=== PATIENT | male | born 1940 | race Caucasian/White ===

== ENCOUNTER 2019-02-28 10:10 | Inpatient (IN) | payer OTHER ==
--- NOTE | 2019-02-28 11:20 | PDOC ---
History of Present Illness - General Chief Complaint: Wound Stated Complaint: SENT BY PCP // CELLULTIS RT TMA Time Seen by Provider: 02/28/19 10:38 History Source: Patient - History of Present Illness Initial Comments: 78 y/o/m sent here from the wound care clinic for admission for IV antibiotics. He was seen in the wound care clinic yesterday and told to come to the ED for admission. Yesterday the patient decided to go home so he could get his clothes and came back today for admission. He states that about 4 months ago he had all the toes on his right foot amputated. He states he has been following up for care since then but his wound has not been healing well. He denies having any pain in his foot. He uses an offloading shoe for his right foot. He denies any fever, chills, chest pain, SOB, or other concerns. PMHx: HTN, DM, GERD, gout, ?CHF SHx: amputation of all toes of right foot Social: Past tobacco use, denies current tobacco and alcohol use Past History - Past Medical History Allergies/Adverse Reactions: Allergies Allergy/AdvReac Type Severity Reaction Status Date / Time No Known Allergies Allergy Verified 02/28/19 10:28 Home Medications: Ambulatory Orders Allopurinol [Zyloprim -] 1 tab PO DAILY 03/04/18 Aspirin [ASA -] 1 tab PO DAILY 03/04/18 Atorvastatin Ca [Lipitor] 1 tab PO DAILY 03/04/18 Calcitriol [Calcitriol -] 1 tab PO DAILY 03/04/18 Esomeprazole Magnesium 1 cap PO DAILY 03/04/18 Ferrous Sulfate 1 tab PO Q2D 03/04/18 Glipizide Xl [Glucotrol Xl -] 1 tab PO DAILY 03/04/18 Pregabalin [Lyrica] 1 cap PO HS 03/04/18 Spironolactone 1 tab PO DAILY 03/04/18 Tamsulosin HCl 1 cap PO DAILY 03/04/18 Diabetes: Yes HTN: Yes Hypercholesterolemia: Yes - Surgical History Cardiac Surgery: Yes (pacemaker 05/2012) - Suicide/Smoking/Psychosocial Hx Smoking History: Never smoked If you are a former smoker, when did you quit?: 40 years ago Review of Systems - Review of Systems Able to Perform ROS?: Yes Constitutional: No: Chills, Fever HEENTM: No: Nose Congestion Respiratory: No: Cough, Shortness of Breath Cardiac (ROS): No: Chest Pain ABD/GI: No: Diarrhea, Nausea, Vomiting : No: Dysuria, Hematuria Musculoskeletal: Yes: Joint Pain Integumentary: Yes: Erythema (right foot) Neurological: No: Headache, Numbness Endocrine: Yes: Excessive Sweating *Physical Exam - Vital Signs Last Vital Signs Temp Pulse Resp BP Pulse Ox 98.2 F 72 16 84/45 L 99 02/28/19 10:15 02/28/19 10:15 02/28/19 10:15 02/28/19 10:15 02/28/19 10:15 - Physical Exam General Appearance: Yes: Nourished HEENT: positive: EOMI Neck: positive: Trachea midline, Supple Respiratory/Chest: positive: Lungs Clear. negative: Accessory Muscle Use, Crackles, Rales, Rhonchi Cardiovascular: positive: Regular Rhythm, Regular Rate, S1, S2 Gastrointestinal/Abdominal: positive: Normal Bowel Sounds, Soft. negative: Tender Extremity: positive: Normal Capillary Refill, Swelling (2+ non pitting edema of right lower leg) Integumentary: positive: Dry, Other (erythema and warmth of right foot. open wound with pus, drainage, and foul odor. no tenderness to palpation) Neurologic: positive: Fully Oriented, Alert, Motor Strength 5/5 ED Treatment Course - LABORATORY CBC & Chemistry Diagram: 02/28/19 10:35 02/28/19 11:27 Medical Decision Making - Medical Decision Making 02/28/19 12:04 78 y/o/m sent here from the wound care clinic for admission for IV antibiotics. He was seen in the wound care clinic yesterday and told to come to the ED for admission. CBC, CMP, wound culture, CXR, EKG ordered. ID, Vascular, Podiatry consulted. Patient admitted under Dr. Pimentel. Vanc/Zosyn abx started. 02/28/19 12:07 CBC shows elevated WBC, mild anemia. CMP pending. *DC/Admit/Observation/Transfer Diagnosis at time of Disposition: Cellulitis of right foot - Referrals - Patient Instructions - Post Discharge Activity
[2019-02-28] MEDS ORDERED: VANCOMYCIN 1 GM in D5W (PRE-DOCKED) 1,000 MG/250 ML IVPB ONE (11:47)
[2019-02-28] MEDS ORDERED: PIPERACILLIN/TAZOB 4.5 GM 4.5 GM in DEXTROSE 5%-WATER 100 ML IVPB ONE (11:48)
[2019-02-28 11:53] LABS: BASO % 1.1 % (0-2.0); EOS % 1.4 % (0-4.5); HEMATOCRIT 35.5 % (35.4-49); HEMOGLOBIN 11.1 GM/dL (11.7-16.9); LYMPH % 13.3 % (8-40); MCH 21.9 pg (25.7-33.7); MCHC 31.2 g/dl (32.0-35.9); MEAN CELL VOLUME 69.9 fl (80-96); MEAN PLT VOLUME 9.4 fl (7.5-11.1); MONO % 9.4 % (3.8-10.2); NEUT % 74.8 % (42.8-82.8); PLATELET COUNT 228 K/MM3 (134-434); RBC 5.08 M/mm3 (4.00-5.60); RDW 17.9 % (11.9-15.9); WHITE BLOOD COUNT 12.8 K/mm3 (4.0-10.0)
[2019-02-28] MEDS ORDERED: VANCOMYCIN 1 GRAM (PRE-DOCKED) 1,000 MG/250 ML BAG IVPB ONE (12:15)
[2019-02-28] MEDS ORDERED: PIPERACILLIN/TAZOB 4.5 GM 4.5 GM/100 ML BAG IVPB ONE (12:15)
[2019-02-28 12:21] LABS: ALBUMIN 3.1 g/dl (3.4-5.0); BILIRUBIN,TOTAL 0.7 mg/dL (0.2-1); BLOOD UREA NITROGEN 40.2 mg/dL (7-18); CALCIUM 8.9 mg/dL (8.5-10.1); CREATININE 1.6 mg/dL (0.55-1.3); POTASSIUM 5.1 mmol/L (3.5-5.1); TOT PROT 6.9 g/dl (6.4-8.2)
--- NOTE | 2019-02-28 12:25 | PDOC ---
Documentation entered by Jane Arana SCRIBE, acting as scribe for Valdemar Meehan MD. Valdemar Meehan MD: This documentation has been prepared by the traciibeSumit Natalie, SCRIBE, under my direction and personally reviewed by me in its entirety. I confirm that the documentation accurately reflects all work, treatment, procedures, and medical decision making performed by me. Attending Attestation - Resident Resident Name: LeenaPerryvigneshcampbell Ambika - ED Attending Attestation I have performed the following: I have examined & evaluated the patient, The case was reviewed & discussed with the resident, I agree w/resident's findings & plan, Exceptions are as noted - HPI HPI: 02/28/19 12:20 The patient is a 78-year-old male, with a past medical history of T2DM, HTN, pacemaker (placed 10 years ago), who was sent to the ED from the wound care center for admission for IV antibiotics. Patient is s/p RT TMA amputation performed [address] Johnson. He was last seen at the wound care center yesterday, but the wound is not healing well so the patient was advised to report to the ED for admission. The patient did not report to the ED yesterday and came today instead. The patient denies any fevers, chills, nausea, vomiting, or diarrhea. He denies any chest pain or shortness of breath. - Physicial Exam PE: 02/28/19 12:20 Vitals: Triage Vital signs reviewed General Appearance: no acute distress, well nourished well developed, Head: Atraumatic, Cardiac: Regular rate and rhythym, no murmurs, no rubs, no gallops, Lungs: Clear to auscultation bilateral, good air movement bilaterally, Abdomen: Soft, non distended, normal bowel sounds, non tender to palpation Genitourinary: Rectal: Exam deferred Extremities: Full range of motion to all extremities, s/p toe amputation with redness and open with with pus to right foot Skin: Warm and dry, no rashes or lesions, no rash, no petechiae Psych: normal mood, normal affect - Medical Decision Making 02/28/19 12:24 78 years old with diabetic foot ulcer Sent to ED by podiatry for IV antibiotics and further management We'll admit to hospitalist for further management start patient on Vanc and Zosyn
--- NOTE | 2019-02-28 13:53 | EKG ---
Test Reason : Blood Pressure : / mmHG Vent. Rate : 068 BPM Atrial Rate : 068 BPM P-R Int : 244 ms QRS Dur : 130 ms QT Int : 444 ms P-R-T Axes : 018 -54 063 degrees QTc Int : 472 ms SINUS RHYTHM WITH 1ST DEGREE A-V BLOCK LEFT AXIS DEVIATION RIGHT BUNDLE BRANCH BLOCK MODERATE VOLTAGE CRITERIA FOR LVH, MAY BE NORMAL VARIANT T WAVE ABNORMALITY, CONSIDER LATERAL ISCHEMIA ABNORMAL ECG NO PREVIOUS ECGS AVAILABLE Confirmed by ALYSSA LARES MD ([id number]) on 02/28/2019 1:52:41 PM Referred By: Confirmed By:ALYSSA LARES MD
--- NOTE | 2019-02-28 14:01 | CON.ID ---
Consult - Past Medical History Cardio/Vascular: Yes: HTN Endocrine: Yes: Diabetes Mellitus - Past Surgical History Past Surgical History: Yes: Permanent Pacemaker - Smoking History Smoking history: Never smoked If you are a former smoker, when did you quit?: 40 years ago Home Medications - Allergies Allergies/Adverse Reactions: Allergies Allergy/AdvReac Type Severity Reaction Status Date / Time No Known Allergies Allergy Verified 02/28/19 10:28 - Home Medications Home Medications: Ambulatory Orders Allopurinol [Zyloprim -] 1 tab PO DAILY 03/04/18 Aspirin [ASA -] 1 tab PO DAILY 03/04/18 Atorvastatin Ca [Lipitor] 1 tab PO DAILY 03/04/18 Calcitriol [Calcitriol -] 1 tab PO DAILY 03/04/18 Esomeprazole Magnesium 1 cap PO DAILY 03/04/18 Ferrous Sulfate 1 tab PO Q2D 03/04/18 Glipizide Xl [Glucotrol Xl -] 1 tab PO DAILY 03/04/18 Pregabalin [Lyrica] 1 cap PO HS 03/04/18 Spironolactone 1 tab PO DAILY 03/04/18 Tamsulosin HCl 1 cap PO DAILY 03/04/18 Physical Exam Vital Signs: Vital Signs Temperature 98.2 F 02/28/19 10:15 Pulse Rate 72 02/28/19 10:15 Respiratory Rate 16 02/28/19 10:15 Blood Pressure 140/57 L 02/28/19 11:11 O2 Sat by Pulse Oximetry (%) 99 02/28/19 10:15 Labs: CBC, BMP 02/28/19 10:35 02/28/19 11:27
--- NOTE | 2019-02-28 15:20 | CONSULT ---
- Consultation REQUESTING PROVIDER: CONSULT REQUEST: We have been asked to surgically evaluate this patient for ( specify). PCP:Maribel Pimentel HISTORY OF PRESENT ILLNESS: 78 y/o/ m w/ PMHx HTN, NIDDM, GERD, GOUT, ?CHF, sent from wound care by Dr Johnson for admission for IV antibiotics. Pt reports he had a R TMA 4 months ago at [facility] for infected toes. He was following up with his DPM for a few weeks afterwards, but has not seen him "for a long time". Was seen yesterday and told to go to the ER as his foot is infected. Reports he has been walking on his foot which caused the site to open, though he cannot remember when it opened up. Denies fevers/chills, n/v/d, cp/sob at home. At baseline pt lives on his own, reports he has "help" at home from various family members. Ambulates with b/l offloading shoes and the use of a rolling walker. Denies h/o tobacco abuse, claudication or vascular interventions. PMHx: as above PSHx: as above Home Medications Medication Instructions Recorded Allopurinol [Zyloprim -] 1 tab PO DAILY 03/04/18 Aspirin [ASA -] 1 tab PO DAILY 03/04/18 Atorvastatin Ca [Lipitor] 1 tab PO DAILY 03/04/18 Calcitriol [Calcitriol -] 1 tab PO DAILY 03/04/18 Esomeprazole Magnesium 1 cap PO DAILY 03/04/18 Ferrous Sulfate 1 tab PO Q2D 03/04/18 Glipizide Xl [Glucotrol Xl -] 1 tab PO DAILY 03/04/18 Pregabalin [Lyrica] 1 cap PO HS 03/04/18 Spironolactone 1 tab PO DAILY 03/04/18 Tamsulosin HCl 1 cap PO DAILY 03/04/18 Allergies Allergy/AdvReac Type Severity Reaction Status Date / Time No Known Allergies Allergy Verified 02/28/19 10:28 REVIEW OF SYSTEMS: CONSTITUTIONAL: Absent: fever, chills CARDIOVASCULAR: Absent: chest pain, syncope RESPIRATORY: Absent: cough, shortness of breath GASTROINTESTINAL: Absent: abdominal pain PHYSICAL EXAM: GENERAL: Awake, alert, and fully oriented, in no acute distress. HEAD: Normal with no signs of trauma. LOWER EXTREMITIES: L foot with no ulcerations. R foot with open TMA site, necrotic tendons exposed, +slough over mid portion of foot. + erythema extending to mid foot on plantar and dorsal surface. Vasc: 2+ dp/pt b/l, warm, well-perfused. Vital Signs Temperature 98.2 F 02/28/19 10:15 Pulse Rate 72 02/28/19 10:15 Respiratory Rate 16 02/28/19 10:15 Blood Pressure 140/57 L 02/28/19 11:11 O2 Sat by Pulse Oximetry (%) 99 02/28/19 10:15 Lab Results WBC 12.8 K/mm3 (4.0-10.0) H 02/28/19 10:35 RBC 5.08 M/mm3 (4.00-5.60) 02/28/19 10:35 Hgb 11.1 GM/dL (11.7-16.9) L 02/28/19 10:35 Hct 35.5 % (35.4-49) 02/28/19 10:35 MCV 69.9 fl (80-96) L 02/28/19 10:35 MCHC 31.2 g/dl (32.0-35.9) L 02/28/19 10:35 RDW 17.9 % (11.9-15.9) H 02/28/19 10:35 Plt Count 228 K/MM3 (134-434) 02/28/19 10:35 Sodium 135 mmol/L (136-145) L 02/28/19 11:27 Potassium 5.1 mmol/L (3.5-5.1) 02/28/19 11:27 Chloride 101 mmol/L (98-107) 02/28/19 11:27 Carbon Dioxide 26 mmol/L (21-32) 02/28/19 11:27 Anion Gap 8 MMOL/L (8-16) 02/28/19 11:27 BUN 40.2 mg/dL (7-18) H 02/28/19 11:27 Creatinine 1.6 mg/dL (0.55-1.3) H 02/28/19 11:27 Random Glucose 125 mg/dL (74-106) H 02/28/19 11:27 Calcium 8.9 mg/dL (8.5-10.1) 09/13/19 11:27 A/P: 78 y/o/ m w/ PMHx HTN, NIDDM, GERD, GOUT, ?CHF, sent from wound care by Dr Johnson for admission for IV antibiotics. Infected R TMA. Palpable pedal pulses -No acute vascular intervention at this time -Wound care and surgical management per podiatry -Glucose control d/w attending Dr Nolen
[2019-02-28] MEDS: PIPERACILLIN/TAZOB 2.25 GM 2.25 GM in DEXTROSE 5%-WATER - 50 ML IVPB SCH ×2 (15:53→21:42)
[2019-02-28 17:06] VITALS: BMI 42.5
[2019-02-28 18:27] LABS: ANISOCYTOSIS 2+; MACROCYTOSIS 0; OVALOCYTE 1+; PLATELET ESTIMATE NORMAL; TEAR DROP CELLS 1+
[2019-02-28] MEDS ORDERED: PIPERACILLIN/TAZOBACTAM 2.25 GM VIAL IVPB ONE (21:04)
[2019-02-28] MEDS ORDERED: DEXTROSE 5%-WATER - 50 ML IVPB ONE (21:04)
[2019-02-28 21:50] LABS: BASO % 0.5 % (0-2.0); HEMOGLOBIN 11.7 GM/dL (11.7-16.9); LYMPH % 15.9 % (8-40); MCH 22.3 pg (25.7-33.7); MCHC 31.6 g/dl (32.0-35.9); MEAN CELL VOLUME 70.7 fl (80-96); MEAN PLT VOLUME 9.8 fl (7.5-11.1); MONO % 10.2 % (3.8-10.2); NEUT % 71.4 % (42.8-82.8); PLATELET COUNT 226 K/MM3 (134-434); RBC 5.23 M/mm3 (4.00-5.60); RDW 18.1 % (11.9-15.9); WHITE BLOOD COUNT 10.7 K/mm3 (4.0-10.0)
[2019-03-01] MEDS ORDERED: PIPERACILLIN/TAZOB 3.375 GM 3.375 GM in DEXTROSE 5%-WATER - 50 ML IVPB SCH (02:15)
[2019-03-01] MEDS: VANCOMYCIN 1 GRAM (PRE-DOCKED) 1,000 MG/250 ML BAG IVPB SCH ×2 (02:30→13:36)
[2019-03-01] MEDS ORDERED: PIPERACILLIN/TAZOBACTAM 2.25 GM VIAL IVPB ONE ×4 (02:41→21:03)
[2019-03-01] MEDS ORDERED: DEXTROSE 5%-WATER - 50 ML IVPB ONE ×4 (02:41→21:03)
[2019-03-01] MEDS: PIPERACILLIN/TAZOB 2.25 GM 2.25 GM in DEXTROSE 5%-WATER - 50 ML IVPB SCH ×4 (03:50→21:16)
[2019-03-01] MEDS: INSULIN SLIDING SCALE (NOVOLOG) 1 VIAL SQ SCH ×4 (06:31→21:17)
[2019-03-01] MEDS: glipiZIDE-XL 2.5 MG TAB.ER.24 PO SCH (06:48)
[2019-03-01 07:13] LABS: BASO % 0.7 % (0-2.0); EOS % 2.6 % (0-4.5); HEMATOCRIT 36.6 % (35.4-49); HEMOGLOBIN 11.7 GM/dL (11.7-16.9); LYMPH % 17.3 % (8-40); MCH 22.4 pg (25.7-33.7); MCHC 31.9 g/dl (32.0-35.9); MEAN CELL VOLUME 70.3 fl (80-96); MEAN PLT VOLUME 9.4 fl (7.5-11.1); MONO % 9.8 % (3.8-10.2); NEUT % 69.6 % (42.8-82.8); PLATELET COUNT 226 K/MM3 (134-434); RDW 18.2 % (11.9-15.9); WHITE BLOOD COUNT 10.2 K/mm3 (4.0-10.0)
[2019-03-01 07:41] LABS: ALBUMIN 2.9 g/dl (3.4-5.0); BILIRUBIN,TOTAL 0.9 mg/dL (0.2-1); CALCIUM 8.7 mg/dL (8.5-10.1); CREATININE 1.6 mg/dL (0.55-1.3); POTASSIUM 4.3 mmol/L (3.5-5.1); TOT PROT 6.5 g/dl (6.4-8.2)
--- NOTE | 2019-03-01 07:57 | CONSULT ---
Consult Consult Specialty:: Podiatry Reason for Consultation:: wound right foot - History of Present Illness History of Present Illness: s/p tma 4 months ago - History Source History Provided By: Patient, Medical Record, Caregiver Limitations to Obtaining History: Other (poor undrstanding of disease) - Past Medical History Cardio/Vascular: Yes: HTN Endocrine: Yes: Diabetes Mellitus - Past Surgical History Past Surgical History: Yes: Permanent Pacemaker - Alcohol/Substance Use Hx Alcohol Use: No - Smoking History Smoking history: Never smoked Have you smoked in the past 12 months: No If you are a former smoker, when did you quit?: 40 years ago Home Medications - Allergies Allergies/Adverse Reactions: Allergies Allergy/AdvReac Type Severity Reaction Status Date / Time No Known Allergies Allergy Verified 02/28/19 10:28 - Home Medications Home Medications: Ambulatory Orders Allopurinol [Zyloprim -] 1 tab PO DAILY 03/04/18 Aspirin [ASA -] 1 tab PO DAILY 03/04/18 Atorvastatin Ca [Lipitor] 1 tab PO DAILY 03/04/18 Calcitriol [Calcitriol -] 1 tab PO DAILY 03/04/18 Esomeprazole Magnesium 1 cap PO DAILY 03/04/18 Ferrous Sulfate 1 tab PO Q2D 03/04/18 Glipizide Xl [Glucotrol Xl -] 1 tab PO DAILY 03/04/18 Pregabalin [Lyrica] 100 mg PO HS 03/04/18 Spironolactone 1 tab PO DAILY 03/04/18 Tamsulosin HCl 1 cap PO DAILY 03/04/18 Acetaminophen [Tylenol -] 500 mg PO Q6H PRN 02/28/19 Allopurinol [Zyloprim -] 100 mg PO DAILY 02/28/19 Aspirin [ASA -] 81 mg PO DAILY 02/28/19 Carvedilol [ Coreg] 25 mg PO BID 02/28/19 Multivitamin [Multiple Vitamins] 1 tab PO DAILY 02/28/19 Rivaroxaban [Xarelto] 15 mg PO BID 02/28/19 Torsemide 40 mg PO BID 02/28/19 Physical Exam Vital Signs: Vital Signs Temperature 98.1 F 03/01/19 05:56 Pulse Rate 64 03/01/19 05:56 Respiratory Rate 20 03/01/19 05:56 Blood Pressure 116/61 03/01/19 05:56 O2 Sat by Pulse Oximetry (%) 96 02/28/19 20:48 Extremities: Yes: Other (+foul smelling wound right foot, +clear drainage, + cellulitis improving since ,) Labs: CBC, BMP 03/01/19 06:44 03/01/19 06:44 Assessment/Plan om? s/p tma Awaiting xray and MRI to take to OR and revise/clean wound area. Read and appreciated vascular note. Betadine dressing to foot. Please maximize for OR most likely on Sunday AM. will follow. Abx as per ID. WBC improving.
[2019-03-01] MEDS: TAMSULOSIN HCL 0.4 MG CAP PO SCH (08:24)
[2019-03-01] MEDS: MULTIVITAMINS (DAILY MVI) TABLET (FP) PO SCH (09:54)
[2019-03-01] MEDS: ASPIRIN 81 MG CHEWABLE TABLETS PO SCH (09:54)
[2019-03-01] MEDS: SPIRONOLACTONE 25 MG TABLET (FP) PO SCH (09:54)
[2019-03-01] MEDS: CARVEDILOL 25 MG TABLET (FP) PO SCH ×2 (09:54→21:17)
[2019-03-01] MEDS: ALLOPURINOL 100 MG TABLET (FP) PO SCH (09:54)
[2019-03-01] MEDS: RIVAROXABAN 15 MG TABLET PO SCH ×2 (09:54→21:17)
[2019-03-01] MEDS: FERROUS SO4 325 MG TABLET (FP) PO SCH (09:54)
[2019-03-01] MEDS: CALCITRIOL 0.25 MCG CAPSULE (FP) PO SCH (09:57)
[2019-03-01] MEDS ORDERED: PATIENT'S OWN MEDICATION (NON-FORMULARY) (Ferrous Sulfate [Ferrous Sulfate] 1 TAB) PO SCH (10:00)
[2019-03-01] MEDS ORDERED: CARVEDILOL 25 MG PO SCH (10:00)
[2019-03-01] MEDS: ACETAMINOPHEN 500 MG TABLET (FP) PO PRN ×2 (10:25→17:34)
--- NOTE | 2019-03-01 14:16 | PN ---
Progress Note, Physician History of Present Illness: Pt seen, events noted, results reviewed. He is alert, afebrile, denies pain in foot. Agitated because he feels he is not receiving all the pills he takes at home. Has no other specific complaints. - Current Medication List Current Medications: Active Medications Acetaminophen (Tylenol -) 500 mg PO Q6H PRN PRN Reason: PAIN SCALE 4-6 Last Admin: 03/01/19 10:25 Dose: 500 mg Allopurinol (Zyloprim -) 100 mg PO DAILY [facility] Last Admin: 03/01/19 09:54 Dose: 100 mg Aspirin (Asa -) 81 mg PO DAILY [facility] Last Admin: 03/01/19 09:54 Dose: 81 mg Atorvastatin Calcium (Lipitor -) 40 mg PO HS [facility] Calcitriol (Rocaltrol -) 0.25 mcg PO DAILY [facility] Last Admin: 03/01/19 09:57 Dose: 0.25 mcg Carvedilol (Coreg -) 25 mg PO BID [facility] Last Admin: 03/01/19 09:54 Dose: 25 mg Ferrous Sulfate (Feosol -) 325 mg PO Q2D [facility] Last Admin: 03/01/19 09:54 Dose: 325 mg Glipizide (Glucotrol Xl -) 2.5 mg PO DAILY@0700 [facility] Last Admin: 03/01/19 06:48 Dose: 2.5 mg Piperacillin Sod/Tazobactam (Sod 2.25 gm/ Dextrose) 50 mls @ 100 mls/hr IVPB Q6H-IV [facility]; Protocol Last Admin: 03/01/19 08:24 Dose: 100 mls/hr Vancomycin HCl (Vancomycin (Pre-Docked)) 1,000 mg in 250 mls @ 166.667 mls/hr IVPB Q12H [facility] Last Admin: 03/01/19 13:36 Dose: 166.667 mls/hr Insulin Aspart (Novolog Vial Sliding Scale -) 1 vial SQ ACHS [facility]; Protocol Last Admin: 03/01/19 11:44 Dose: Not Given Multivitamins/Minerals/Vitamin C (Tab-A-Vit -) 1 tab PO DAILY [facility] Last Admin: 03/01/19 09:54 Dose: 1 tab Pregabalin (Lyrica -) 100 mg PO HS [facility] Rivaroxaban (Xarelto) 15 mg PO BID [facility] Last Admin: 03/01/19 09:54 Dose: 15 mg Spironolactone (Aldactone -) 25 mg PO DAILY [facility] Last Admin: 03/01/19 09:54 Dose: 25 mg Tamsulosin HCl (Flomax -) 0.4 mg PO DAILY@0830 [facility] Last Admin: 03/01/19 08:24 Dose: 0.4 mg - Objective Vital Signs: Vital Signs Temperature 98.0 F 03/01/19 10:00 Pulse Rate 70 03/01/19 10:00 Respiratory Rate 18 03/01/19 10:00 Blood Pressure 126/77 03/01/19 10:00 O2 Sat by Pulse Oximetry (%) 95 03/01/19 08:42 Constitutional: Yes: No Distress Cardiovascular: Yes: Regular Rate and Rhythm Respiratory: Yes: Regular Gastrointestinal: Yes: Normal Bowel Sounds, Soft Genitourinary: Yes: WNL Extremities: Yes: Amputation (Rt TMA) Peripheral Pulses WNL: Yes Integumentary: Yes: WNL Wound/Incision: Yes: Dressing Dry and Intact (Rt foot TMA, no foot pain) Labs: CBC, BMP 03/01/19 06:44 03/01/19 06:44 Microbiology 02/28/19 12:35 Blood - Peripheral Venous Blood Culture - Preliminary NO GROWTH OBTAINED AFTER 24 HOURS, INCUBATION TO CONTINUE FOR 4 DAYS. 02/28/19 12:45 Blood - Peripheral Venous Blood Culture - Preliminary NO GROWTH OBTAINED AFTER 24 HOURS, INCUBATION TO CONTINUE FOR 4 DAYS. 02/28/19 11:57 Foot - Right Sole Gram Stain - Final 02/28/19 11:57 Foot - Right Sole Wound Culture - Preliminary Non Lactose Fermenting Gnb Staphylococcus Latex Coag Pos Beta Hemolytic Strep - ....Imaging X-ray: Report Reviewed Problem List - Problems (1) Cellulitis of right foot Code(s): L03.115 - CELLULITIS OF RIGHT LOWER LIMB (2) Diabetic foot ulcer Code(s): E11.621 - TYPE 2 DIABETES MELLITUS WITH FOOT ULCER; L97.509 - NON- PRESSURE CHRONIC ULCER OTH PRT UNSP FOOT W UNSP SEVERITY Qualifiers: Diabetic foot ulcer location: other (3) Type 2 diabetes mellitus Code(s): E11.9 - TYPE 2 DIABETES MELLITUS WITHOUT COMPLICATIONS Qualifiers: Diabetes mellitus complication detail: with autonomic neuropathy Assessment/Plan Infected RT TMA site DM HTN s/p PPM CKD Gout GERD -- continue current antibiotics until wound culture results finalized -- Vancomycin trough prior to 4th dose, monitor renal function -- Triple phase bone scan ordered -- Podiatry following, for possible debridement on Sunday -- Vascular evaluation noted -- continue wound care -- please review list of home meds pt normally takes and need for possible continuation, discussed with RN
--- NOTE | 2019-03-01 16:47 | HP ---
Admitting History and Physical - Past Medical History Cardiovascular: Yes: HTN Endocrine: Yes: Diabetes Mellitus - Past Surgical History Past Surgical History: Yes: Permanent Pacemaker - Smoking History Smoking history: Never smoked Have you smoked in the past 12 months: No If you are a former smoker, when did you quit?: 40 years ago - Alcohol/Substance Use Hx Alcohol Use: No Home Medications - Allergies Allergies/Adverse Reactions: Allergies Allergy/AdvReac Type Severity Reaction Status Date / Time No Known Allergies Allergy Verified 02/28/19 10:28 - Home Medications Home Medications: Ambulatory Orders Allopurinol [Zyloprim -] 1 tab PO DAILY 03/04/18 Aspirin [ASA -] 1 tab PO DAILY 03/04/18 Atorvastatin Ca [Lipitor] 1 tab PO DAILY 03/04/18 Calcitriol [Calcitriol -] 1 tab PO DAILY 03/04/18 Esomeprazole Magnesium 1 cap PO DAILY 03/04/18 Ferrous Sulfate 1 tab PO Q2D 03/04/18 Glipizide Xl [Glucotrol Xl -] 1 tab PO DAILY 03/04/18 Pregabalin [Lyrica] 100 mg PO HS 03/04/18 Spironolactone 1 tab PO DAILY 03/04/18 Tamsulosin HCl 1 cap PO DAILY 03/04/18 Acetaminophen [Tylenol -] 500 mg PO Q6H PRN 02/28/19 Allopurinol [Zyloprim -] 100 mg PO DAILY 02/28/19 Aspirin [ASA -] 81 mg PO DAILY 02/28/19 Carvedilol [ Coreg] 25 mg PO BID 02/28/19 Multivitamin [Multiple Vitamins] 1 tab PO DAILY 02/28/19 Rivaroxaban [Xarelto] 15 mg PO BID 02/28/19 Torsemide 40 mg PO BID 02/28/19 Physical Examination Vital Signs: Vital Signs Temperature 98.0 F 03/01/19 10:00 Pulse Rate 70 03/01/19 10:00 Respiratory Rate 18 03/01/19 10:00 Blood Pressure 126/77 03/01/19 10:00 O2 Sat by Pulse Oximetry (%) 95 03/01/19 08:42 Labs: CBC, BMP 03/01/19 06:44 03/01/19 06:44
[2019-03-01] MEDS ORDERED: INSULIN (NOVOLOG) ASPART 100 UNITS/ML 10ML VIAL ONE (21:03)
[2019-03-01] MEDS: PREGABALIN 100 MG CAPSULE PO SCH (21:17)
[2019-03-01] MEDS: ATORVASTATIN CA 40 MG TABLET (FP) PO SCH (21:17)
[2019-03-02] MEDS ORDERED: DEXTROSE 5%-WATER - 50 ML IVPB ONE ×4 (02:34→20:49)
[2019-03-02] MEDS ORDERED: PIPERACILLIN/TAZOBACTAM 2.25 GM VIAL IVPB ONE ×4 (02:34→20:49)
[2019-03-02] MEDS: PIPERACILLIN/TAZOB 2.25 GM 2.25 GM in DEXTROSE 5%-WATER - 50 ML IVPB SCH ×4 (02:50→21:17)
[2019-03-02] MEDS: VANCOMYCIN 1 GRAM (PRE-DOCKED) 1,000 MG/250 ML BAG IVPB SCH ×2 (02:50→14:37)
[2019-03-02] MEDS ORDERED: PT OWN MED DRAWER 7, Y5N ONE (05:50)
[2019-03-02] MEDS: INSULIN SLIDING SCALE (NOVOLOG) 1 VIAL SQ SCH ×4 (06:15→21:15)
[2019-03-02] MEDS: glipiZIDE-XL 2.5 MG TAB.ER.24 PO SCH (06:48)
[2019-03-02] MEDS: ACETAMINOPHEN 500 MG TABLET (FP) PO PRN ×2 (06:48→21:18)
[2019-03-02] MEDS: CARVEDILOL 25 MG TABLET (FP) PO SCH ×2 (09:48→21:17)
[2019-03-02] MEDS: ALLOPURINOL 100 MG TABLET (FP) PO SCH (09:48)
[2019-03-02] MEDS: ASPIRIN 81 MG CHEWABLE TABLETS PO SCH (09:48)
[2019-03-02] MEDS: RIVAROXABAN 15 MG TABLET PO SCH ×2 (09:48→21:18)
[2019-03-02] MEDS: SPIRONOLACTONE 25 MG TABLET (FP) PO SCH (09:48)
[2019-03-02] MEDS: CALCITRIOL 0.25 MCG CAPSULE (FP) PO SCH (09:49)
[2019-03-02] MEDS: TAMSULOSIN HCL 0.4 MG CAP PO SCH (09:49)
[2019-03-02] MEDS: MULTIVITAMINS (DAILY MVI) TABLET (FP) PO SCH (09:50)
--- NOTE | 2019-03-02 19:33 | PN ---
Progress Note, Physician History of Present Illness: Pt is alert, denies pain in Rt foot. Tolerating antibiotics. No new events. - Current Medication List Current Medications: Active Medications Acetaminophen (Tylenol -) 500 mg PO Q6H PRN PRN Reason: PAIN SCALE 4-6 Last Admin: 03/02/19 06:48 Dose: 500 mg Allopurinol (Zyloprim -) 100 mg PO DAILY [facility] Last Admin: 03/02/19 09:48 Dose: 100 mg Aspirin (Asa -) 81 mg PO DAILY [facility] Last Admin: 03/02/19 09:48 Dose: 81 mg Atorvastatin Calcium (Lipitor -) 40 mg PO HS [facility] Last Admin: 03/01/19 21:17 Dose: 40 mg Calcitriol (Rocaltrol -) 0.25 mcg PO DAILY [facility] Last Admin: 03/02/19 09:49 Dose: 0.25 mcg Carvedilol (Coreg -) 25 mg PO BID [facility] Last Admin: 03/02/19 09:48 Dose: 25 mg Ferrous Sulfate (Feosol -) 325 mg PO Q2D [facility] Last Admin: 03/01/19 09:54 Dose: 325 mg Glipizide (Glucotrol Xl -) 2.5 mg PO DAILY@0700 [facility] Last Admin: 03/02/19 06:48 Dose: 2.5 mg Piperacillin Sod/Tazobactam (Sod 2.25 gm/ Dextrose) 50 mls @ 100 mls/hr IVPB Q6H-IV [facility]; Protocol Last Admin: 03/02/19 16:12 Dose: 100 mls/hr Vancomycin HCl (Vancomycin (Pre-Docked)) 1,000 mg in 250 mls @ 166.667 mls/hr IVPB Q12H [facility] Last Admin: 03/02/19 14:37 Dose: 166.667 mls/hr Insulin Aspart (Novolog Vial Sliding Scale -) 1 vial SQ ACHS [facility]; Protocol Last Admin: 03/02/19 16:15 Dose: Not Given Multivitamins/Minerals/Vitamin C (Tab-A-Vit -) 1 tab PO DAILY [facility] Last Admin: 03/02/19 09:50 Dose: 1 tab Pregabalin (Lyrica -) 100 mg PO HS [facility] Last Admin: 03/01/19 21:17 Dose: 100 mg Rivaroxaban (Xarelto) 15 mg PO BID [facility] Last Admin: 03/02/19 09:48 Dose: 15 mg Spironolactone (Aldactone -) 25 mg PO DAILY [facility] Last Admin: 03/02/19 09:48 Dose: 25 mg Tamsulosin HCl (Flomax -) 0.4 mg PO DAILY@0830 [facility] Last Admin: 03/02/19 09:49 Dose: 0.4 mg Torsemide (Demadex -) 20 mg PO BIDLASIX [facility] - Objective Vital Signs: Vital Signs Temperature 98 F 03/02/19 08:48 Pulse Rate 66 03/02/19 08:48 Respiratory Rate 18 03/02/19 09:00 Blood Pressure 139/83 03/02/19 08:48 O2 Sat by Pulse Oximetry (%) 95 03/02/19 09:00 Constitutional: Yes: No Distress, Calm Cardiovascular: Yes: Regular Rate and Rhythm Respiratory: Yes: Regular Gastrointestinal: Yes: Normal Bowel Sounds, Soft Genitourinary: Yes: WNL Extremities: Yes: Amputation (RT TMA) Edema: Yes Edema: LLE: 1+ Wound/Incision: Yes: Dressing Dry and Intact, Other (RT TMA, +foot erythema/ edema, no tenderness) Labs: CBC, BMP 03/01/19 06:44 03/01/19 06:44 Microbiology 02/28/19 12:35 Blood - Peripheral Venous Blood Culture - Preliminary NO GROWTH OBTAINED AFTER 48 HOURS, INCUBATION TO CONTINUE FOR 3 DAYS. 02/28/19 12:45 Blood - Peripheral Venous Blood Culture - Preliminary NO GROWTH OBTAINED AFTER 48 HOURS, INCUBATION TO CONTINUE FOR 3 DAYS. 02/28/19 11:57 Foot - Right Sole Gram Stain - Final 02/28/19 11:57 Foot - Right Sole Wound Culture - Preliminary Citrobacter Amalonaticus Staphylococcus Aureus Beta Hemolytic Strep Problem List - Problems (1) Cellulitis of right foot Code(s): L03.115 - CELLULITIS OF RIGHT LOWER LIMB (2) Diabetic foot ulcer Code(s): E11.621 - TYPE 2 DIABETES MELLITUS WITH FOOT ULCER; L97.509 - NON- PRESSURE CHRONIC ULCER OTH PRT UNSP FOOT W UNSP SEVERITY Qualifiers: Diabetic foot ulcer location: other (3) Type 2 diabetes mellitus Code(s): E11.9 - TYPE 2 DIABETES MELLITUS WITHOUT COMPLICATIONS Qualifiers: Diabetes mellitus complication detail: with autonomic neuropathy Assessment/Plan Infected RT TMA site DM HTN s/p PPM CKD Gout GERD -- continue IV antibiotics -- Vancomycin trough ordered for tomorrow -- monitor renal function -- awaiting Triple phase bone scan -- Podiatry following, for possible debridement on Sunday -- Vascular evaluation noted -- continue wound care
[2019-03-02] MEDS: PREGABALIN 100 MG CAPSULE PO SCH (21:17)
[2019-03-02] MEDS: ATORVASTATIN CA 40 MG TABLET (FP) PO SCH (21:18)
--- NOTE | 2019-03-02 23:17 | PN ---
Progress Note, Physician - Current Medication List Current Medications: Active Medications Acetaminophen (Tylenol -) 500 mg PO Q6H PRN PRN Reason: PAIN SCALE 4-6 Last Admin: 03/02/19 21:18 Dose: 500 mg Allopurinol (Zyloprim -) 100 mg PO DAILY [facility] Last Admin: 03/02/19 09:48 Dose: 100 mg Aspirin (Asa -) 81 mg PO DAILY [facility] Last Admin: 03/02/19 09:48 Dose: 81 mg Atorvastatin Calcium (Lipitor -) 40 mg PO HS [facility] Last Admin: 03/02/19 21:18 Dose: 40 mg Calcitriol (Rocaltrol -) 0.25 mcg PO DAILY [facility] Last Admin: 03/02/19 09:49 Dose: 0.25 mcg Carvedilol (Coreg -) 25 mg PO BID [facility] Last Admin: 03/02/19 21:17 Dose: 25 mg Ferrous Sulfate (Feosol -) 325 mg PO Q2D [facility] Last Admin: 03/01/19 09:54 Dose: 325 mg Glipizide (Glucotrol Xl -) 2.5 mg PO DAILY@0700 [facility] Last Admin: 03/02/19 06:48 Dose: 2.5 mg Piperacillin Sod/Tazobactam (Sod 2.25 gm/ Dextrose) 50 mls @ 100 mls/hr IVPB Q6H-IV [facility]; Protocol Last Admin: 03/02/19 21:17 Dose: 100 mls/hr Vancomycin HCl (Vancomycin (Pre-Docked)) 1,000 mg in 250 mls @ 166.667 mls/hr IVPB Q12H [facility] Last Admin: 03/02/19 14:37 Dose: 166.667 mls/hr Insulin Aspart (Novolog Vial Sliding Scale -) 1 vial SQ ACHS [facility]; Protocol Last Admin: 03/02/19 21:15 Dose: Not Given Multivitamins/Minerals/Vitamin C (Tab-A-Vit -) 1 tab PO DAILY [facility] Last Admin: 03/02/19 09:50 Dose: 1 tab Pregabalin (Lyrica -) 100 mg PO HS [facility] Last Admin: 03/02/19 21:17 Dose: 100 mg Rivaroxaban (Xarelto) 15 mg PO BID [facility] Last Admin: 03/02/19 21:18 Dose: 15 mg Spironolactone (Aldactone -) 25 mg PO DAILY [facility] Last Admin: 03/02/19 09:48 Dose: 25 mg Tamsulosin HCl (Flomax -) 0.4 mg PO DAILY@0830 [facility] Last Admin: 03/02/19 09:49 Dose: 0.4 mg Torsemide (Demadex -) 20 mg PO BIDLASIX [facility] - Objective Vital Signs: Vital Signs Temperature 97.8 F 03/02/19 19:00 Pulse Rate 62 03/02/19 19:00 Respiratory Rate 20 03/02/19 21:00 Blood Pressure 145/89 03/02/19 19:00 O2 Sat by Pulse Oximetry (%) 96 03/02/19 21:00 Labs: CBC, BMP 03/01/19 06:44 03/01/19 06:44
[2019-03-03] MEDS ORDERED: PIPERACILLIN/TAZOBACTAM 2.25 GM VIAL IVPB ONE ×4 (02:33→19:58)
[2019-03-03] MEDS ORDERED: DEXTROSE 5%-WATER - 50 ML IVPB ONE ×4 (02:33→19:58)
[2019-03-03] MEDS: PIPERACILLIN/TAZOB 2.25 GM 2.25 GM in DEXTROSE 5%-WATER - 50 ML IVPB SCH ×4 (02:43→20:38)
[2019-03-03] MEDS: VANCOMYCIN 1 GRAM (PRE-DOCKED) 1,000 MG/250 ML BAG IVPB SCH ×2 (02:43→13:39)
[2019-03-03] MEDS ORDERED: PT OWN MED DRAWER 7, Y5N ONE (05:34)
[2019-03-03] MEDS: TORSEMIDE 20 MG TABLET (FP) PO SCH ×2 (05:47→13:39)
[2019-03-03] MEDS: glipiZIDE-XL 2.5 MG TAB.ER.24 PO SCH (06:19)
[2019-03-03] MEDS: INSULIN SLIDING SCALE (NOVOLOG) 1 VIAL SQ SCH ×4 (06:19→21:30)
[2019-03-03 06:57] LABS: BASO % 0.7 % (0-2.0); EOS % 3.2 % (0-4.5); HEMATOCRIT 37.5 % (35.4-49); HEMOGLOBIN 11.9 GM/dL (11.7-16.9); LYMPH % 21.5 % (8-40); MCH 22.4 pg (25.7-33.7); MCHC 31.7 g/dl (32.0-35.9); MEAN CELL VOLUME 70.7 fl (80-96); MEAN PLT VOLUME 9.4 fl (7.5-11.1); MONO % 8.8 % (3.8-10.2); NEUT % 65.8 % (42.8-82.8); PLATELET COUNT 245 K/MM3 (134-434); RBC 5.29 M/mm3 (4.00-5.60); RDW 17.8 % (11.9-15.9); WHITE BLOOD COUNT 9.2 K/mm3 (4.0-10.0)
[2019-03-03 07:11] LABS: ALBUMIN 3.1 g/dl (3.4-5.0); BILIRUBIN,TOTAL 0.5 mg/dL (0.2-1); BLOOD UREA NITROGEN 33.7 mg/dL (7-18); CALCIUM 8.8 mg/dL (8.5-10.1); CREATININE 1.7 mg/dL (0.55-1.3); POTASSIUM 4.7 mmol/L (3.5-5.1); TOT PROT 6.9 g/dl (6.4-8.2)
[2019-03-03] MEDS: RIVAROXABAN 15 MG TABLET PO SCH ×2 (09:10→21:36)
[2019-03-03] MEDS: CALCITRIOL 0.25 MCG CAPSULE (FP) PO SCH (09:10)
[2019-03-03] MEDS: TAMSULOSIN HCL 0.4 MG CAP PO SCH (09:10)
[2019-03-03] MEDS: FERROUS SO4 325 MG TABLET (FP) PO SCH (09:10)
[2019-03-03] MEDS: ASPIRIN 81 MG CHEWABLE TABLETS PO SCH (09:10)
[2019-03-03] MEDS: MULTIVITAMINS (DAILY MVI) TABLET (FP) PO SCH (09:10)
[2019-03-03] MEDS: SPIRONOLACTONE 25 MG TABLET (FP) PO SCH (09:10)
[2019-03-03] MEDS: CARVEDILOL 25 MG TABLET (FP) PO SCH ×2 (09:10→21:30)
[2019-03-03] MEDS: ACETAMINOPHEN 500 MG TABLET (FP) PO PRN ×2 (09:17→21:30)
[2019-03-03] MEDS: ALLOPURINOL 100 MG TABLET (FP) PO SCH (09:18)
--- NOTE | 2019-03-03 11:20 | PN ---
Progress Note (short form) - Note Progress Note: FUV right foot. vss cultures are back, +improved cellulitis, wbc=9.2, +granulation with necrotic tissue noted, -mal odor, om? s/p tma cellulitis Scheduled for bone scan tomorrow. Will debride on sunday possible bone and soft tissue. Reviewed xrays long 2nd and 3rd may need to be revised. Will follow. DC Betadine change to santyl daily.
--- NOTE | 2019-03-03 12:04 | PN ---
Progress Note, Physician History of Present Illness: pain in rt foot plan for surgery on sun - Current Medication List Current Medications: Active Medications Acetaminophen (Tylenol -) 500 mg PO Q6H PRN PRN Reason: PAIN SCALE 4-6 Last Admin: 03/03/19 09:17 Dose: 500 mg Allopurinol (Zyloprim -) 100 mg PO DAILY [facility] Last Admin: 03/03/19 09:18 Dose: 100 mg Aspirin (Asa -) 81 mg PO DAILY [facility] Last Admin: 03/03/19 09:10 Dose: 81 mg Atorvastatin Calcium (Lipitor -) 40 mg PO HS [facility] Last Admin: 03/02/19 21:18 Dose: 40 mg Calcitriol (Rocaltrol -) 0.25 mcg PO DAILY [facility] Last Admin: 03/03/19 09:10 Dose: 0.25 mcg Carvedilol (Coreg -) 25 mg PO BID [facility] Last Admin: 03/03/19 09:10 Dose: 25 mg Collagenase (Santyl -) 1 applic TP DAILY [facility]; Protocol Ferrous Sulfate (Feosol -) 325 mg PO Q2D [facility] Last Admin: 03/03/19 09:10 Dose: 325 mg Glipizide (Glucotrol Xl -) 2.5 mg PO DAILY@0700 [facility] Last Admin: 03/03/19 06:19 Dose: 2.5 mg Piperacillin Sod/Tazobactam (Sod 2.25 gm/ Dextrose) 50 mls @ 100 mls/hr IVPB Q6H-IV [facility]; Protocol Last Admin: 03/03/19 09:10 Dose: 100 mls/hr Vancomycin HCl (Vancomycin (Pre-Docked)) 1,000 mg in 250 mls @ 166.667 mls/hr IVPB Q12H [facility] Last Admin: 03/03/19 02:43 Dose: 166.667 mls/hr Insulin Aspart (Novolog Vial Sliding Scale -) 1 vial SQ ACHS [facility]; Protocol Last Admin: 03/03/19 11:47 Dose: Not Given Multivitamins/Minerals/Vitamin C (Tab-A-Vit -) 1 tab PO DAILY [facility] Last Admin: 03/03/19 09:10 Dose: 1 tab Pregabalin (Lyrica -) 100 mg PO HS [facility] Last Admin: 03/02/19 21:17 Dose: 100 mg Rivaroxaban (Xarelto) 15 mg PO BID [facility] Last Admin: 03/03/19 09:10 Dose: 15 mg Spironolactone (Aldactone -) 25 mg PO DAILY [facility] Last Admin: 03/03/19 09:10 Dose: 25 mg Tamsulosin HCl (Flomax -) 0.4 mg PO DAILY@0830 [facility] Last Admin: 03/03/19 09:10 Dose: 0.4 mg Torsemide (Demadex -) 20 mg PO BIDLASIX [facility] Last Admin: 03/03/19 05:47 Dose: 20 mg - Objective Vital Signs: Vital Signs Temperature 98.2 F 03/03/19 09:21 Pulse Rate 67 03/03/19 09:21 Respiratory Rate 20 03/03/19 09:21 Blood Pressure 121/79 03/03/19 09:21 O2 Sat by Pulse Oximetry (%) 98 03/03/19 09:00 Constitutional: Yes: Calm, Mild Distress Cardiovascular: Yes: S1, S2 Respiratory: Yes: Regular, CTA Bilaterally Gastrointestinal: Yes: Normal Bowel Sounds, Soft Musculoskeletal: Yes: WNL Extremities: Yes: Other Neurological: Yes: Alert, Oriented Psychiatric: Yes: Alert, Oriented Labs: CBC, BMP 03/03/19 06:20 03/03/19 06:20 Assessment/Plan Problem List - Problems (1) Cellulitis of right foot Code(s): L03.115 - CELLULITIS OF RIGHT LOWER LIMB (2) Diabetic foot ulcer Code(s): E11.621 - TYPE 2 DIABETES MELLITUS WITH FOOT ULCER; L97.509 - NON- PRESSURE CHRONIC ULCER OTH PRT UNSP FOOT W UNSP SEVERITY Qualifiers: Diabetic foot ulcer location: other (3) Type 2 diabetes mellitus Code(s): E11.9 - TYPE 2 DIABETES MELLITUS WITHOUT COMPLICATIONS Qualifiers: Diabetes mellitus complication detail: with autonomic neuropathy Assessment/Plan Infected RT TMA site DM HTN s/p PPM CKD Gout GERD plan [facility] bone scan rest as per the team and podiatry
[2019-03-03] MEDS: COLLAGENASE CLOSTRIDIUM HIST. 30 GRAMS TUBE TP SCH (18:29)
[2019-03-03] MEDS: ATORVASTATIN CA 40 MG TABLET (FP) PO SCH (21:30)
[2019-03-03] MEDS: PREGABALIN 100 MG CAPSULE PO SCH (21:30)
--- NOTE | 2019-03-03 21:54 | PN ---
Progress Note, Physician - Current Medication List Current Medications: Active Medications Acetaminophen (Tylenol -) 500 mg PO Q6H PRN PRN Reason: PAIN SCALE 4-6 Last Admin: 03/03/19 21:30 Dose: 500 mg Allopurinol (Zyloprim -) 100 mg PO DAILY [facility] Last Admin: 03/03/19 09:18 Dose: 100 mg Aspirin (Asa -) 81 mg PO DAILY [facility] Last Admin: 03/03/19 09:10 Dose: 81 mg Atorvastatin Calcium (Lipitor -) 40 mg PO HS [facility] Last Admin: 03/03/19 21:30 Dose: 40 mg Calcitriol (Rocaltrol -) 0.25 mcg PO DAILY [facility] Last Admin: 03/03/19 09:10 Dose: 0.25 mcg Carvedilol (Coreg -) 25 mg PO BID [facility] Last Admin: 03/03/19 21:30 Dose: 25 mg Collagenase (Santyl -) 1 applic TP DAILY [facility]; Protocol Last Admin: 03/03/19 18:29 Dose: 1 applic Ferrous Sulfate (Feosol -) 325 mg PO Q2D [facility] Last Admin: 03/03/19 09:10 Dose: 325 mg Glipizide (Glucotrol Xl -) 2.5 mg PO DAILY@0700 [facility] Last Admin: 03/03/19 06:19 Dose: 2.5 mg Piperacillin Sod/Tazobactam (Sod 2.25 gm/ Dextrose) 50 mls @ 100 mls/hr IVPB Q6H-IV [facility]; Protocol Last Admin: 03/03/19 20:38 Dose: 100 mls/hr Vancomycin HCl (Vancomycin (Pre-Docked)) 1,000 mg in 250 mls @ 166.667 mls/hr IVPB Q12H [facility] Last Admin: 03/03/19 13:39 Dose: 166.667 mls/hr Insulin Aspart (Novolog Vial Sliding Scale -) 1 vial SQ ACHS [facility]; Protocol Last Admin: 03/03/19 21:30 Dose: Not Given Multivitamins/Minerals/Vitamin C (Tab-A-Vit -) 1 tab PO DAILY [facility] Last Admin: 03/03/19 09:10 Dose: 1 tab Pregabalin (Lyrica -) 100 mg PO HS [facility] Last Admin: 03/03/19 21:30 Dose: 100 mg Rivaroxaban (Xarelto) 15 mg PO BID [facility] Last Admin: 03/03/19 21:36 Dose: 15 mg Spironolactone (Aldactone -) 25 mg PO DAILY [facility] Last Admin: 03/03/19 09:10 Dose: 25 mg Tamsulosin HCl (Flomax -) 0.4 mg PO DAILY@0830 [facility] Last Admin: 03/03/19 09:10 Dose: 0.4 mg Torsemide (Demadex -) 20 mg PO BIDLASIX [facility] Last Admin: 03/03/19 13:39 Dose: 20 mg - Objective Vital Signs: Vital Signs Temperature 98 F 03/03/19 19:53 Pulse Rate 65 03/03/19 19:53 Respiratory Rate 20 03/03/19 19:53 Blood Pressure 144/75 03/03/19 19:53 O2 Sat by Pulse Oximetry (%) 98 03/03/19 09:00 Labs: CBC, BMP 03/03/19 06:20 03/03/19 06:20
[2019-03-04] MEDS ORDERED: DEXTROSE 5%-WATER - 50 ML IVPB ONE ×4 (01:52→20:07)
[2019-03-04] MEDS ORDERED: PIPERACILLIN/TAZOBACTAM 2.25 GM VIAL IVPB ONE ×4 (01:52→20:07)
[2019-03-04] MEDS: PIPERACILLIN/TAZOB 2.25 GM 2.25 GM in DEXTROSE 5%-WATER - 50 ML IVPB SCH ×4 (02:24→20:09)
[2019-03-04] MEDS: VANCOMYCIN 1 GRAM (PRE-DOCKED) 1,000 MG/250 ML BAG IVPB SCH ×2 (02:31→02:58)
[2019-03-04 02:49] LABS: INR 2.47 (0.83-1.09); PROTHROMBIN TIME (PATIENT) 29.4 SEC (9.7-13.0)
[2019-03-04] MEDS: TORSEMIDE 20 MG TABLET (FP) PO SCH ×2 (05:41→14:22)
[2019-03-04] MEDS ORDERED: PT OWN MED DRAWER 7, Y5N ONE (05:59)
[2019-03-04] MEDS: INSULIN SLIDING SCALE (NOVOLOG) 1 VIAL SQ SCH ×5 (06:06→21:19)
[2019-03-04] MEDS: glipiZIDE-XL 2.5 MG TAB.ER.24 PO SCH (06:10)
[2019-03-04] MEDS: ACETAMINOPHEN 500 MG TABLET (FP) PO PRN ×2 (06:10→21:17)
[2019-03-04] MEDS ORDERED: INSULIN (NOVOLOG) ASPART 100 UNITS/ML 10ML VIAL ONE ×2 (06:42→21:07)
[2019-03-04] MEDS: TAMSULOSIN HCL 0.4 MG CAP PO SCH (08:24)
[2019-03-04] MEDS: RIVAROXABAN 15 MG TABLET PO SCH ×2 (10:15→21:17)
[2019-03-04] MEDS: CARVEDILOL 25 MG TABLET (FP) PO SCH ×2 (10:15→21:17)
[2019-03-04] MEDS: ASPIRIN 81 MG CHEWABLE TABLETS PO SCH (10:15)
[2019-03-04] MEDS: MULTIVITAMINS (DAILY MVI) TABLET (FP) PO SCH (10:15)
[2019-03-04] MEDS: ALLOPURINOL 100 MG TABLET (FP) PO SCH (10:15)
[2019-03-04] MEDS: SPIRONOLACTONE 25 MG TABLET (FP) PO SCH (10:15)
[2019-03-04] MEDS: CALCITRIOL 0.25 MCG CAPSULE (FP) PO SCH (10:23)
[2019-03-04] MEDS: COLLAGENASE CLOSTRIDIUM HIST. 30 GRAMS TUBE TP SCH (10:26)
--- NOTE | 2019-03-04 12:49 | PN ---
Progress Note, Physician History of Present Illness: stable no new issues - Current Medication List Current Medications: Active Medications Acetaminophen (Tylenol -) 500 mg PO Q6H PRN PRN Reason: PAIN SCALE 4-6 Last Admin: 03/04/19 06:10 Dose: 500 mg Allopurinol (Zyloprim -) 100 mg PO DAILY [facility] Last Admin: 03/04/19 10:15 Dose: 100 mg Aspirin (Asa -) 81 mg PO DAILY [facility] Last Admin: 03/04/19 10:15 Dose: 81 mg Atorvastatin Calcium (Lipitor -) 40 mg PO HS [facility] Last Admin: 03/03/19 21:30 Dose: 40 mg Calcitriol (Rocaltrol -) 0.25 mcg PO DAILY [facility] Last Admin: 03/04/19 10:23 Dose: 0.25 mcg Carvedilol (Coreg -) 25 mg PO BID [facility] Last Admin: 03/04/19 10:15 Dose: 25 mg Collagenase (Santyl -) 1 applic TP DAILY [facility]; Protocol Last Admin: 03/04/19 10:26 Dose: 1 applic Ferrous Sulfate (Feosol -) 325 mg PO Q2D [facility] Last Admin: 03/03/19 09:10 Dose: 325 mg Glipizide (Glucotrol Xl -) 2.5 mg PO DAILY@0700 [facility] Last Admin: 03/04/19 06:10 Dose: 2.5 mg Piperacillin Sod/Tazobactam (Sod 2.25 gm/ Dextrose) 50 mls @ 100 mls/hr IVPB Q6H-IV [facility]; Protocol Last Admin: 03/04/19 09:14 Dose: 100 mls/hr Insulin Aspart (Novolog Vial Sliding Scale -) 1 vial SQ ACHS [facility]; Protocol Last Admin: 03/04/19 11:30 Dose: Not Given Multivitamins/Minerals/Vitamin C (Tab-A-Vit -) 1 tab PO DAILY [facility] Last Admin: 03/04/19 10:15 Dose: 1 tab Pregabalin (Lyrica -) 100 mg PO HS [facility] Last Admin: 03/03/19 21:30 Dose: 100 mg Rivaroxaban (Xarelto) 15 mg PO BID [facility] Last Admin: 03/04/19 10:15 Dose: 15 mg Spironolactone (Aldactone -) 25 mg PO DAILY [facility] Last Admin: 03/04/19 10:15 Dose: 25 mg Tamsulosin HCl (Flomax -) 0.4 mg PO DAILY@0830 [facility] Last Admin: 03/04/19 08:24 Dose: 0.4 mg Torsemide (Demadex -) 20 mg PO BIDLASIX [facility] Last Admin: 03/04/19 05:41 Dose: Not Given - Objective Vital Signs: Vital Signs Temperature 98.0 F 03/04/19 08:36 Pulse Rate 115 H 03/04/19 08:36 Respiratory Rate 20 03/04/19 08:36 Blood Pressure 113/90 03/04/19 08:36 O2 Sat by Pulse Oximetry (%) 98 03/04/19 09:00 Constitutional: Yes: No Distress, Calm Cardiovascular: Yes: S1, S2 Respiratory: Yes: Regular, CTA Bilaterally Gastrointestinal: Yes: Normal Bowel Sounds, Soft Musculoskeletal: Yes: WNL Extremities: Yes: Other Wound/Incision: Yes: Dressing Dry and Intact Neurological: Yes: Alert, Oriented Psychiatric: Yes: Alert, Oriented Labs: CBC, BMP 03/03/19 06:20 03/03/19 06:20 INR, PTT INR 2.47 (0.83-1.09) H 03/04/19 01:45 Assessment/Plan Problem List - Problems (1) Cellulitis of right foot Code(s): L03.115 - CELLULITIS OF RIGHT LOWER LIMB (2) Diabetic foot ulcer Code(s): E11.621 - TYPE 2 DIABETES MELLITUS WITH FOOT ULCER; L97.509 - NON- PRESSURE CHRONIC ULCER OTH PRT UNSP FOOT W UNSP SEVERITY Qualifiers: Diabetic foot ulcer location: other (3) Type 2 diabetes mellitus Code(s): E11.9 - TYPE 2 DIABETES MELLITUS WITHOUT COMPLICATIONS Qualifiers: Diabetes mellitus complication detail: with autonomic neuropathy Assessment/Plan Infected RT TMA site DM HTN s/p PPM CKD Gout GERD plan cx results noted will stop vanco rest as per the team
--- NOTE | 2019-03-04 20:17 | PN ---
Progress Note (short form) - Note Progress Note: FUV right foot. vss +improved cellulitis, wbc=9.2, +granulation with necrotic tissue noted, -mal odor, om? s/p tma cellulitis bone scan done. INR to high currently. If INR high tomorrow will cancel the case and try for sunday. Will debride on sunday possible bone and soft tissue with application of Integra graft. Will follow. DC Betadine change to santyl daily. Discussed with patient. Patient fully understands all risks benefits and alternatives. Patient has verbally consented to procedure. Re- ordered INR tonight. Consent to be signed by patient. Will follow. NPO after Midnight. Awaiting clearance from Medicine.
[2019-03-04] MEDS: PREGABALIN 100 MG CAPSULE PO SCH (21:17)
[2019-03-04] MEDS: ATORVASTATIN CA 40 MG TABLET (FP) PO SCH (21:17)
--- NOTE | 2019-03-04 23:26 | PN ---
Progress Note, Physician History of Present Illness: No new complaints - Current Medication List Current Medications: Active Medications Acetaminophen (Tylenol -) 500 mg PO Q6H PRN PRN Reason: PAIN SCALE 4-6 Last Admin: 03/04/19 21:17 Dose: 500 mg Allopurinol (Zyloprim -) 100 mg PO DAILY [facility] Last Admin: 03/04/19 10:15 Dose: 100 mg Atorvastatin Calcium (Lipitor -) 40 mg PO HS [facility] Last Admin: 03/04/19 21:17 Dose: 40 mg Calcitriol (Rocaltrol -) 0.25 mcg PO DAILY [facility] Last Admin: 03/04/19 10:23 Dose: 0.25 mcg Carvedilol (Coreg -) 25 mg PO BID [facility] Last Admin: 03/04/19 21:17 Dose: 25 mg Collagenase (Santyl -) 1 applic TP DAILY [facility]; Protocol Last Admin: 03/04/19 10:26 Dose: 1 applic Ferrous Sulfate (Feosol -) 325 mg PO Q2D [facility] Last Admin: 03/03/19 09:10 Dose: 325 mg Glipizide (Glucotrol Xl -) 2.5 mg PO DAILY@0700 [facility] Last Admin: 03/04/19 06:10 Dose: 2.5 mg Piperacillin Sod/Tazobactam (Sod 2.25 gm/ Dextrose) 50 mls @ 100 mls/hr IVPB Q6H-IV [facility]; Protocol Last Admin: 03/04/19 20:09 Dose: 100 mls/hr Insulin Aspart (Novolog Vial Sliding Scale -) 1 vial SQ ACHS [facility]; Protocol Last Admin: 03/04/19 21:19 Dose: Not Given Multivitamins/Minerals/Vitamin C (Tab-A-Vit -) 1 tab PO DAILY [facility] Last Admin: 03/04/19 10:15 Dose: 1 tab Pregabalin (Lyrica -) 100 mg PO HS [facility] Last Admin: 03/04/19 21:17 Dose: 100 mg Rivaroxaban (Xarelto) 15 mg PO BID [facility] Last Admin: 03/04/19 21:17 Dose: 15 mg Spironolactone (Aldactone -) 25 mg PO DAILY [facility] Last Admin: 03/04/19 10:15 Dose: 25 mg Tamsulosin HCl (Flomax -) 0.4 mg PO DAILY@0830 [facility] Last Admin: 03/04/19 08:24 Dose: 0.4 mg Torsemide (Demadex -) 20 mg PO BIDLASIX [facility] Last Admin: 03/04/19 14:22 Dose: 20 mg - Objective Vital Signs: Vital Signs Temperature 98.5 F 03/04/19 22:00 Pulse Rate 63 03/04/19 22:00 Respiratory Rate 16 03/04/19 22:00 Blood Pressure 117/72 03/04/19 22:00 O2 Sat by Pulse Oximetry (%) 97 03/04/19 21:00 Neck: Yes: WNL, Supple Cardiovascular: Yes: WNL, Regular Rate and Rhythm Respiratory: Yes: WNL, Regular, CTA Bilaterally Gastrointestinal: Yes: WNL, Normal Bowel Sounds, Soft, Abdomen, Obese Extremities: Yes: Other (Lt foot w/ dressing) Labs: CBC, BMP 03/03/19 06:20 03/03/19 06:20 INR, PTT INR 2.47 (0.83-1.09) H 03/04/19 01:45 Problem List - Problems (1) Cellulitis of right foot Assessment/Plan: Diabetic foot ulcer Cont IV zosyn Pt awaiting surgery for debridement and bx of Rt TMA Check PT/INR in am Hold xarelto in am Code(s): L03.115 - CELLULITIS OF RIGHT LOWER LIMB (2) HTN (hypertension) Assessment/Plan: BP stable Cont coreg/spironolactone/torsemide Code(s): I10 - ESSENTIAL (PRIMARY) HYPERTENSION (3) CKD (chronic kidney disease) Assessment/Plan: Creatinine has been stable Cont calcitriol Code(s): N18.9 - CHRONIC KIDNEY DISEASE, UNSPECIFIED (4) GERD (gastroesophageal reflux disease) Code(s): K21.9 - GASTRO-ESOPHAGEAL REFLUX DISEASE WITHOUT ESOPHAGITIS (5) Type 2 diabetes mellitus Assessment/Plan: Cont glibizide/sliding scale w/ coverage Will hold glucotrol for am in preparation for surgery Code(s): E11.9 - TYPE 2 DIABETES MELLITUS WITHOUT COMPLICATIONS Qualifiers: Diabetes mellitus complication detail: with autonomic neuropathy (6) BPH (benign prostatic hyperplasia) Code(s): N40.0 - BENIGN PROSTATIC HYPERPLASIA WITHOUT LOWER URINRY TRACT SYMP (7) Gout Assessment/Plan: Cont allopurinol Code(s): M10.9 - GOUT, UNSPECIFIED (8) HLD (hyperlipidemia) Assessment/Plan: Cont lipitor Code(s): E78.5 - HYPERLIPIDEMIA, UNSPECIFIED
[2019-03-05] MEDS ORDERED: DEXTROSE 5%-WATER - 50 ML IVPB ONE ×4 (01:46→21:55)
[2019-03-05] MEDS ORDERED: PIPERACILLIN/TAZOBACTAM 2.25 GM VIAL IVPB ONE ×4 (01:46→21:55)
[2019-03-05] MEDS: PIPERACILLIN/TAZOB 2.25 GM 2.25 GM in DEXTROSE 5%-WATER - 50 ML IVPB SCH ×4 (02:30→22:06)
[2019-03-05] MEDS: TORSEMIDE 20 MG TABLET (FP) PO SCH ×2 (05:48→14:09)
[2019-03-05] MEDS: glipiZIDE-XL 2.5 MG TAB.ER.24 PO SCH (06:04)
[2019-03-05] MEDS: INSULIN SLIDING SCALE (NOVOLOG) 1 VIAL SQ SCH ×4 (06:04→22:07)
[2019-03-05] MEDS ORDERED: PROPOFOL 20 ML ONE ×2 (08:28)
[2019-03-05 08:30] LABS: BASO % 0.9 % (0-2.0); EOS % 2.5 % (0-4.5); HEMATOCRIT 38.6 % (35.4-49); LYMPH % 21.8 % (8-40); MCH 22.1 pg (25.7-33.7); MCHC 31.1 g/dl (32.0-35.9); MEAN CELL VOLUME 71.3 fl (80-96); MEAN PLT VOLUME 9.8 fl (7.5-11.1); MONO % 8.6 % (3.8-10.2); NEUT % 66.2 % (42.8-82.8); PLATELET COUNT 241 K/MM3 (134-434); RBC 5.42 M/mm3 (4.00-5.60); RDW 17.7 % (11.9-15.9); WHITE BLOOD COUNT 9.6 K/mm3 (4.0-10.0)
[2019-03-05] MEDS ORDERED: MIDAZOLAM HCL 2 MG/2 ML SINGLE DOSE VIAL ONE (08:30)
[2019-03-05 08:37] LABS: INR 2.09 (0.83-1.09); PROTHROMBIN TIME (PATIENT) 24.8 SEC (9.7-13.0)
[2019-03-05] MEDS: TAMSULOSIN HCL 0.4 MG CAP PO SCH (08:39)
[2019-03-05 08:58] LABS: ALBUMIN 3.4 g/dl (3.4-5.0); BILIRUBIN,TOTAL 0.9 mg/dL (0.2-1); BLOOD UREA NITROGEN 36.7 mg/dL (7-18); CALCIUM 9.4 mg/dL (8.5-10.1); CREATININE 1.7 mg/dL (0.55-1.3); POTASSIUM 4.8 mmol/L (3.5-5.1); TOT PROT 7.3 g/dl (6.4-8.2)
[2019-03-05] MEDS: CARVEDILOL 25 MG TABLET (FP) PO SCH ×2 (09:41→22:07)
[2019-03-05] MEDS: CALCITRIOL 0.25 MCG CAPSULE (FP) PO SCH (09:42)
[2019-03-05] MEDS: FERROUS SO4 325 MG TABLET (FP) PO SCH ×2 (09:42→14:18)
[2019-03-05] MEDS: SPIRONOLACTONE 25 MG TABLET (FP) PO SCH (09:42)
[2019-03-05] MEDS: ALLOPURINOL 100 MG TABLET (FP) PO SCH ×2 (09:42→14:18)
[2019-03-05] MEDS: MULTIVITAMINS (DAILY MVI) TABLET (FP) PO SCH ×2 (09:42→14:18)
[2019-03-05] MEDS ORDERED: ONDANSETRON 4 MG/2 ML VIAL IVPUSH PRN (10:03)
[2019-03-05] MEDS ORDERED: LACTATED RINGERS SOLUTION 1,000 ML IV SCH (10:15)
[2019-03-05] MEDS ORDERED: MINERAL OIL 25 ML OIL ONE (11:18)
--- NOTE | 2019-03-05 11:20 | PN ---
Progress Note, Physician History of Present Illness: patient stable awaiting surgery - Current Medication List Current Medications: Active Medications Acetaminophen (Tylenol -) 500 mg PO Q6H PRN PRN Reason: PAIN SCALE 4-6 Last Admin: 03/04/19 21:17 Dose: 500 mg Allopurinol (Zyloprim -) 100 mg PO DAILY [facility] Last Admin: 03/05/19 09:42 Dose: Not Given Atorvastatin Calcium (Lipitor -) 40 mg PO HS [facility] Last Admin: 03/04/19 21:17 Dose: 40 mg Calcitriol (Rocaltrol -) 0.25 mcg PO DAILY [facility] Last Admin: 03/05/19 09:42 Dose: Not Given Carvedilol (Coreg -) 25 mg PO BID [facility] Last Admin: 03/05/19 09:41 Dose: 25 mg Collagenase (Santyl -) 1 applic TP DAILY [facility]; Protocol Last Admin: 03/04/19 10:26 Dose: 1 applic Fentanyl (Sublimaze Injection -) 25 mcg IVPUSH [id number] PRN PRN Reason: PAIN-PACU ORDER X 4 DOSES ONLY Ferrous Sulfate (Feosol -) 325 mg PO Q2D [facility] Last Admin: 03/05/19 09:42 Dose: Not Given Glipizide (Glucotrol Xl -) 2.5 mg PO DAILY@0700 [facility] Last Admin: 03/05/19 06:04 Dose: Not Given Piperacillin Sod/Tazobactam (Sod 2.25 gm/ Dextrose) 50 mls @ 100 mls/hr IVPB Q6H-IV [facility]; Protocol Last Admin: 03/05/19 09:38 Dose: 100 mls/hr Lactated Ringer's (Lactated Ringers Solution) 1,000 mls @ 75 mls/hr IV ASDIR [facility] Insulin Aspart (Novolog Vial Sliding Scale -) 1 vial SQ ACHS [facility]; Protocol Last Admin: 03/05/19 06:04 Dose: Not Given Multivitamins/Minerals/Vitamin C (Tab-A-Vit -) 1 tab PO DAILY [facility] Last Admin: 03/05/19 09:42 Dose: Not Given Ondansetron HCl (Zofran Injection) 4 mg IVPUSH Q6H PRN PRN Reason: NAUSEA AND/OR VOMITING Pregabalin (Lyrica -) 100 mg PO HS [facility] Last Admin: 03/04/19 21:17 Dose: 100 mg Spironolactone (Aldactone -) 25 mg PO DAILY [facility] Last Admin: 03/05/19 09:42 Dose: Not Given Tamsulosin HCl (Flomax -) 0.4 mg PO DAILY@0830 [facility] Last Admin: 03/05/19 08:39 Dose: Not Given Torsemide (Demadex -) 20 mg PO BIDLASIX [facility] Last Admin: 03/05/19 05:48 Dose: Not Given - Objective Vital Signs: Vital Signs Temperature 98.0 F 03/05/19 08:35 Pulse Rate 56 L 03/05/19 08:35 Respiratory Rate 18 03/05/19 08:35 Blood Pressure 128/72 03/05/19 08:35 O2 Sat by Pulse Oximetry (%) 97 03/04/19 21:00 Constitutional: Yes: No Distress, Calm Cardiovascular: Yes: S1, S2 Respiratory: Yes: Regular, CTA Bilaterally Musculoskeletal: Yes: WNL Extremities: Yes: Other Wound/Incision: Yes: Dressing Dry and Intact, Draining Neurological: Yes: Alert, Oriented Psychiatric: Yes: Alert, Oriented Labs: CBC, BMP 03/05/19 07:20 03/05/19 07:20 INR, PTT INR 2.09 (0.83-1.09) H 03/05/19 07:20 Assessment/Plan Problem List - Problems (1) Cellulitis of right foot Code(s): L03.115 - CELLULITIS OF RIGHT LOWER LIMB (2) Diabetic foot ulcer Code(s): E11.621 - TYPE 2 DIABETES MELLITUS WITH FOOT ULCER; L97.509 - NON- PRESSURE CHRONIC ULCER OTH PRT UNSP FOOT W UNSP SEVERITY Qualifiers: Diabetic foot ulcer location: other (3) Type 2 diabetes mellitus Code(s): E11.9 - TYPE 2 DIABETES MELLITUS WITHOUT COMPLICATIONS Qualifiers: Diabetes mellitus complication detail: with autonomic neuropathy Assessment/Plan Infected RT TMA site DM HTN s/p PPM CKD Gout GERD plan cx results noted abx awaiting surgery rest as per the team
[2019-03-05] MEDS: COLLAGENASE CLOSTRIDIUM HIST. 30 GRAMS TUBE TP SCH (11:33)
[2019-03-05 11:45] LABS: INR 2.05 (0.83-1.09); PROTHROMBIN TIME (PATIENT) 24.4 SEC (9.7-13.0)
--- NOTE | 2019-03-05 12:17 | PN ---
Progress Note (short form) - Note Progress Note: FUV right foot. Surgery cancelled as INR still too high for inasive procedure. vss +improved cellulitis, wbc=9.2, +granulation with necrotic tissue noted, -mal odor, om? s/p tma cellulitis Will debride on am. Debridement bone and soft tissue with application of Integra graft. Will follow. DC Betadine change to santyl daily. Discussed with patient. Patient fully understands all risks benefits and alternatives. Patient has verbally consented to procedure. Patient is receiving 3rd unit of FFP right now. Consent signed by patient. NPO after midnight. Please maximize pt for OR tomorow. INR after 3rd FFP today.
--- NOTE | 2019-03-05 20:57 | PN ---
Progress Note, Physician History of Present Illness: Pt unable to have surgery due to elevated PT/INR - Current Medication List Current Medications: Active Medications Acetaminophen (Tylenol -) 500 mg PO Q6H PRN PRN Reason: PAIN SCALE 4-6 Last Admin: 03/04/19 21:17 Dose: 500 mg Allopurinol (Zyloprim -) 100 mg PO DAILY [facility] Last Admin: 03/05/19 14:18 Dose: 100 mg Atorvastatin Calcium (Lipitor -) 40 mg PO HS [facility] Last Admin: 03/04/19 21:17 Dose: 40 mg Calcitriol (Rocaltrol -) 0.25 mcg PO DAILY [facility] Last Admin: 03/05/19 09:42 Dose: Not Given Carvedilol (Coreg -) 25 mg PO BID [facility] Last Admin: 03/05/19 09:41 Dose: 25 mg Collagenase (Santyl -) 1 applic TP DAILY [facility]; Protocol Last Admin: 03/05/19 11:33 Dose: Not Given Fentanyl (Sublimaze Injection -) 25 mcg IVPUSH [id number] PRN PRN Reason: PAIN-PACU ORDER X 4 DOSES ONLY Ferrous Sulfate (Feosol -) 325 mg PO Q2D [facility] Last Admin: 03/05/19 14:18 Dose: 325 mg Glipizide (Glucotrol Xl -) 2.5 mg PO DAILY@0700 [facility] Last Admin: 03/05/19 06:04 Dose: Not Given Piperacillin Sod/Tazobactam (Sod 2.25 gm/ Dextrose) 50 mls @ 100 mls/hr IVPB Q6H-IV [facility]; Protocol Last Admin: 03/05/19 14:09 Dose: 100 mls/hr Lactated Ringer's (Lactated Ringers Solution) 1,000 mls @ 75 mls/hr IV ASDIR [facility] Insulin Aspart (Novolog Vial Sliding Scale -) 1 vial SQ ACHS [facility]; Protocol Last Admin: 03/05/19 16:51 Dose: Not Given Multivitamins/Minerals/Vitamin C (Tab-A-Vit -) 1 tab PO DAILY [facility] Last Admin: 03/05/19 14:18 Dose: 1 tab Ondansetron HCl (Zofran Injection) 4 mg IVPUSH Q6H PRN PRN Reason: NAUSEA AND/OR VOMITING Pregabalin (Lyrica -) 100 mg PO [facility] Last Admin: 03/04/19 21:17 Dose: 100 mg Spironolactone (Aldactone -) 25 mg PO DAILY [facility] Last Admin: 03/05/19 09:42 Dose: Not Given Tamsulosin HCl (Flomax -) 0.4 mg PO DAILY@0830 [facility] Last Admin: 03/05/19 08:39 Dose: Not Given Torsemide (Demadex -) 20 mg PO BIDLASIX [facility] Last Admin: 03/05/19 14:09 Dose: 20 mg - Objective Vital Signs: Vital Signs Temperature 97.6 F 03/05/19 18:30 Pulse Rate 68 03/05/19 18:30 Respiratory Rate 18 03/05/19 18:30 Blood Pressure 142/85 03/05/19 18:30 O2 Sat by Pulse Oximetry (%) 97 03/05/19 09:00 Constitutional: Yes: Well Nourished Cardiovascular: Yes: WNL, Regular Rate and Rhythm Respiratory: Yes: WNL, Regular, CTA Bilaterally Gastrointestinal: Yes: WNL, Normal Bowel Sounds, Soft Labs: CBC, BMP 03/05/19 07:20 03/05/19 07:20 INR, PTT INR 2.05 (0.83-1.09) H 03/05/19 11:20 Problem List - Problems (1) Cellulitis of right foot Assessment/Plan: Diabetic foot ulcer Cont IV zosyn Pt awaiting surgery for debridement and bx of Rt TMA Check PT/INR in am and transfuse FFP as needed Pt given FFP however coags still elevated today Will get heme consult Hold xarelto Code(s): L03.115 - CELLULITIS OF RIGHT LOWER LIMB (2) HTN (hypertension) Assessment/Plan: BP stable Cont coreg/spironolactone/torsemide Code(s): I10 - ESSENTIAL (PRIMARY) HYPERTENSION (3) CKD (chronic kidney disease) Assessment/Plan: Creatinine has been stable Cont calcitriol Code(s): N18.9 - CHRONIC KIDNEY DISEASE, UNSPECIFIED (4) GERD (gastroesophageal reflux disease) Code(s): K21.9 - GASTRO-ESOPHAGEAL REFLUX DISEASE WITHOUT ESOPHAGITIS (5) Type 2 diabetes mellitus Assessment/Plan: Cont glibizide/sliding scale w/ coverage Will hold glucotrol for am in preparation for surgery Code(s): E11.9 - TYPE 2 DIABETES MELLITUS WITHOUT COMPLICATIONS Qualifiers: Diabetes mellitus complication detail: with autonomic neuropathy (6) BPH (benign prostatic hyperplasia) Code(s): N40.0 - BENIGN PROSTATIC HYPERPLASIA WITHOUT LOWER URINRY TRACT SYMP (7) Gout Assessment/Plan: Cont allopurinol Code(s): M10.9 - GOUT, UNSPECIFIED (8) HLD (hyperlipidemia) Assessment/Plan: Cont lipitor Code(s): E78.5 - HYPERLIPIDEMIA, UNSPECIFIED
[2019-03-05] MEDS: ATORVASTATIN CA 40 MG TABLET (FP) PO SCH (22:07)
[2019-03-05] MEDS: PREGABALIN 100 MG CAPSULE PO SCH (22:07)
[2019-03-05] MEDS: ACETAMINOPHEN 500 MG TABLET (FP) PO PRN (22:15)
[2019-03-06] MEDS ORDERED: DEXTROSE 5%-WATER - 50 ML IVPB ONE ×3 (02:39→20:37)
[2019-03-06] MEDS ORDERED: PIPERACILLIN/TAZOBACTAM 2.25 GM VIAL IVPB ONE ×3 (02:39→20:37)
[2019-03-06] MEDS: PIPERACILLIN/TAZOB 2.25 GM 2.25 GM in DEXTROSE 5%-WATER - 50 ML IVPB SCH ×3 (02:41→20:44)
[2019-03-06] MEDS: TORSEMIDE 20 MG TABLET (FP) PO SCH ×2 (05:36→14:02)
[2019-03-06] MEDS: INSULIN SLIDING SCALE (NOVOLOG) 1 VIAL SQ SCH ×4 (06:11→21:27)
[2019-03-06] MEDS: glipiZIDE-XL 2.5 MG TAB.ER.24 PO SCH (06:11)
[2019-03-06 08:37] LABS: INR 1.24 (0.83-1.09); PROTHROMBIN TIME (PATIENT) 14.7 SEC (9.7-13.0)
[2019-03-06] MEDS ORDERED: LIDOCAINE HCL 1%, 10 MG/ML (20ML VIAL) ONE (09:03)
[2019-03-06] MEDS ORDERED: BENZOIN TINCTURE SWABSTICK TP ONE (09:03)
[2019-03-06] MEDS ORDERED: BUPIVACAINE HCL/PF 0.5% (5 MG/ML) 30 ML VIAL IJ ONE ×2 (09:07→09:50)
[2019-03-06] MEDS ORDERED: ceFAZolin SODIUM 1 GM VIAL IVPB ONE (09:45)
[2019-03-06] MEDS ORDERED: SODIUM CHLORIDE 0.9% P/F 10 ML VIAL IJ ONE (09:50)
[2019-03-06] MEDS ORDERED: ceFAZolin SODIUM 1 GM VIAL ONE (09:50)
[2019-03-06] MEDS ORDERED: PROPOFOL 20 ML ONE (09:50)
[2019-03-06] MEDS ORDERED: LIDOCAINE HCL 1%, 10 MG/ML (20ML VIAL) NR ONE (09:50)
[2019-03-06] MEDS ORDERED: DEXAMETHASONE SOD PHOSPHATE 4 MG/1 ML VIAL ONE (09:56)
[2019-03-06] MEDS ORDERED: BACITRACIN 50,000 UNITS VIAL NR ONE (10:00)
--- NOTE | 2019-03-06 10:40 | OP ---
Operative Note - Note: Operative Date: 03/06/19 Pre-Operative Diagnosis: wound right foot Operation: debridement of wound with exploration of wound right foot, application of integra graft right foot, no debridement of bone Findings: necrotic tissue, no drainage, Implants: integra graft Post-Operative Diagnosis: Same as Pre-op Surgeon: Helene Johnson Maintenance Shop Clerk: Jhonny Sargent Anesthesia: Local, MAC Estimated Blood Loss (mls): 20 Instrument used (Debridements only): blade and scalpel Operative Report Dictated: No
[2019-03-06] MEDS ORDERED: ONDANSETRON 4 MG/2 ML VIAL IVPUSH PRN ×2 (11:00→11:48)
[2019-03-06] MEDS ORDERED: LACTATED RINGERS SOLUTION 1,000 ML IV SCH ×2 (11:00→12:00)
[2019-03-06] MEDS ORDERED: ALLOPURINOL 100 MG TABLET (FP) PO SCH (12:00)
[2019-03-06] MEDS: SPIRONOLACTONE 25 MG TABLET (FP) PO SCH (12:08)
[2019-03-06] MEDS: ALLOPURINOL 100 MG TABLET (FP) PO SCH (12:08)
[2019-03-06] MEDS: CARVEDILOL 25 MG TABLET (FP) PO SCH ×2 (12:08→21:19)
[2019-03-06] MEDS: MULTIVITAMINS (DAILY MVI) TABLET (FP) PO SCH (12:09)
[2019-03-06] MEDS: TAMSULOSIN HCL 0.4 MG CAP PO SCH (12:09)
[2019-03-06] MEDS: CALCITRIOL 0.25 MCG CAPSULE (FP) PO SCH (12:11)
--- NOTE | 2019-03-06 12:11 | PN ---
Progress Note, Physician History of Present Illness: patient stable post op - Current Medication List Current Medications: Active Medications Acetaminophen (Tylenol -) 500 mg PO Q6H PRN PRN Reason: PAIN SCALE 4-6 Allopurinol (Zyloprim -) 100 mg PO DAILY [facility] Atorvastatin Calcium (Lipitor -) 40 mg PO HS [facility] Calcitriol (Rocaltrol -) 0.25 mcg PO DAILY [facility] Carvedilol (Coreg -) 25 mg PO BID [facility] Ferrous Sulfate (Feosol -) 325 mg PO Q2D [facility] Glipizide (Glucotrol Xl -) 2.5 mg PO DAILY@0700 [facility] Lactated Ringer's (Lactated Ringers Solution) 1,000 mls @ 75 mls/hr IV ASDIR [facility] Piperacillin Sod/Tazobactam (Sod 2.25 gm/ Dextrose) 50 mls @ 100 mls/hr IVPB Q6H-IV [facility]; Protocol Lactated Ringer's (Lactated Ringers Solution) 1,000 mls @ 75 mls/hr IV ASDIR [facility] Insulin Aspart (Novolog Vial Sliding Scale -) 1 vial SQ ACHS [facility]; Protocol Last Admin: 03/06/19 11:40 Dose: Not Given Multivitamins/Minerals/Vitamin C (Tab-A-Vit -) 1 tab PO DAILY [facility] Ondansetron HCl (Zofran Injection) 4 mg IVPUSH Q6H PRN PRN Reason: NAUSEA AND/OR VOMITING Pregabalin (Lyrica -) 100 mg PO HS [facility] Spironolactone (Aldactone -) 25 mg PO DAILY [facility] Tamsulosin HCl (Flomax -) 0.4 mg PO DAILY@0830 [facility] Torsemide (Demadex -) 20 mg PO BIDLASIX [facility] - Objective Vital Signs: Vital Signs Temperature 97.8 F 03/06/19 11:25 Pulse Rate 62 03/06/19 11:25 Respiratory Rate 20 03/06/19 11:25 Blood Pressure 150/80 03/06/19 11:25 O2 Sat by Pulse Oximetry (%) 100 03/06/19 11:25 Constitutional: Yes: No Distress, Calm Cardiovascular: Yes: S1, S2 Respiratory: Yes: Regular, CTA Bilaterally Gastrointestinal: Yes: Normal Bowel Sounds, Soft Musculoskeletal: Yes: WNL Extremities: Yes: Other Neurological: Yes: Alert, Oriented Psychiatric: Yes: Alert, Oriented Labs: CBC, BMP 03/05/19 07:20 03/05/19 07:20 INR, PTT INR 1.24 (0.83-1.09) H 03/06/19 07:40 Assessment/Plan Problem List - Problems (1) Cellulitis of right foot Code(s): L03.115 - CELLULITIS OF RIGHT LOWER LIMB (2) Diabetic foot ulcer Code(s): E11.621 - TYPE 2 DIABETES MELLITUS WITH FOOT ULCER; L97.509 - NON- PRESSURE CHRONIC ULCER OTH PRT UNSP FOOT W UNSP SEVERITY Qualifiers: Diabetic foot ulcer location: other (3) Type 2 diabetes mellitus Code(s): E11.9 - TYPE 2 DIABETES MELLITUS WITHOUT COMPLICATIONS Qualifiers: Diabetes mellitus complication detail: with autonomic neuropathy Assessment/Plan Infected RT TMA site DM HTN s/p PPM CKD Gout GERD plan cx results noted abx wound care rest as per the team
--- NOTE | 2019-03-06 16:38 | CON.CARD ---
Consult Consult Specialty:: Cardiology Referred by:: Medicine Reason for Consultation:: history of CHF, on eliquis - History of Present Illness Chief Complaint: foot ulcer History of Present Illness: 78M h/o HTN, DM, GERD, gout, possible CHF p/w infected toes after R TMA, s/p wound debridement. No chest pain, palps, dizziness, dyspnea, edema, orthopnea. He has been on xarelto for a few months, not sure why, was taking 15 mg BID and was recently told to take daily. Did not think he had any cardiac history, used to see a informatics educator but not sure the name. - Past Medical History Cardio/Vascular: Yes: HTN Endocrine: Yes: Diabetes Mellitus - Past Surgical History Past Surgical History: Yes: Permanent Pacemaker - Alcohol/Substance Use Hx Alcohol Use: No - Smoking History Smoking history: Never smoked Have you smoked in the past 12 months: No If you are a former smoker, when did you quit?: 40 years ago Home Medications - Allergies Allergies/Adverse Reactions: Allergies Allergy/AdvReac Type Severity Reaction Status Date / Time No Known Allergies Allergy Verified 02/28/19 10:28 - Home Medications Home Medications: Ambulatory Orders Allopurinol [Zyloprim -] 1 tab PO DAILY 03/04/18 Aspirin [ASA -] 1 tab PO DAILY 03/04/18 Atorvastatin Ca [Lipitor] 1 tab PO DAILY 03/04/18 Calcitriol [Calcitriol -] 1 tab PO DAILY 03/04/18 Esomeprazole Magnesium 1 cap PO DAILY 03/04/18 Ferrous Sulfate 1 tab PO Q2D 03/04/18 Glipizide Xl [Glucotrol Xl -] 1 tab PO DAILY 03/04/18 Pregabalin [Lyrica] 100 mg PO HS 03/04/18 Spironolactone 1 tab PO DAILY 03/04/18 Tamsulosin HCl 1 cap PO DAILY 03/04/18 Acetaminophen [Tylenol -] 500 mg PO Q6H PRN 02/28/19 Allopurinol [Zyloprim -] 100 mg PO DAILY 02/28/19 Aspirin [ASA -] 81 mg PO DAILY 02/28/19 Carvedilol [ Coreg] 25 mg PO BID 02/28/19 Multivitamin [Multiple Vitamins] 1 tab PO DAILY 02/28/19 Rivaroxaban [Xarelto] 15 mg PO BID 02/28/19 Torsemide 40 mg PO BID 02/28/19 Family Medical History Family History: Unremarkable Review of Systems - Review of Systems Constitutional: reports: No Symptoms Eyes: reports: No Symptoms HENT: reports: No Symptoms Neck: reports: No Symptoms Cardiovascular: reports: No Symptoms Respiratory: reports: No Symptoms Gastrointestinal: reports: No Symptoms Genitourinary: reports: No Symptoms Musculoskeletal: reports: No Symptoms Integumentary: reports: No Symptoms Neurological: reports: No Symptoms Hematology/Lymphatic: reports: No Symptoms Vital Signs: Vital Signs Temperature 98 F 03/06/19 15:18 Pulse Rate 67 03/06/19 15:18 Respiratory Rate 18 03/06/19 15:18 Blood Pressure 154/91 03/06/19 15:18 O2 Sat by Pulse Oximetry (%) 98 03/06/19 15:18 Constitutional: Yes: No Distress, Calm Eyes: Yes: Conjunctiva Clear, EOM Intact HENT: Yes: Atraumatic, Normocephalic Neck: Yes: Supple, Trachea Midline Respiratory: Yes: Regular, CTA Bilaterally Gastrointestinal: Yes: Normal Bowel Sounds, Soft Cardiovascular: Yes: Regular Rate and Rhythm JVD: No Carotid Bruit: No Heart Sounds: Yes: S1, S2 Edema: No Integumentary: No: Jaundice Neurological: Yes: Alert, Oriented Psychiatric: No: Agitated - Other Data Labs, Other Data: CBC, BMP 03/05/19 07:20 03/05/19 07:20 INR, PTT INR 1.24 (0.83-1.09) H 03/06/19 07:40 Assessment/Plan EKG sinus, first deg AV block, RBBB 78 y/o/ m w/ PMHx HTN, NIDDM, GERD, GOUT, ?CHF s/p R foot wound debridement CHF s/p PPM - likely systolic given review of medications - on spironolactone, bb - patient unreliable historian - has not seen informatics educator recently, not sure who he sees - meds have been filled by PCP Dr. Whiteside - will check echo here as per patient not done recently, would contact PCP for further records ?DVT - on xarelto 15 mg BID, recently changed to daily dosing - dosing suggests for DVT - would contact prescribing doctor for further history, patient not sure why he is taking infected R TMA - s/p debridement - manage per podiatry HTN - stable, cont home meds CKD - stable Cr, monitor DM - manage per primary HLD - cont statin
--- NOTE | 2019-03-06 17:26 | CONSULT ---
Consultation: Hematology/Oncology Consultation REQUESTING PROVIDER: Dr. Pimentel CONSULT REQUEST: We have been asked to medically evaluate this patient for ( specify). HISTORY OF PRESENT ILLNESS: 78 year old male with hx of CKD, DM, GERD, CHF, questionable DVT history presented to the hospital for lower extremity wound. Came in with elevated INR and hematology was consulted for elevated INR in the setting of xarelto use. Patient is on home 15mg xarelto twice a day. This morning, patient went to surgery prior to my exam. INR this morning was 1.24 after xarelto was held for 2 days since 9pm on 03/04. Per patient, he does not recall why he is on xarelto, only that he has been taking it for a long time. Does not recall any history of clotting, bleeding or irregular heart rhythms. Currently denies any fevers, chills, chest pain, SOB, nausea, vomiting, diarrhea, pain in his legs. He is comfortably resting in bed. Patient reports that he is adopted and has no family members. Smoking: many years ago Alcohol use: none Drugs: never Surgery: R foot debridement, defibrillator? Family History: unknown as he is adopted REVIEW OF SYSTEMS: CONSTITUTIONAL: Absent: fever, chills, diaphoresis, generalized weakness, malaise, loss of appetite, weight change HEENT: Absent: rhinorrhea, nasal congestion, throat pain, throat swelling, difficulty swallowing, mouth swelling, ear pain, eye pain, visual changes CARDIOVASCULAR: Absent: chest pain, syncope, palpitations, irregular heart rate, lightheadedness , peripheral edema RESPIRATORY: Absent: cough, shortness of breath, dyspnea with exertion, orthopnea, wheezing, stridor, hemoptysis GASTROINTESTINAL: Absent: abdominal pain, abdominal distension, nausea, vomiting, diarrhea, constipation, melena, hematochezia GENITOURINARY: Absent: dysuria, frequency, urgency, hesitancy, hematuria, flank pain, genital pain MUSCULOSKELETAL: Absent: myalgia, arthralgia, joint swelling, back pain, neck pain SKIN: Absent: rash, itching, pallor HEMATOLOGIC/IMMUNOLOGIC: Absent: easy bleeding, easy bruising, lymphadenopathy, frequent infections ENDOCRINE: Absent: unexplained weight gain, unexplained weight loss, heat intolerance, cold intolerance NEUROLOGIC: Absent: headache, focal weakness or paresthesias, dizziness, unsteady gait, seizure, mental status changes, bladder or bowel incontinence PSYCHIATRIC: Absent: anxiety, depression, suicidal or homicidal ideation, hallucinations. PHYSICAL EXAMINATION Vital Signs - 24 hr 03/05/19 03/05/19 03/06/19 18:30 21:00 06:49 Temperature 97.6 F 98.3 F Pulse Rate 68 65 Respiratory 18 19 Rate Blood Pressure 142/85 112/67 O2 Sat by Pulse 97 Oximetry (%) 03/06/19 03/06/19 03/06/19 09:00 10:45 11:00 Temperature 97.8 F Pulse Rate 58 L 60 Respiratory 20 16 18 Rate Blood Pressure 143/89 148/80 O2 Sat by Pulse 98 100 98 Oximetry (%) 03/06/19 03/06/19 03/06/19 11:15 11:25 14:00 Temperature 97.8 F 98.2 F Pulse Rate 63 62 66 Respiratory 20 20 20 Rate Blood Pressure 158/80 150/80 139/81 O2 Sat by Pulse 98 100 Oximetry (%) 03/06/19 15:18 Temperature 98 F Pulse Rate 67 Respiratory 18 Rate Blood Pressure 154/91 O2 Sat by Pulse 98 Oximetry (%) GENERAL: A&Ox3, no acute distress EYES: PERRLA, EOMI ENT: Moist mucus membranes NECK: No JVD LUNGS: CTA, no wheezes HEART: RRR, no murmurs ABDOMEN: Abdomen obese, soft, nontender, BS present MUSCULOSKELETAL: No CVA Tenderness EXTREMITIES: 2+ pulses, no edema. RLE wrapped in gauze, no bleeding. NEUROLOGICAL: Cranial nerves II-XII intact. Laboratory Results - last 24 hr 03/05/19 03/06/19 03/06/19 20:43 06:09 07:40 PT with INR 14.70 H INR 1.24 H POC Glucometer 122 118 03/06/19 03/06/19 11:20 16:48 PT with INR INR POC Glucometer 120 138 Active Medications Generic Name Dose Route Start Last Admin Trade Name Freq PRN Reason Stop Dose Admin Acetaminophen 500 mg 03/06/19 11:00 Tylenol - PO Q6H PRN PAIN SCALE 4-6 Allopurinol 100 mg 03/06/19 12:00 03/06/19 12:08 Zyloprim - PO 100 mg DAILY [facility] Administration Atorvastatin Calcium 40 mg 03/06/19 22:00 Lipitor - PO HS [facility] Calcitriol 0.25 mcg 03/06/19 12:00 03/06/19 12:11 Rocaltrol - PO 0.25 mcg DAILY [facility] Administration Carvedilol 25 mg 03/06/19 12:00 03/06/19 12:08 Coreg - PO 25 mg BID [facility] Administration Ferrous Sulfate 325 mg 03/07/19 10:00 Feosol - PO Q2D [facility] Glipizide 2.5 mg 03/07/19 07:00 Glucotrol Xl - PO DAILY@0700 [facility] Piperacillin Sod/Tazobactam 50 mls @ 100 mls/hr 03/06/19 15:00 03/06/19 14:03 Sod 2.25 gm/ Dextrose IVPB 100 mls/hr Q6H-IV [facility] Administration Protocol Insulin Aspart 1 vial 03/06/19 11:00 03/06/19 17:05 Novolog Vial Sliding Scale - SQ Not Given ACHS [facility] Protocol Multivitamins/Minerals/Vitamin C 1 tab 03/06/19 12:00 03/06/19 12:09 Tab-A-Vit - PO 1 tab DAILY [facility] Administration Pregabalin 100 mg 03/06/19 22:00 Lyrica - PO HS [facility] Spironolactone 25 mg 03/06/19 12:00 03/06/19 12:08 Aldactone - PO 25 mg DAILY [facility] Administration Tamsulosin HCl 0.4 mg 03/06/19 12:00 03/06/19 12:09 Flomax - PO 0.4 mg DAILY@0830 [facility] Administration Torsemide 20 mg 03/06/19 14:00 03/06/19 14:02 Demadex - PO 20 mg BIDLASIX [facility] Administration ASSESSMENT/PLAN: 78 year old male with hx of CKD, DM, GERD, CHF, questionable DVT history presented to the hospital for lower extremity wound. Came in with elevated INR and hematology was consulted for elevated INR in the setting of xarelto use. #Elevated INR #DVT history #Elevated INR: patient is on 15mg xarelto BID -cardiology on board, unclear reason why patient is on this dose unless he had previous history of clotting/DVT -for now, hold xarelto dose post surgery and restart tomorrow -if possible, will have to contact prescribing physician for information on this dosing. Bennett Chavez, PGY3 Will discuss with Dr. Ramos ATTENDING PHYSICIAN STATEMENT I saw and evaluated the patient. I reviewed the resident's note and discussed the case with the resident. I agree with the resident's findings and plan as documented. SUBJECTIVE: OBJECTIVE: ASSESSMENT AND PLAN:
--- NOTE | 2019-03-06 21:11 | PN ---
Progress Note, Physician - Current Medication List Current Medications: Active Medications Acetaminophen (Tylenol -) 500 mg PO Q6H PRN PRN Reason: PAIN SCALE 4-6 Allopurinol (Zyloprim -) 100 mg PO DAILY [facility] Last Admin: 03/06/19 12:08 Dose: 100 mg Atorvastatin Calcium (Lipitor -) 40 mg PO HS [facility] Calcitriol (Rocaltrol -) 0.25 mcg PO DAILY [facility] Last Admin: 03/06/19 12:11 Dose: 0.25 mcg Carvedilol (Coreg -) 25 mg PO BID [facility] Last Admin: 03/06/19 12:08 Dose: 25 mg Ferrous Sulfate (Feosol -) 325 mg PO Q2D [facility] Glipizide (Glucotrol Xl -) 2.5 mg PO DAILY@0700 [facility] Piperacillin Sod/Tazobactam (Sod 2.25 gm/ Dextrose) 50 mls @ 100 mls/hr IVPB Q6H-IV [facility]; Protocol Last Admin: 03/06/19 20:44 Dose: 100 mls/hr Insulin Aspart (Novolog Vial Sliding Scale -) 1 vial SQ ACHS [facility]; Protocol Last Admin: 03/06/19 17:05 Dose: Not Given Multivitamins/Minerals/Vitamin C (Tab-A-Vit -) 1 tab PO DAILY [facility] Last Admin: 03/06/19 12:09 Dose: 1 tab Pregabalin (Lyrica -) 100 mg PO HS [facility] Spironolactone (Aldactone -) 25 mg PO DAILY [facility] Last Admin: 03/06/19 12:08 Dose: 25 mg Tamsulosin HCl (Flomax -) 0.4 mg PO DAILY@0830 [facility] Last Admin: 03/06/19 12:09 Dose: 0.4 mg Torsemide (Demadex -) 20 mg PO BIDLASIX [facility] Last Admin: 03/06/19 14:02 Dose: 20 mg - Objective Vital Signs: Vital Signs Temperature 98 F 03/06/19 15:18 Pulse Rate 67 03/06/19 15:18 Respiratory Rate 18 03/06/19 15:18 Blood Pressure 154/91 03/06/19 15:18 O2 Sat by Pulse Oximetry (%) 98 03/06/19 15:18 Labs: CBC, BMP 03/05/19 07:20 03/05/19 07:20 INR, PTT INR 1.24 (0.83-1.09) H 03/06/19 07:40 Problem List - Problems (1) Cellulitis of right foot Code(s): L03.115 - CELLULITIS OF RIGHT LOWER LIMB (2) HTN (hypertension) Code(s): I10 - ESSENTIAL (PRIMARY) HYPERTENSION (3) CKD (chronic kidney disease) Code(s): N18.9 - CHRONIC KIDNEY DISEASE, UNSPECIFIED (4) GERD (gastroesophageal reflux disease) Code(s): K21.9 - GASTRO-ESOPHAGEAL REFLUX DISEASE WITHOUT ESOPHAGITIS (5) Type 2 diabetes mellitus Code(s): E11.9 - TYPE 2 DIABETES MELLITUS WITHOUT COMPLICATIONS Qualifiers: Diabetes mellitus complication detail: with autonomic neuropathy (6) BPH (benign prostatic hyperplasia) Code(s): N40.0 - BENIGN PROSTATIC HYPERPLASIA WITHOUT LOWER URINRY TRACT SYMP (7) Gout Code(s): M10.9 - GOUT, UNSPECIFIED (8) HLD (hyperlipidemia) Code(s): E78.5 - HYPERLIPIDEMIA, UNSPECIFIED
[2019-03-06] MEDS: PREGABALIN 100 MG CAPSULE PO SCH (21:18)
[2019-03-06] MEDS: ACETAMINOPHEN 500 MG TABLET (FP) PO PRN (21:18)
[2019-03-06] MEDS: ATORVASTATIN CA 40 MG TABLET (FP) PO SCH (21:18)
[2019-03-06] MEDS ORDERED: INSULIN (NOVOLOG) ASPART 100 UNITS/ML 10ML VIAL ONE (21:23)
[2019-03-06] MEDS ORDERED: CARVEDILOL 25 MG TABLET (FP) PO SCH (22:00)
[2019-03-07] MEDS ORDERED: PIPERACILLIN/TAZOBACTAM 2.25 GM VIAL IVPB ONE ×4 (02:08→20:27)
[2019-03-07] MEDS ORDERED: DEXTROSE 5%-WATER - 50 ML IVPB ONE ×4 (02:09→20:27)
[2019-03-07] MEDS: PIPERACILLIN/TAZOB 2.25 GM 2.25 GM in DEXTROSE 5%-WATER - 50 ML IVPB SCH ×4 (02:17→20:43)
[2019-03-07] MEDS: TORSEMIDE 20 MG TABLET (FP) PO SCH ×2 (06:00→14:58)
[2019-03-07] MEDS: INSULIN SLIDING SCALE (NOVOLOG) 1 VIAL SQ SCH ×4 (06:47→21:14)
[2019-03-07] MEDS: glipiZIDE-XL 2.5 MG TAB.ER.24 PO SCH (06:47)
[2019-03-07] MEDS ORDERED: PT OWN MED DRAWER 7, Y5N ONE (06:48)
[2019-03-07] MEDS ORDERED: TAMSULOSIN HCL 0.4 MG CAP PO SCH (08:30)
[2019-03-07] MEDS: CARVEDILOL 25 MG TABLET (FP) PO SCH ×3 (08:57→21:14)
[2019-03-07] MEDS: TAMSULOSIN HCL 0.4 MG CAP PO SCH (08:57)
[2019-03-07] MEDS: SPIRONOLACTONE 25 MG TABLET (FP) PO SCH ×2 (08:57→10:19)
[2019-03-07] MEDS: MULTIVITAMINS (DAILY MVI) TABLET (FP) PO SCH (09:01)
[2019-03-07] MEDS: FERROUS SO4 325 MG TABLET (FP) PO SCH (09:01)
[2019-03-07] MEDS: CALCITRIOL 0.25 MCG CAPSULE (FP) PO SCH (09:01)
[2019-03-07] MEDS: ACETAMINOPHEN 500 MG TABLET (FP) PO PRN ×2 (09:46→21:14)
[2019-03-07] MEDS ORDERED: MULTIVITAMINS (DAILY MVI) TABLET (FP) PO SCH (10:00)
[2019-03-07] MEDS ORDERED: CALCITRIOL 0.25 MCG CAPSULE (FP) PO SCH (10:00)
[2019-03-07] MEDS ORDERED: ALLOPURINOL 100 MG TABLET (FP) PO SCH (10:00)
[2019-03-07] MEDS ORDERED: SPIRONOLACTONE 25 MG TABLET (FP) PO SCH (10:00)
[2019-03-07] MEDS: ALLOPURINOL 100 MG TABLET (FP) PO SCH (10:20)
--- NOTE | 2019-03-07 11:44 | PN ---
Progress Note, Physician History of Present Illness: no new issues - Current Medication List Current Medications: Active Medications Acetaminophen (Tylenol -) 500 mg PO Q6H PRN PRN Reason: PAIN SCALE 4-6 Last Admin: 03/07/19 09:46 Dose: 500 mg Allopurinol (Zyloprim -) 100 mg PO DAILY [facility] Last Admin: 03/07/19 10:20 Dose: 100 mg Atorvastatin Calcium (Lipitor -) 40 mg PO HS [facility] Last Admin: 03/06/19 21:18 Dose: 40 mg Calcitriol (Rocaltrol -) 0.25 mcg PO DAILY [facility] Last Admin: 03/07/19 09:01 Dose: 0.25 mcg Carvedilol (Coreg -) 25 mg PO BID [facility] Last Admin: 03/07/19 10:19 Dose: Not Given Ferrous Sulfate (Feosol -) 325 mg PO Q2D [facility] Last Admin: 03/07/19 09:01 Dose: 325 mg Glipizide (Glucotrol Xl -) 2.5 mg PO DAILY@0700 [facility] Last Admin: 03/07/19 06:47 Dose: 2.5 mg Piperacillin Sod/Tazobactam (Sod 2.25 gm/ Dextrose) 50 mls @ 100 mls/hr IVPB Q6H-IV [facility]; Protocol Last Admin: 03/07/19 08:58 Dose: 100 mls/hr Insulin Aspart (Novolog Vial Sliding Scale -) 1 vial SQ ACHS [facility]; Protocol Last Admin: 03/07/19 06:47 Dose: Not Given Multivitamins/Minerals/Vitamin C (Tab-A-Vit -) 1 tab PO DAILY [facility] Last Admin: 03/07/19 09:01 Dose: 1 tab Pregabalin (Lyrica -) 100 mg PO HS [facility] Last Admin: 03/06/19 21:18 Dose: 100 mg Spironolactone (Aldactone -) 25 mg PO DAILY [facility] Last Admin: 03/07/19 10:19 Dose: Not Given Tamsulosin HCl (Flomax -) 0.4 mg PO DAILY@0830 [facility] Last Admin: 03/07/19 08:57 Dose: 0.4 mg Torsemide (Demadex -) 20 mg PO BIDLASIX [facility] Last Admin: 03/07/19 06:00 Dose: 20 mg - Objective Vital Signs: Vital Signs Temperature 98.2 F 03/07/19 06:11 Pulse Rate 64 03/07/19 06:11 Respiratory Rate 20 03/07/19 09:00 Blood Pressure 123/66 03/07/19 06:11 O2 Sat by Pulse Oximetry (%) 97 03/07/19 09:00 Constitutional: Yes: No Distress, Calm Cardiovascular: Yes: S1, S2 Respiratory: Yes: Regular, CTA Bilaterally Gastrointestinal: Yes: Normal Bowel Sounds, Soft Musculoskeletal: Yes: Other Extremities: Yes: Other Wound/Incision: Yes: Dressing Dry and Intact Neurological: Yes: Alert, Oriented Psychiatric: Yes: Alert, Oriented Labs: CBC, BMP 03/05/19 07:20 03/05/19 07:20 INR, PTT INR 1.24 (0.83-1.09) H 03/06/19 07:40 Assessment/Plan Problem List - Problems (1) Cellulitis of right foot Code(s): L03.115 - CELLULITIS OF RIGHT LOWER LIMB (2) Diabetic foot ulcer Code(s): E11.621 - TYPE 2 DIABETES MELLITUS WITH FOOT ULCER; L97.509 - NON- PRESSURE CHRONIC ULCER OTH PRT UNSP FOOT W UNSP SEVERITY Qualifiers: Diabetic foot ulcer location: other (3) Type 2 diabetes mellitus Code(s): E11.9 - TYPE 2 DIABETES MELLITUS WITHOUT COMPLICATIONS Qualifiers: Diabetes mellitus complication detail: with autonomic neuropathy Assessment/Plan Infected RT TMA site DM HTN s/p PPM CKD Gout GERD plan cx results noted abx will d/w the podiatry rest as per the team
--- NOTE | 2019-03-07 14:26 | PN ---
Progress Note (short form) - Note Progress Note: s: no cp sob palps dizzy o: Vital Signs Period Temp Pulse Resp BP Sys/Calzada Pulse Ox Last 24 Hr 98 F-98.4 F 64-70 18-20 118-154/60-91 95-98 Constitutional: Yes: No Distress, Calm Eyes: Yes: Conjunctiva Clear Neck: Yes: Supple, Trachea Midline Respiratory: Yes: Regular, CTA Bilaterally Gastrointestinal: Yes: Normal Bowel Sounds, Soft Cardiovascular: Yes: Regular Rate and Rhythm JVD: No Carotid Bruit: No Heart Sounds: Yes: S1, S2 Edema: No Integumentary: No: Jaundice Neurological: Yes: Alert, Oriented Psychiatric: No: Agitated Current Medications Generic Name Dose Route Start Last Admin Trade Name Freq PRN Reason Stop Dose Admin Acetaminophen 500 mg 03/06/19 11:00 03/07/19 09:46 Tylenol - PO 500 mg Q6H PRN Administration PAIN SCALE 4-6 Allopurinol 100 mg 03/06/19 12:00 03/07/19 10:20 Zyloprim - PO 100 mg DAILY [facility] Administration Atorvastatin Calcium 40 mg 03/06/19 22:00 03/06/19 21:18 Lipitor - PO 40 mg HS CHE Administration Calcitriol 0.25 mcg 03/06/19 12:00 03/07/19 09:01 Rocaltrol - PO 0.25 mcg DAILY [facility] Administration Carvedilol 25 mg 03/06/19 12:00 03/07/19 10:19 Coreg - PO Not Given BID CHE Ferrous Sulfate 325 mg 03/07/19 10:00 03/07/19 09:01 Feosol - PO 325 mg Q2D CHE Administration Glipizide 2.5 mg 03/07/19 07:00 03/07/19 06:47 Glucotrol Xl - PO 2.5 mg DAILY@0700 [facility] Administration Piperacillin Sod/Tazobactam 50 mls @ 100 mls/hr 03/06/19 15:00 03/07/19 08:58 Sod 2.25 gm/ Dextrose IVPB 100 mls/hr Q6H-IV [facility] Administration Protocol Insulin Aspart 1 vial 03/06/19 11:00 03/07/19 12:56 Novolog Vial Sliding Scale - SQ Not Given ACHS [facility] Protocol Multivitamins/Minerals/Vitamin C 1 tab 03/06/19 12:00 03/07/19 09:01 Tab-A-Vit - PO 1 tab DAILY [facility] Administration Pregabalin 100 mg 03/06/19 22:00 03/06/19 21:18 Lyrica - PO 100 mg HS CHE Administration Spironolactone 25 mg 03/06/19 12:00 03/07/19 10:19 Aldactone - PO Not Given DAILY [facility] Tamsulosin HCl 0.4 mg 03/06/19 12:00 03/07/19 08:57 Flomax - PO 0.4 mg DAILY@0830 [facility] Administration Torsemide 20 mg 03/06/19 14:00 03/07/19 06:00 Demadex - PO 20 mg BIDLASIX CHE Administration - Other Data Labs, Other Data: CBC, BMP 03/05/19 07:20 03/05/19 07:20 Assessment/Plan EKG sinus, first deg AV block, RBBB 78 y/o/ m w/ PMHx HTN, NIDDM, GERD, GOUT, ?CHF s/p R foot wound debridement chronic CHF s/p PPM - patient unreliable historian - likely systolic CHF given review of medications - on spironolactone, bb - has not seen manager database recently, not sure who he sees - meds have been filled by PCP Dr. Whiteside - will check echo here as per patient not done recently, would contact PCP for further records ?DVT - on xarelto 15 mg BID, recently changed to daily dosing - dosing suggests for DVT - would contact prescribing doctor for further history, patient not sure why he is taking infected R TMA - s/p debridement - manage per podiatry HTN - stable, cont home meds CKD - stable Cr, monitor DM - manage per primary HLD - cont statin
--- NOTE | 2019-03-07 15:00 | PN ---
Physical Exam: SUBJECTIVE: Patient seen and examined. No distress OBJECTIVE: Vital Signs Period Temp Pulse Resp BP Sys/Calzada Pulse Ox Last 24 Hr 98 F-98.4 F 64-70 18-20 118-154/60-91 95-98 GENERAL: A&Ox3, no acute distress LUNGS: CTA, no wheezes HEART: RRR, no murmurs ABDOMEN: Abdomen obese, soft, nontender, BS present MUSCULOSKELETAL: No CVA Tenderness EXTREMITIES: 2+ pulses, no edema. RLE wrapped in gauze, no bleeding. Laboratory Results - last 24 hr 03/06/19 03/06/19 03/07/19 16:48 21:13 06:43 POC Glucometer 138 173 147 03/07/19 11:20 POC Glucometer 126 Active Medications Generic Name Dose Route Start Last Admin Trade Name Freq PRN Reason Stop Dose Admin Acetaminophen 500 mg 03/06/19 11:00 03/07/19 09:46 Tylenol - PO 500 mg Q6H PRN Administration PAIN SCALE 4-6 Allopurinol 100 mg 03/06/19 12:00 03/07/19 10:20 Zyloprim - PO 100 mg DAILY CHE Administration Atorvastatin Calcium 40 mg 03/06/19 22:00 03/06/19 21:18 Lipitor - PO 40 mg HS CHE Administration Calcitriol 0.25 mcg 03/06/19 12:00 03/07/19 09:01 Rocaltrol - PO 0.25 mcg DAILY CHE Administration Carvedilol 25 mg 03/06/19 12:00 03/07/19 10:19 Coreg - PO Not Given BID CHE Ferrous Sulfate 325 mg 03/07/19 10:00 03/07/19 09:01 Feosol - PO 325 mg Q2D CHE Administration Glipizide 2.5 mg 03/07/19 07:00 03/07/19 06:47 Glucotrol Xl - PO 2.5 mg DAILY@0700 [facility] Administration Piperacillin Sod/Tazobactam 50 mls @ 100 mls/hr 03/06/19 15:00 03/07/19 14:59 Sod 2.25 gm/ Dextrose IVPB 100 mls/hr Q6H-IV [facility] Administration Protocol Insulin Aspart 1 vial 03/06/19 11:00 03/07/19 12:56 Novolog Vial Sliding Scale - SQ Not Given ACHS [facility] Protocol Multivitamins/Minerals/Vitamin C 1 tab 03/06/19 12:00 03/07/19 09:01 Tab-A-Vit - PO 1 tab DAILY [facility] Administration Pregabalin 100 mg 03/06/19 22:00 03/06/19 21:18 Lyrica - PO 100 mg HS CHE Administration Spironolactone 25 mg 03/06/19 12:00 03/07/19 10:19 Aldactone - PO Not Given DAILY CHE Tamsulosin HCl 0.4 mg 03/06/19 12:00 03/07/19 08:57 Flomax - PO 0.4 mg DAILY@0830 [facility] Administration Torsemide 20 mg 03/06/19 14:00 03/07/19 14:58 Demadex - PO 20 mg BIDLASIX CHE Administration ASSESSMENT/PLAN: 78 year old male with hx of CKD, DM, GERD, CHF, questionable DVT history presented to the hospital for lower extremity wound. Came in with elevated INR and hematology was consulted for elevated INR in the setting of xarelto use. #Elevated INR #DVT history #Elevated INR: patient is on 15mg xarelto BID at home for unclear reason, possibly old DVT dosing -cardiology on board and reccs appreciated -restarted xarelto at 20 daily -if possible, will have to contact prescribing physician for information on this dosing. Bennett Chavez, PGY3 Will discuss with Dr. Ramos ATTENDING PHYSICIAN STATEMENT I saw and evaluated the patient. I reviewed the resident's note and discussed the case with the resident. I agree with the resident's findings and plan as documented. SUBJECTIVE: OBJECTIVE: ASSESSMENT AND PLAN:
--- NOTE | 2019-03-07 15:20 | ECHO ---
Name: GEOVANI CALLES Exam:Adult Echocardiogram Study Date: 03/07/2019 01:13 PM Age: 78 yrs Reason For Study: CHF Height: 63 in Weight: 240 lb BSA: 2.1 m2 MMode/2D Measurements & Calculations IVSd: 1.1 cm Ao root diam: 2.9 cm LVIDd: 5.6 cm LA dimension: 4.4 cm LVIDs: 3.9 cm LVPWd: 1.1 cm EDV(Teich): 154.9 ml LVOT diam: 2.2 cm ESV(Teich): 64.6 ml Doppler Measurements & Calculations MV E max blu: 67.6 cm/sec Ao V2 max: 155.6 cm/sec MV A max blu: 85.4 cm/sec Ao max P.7 mmHg MV E/A: 0.79 Ao V2 mean: 124.4 cm/sec MV dec time: 0.31 sec Ao mean P.6 mmHg Ao V2 VTI: 39.0 cm PATRICE(I,D): 1.2 cm2 AI P1/2t: 692.7 msec PATRICE(V,D): 1.3 cm2 AI max blu: 350.6 cm/sec LV V1 max P.1 mmHg AI max P.3 mmHg LV V1 mean P.55 mmHg AI dec slope: 148.2 cm/sec2 LV V1 max: 53.2 cm/sec LV V1 mean: 34.0 cm/sec LV V1 VTI: 12.2 cm MR max blu: 322.4 cm/sec SV(LVOT): 48.0 ml MR max P.4 mmHg TR max blu: 185.2 cm/sec PI end-d blu: 122.2 cm/sec TR max P.7 mmHg Med Peak E' Blu: 3.0 cm/sec Med E/e': 22.2 Lat Peak E' Blu: 4.6 cm/sec Lat E/e': 14.7 Left Ventricle Left ventricular systolic function is severely reduced. Ejection Fraction = 30-35%. The transmitral s pectral Doppler flow pattern is suggestive of pseudonormalization. There is severe global hypokinesis of the left ventricle. Right Ventricle There is a pacemaker lead in the right ventricle. The right ventricle is grossly normal size. The rig ht ventricular systolic function is grossly normal. Atria The left atrium is mildly dilated. Right atrial size is normal. Mitral Valve The mitral valve is normal in structure and function. There is no mitral valve stenosis. There is mil d mitral regurgitation. Tricuspid Valve The tricuspid valve is normal in structure and function. There is mild tricuspid regurgitation. Right ventricular systolic pressure is normal. Aortic Valve There is mild aortic sclerosis.;. No hemodynamically significant valvular aortic stenosis. Mild aorti c regurgitation. Pulmonic Valve The pulmonic valve is not well seen, but is grossly normal. There is no pulmonic valvular stenosis. M ild pulmonic valvular regurgitation. Great Vessels The aortic root is normal size. Pericardium/Pleura There is no pericardial effusion. Interpretation Summary There is severe global hypokinesis of the left ventricle. Left ventricular systolic function is severely reduced. Ejection Fraction = 30-35%. The transmitral spectral Doppler flow pattern is suggestive of pseudonormalization. There is a pacemaker lead in the right ventricle. There is mild mitral regurgitation. There is mild tricuspid regurgitation. The left atrium is mildly dilated. There is mild aortic sclerosis.; Mild aortic regurgitation. There is no pericardial effusion. MD Pride *Oxana 03/07/2019 03:19 PM
[2019-03-07] MEDS ORDERED: INSULIN (NOVOLOG) ASPART 100 UNITS/ML 10ML VIAL ONE (17:57)
--- NOTE | 2019-03-07 19:19 | PATH ---
Surgical Pathology Report Patient Name: GEOVANI CALLES Med. Rec. #: [id number] /Age/Gender: 1940 (Age: 78) / M Account: [id number] Location: [address] [place] [address]/[facility] Taken: 03/06/2019 Received: 03/06/2019 Reported: 03/07/2019 Physicians: Helene Johnson DPM Specimen(s) Received DEBRIDEMENT TISSUE RIGHT FOOT Clinical History Right foot ulcer Final Diagnosis DEBRIDED TISSUE, FOOT, RIGHT, EXCISION: FRAGMENTS OF SKIN AND SOFT TISSUE WITH MARKED ACUTE INFLAMMATION, ULCERATION, GRANULATION TISSUE. Electronically Signed Kinsey Moise M.D. Gross Description Received in formalin labeled "debrided tissue right foot" the multiple irregular fragments of white-denise, partially hemorrhagic and focally necrotic soft tissue measuring 3 x 3 x 1 cm in aggregate. Health Information Director sections submitted one cassette. MLSZ/03/06/2019 sanml/03/06/2019
[2019-03-07] MEDS: RIVAROXABAN 20 MG TABLET PO SCH (20:43)
[2019-03-07] MEDS: PREGABALIN 100 MG CAPSULE PO SCH (21:14)
[2019-03-07] MEDS: ATORVASTATIN CA 40 MG TABLET (FP) PO SCH (21:14)
--- NOTE | 2019-03-07 23:23 | PN ---
Progress Note, Physician - Current Medication List Current Medications: Active Medications Acetaminophen (Tylenol -) 500 mg PO Q6H PRN PRN Reason: PAIN SCALE 4-6 Last Admin: 03/07/19 21:14 Dose: 500 mg Allopurinol (Zyloprim -) 100 mg PO DAILY [facility] Last Admin: 03/07/19 10:20 Dose: 100 mg Atorvastatin Calcium (Lipitor -) 40 mg PO HS [facility] Last Admin: 03/07/19 21:14 Dose: 40 mg Calcitriol (Rocaltrol -) 0.25 mcg PO DAILY [facility] Last Admin: 03/07/19 09:01 Dose: 0.25 mcg Carvedilol (Coreg -) 25 mg PO BID [facility] Last Admin: 03/07/19 21:14 Dose: 25 mg Ferrous Sulfate (Feosol -) 325 mg PO Q2D [facility] Last Admin: 03/07/19 09:01 Dose: 325 mg Glipizide (Glucotrol Xl -) 2.5 mg PO DAILY@0700 [facility] Last Admin: 03/07/19 06:47 Dose: 2.5 mg Piperacillin Sod/Tazobactam (Sod 2.25 gm/ Dextrose) 50 mls @ 100 mls/hr IVPB Q6H-IV [facility]; Protocol Last Admin: 03/07/19 20:43 Dose: 100 mls/hr Insulin Aspart (Novolog Vial Sliding Scale -) 1 vial SQ ACHS [facility]; Protocol Last Admin: 03/07/19 21:14 Dose: Not Given Multivitamins/Minerals/Vitamin C (Tab-A-Vit -) 1 tab PO DAILY [facility] Last Admin: 03/07/19 09:01 Dose: 1 tab Pregabalin (Lyrica -) 100 mg PO HS [facility] Last Admin: 03/07/19 21:14 Dose: 100 mg Rivaroxaban (Xarelto) 20 mg PO DAILY@1800 [facility] Last Admin: 03/07/19 20:43 Dose: 20 mg Spironolactone (Aldactone -) 25 mg PO DAILY [facility] Last Admin: 03/07/19 10:19 Dose: Not Given Tamsulosin HCl (Flomax -) 0.4 mg PO DAILY@0830 [facility] Last Admin: 03/07/19 08:57 Dose: 0.4 mg Torsemide (Demadex -) 20 mg PO BIDLASIX [facility] Last Admin: 03/07/19 14:58 Dose: 20 mg - Objective Vital Signs: Vital Signs Temperature 98 F 03/07/19 21:12 Pulse Rate 64 03/07/19 21:12 Respiratory Rate 18 03/07/19 21:12 Blood Pressure 134/75 03/07/19 21:12 O2 Sat by Pulse Oximetry (%) 97 03/07/19 21:00 Labs: CBC, BMP 03/05/19 07:20 03/05/19 07:20 INR, PTT INR 1.24 (0.83-1.09) H 03/06/19 07:40 Problem List - Problems (1) Cellulitis of right foot Code(s): L03.115 - CELLULITIS OF RIGHT LOWER LIMB (2) HTN (hypertension) Code(s): I10 - ESSENTIAL (PRIMARY) HYPERTENSION (3) CKD (chronic kidney disease) Code(s): N18.9 - CHRONIC KIDNEY DISEASE, UNSPECIFIED (4) GERD (gastroesophageal reflux disease) Code(s): K21.9 - GASTRO-ESOPHAGEAL REFLUX DISEASE WITHOUT ESOPHAGITIS (5) Type 2 diabetes mellitus Code(s): E11.9 - TYPE 2 DIABETES MELLITUS WITHOUT COMPLICATIONS Qualifiers: Diabetes mellitus complication detail: with autonomic neuropathy (6) BPH (benign prostatic hyperplasia) Code(s): N40.0 - BENIGN PROSTATIC HYPERPLASIA WITHOUT LOWER URINRY TRACT SYMP (7) Gout Code(s): M10.9 - GOUT, UNSPECIFIED (8) HLD (hyperlipidemia) Code(s): E78.5 - HYPERLIPIDEMIA, UNSPECIFIED
[2019-03-08] MEDS ORDERED: PIPERACILLIN/TAZOBACTAM 2.25 GM VIAL IVPB ONE ×4 (02:26→20:36)
[2019-03-08] MEDS ORDERED: DEXTROSE 5%-WATER - 50 ML IVPB ONE ×4 (02:27→20:37)
[2019-03-08] MEDS: PIPERACILLIN/TAZOB 2.25 GM 2.25 GM in DEXTROSE 5%-WATER - 50 ML IVPB SCH ×4 (03:00→20:58)
[2019-03-08] MEDS ORDERED: PT OWN MED DRAWER 7, Y5N ONE ×2 (05:11→22:10)
[2019-03-08] MEDS: INSULIN SLIDING SCALE (NOVOLOG) 1 VIAL SQ SCH ×4 (06:40→22:22)
[2019-03-08] MEDS: glipiZIDE-XL 2.5 MG TAB.ER.24 PO SCH (06:40)
[2019-03-08] MEDS: TORSEMIDE 20 MG TABLET (FP) PO SCH ×2 (06:40→13:48)
--- NOTE | 2019-03-08 08:13 | PN ---
Progress Note, Physician History of Present Illness: s/p Graft of Integra on - Current Medication List Current Medications: Active Medications Acetaminophen (Tylenol -) 500 mg PO Q6H PRN PRN Reason: PAIN SCALE 4-6 Last Admin: 03/07/19 21:14 Dose: 500 mg Allopurinol (Zyloprim -) 100 mg PO DAILY [facility] Last Admin: 03/07/19 10:20 Dose: 100 mg Atorvastatin Calcium (Lipitor -) 40 mg PO HS [facility] Last Admin: 03/07/19 21:14 Dose: 40 mg Calcitriol (Rocaltrol -) 0.25 mcg PO DAILY [facility] Last Admin: 03/07/19 09:01 Dose: 0.25 mcg Carvedilol (Coreg -) 25 mg PO BID [facility] Last Admin: 03/07/19 21:14 Dose: 25 mg Ferrous Sulfate (Feosol -) 325 mg PO Q2D [facility] Last Admin: 03/07/19 09:01 Dose: 325 mg Glipizide (Glucotrol Xl -) 2.5 mg PO DAILY@0700 [facility] Last Admin: 03/08/19 06:40 Dose: 2.5 mg Piperacillin Sod/Tazobactam (Sod 2.25 gm/ Dextrose) 50 mls @ 100 mls/hr IVPB Q6H-IV [facility]; Protocol Last Admin: 03/08/19 03:00 Dose: 100 mls/hr Insulin Aspart (Novolog Vial Sliding Scale -) 1 vial SQ ACHS [facility]; Protocol Last Admin: 03/08/19 06:40 Dose: Not Given Multivitamins/Minerals/Vitamin C (Tab-A-Vit -) 1 tab PO DAILY [facility] Last Admin: 03/07/19 09:01 Dose: 1 tab Pregabalin (Lyrica -) 100 mg PO HS [facility] Last Admin: 03/07/19 21:14 Dose: 100 mg Rivaroxaban (Xarelto) 20 mg PO DAILY@1800 [facility] Last Admin: 03/07/19 20:43 Dose: 20 mg Spironolactone (Aldactone -) 25 mg PO DAILY [facility] Last Admin: 03/07/19 10:19 Dose: Not Given Tamsulosin HCl (Flomax -) 0.4 mg PO DAILY@0830 [facility] Last Admin: 03/07/19 08:57 Dose: 0.4 mg Torsemide (Demadex -) 20 mg PO BIDLASIX [facility] Last Admin: 03/08/19 06:40 Dose: Not Given - Objective Vital Signs: Vital Signs Temperature 98.3 F 03/08/19 05:19 Pulse Rate 85 03/08/19 05:19 Respiratory Rate 20 03/08/19 05:19 Blood Pressure 134/73 03/08/19 05:19 O2 Sat by Pulse Oximetry (%) 97 03/07/19 21:00 Extremities: Yes: Other (resolved cellulitis, +granulation with graft in place, -mal odor, -drainage, -tender) Labs: CBC, BMP 03/05/19 07:20 03/05/19 07:20 INR, PTT INR 1.24 (0.83-1.09) H 03/06/19 07:40 Assessment/Plan om s/p integra graft s/p tma Do not remove dressing. Pt may have bathroom privelages with post op shoe in place. Pt can be dc to home on Sunday with IVABX and must go to wound care immediately upon dc for application of a TMA TCC EZ cast. Hyperbaric consult to be done. Advise patient to minimize walking and help graft to incorporate and cover his wound. Advised that his vascular surgeon wants to remove leg and that this was his best chance to save limb needed to be better with his follow up. Will follow till dc. ABX as per ID. HBO consult ordered today. Wound care aware of need for tma tcc ez cast upon dc. xeroform dressing change done today by me.
[2019-03-08] MEDS: TAMSULOSIN HCL 0.4 MG CAP PO SCH (09:07)
[2019-03-08] MEDS: MULTIVITAMINS (DAILY MVI) TABLET (FP) PO SCH (09:13)
[2019-03-08] MEDS: SPIRONOLACTONE 25 MG TABLET (FP) PO SCH (09:13)
[2019-03-08] MEDS: ALLOPURINOL 100 MG TABLET (FP) PO SCH (09:13)
[2019-03-08] MEDS: CALCITRIOL 0.25 MCG CAPSULE (FP) PO SCH (09:13)
[2019-03-08] MEDS: CARVEDILOL 25 MG TABLET (FP) PO SCH ×2 (09:13→20:59)
[2019-03-08] MEDS: ACETAMINOPHEN 500 MG TABLET (FP) PO PRN ×2 (09:24→21:06)
--- NOTE | 2019-03-08 10:40 | PN ---
Progress Note, Physician History of Present Illness: stable no new issues podiatry note noted - Current Medication List Current Medications: Active Medications Acetaminophen (Tylenol -) 500 mg PO Q6H PRN PRN Reason: PAIN SCALE 4-6 Last Admin: 03/08/19 09:24 Dose: 500 mg Allopurinol (Zyloprim -) 100 mg PO DAILY [facility] Last Admin: 03/08/19 09:13 Dose: 100 mg Atorvastatin Calcium (Lipitor -) 40 mg PO HS [facility] Last Admin: 03/07/19 21:14 Dose: 40 mg Calcitriol (Rocaltrol -) 0.25 mcg PO DAILY [facility] Last Admin: 03/08/19 09:13 Dose: 0.25 mcg Carvedilol (Coreg -) 25 mg PO BID [facility] Last Admin: 03/08/19 09:13 Dose: 25 mg Ferrous Sulfate (Feosol -) 325 mg PO Q2D [facility] Last Admin: 03/07/19 09:01 Dose: 325 mg Glipizide (Glucotrol Xl -) 2.5 mg PO DAILY@0700 [facility] Last Admin: 03/08/19 06:40 Dose: 2.5 mg Piperacillin Sod/Tazobactam (Sod 2.25 gm/ Dextrose) 50 mls @ 100 mls/hr IVPB Q6H-IV [facility]; Protocol Last Admin: 03/08/19 09:05 Dose: 100 mls/hr Insulin Aspart (Novolog Vial Sliding Scale -) 1 vial SQ ACHS [facility]; Protocol Last Admin: 03/08/19 06:40 Dose: Not Given Multivitamins/Minerals/Vitamin C (Tab-A-Vit -) 1 tab PO DAILY [facility] Last Admin: 03/08/19 09:13 Dose: 1 tab Pregabalin (Lyrica -) 100 mg PO HS [facility] Last Admin: 03/07/19 21:14 Dose: 100 mg Rivaroxaban (Xarelto) 20 mg PO DAILY@1800 [facility] Last Admin: 03/07/19 20:43 Dose: 20 mg Spironolactone (Aldactone -) 25 mg PO DAILY [facility] Last Admin: 03/08/19 09:13 Dose: 25 mg Tamsulosin HCl (Flomax -) 0.4 mg PO DAILY@0830 [facility] Last Admin: 03/08/19 09:07 Dose: 0.4 mg Torsemide (Demadex -) 20 mg PO BIDLASIX [facility] Last Admin: 03/08/19 06:40 Dose: Not Given - Objective Vital Signs: Vital Signs Temperature 98.8 F 03/08/19 09:04 Pulse Rate 58 L 03/08/19 09:04 Respiratory Rate 18 03/08/19 09:04 Blood Pressure 119/76 03/08/19 09:04 O2 Sat by Pulse Oximetry (%) 97 03/07/19 21:00 Constitutional: Yes: No Distress, Calm Cardiovascular: Yes: S1, S2 Respiratory: Yes: Regular, CTA Bilaterally Gastrointestinal: Yes: Normal Bowel Sounds, Soft Musculoskeletal: Yes: Other Extremities: Yes: Other Wound/Incision: Yes: Dressing Dry and Intact Neurological: Yes: Alert, Oriented Psychiatric: Yes: Alert, Oriented Labs: CBC, BMP 03/05/19 07:20 03/05/19 07:20 INR, PTT INR 1.24 (0.83-1.09) H 03/06/19 07:40 Assessment/Plan Problem List - Problems (1) Cellulitis of right foot Code(s): L03.115 - CELLULITIS OF RIGHT LOWER LIMB (2) Diabetic foot ulcer Code(s): E11.621 - TYPE 2 DIABETES MELLITUS WITH FOOT ULCER; L97.509 - NON- PRESSURE CHRONIC ULCER OTH PRT UNSP FOOT W UNSP SEVERITY Qualifiers: Diabetic foot ulcer location: other (3) Type 2 diabetes mellitus Code(s): E11.9 - TYPE 2 DIABETES MELLITUS WITHOUT COMPLICATIONS Qualifiers: Diabetes mellitus complication detail: with autonomic neuropathy Assessment/Plan Infected RT TMA site DM HTN s/p PPM CKD Gout GERD plan cx results noted abx will d/w the podiatry rest as per the team
[2019-03-08] MEDS: RIVAROXABAN 20 MG TABLET PO SCH (17:13)
[2019-03-08] MEDS: PREGABALIN 100 MG CAPSULE PO SCH (20:59)
[2019-03-08] MEDS: ATORVASTATIN CA 40 MG TABLET (FP) PO SCH (20:59)
--- NOTE | 2019-03-08 21:44 | PN ---
Progress Note, Physician - Current Medication List Current Medications: Active Medications Acetaminophen (Tylenol -) 500 mg PO Q6H PRN PRN Reason: PAIN SCALE 4-6 Last Admin: 03/08/19 21:06 Dose: 500 mg Allopurinol (Zyloprim -) 100 mg PO DAILY [facility] Last Admin: 03/08/19 09:13 Dose: 100 mg Atorvastatin Calcium (Lipitor -) 40 mg PO HS [facility] Last Admin: 03/08/19 20:59 Dose: 40 mg Calcitriol (Rocaltrol -) 0.25 mcg PO DAILY [facility] Last Admin: 03/08/19 09:13 Dose: 0.25 mcg Carvedilol (Coreg -) 25 mg PO BID [facility] Last Admin: 03/08/19 20:59 Dose: 25 mg Ferrous Sulfate (Feosol -) 325 mg PO Q2D [facility] Last Admin: 03/07/19 09:01 Dose: 325 mg Glipizide (Glucotrol Xl -) 2.5 mg PO DAILY@0700 [facility] Last Admin: 03/08/19 06:40 Dose: 2.5 mg Piperacillin Sod/Tazobactam (Sod 2.25 gm/ Dextrose) 50 mls @ 100 mls/hr IVPB Q6H-IV [facility]; Protocol Last Admin: 03/08/19 20:58 Dose: 100 mls/hr Insulin Aspart (Novolog Vial Sliding Scale -) 1 vial SQ ACHS [facility]; Protocol Last Admin: 03/08/19 17:03 Dose: Not Given Multivitamins/Minerals/Vitamin C (Tab-A-Vit -) 1 tab PO DAILY [facility] Last Admin: 03/08/19 09:13 Dose: 1 tab Pregabalin (Lyrica -) 100 mg PO HS [facility] Last Admin: 03/08/19 20:59 Dose: 100 mg Rivaroxaban (Xarelto) 20 mg PO DAILY@1800 [facility] Last Admin: 03/08/19 17:13 Dose: 20 mg Spironolactone (Aldactone -) 25 mg PO DAILY [facility] Last Admin: 03/08/19 09:13 Dose: 25 mg Tamsulosin HCl (Flomax -) 0.4 mg PO DAILY@0830 [facility] Last Admin: 03/08/19 09:07 Dose: 0.4 mg Torsemide (Demadex -) 20 mg PO BIDLASIX [facility] Last Admin: 03/08/19 13:48 Dose: 20 mg - Objective Vital Signs: Vital Signs Temperature 98.1 F 03/08/19 13:47 Pulse Rate 65 03/08/19 13:47 Respiratory Rate 18 03/08/19 13:47 Blood Pressure 139/80 03/08/19 13:47 O2 Sat by Pulse Oximetry (%) 96 03/08/19 09:00 Labs: CBC, BMP 03/05/19 07:20 03/05/19 07:20 INR, PTT INR 1.24 (0.83-1.09) H 03/06/19 07:40 Problem List - Problems (1) Cellulitis of right foot Code(s): L03.115 - CELLULITIS OF RIGHT LOWER LIMB (2) HTN (hypertension) Code(s): I10 - ESSENTIAL (PRIMARY) HYPERTENSION (3) CKD (chronic kidney disease) Code(s): N18.9 - CHRONIC KIDNEY DISEASE, UNSPECIFIED (4) GERD (gastroesophageal reflux disease) Code(s): K21.9 - GASTRO-ESOPHAGEAL REFLUX DISEASE WITHOUT ESOPHAGITIS (5) Type 2 diabetes mellitus Code(s): E11.9 - TYPE 2 DIABETES MELLITUS WITHOUT COMPLICATIONS Qualifiers: Diabetes mellitus complication detail: with autonomic neuropathy (6) BPH (benign prostatic hyperplasia) Code(s): N40.0 - BENIGN PROSTATIC HYPERPLASIA WITHOUT LOWER URINRY TRACT SYMP (7) Gout Code(s): M10.9 - GOUT, UNSPECIFIED (8) HLD (hyperlipidemia) Code(s): E78.5 - HYPERLIPIDEMIA, UNSPECIFIED
[2019-03-08] MEDS ORDERED: INSULIN (NOVOLOG) ASPART 100 UNITS/ML 10ML VIAL ONE (22:18)
[2019-03-09] MEDS ORDERED: PIPERACILLIN/TAZOBACTAM 2.25 GM VIAL IVPB ONE ×4 (02:34→21:12)
[2019-03-09] MEDS ORDERED: DEXTROSE 5%-WATER - 50 ML IVPB ONE ×4 (02:34→21:12)
[2019-03-09] MEDS: PIPERACILLIN/TAZOB 2.25 GM 2.25 GM in DEXTROSE 5%-WATER - 50 ML IVPB SCH ×4 (03:00→21:20)
[2019-03-09] MEDS: TORSEMIDE 20 MG TABLET (FP) PO SCH ×2 (06:24→14:56)
[2019-03-09] MEDS: INSULIN SLIDING SCALE (NOVOLOG) 1 VIAL SQ SCH ×4 (06:35→21:31)
[2019-03-09] MEDS: glipiZIDE-XL 2.5 MG TAB.ER.24 PO SCH (06:54)
[2019-03-09 08:32] LABS: HEMATOCRIT 41.5 % (35.4-49); LYMPH % 25.6 % (8-40); MCH 22.2 pg (25.7-33.7); MCHC 31.4 g/dl (32.0-35.9); MEAN CELL VOLUME 70.9 fl (80-96); MONO % 8.9 % (3.8-10.2); NEUT % 63.5 % (42.8-82.8); PLATELET COUNT 211 K/MM3 (134-434); RBC 5.85 M/mm3 (4.00-5.60); RDW 18.3 % (11.9-15.9); WHITE BLOOD COUNT 10.8 K/mm3 (4.0-10.0)
[2019-03-09 08:48] LABS: ALBUMIN 3.7 g/dl (3.4-5.0); BILIRUBIN,TOTAL 0.8 mg/dL (0.2-1); BLOOD UREA NITROGEN 51.5 mg/dL (7-18); CALCIUM 9.6 mg/dL (8.5-10.1); CREATININE 1.9 mg/dL (0.55-1.3); POTASSIUM 4.7 mmol/L (3.5-5.1); TOT PROT 7.6 g/dl (6.4-8.2)
[2019-03-09] MEDS: TAMSULOSIN HCL 0.4 MG CAP PO SCH (09:24)
[2019-03-09] MEDS: FERROUS SO4 325 MG TABLET (FP) PO SCH (09:24)
[2019-03-09] MEDS: ALLOPURINOL 100 MG TABLET (FP) PO SCH (09:24)
[2019-03-09] MEDS: MULTIVITAMINS (DAILY MVI) TABLET (FP) PO SCH (09:24)
[2019-03-09] MEDS: SPIRONOLACTONE 25 MG TABLET (FP) PO SCH (09:24)
[2019-03-09] MEDS: CARVEDILOL 25 MG TABLET (FP) PO SCH ×2 (09:24→21:21)
[2019-03-09] MEDS: CALCITRIOL 0.25 MCG CAPSULE (FP) PO SCH (09:24)
--- NOTE | 2019-03-09 11:30 | PN ---
Progress Note, Physician History of Present Illness: stable no new issues podiatry note noted - Current Medication List Current Medications: Active Medications Acetaminophen (Tylenol -) 500 mg PO Q6H PRN PRN Reason: PAIN SCALE 4-6 Last Admin: 03/08/19 21:06 Dose: 500 mg Allopurinol (Zyloprim -) 100 mg PO DAILY [facility] Last Admin: 03/09/19 09:24 Dose: 100 mg Atorvastatin Calcium (Lipitor -) 40 mg PO HS [facility] Last Admin: 03/08/19 20:59 Dose: 40 mg Calcitriol (Rocaltrol -) 0.25 mcg PO DAILY [facility] Last Admin: 03/09/19 09:24 Dose: 0.25 mcg Carvedilol (Coreg -) 25 mg PO BID [facility] Last Admin: 03/09/19 09:24 Dose: 25 mg Ferrous Sulfate (Feosol -) 325 mg PO Q2D [facility] Last Admin: 03/09/19 09:24 Dose: 325 mg Glipizide (Glucotrol Xl -) 2.5 mg PO DAILY@0700 [facility] Last Admin: 03/09/19 06:54 Dose: 2.5 mg Piperacillin Sod/Tazobactam (Sod 2.25 gm/ Dextrose) 50 mls @ 100 mls/hr IVPB Q6H-IV [facility]; Protocol Last Admin: 03/09/19 09:23 Dose: 100 mls/hr Insulin Aspart (Novolog Vial Sliding Scale -) 1 vial SQ ACHS [facility]; Protocol Last Admin: 03/09/19 06:35 Dose: Not Given Multivitamins/Minerals/Vitamin C (Tab-A-Vit -) 1 tab PO DAILY [facility] Last Admin: 03/09/19 09:24 Dose: 1 tab Pregabalin (Lyrica -) 100 mg PO HS [facility] Last Admin: 03/08/19 20:59 Dose: 100 mg Rivaroxaban (Xarelto) 20 mg PO DAILY@1800 [facility] Last Admin: 03/08/19 17:13 Dose: 20 mg Spironolactone (Aldactone -) 25 mg PO DAILY [facility] Last Admin: 03/09/19 09:24 Dose: 25 mg Tamsulosin HCl (Flomax -) 0.4 mg PO DAILY@0830 [facility] Last Admin: 03/09/19 09:24 Dose: 0.4 mg Torsemide (Demadex -) 20 mg PO BIDLASIX [facility] Last Admin: 03/09/19 06:24 Dose: 20 mg - Objective Vital Signs: Vital Signs Temperature 98.6 F 03/09/19 05:29 Pulse Rate 58 L 03/09/19 05:29 Respiratory Rate 20 03/09/19 05:29 Blood Pressure 134/69 03/09/19 05:29 O2 Sat by Pulse Oximetry (%) 96 03/08/19 21:00 Constitutional: Yes: No Distress, Calm Cardiovascular: Yes: S1, S2 Respiratory: Yes: Regular, CTA Bilaterally Musculoskeletal: Yes: WNL Extremities: Yes: Other Wound/Incision: Yes: Dressing Dry and Intact Neurological: Yes: Alert, Oriented Psychiatric: Yes: Alert, Oriented Labs: CBC, BMP 03/09/19 07:59 03/09/19 07:59 INR, PTT INR 1.24 (0.83-1.09) H 03/06/19 07:40 Assessment/Plan Problem List - Problems (1) Cellulitis of right foot Code(s): L03.115 - CELLULITIS OF RIGHT LOWER LIMB (2) Diabetic foot ulcer Code(s): E11.621 - TYPE 2 DIABETES MELLITUS WITH FOOT ULCER; L97.509 - NON- PRESSURE CHRONIC ULCER OTH PRT UNSP FOOT W UNSP SEVERITY Qualifiers: Diabetic foot ulcer location: other (3) Type 2 diabetes mellitus Code(s): E11.9 - TYPE 2 DIABETES MELLITUS WITHOUT COMPLICATIONS Qualifiers: Diabetes mellitus complication detail: with autonomic neuropathy Assessment/Plan Infected RT TMA site DM HTN s/p PPM CKD Gout GERD plan cx results noted abx will d/w the podiatry rest as per the team
[2019-03-09] MEDS: RIVAROXABAN 20 MG TABLET PO SCH (17:24)
--- NOTE | 2019-03-09 20:14 | PN ---
Progress Note, Physician History of Present Illness: No new complaints - Current Medication List Current Medications: Active Medications Acetaminophen (Tylenol -) 500 mg PO Q6H PRN PRN Reason: PAIN SCALE 4-6 Last Admin: 03/08/19 21:06 Dose: 500 mg Allopurinol (Zyloprim -) 100 mg PO DAILY [facility] Last Admin: 03/09/19 09:24 Dose: 100 mg Atorvastatin Calcium (Lipitor -) 40 mg PO HS [facility] Last Admin: 03/08/19 20:59 Dose: 40 mg Calcitriol (Rocaltrol -) 0.25 mcg PO DAILY [facility] Last Admin: 03/09/19 09:24 Dose: 0.25 mcg Carvedilol (Coreg -) 25 mg PO BID [facility] Last Admin: 03/09/19 09:24 Dose: 25 mg Ferrous Sulfate (Feosol -) 325 mg PO Q2D [facility] Last Admin: 03/09/19 09:24 Dose: 325 mg Glipizide (Glucotrol Xl -) 2.5 mg PO DAILY@0700 [facility] Last Admin: 03/09/19 06:54 Dose: 2.5 mg Piperacillin Sod/Tazobactam (Sod 2.25 gm/ Dextrose) 50 mls @ 100 mls/hr IVPB Q6H-IV [facility]; Protocol Last Admin: 03/09/19 14:56 Dose: 100 mls/hr Insulin Aspart (Novolog Vial Sliding Scale -) 1 vial SQ ACHS [facility]; Protocol Last Admin: 03/09/19 17:06 Dose: Not Given Multivitamins/Minerals/Vitamin C (Tab-A-Vit -) 1 tab PO DAILY [facility] Last Admin: 03/09/19 09:24 Dose: 1 tab Pregabalin (Lyrica -) 100 mg PO HS [facility] Last Admin: 03/08/19 20:59 Dose: 100 mg Rivaroxaban (Xarelto) 20 mg PO DAILY@1800 [facility] Last Admin: 03/09/19 17:24 Dose: 20 mg Spironolactone (Aldactone -) 25 mg PO DAILY [facility] Last Admin: 03/09/19 09:24 Dose: 25 mg Tamsulosin HCl (Flomax -) 0.4 mg PO DAILY@0830 [facility] Last Admin: 03/09/19 09:24 Dose: 0.4 mg Torsemide (Demadex -) 20 mg PO BIDLASIX [facility] Last Admin: 03/09/19 14:56 Dose: 20 mg - Objective Vital Signs: Vital Signs Temperature 98.4 F 03/09/19 13:34 Pulse Rate 85 03/09/19 13:34 Respiratory Rate 20 03/09/19 13:34 Blood Pressure 99/60 03/09/19 13:34 O2 Sat by Pulse Oximetry (%) 97 03/09/19 09:00 Neck: Yes: WNL, Supple Cardiovascular: Yes: WNL, Regular Rate and Rhythm Respiratory: Yes: WNL, Regular, CTA Bilaterally Gastrointestinal: Yes: WNL, Normal Bowel Sounds, Soft, Abdomen, Obese Extremities: Yes: Other (Lt foot in dressing) Labs: CBC, BMP 03/09/19 07:59 03/09/19 07:59 INR, PTT INR 1.24 (0.83-1.09) H 03/06/19 07:40 Problem List - Problems (1) Cellulitis of right foot Assessment/Plan: Diabetic foot ulcer Cont IV zosyn S/P debridement and bx of Rt TMA Code(s): L03.115 - CELLULITIS OF RIGHT LOWER LIMB (2) HTN (hypertension) Assessment/Plan: BP stable Cont coreg/spironolactone/torsemide Code(s): I10 - ESSENTIAL (PRIMARY) HYPERTENSION (3) CKD (chronic kidney disease) Assessment/Plan: Creatinine has been stable Cont calcitriol Code(s): N18.9 - CHRONIC KIDNEY DISEASE, UNSPECIFIED (4) GERD (gastroesophageal reflux disease) Code(s): K21.9 - GASTRO-ESOPHAGEAL REFLUX DISEASE WITHOUT ESOPHAGITIS (5) Type 2 diabetes mellitus Assessment/Plan: Cont glibizide/sliding scale w/ coverage Will hold glucotrol for am in preparation for surgery Code(s): E11.9 - TYPE 2 DIABETES MELLITUS WITHOUT COMPLICATIONS Qualifiers: Diabetes mellitus complication detail: with autonomic neuropathy (6) BPH (benign prostatic hyperplasia) Code(s): N40.0 - BENIGN PROSTATIC HYPERPLASIA WITHOUT LOWER URINRY TRACT SYMP (7) Gout Assessment/Plan: Cont allopurinol Code(s): M10.9 - GOUT, UNSPECIFIED (8) HLD (hyperlipidemia) Assessment/Plan: Cont lipitor Code(s): E78.5 - HYPERLIPIDEMIA, UNSPECIFIED
[2019-03-09] MEDS: ATORVASTATIN CA 40 MG TABLET (FP) PO SCH (21:21)
[2019-03-09] MEDS: PREGABALIN 100 MG CAPSULE PO SCH (21:21)
[2019-03-09] MEDS: ACETAMINOPHEN 500 MG TABLET (FP) PO PRN (21:22)
[2019-03-10] MEDS ORDERED: PIPERACILLIN/TAZOBACTAM 2.25 GM VIAL IVPB ONE ×4 (02:01→20:09)
[2019-03-10] MEDS ORDERED: DEXTROSE 5%-WATER - 50 ML IVPB ONE ×4 (02:02→20:09)
[2019-03-10] MEDS: PIPERACILLIN/TAZOB 2.25 GM 2.25 GM in DEXTROSE 5%-WATER - 50 ML IVPB SCH ×4 (02:06→21:00)
[2019-03-10] MEDS: TORSEMIDE 20 MG TABLET (FP) PO SCH (06:19)
[2019-03-10] MEDS: glipiZIDE-XL 2.5 MG TAB.ER.24 PO SCH (06:19)
[2019-03-10] MEDS: INSULIN SLIDING SCALE (NOVOLOG) 1 VIAL SQ SCH ×4 (06:20→21:57)
--- NOTE | 2019-03-10 08:22 | PN ---
Progress Note, Physician History of Present Illness: no new issues - Current Medication List Current Medications: Active Medications Acetaminophen (Tylenol -) 500 mg PO Q6H PRN PRN Reason: PAIN SCALE 4-6 Last Admin: 03/09/19 21:22 Dose: 500 mg Allopurinol (Zyloprim -) 100 mg PO DAILY [facility] Last Admin: 03/09/19 09:24 Dose: 100 mg Atorvastatin Calcium (Lipitor -) 40 mg PO HS [facility] Last Admin: 03/09/19 21:21 Dose: 40 mg Calcitriol (Rocaltrol -) 0.25 mcg PO DAILY [facility] Last Admin: 03/09/19 09:24 Dose: 0.25 mcg Carvedilol (Coreg -) 25 mg PO BID [facility] Last Admin: 03/09/19 21:21 Dose: 25 mg Ferrous Sulfate (Feosol -) 325 mg PO Q2D [facility] Last Admin: 03/09/19 09:24 Dose: 325 mg Glipizide (Glucotrol Xl -) 2.5 mg PO DAILY@0700 [facility] Last Admin: 03/10/19 06:19 Dose: 2.5 mg Piperacillin Sod/Tazobactam (Sod 2.25 gm/ Dextrose) 50 mls @ 100 mls/hr IVPB Q6H-IV [facility]; Protocol Last Admin: 03/10/19 02:06 Dose: 100 mls/hr Insulin Aspart (Novolog Vial Sliding Scale -) 1 vial SQ ACHS [facility]; Protocol Last Admin: 03/10/19 06:20 Dose: Not Given Multivitamins/Minerals/Vitamin C (Tab-A-Vit -) 1 tab PO DAILY [facility] Last Admin: 03/09/19 09:24 Dose: 1 tab Pregabalin (Lyrica -) 100 mg PO HS [facility] Last Admin: 03/09/19 21:21 Dose: 100 mg Rivaroxaban (Xarelto) 20 mg PO DAILY@1800 [facility] Last Admin: 03/09/19 17:24 Dose: 20 mg Spironolactone (Aldactone -) 25 mg PO DAILY [facility] Last Admin: 03/09/19 09:24 Dose: 25 mg Tamsulosin HCl (Flomax -) 0.4 mg PO DAILY@0830 [facility] Last Admin: 03/09/19 09:24 Dose: 0.4 mg Torsemide (Demadex -) 20 mg PO BIDLASIX [facility] Last Admin: 03/10/19 06:19 Dose: 20 mg - Objective Vital Signs: Vital Signs Temperature 98.7 F 03/10/19 06:34 Pulse Rate 68 03/10/19 06:34 Respiratory Rate 18 03/10/19 06:34 Blood Pressure 139/75 03/10/19 06:34 O2 Sat by Pulse Oximetry (%) 97 03/09/19 20:55 Constitutional: Yes: No Distress, Calm Cardiovascular: Yes: S1, S2 Respiratory: Yes: Regular, CTA Bilaterally Musculoskeletal: Yes: WNL Extremities: Yes: Other Wound/Incision: Yes: Dressing Dry and Intact Neurological: Yes: Alert, Oriented Psychiatric: Yes: Alert, Oriented Labs: CBC, BMP 03/09/19 07:59 03/09/19 07:59 INR, PTT INR 1.24 (0.83-1.09) H 03/06/19 07:40 Assessment/Plan Problem List - Problems (1) Cellulitis of right foot Code(s): L03.115 - CELLULITIS OF RIGHT LOWER LIMB (2) Diabetic foot ulcer Code(s): E11.621 - TYPE 2 DIABETES MELLITUS WITH FOOT ULCER; L97.509 - NON- PRESSURE CHRONIC ULCER OTH PRT UNSP FOOT W UNSP SEVERITY Qualifiers: Diabetic foot ulcer location: other (3) Type 2 diabetes mellitus Code(s): E11.9 - TYPE 2 DIABETES MELLITUS WITHOUT COMPLICATIONS Qualifiers: Diabetes mellitus complication detail: with autonomic neuropathy Assessment/Plan Infected RT TMA site DM HTN s/p PPM CKD Gout GERD plan cx results noted abx wound care rest as per the team
[2019-03-10] MEDS: ALLOPURINOL 100 MG TABLET (FP) PO SCH (09:14)
[2019-03-10] MEDS: CARVEDILOL 25 MG TABLET (FP) PO SCH ×2 (09:14→21:49)
[2019-03-10] MEDS: SPIRONOLACTONE 25 MG TABLET (FP) PO SCH (09:14)
[2019-03-10] MEDS: CALCITRIOL 0.25 MCG CAPSULE (FP) PO SCH (09:14)
[2019-03-10] MEDS: MULTIVITAMINS (DAILY MVI) TABLET (FP) PO SCH (09:14)
[2019-03-10] MEDS: TAMSULOSIN HCL 0.4 MG CAP PO SCH (09:15)
[2019-03-10] MEDS: ACETAMINOPHEN 500 MG TABLET (FP) PO PRN ×2 (09:25→21:49)
--- NOTE | 2019-03-10 10:29 | PN ---
Progress Note (short form) - Note Progress Note: FUV right foot. vss, tmax 98.7 +resolved cellulitis, wbc=10.8, +incorporation of graft, no drainage noted, no malodor om? s/p tma resolved cellulitis Do not remove dressing. Continue bathroom privelages with post op shoe in place. When dc must go to wound care immediately for application of a TMA TCC EZ cast. Hyperbaric consult to be done. Advise patient to minimize walking and help graft to incorporate and cover his wound. Will follow till dc. ABX as per ID. Wound care aware of need for tma tcc ez cast upon dc. xeroform dressing change done today by me. cbc with diff today.
--- NOTE | 2019-03-10 10:50 | PN ---
Progress Note, Physician Chief Complaint: cardiomyopathy History of Present Illness: pt has card in [employer]--s/p [employer] ICD was seeing dr cabello for cardio ([place]). denies prior HF episodes, doesn't know baseline EF has seen dr cabello associate since he retired--doesn't recall name denies sob, orthopnea, leg swelling no cp, palp - Current Medication List Current Medications: Active Medications Acetaminophen (Tylenol -) 500 mg PO Q6H PRN PRN Reason: PAIN SCALE 4-6 Last Admin: 03/10/19 09:25 Dose: 500 mg Allopurinol (Zyloprim -) 100 mg PO DAILY [facility] Last Admin: 03/10/19 09:14 Dose: 100 mg Atorvastatin Calcium (Lipitor -) 40 mg PO HS [facility] Last Admin: 03/09/19 21:21 Dose: 40 mg Calcitriol (Rocaltrol -) 0.25 mcg PO DAILY [facility] Last Admin: 03/10/19 09:14 Dose: 0.25 mcg Carvedilol (Coreg -) 25 mg PO BID [facility] Last Admin: 03/10/19 09:14 Dose: 25 mg Ferrous Sulfate (Feosol -) 325 mg PO Q2D [facility] Last Admin: 03/09/19 09:24 Dose: 325 mg Glipizide (Glucotrol Xl -) 2.5 mg PO DAILY@0700 [facility] Last Admin: 03/10/19 06:19 Dose: 2.5 mg Piperacillin Sod/Tazobactam (Sod 2.25 gm/ Dextrose) 50 mls @ 100 mls/hr IVPB Q6H-IV [facility]; Protocol Last Admin: 03/10/19 09:15 Dose: 100 mls/hr Insulin Aspart (Novolog Vial Sliding Scale -) 1 vial SQ ACHS [facility]; Protocol Last Admin: 03/10/19 06:20 Dose: Not Given Multivitamins/Minerals/Vitamin C (Tab-A-Vit -) 1 tab PO DAILY [facility] Last Admin: 03/10/19 09:14 Dose: 1 tab Pregabalin (Lyrica -) 100 mg PO HS [facility] Last Admin: 03/09/19 21:21 Dose: 100 mg Rivaroxaban (Xarelto) 20 mg PO DAILY@1800 [facility] Last Admin: 03/09/19 17:24 Dose: 20 mg Spironolactone (Aldactone -) 25 mg PO DAILY [facility] Last Admin: 03/10/19 09:14 Dose: 25 mg Tamsulosin HCl (Flomax -) 0.4 mg PO DAILY@0830 [facility] Last Admin: 03/10/19 09:15 Dose: 0.4 mg Torsemide (Demadex -) 20 mg PO BIDLASIX [facility] Last Admin: 03/10/19 06:19 Dose: 20 mg - Objective Vital Signs: Vital Signs Temperature 98.7 F 03/10/19 06:34 Pulse Rate 91 H 03/10/19 09:20 Respiratory Rate 20 03/10/19 09:20 Blood Pressure 145/86 03/10/19 09:20 O2 Sat by Pulse Oximetry (%) 97 03/09/19 20:55 Constitutional: Yes: No Distress, Calm, Obese Cardiovascular: Yes: Regular Rate and Rhythm, S2. No: JVD, Gallop, Murmur Respiratory: Yes: Regular, CTA Bilaterally. No: Accessory Muscle Use Extremities: No: Cold Edema: No Neurological: Yes: Alert, Oriented Psychiatric: No: Agitated Labs: CBC, BMP 03/09/19 07:59 03/09/19 07:59 INR, PTT INR 1.24 (0.83-1.09) H 03/06/19 07:40 Assessment/Plan EKG sinus, first deg AV block, RBBB Echo 03/06: severe, global LV hypo, EF 30-35%. nl RV. mild MR/TR. RVSP normal 78 y/o/ m w/ PMHx HTN, NIDDM, GERD, GOUT, ?CHF s/p R foot wound debridement chronic syst CHF, s/p ICD ([employer]) - patient unreliable historian - known systolic CHF - on spironolactone, bb at home - echo here with EF 30-35%, diffuse--will attempt to d/w outpt cardio to confirm no signif new findings that warrant inpt workup - per home meds list, on torsemide 40 bid as outpatient--receiving 20 bid here. bun/creat rising, no baseline data available. appears euvolemic--hold torsemide x 1 day then decrease to torsemide 20 qd - apparently on carvedilol, spironolactone at home. no MAGDA/ARB--prior intolerance/renal function issues with meds not know. will not change present mgmt plan, outpt f/u rec'd ? prior DVT - on xarelto 15 mg BID, recently changed to daily dosing - dosing suggests for DVT - would contact prescribing doctor for further history, patient not sure why he is taking infected R TMA - s/p debridement - manage per podiatry HTN - stable, cont home meds CKD - creat up slightly--as above DM - manage per primary HLD - cont statin
[2019-03-10 16:33] LABS: BASO % 0.4 % (0-2.0); EOS % 0.3 % (0-4.5); HEMOGLOBIN 12.4 GM/dL (11.7-16.9); LYMPH % 9.7 % (8-40); MEAN CELL VOLUME 71.1 fl (80-96); MEAN PLT VOLUME 10.3 fl (7.5-11.1); NEUT % 79.6 % (42.8-82.8); PLATELET COUNT 172 K/MM3 (134-434); RBC 5.63 M/mm3 (4.00-5.60); RDW 18.3 % (11.9-15.9); WHITE BLOOD COUNT 14.9 K/mm3 (4.0-10.0)
--- NOTE | 2019-03-10 16:52 | PN ---
Progress Note, Physician History of Present Illness: stable - Current Medication List Current Medications: Active Medications Acetaminophen (Tylenol -) 500 mg PO Q6H PRN PRN Reason: PAIN SCALE 4-6 Last Admin: 03/10/19 09:25 Dose: 500 mg Allopurinol (Zyloprim -) 100 mg PO DAILY [facility] Last Admin: 03/10/19 09:14 Dose: 100 mg Atorvastatin Calcium (Lipitor -) 40 mg PO HS [facility] Last Admin: 03/09/19 21:21 Dose: 40 mg Calcitriol (Rocaltrol -) 0.25 mcg PO DAILY [facility] Last Admin: 03/10/19 09:14 Dose: 0.25 mcg Carvedilol (Coreg -) 25 mg PO BID [facility] Last Admin: 03/10/19 09:14 Dose: 25 mg Ferrous Sulfate (Feosol -) 325 mg PO Q2D [facility] Last Admin: 03/09/19 09:24 Dose: 325 mg Glipizide (Glucotrol Xl -) 2.5 mg PO DAILY@0700 [facility] Last Admin: 03/10/19 06:19 Dose: 2.5 mg Piperacillin Sod/Tazobactam (Sod 2.25 gm/ Dextrose) 50 mls @ 100 mls/hr IVPB Q6H-IV [facility]; Protocol Last Admin: 03/10/19 16:34 Dose: 100 mls/hr Insulin Aspart (Novolog Vial Sliding Scale -) 1 vial SQ ACHS [facility]; Protocol Last Admin: 03/10/19 11:31 Dose: Not Given Multivitamins/Minerals/Vitamin C (Tab-A-Vit -) 1 tab PO DAILY [facility] Last Admin: 03/10/19 09:14 Dose: 1 tab Pregabalin (Lyrica -) 100 mg PO HS [facility] Last Admin: 03/09/19 21:21 Dose: 100 mg Rivaroxaban (Xarelto) 20 mg PO DAILY@1800 [facility] Last Admin: 03/09/19 17:24 Dose: 20 mg Spironolactone (Aldactone -) 25 mg PO DAILY [facility] Last Admin: 03/10/19 09:14 Dose: 25 mg Tamsulosin HCl (Flomax -) 0.4 mg PO DAILY@0830 [facility] Last Admin: 03/10/19 09:15 Dose: 0.4 mg Torsemide (Demadex -) 20 mg PO DAILY [facility] - Objective Vital Signs: Vital Signs Temperature 99.4 F 03/10/19 14:46 Pulse Rate 86 03/10/19 14:46 Respiratory Rate 20 03/10/19 14:46 Blood Pressure 126/74 03/10/19 14:46 O2 Sat by Pulse Oximetry (%) 97 03/09/19 20:55 Constitutional: Yes: No Distress HENT: Yes: Atraumatic Neck: Yes: Supple Cardiovascular: Yes: Regular Rate and Rhythm Respiratory: Yes: CTA Bilaterally Gastrointestinal: Yes: Normal Bowel Sounds Extremities: Yes: Other (R foot cellulitis...in dressing) Neurological: Yes: Alert, Oriented Labs: CBC, BMP 03/10/19 15:00 03/09/19 07:59 INR, PTT INR 1.24 (0.83-1.09) H 03/06/19 07:40 Problem List - Problems (1) BPH (benign prostatic hyperplasia) Code(s): N40.0 - BENIGN PROSTATIC HYPERPLASIA WITHOUT LOWER URINRY TRACT SYMP (2) CKD (chronic kidney disease) Code(s): N18.9 - CHRONIC KIDNEY DISEASE, UNSPECIFIED (3) Cellulitis of right foot Code(s): L03.115 - CELLULITIS OF RIGHT LOWER LIMB (4) GERD (gastroesophageal reflux disease) Code(s): K21.9 - GASTRO-ESOPHAGEAL REFLUX DISEASE WITHOUT ESOPHAGITIS (5) Gout Code(s): M10.9 - GOUT, UNSPECIFIED (6) HLD (hyperlipidemia) Code(s): E78.5 - HYPERLIPIDEMIA, UNSPECIFIED (7) HTN (hypertension) Code(s): I10 - ESSENTIAL (PRIMARY) HYPERTENSION (8) Diabetic foot ulcer Code(s): E11.621 - TYPE 2 DIABETES MELLITUS WITH FOOT ULCER; L97.509 - NON- PRESSURE CHRONIC ULCER OTH PRT UNSP FOOT W UNSP SEVERITY Qualifiers: Diabetic foot ulcer location: other Assessment/Plan CONTINUE IV ABX WOUND CARE AND OTHER MEDS CONSULTS AND LABS REVIEWED COVERING FOR DR BARRY TODAY
[2019-03-10] MEDS: RIVAROXABAN 20 MG TABLET PO SCH (18:15)
[2019-03-10 18:40] LABS: ANISOCYTOSIS 2+; MACROCYTOSIS 0; OVALOCYTE 2+; PLATELET ESTIMATE NORMAL; TEAR DROP CELLS 1+
[2019-03-10] MEDS: PREGABALIN 100 MG CAPSULE PO SCH (21:49)
[2019-03-10] MEDS: ATORVASTATIN CA 40 MG TABLET (FP) PO SCH (21:49)
[2019-03-11] MEDS ORDERED: PIPERACILLIN/TAZOBACTAM 2.25 GM VIAL IVPB ONE ×2 (01:53→09:30)
[2019-03-11] MEDS ORDERED: DEXTROSE 5%-WATER - 50 ML IVPB ONE ×2 (01:54→09:31)
[2019-03-11] MEDS: PIPERACILLIN/TAZOB 2.25 GM 2.25 GM in DEXTROSE 5%-WATER - 50 ML IVPB SCH ×2 (02:33→09:33)
[2019-03-11] MEDS ORDERED: PT OWN MED DRAWER 7, Y5N ONE (05:20)
[2019-03-11] MEDS: INSULIN SLIDING SCALE (NOVOLOG) 1 VIAL SQ SCH ×4 (06:03→21:27)
[2019-03-11] MEDS: glipiZIDE-XL 2.5 MG TAB.ER.24 PO SCH (06:48)
[2019-03-11 08:21] LABS: BLOOD UREA NITROGEN 46.5 mg/dL (7-18); CALCIUM 9.2 mg/dL (8.5-10.1); CREATININE 1.7 mg/dL (0.55-1.3); POTASSIUM 4.2 mmol/L (3.5-5.1)
[2019-03-11] MEDS: CARVEDILOL 25 MG TABLET (FP) PO SCH ×2 (09:32→21:22)
[2019-03-11] MEDS: CALCITRIOL 0.25 MCG CAPSULE (FP) PO SCH (09:32)
[2019-03-11] MEDS: ALLOPURINOL 100 MG TABLET (FP) PO SCH (09:32)
[2019-03-11] MEDS: SPIRONOLACTONE 25 MG TABLET (FP) PO SCH (09:33)
[2019-03-11] MEDS: TAMSULOSIN HCL 0.4 MG CAP PO SCH (09:33)
[2019-03-11] MEDS: FERROUS SO4 325 MG TABLET (FP) PO SCH (09:34)
[2019-03-11] MEDS: MULTIVITAMINS (DAILY MVI) TABLET (FP) PO SCH (09:34)
[2019-03-11] MEDS: ACETAMINOPHEN 500 MG TABLET (FP) PO PRN (09:41)
--- NOTE | 2019-03-11 11:40 | PN ---
Progress Note (short form) - Note Progress Note: s: no chest pain, palps dizziness, dyspnea Current Medications Acetaminophen (Tylenol -) 500 mg PO Q6H PRN PRN Reason: PAIN SCALE 4-6 Last Admin: 03/11/19 09:41 Dose: 500 mg Allopurinol (Zyloprim -) 100 mg PO DAILY [facility] Last Admin: 03/11/19 09:32 Dose: 100 mg Atorvastatin Calcium (Lipitor -) 40 mg PO HS [facility] Last Admin: 03/10/19 21:49 Dose: 40 mg Calcitriol (Rocaltrol -) 0.25 mcg PO DAILY [facility] Last Admin: 03/11/19 09:32 Dose: 0.25 mcg Carvedilol (Coreg -) 25 mg PO BID [facility] Last Admin: 03/11/19 09:32 Dose: 25 mg Ferrous Sulfate (Feosol -) 325 mg PO Q2D [facility] Last Admin: 03/11/19 09:34 Dose: 325 mg Glipizide (Glucotrol Xl -) 2.5 mg PO DAILY@0700 [facility] Last Admin: 03/11/19 06:48 Dose: 2.5 mg Piperacillin Sod/Tazobactam (Sod 2.25 gm/ Dextrose) 50 mls @ 100 mls/hr IVPB Q6H-IV [facility]; Protocol Last Admin: 03/11/19 09:33 Dose: 100 mls/hr Insulin Aspart (Novolog Vial Sliding Scale -) 1 vial SQ ACHS [facility]; Protocol Last Admin: 03/11/19 11:09 Dose: Not Given Multivitamins/Minerals/Vitamin C (Tab-A-Vit -) 1 tab PO DAILY [facility] Last Admin: 03/11/19 09:34 Dose: 1 tab Pregabalin (Lyrica -) 100 mg PO HS [facility] Last Admin: 03/10/19 21:49 Dose: 100 mg Rivaroxaban (Xarelto) 20 mg PO DAILY@1800 [facility] Last Admin: 03/10/19 18:15 Dose: 20 mg Spironolactone (Aldactone -) 25 mg PO DAILY [facility] Last Admin: 03/11/19 09:33 Dose: 25 mg Tamsulosin HCl (Flomax -) 0.4 mg PO DAILY@0830 [facility] Last Admin: 03/11/19 09:33 Dose: 0.4 mg Torsemide (Demadex -) 20 mg PO DAILY [facility] Vital Signs Period Temp Pulse Resp BP Sys/Calzada Pulse Ox Last 24 Hr 97.5 F-99.4 F 72-86 18-20 114-126/66-74 97 Constitutional: Yes: No Distress, Calm, Obese Cardiovascular: Yes: Regular Rate and Rhythm, S2. No: JVD, Gallop, Murmur Respiratory: Yes: Regular, CTA Bilaterally. No: Accessory Muscle Use Extremities: No: Cold Edema: No Neurological: Yes: Alert, Oriented Psychiatric: No: Agitated Assessment/Plan EKG sinus, first deg AV block, RBBB Echo 03/06: severe, global LV hypo, EF 30-35%. nl RV. mild MR/TR. RVSP normal 78 y/o/ m w/ PMHx HTN, NIDDM, GERD, GOUT, ?CHF s/p R foot wound debridement chronic syst CHF, s/p ICD ([employer]) - patient unreliable historian - known systolic CHF - on spironolactone, bb at home - echo here with EF 30-35%, diffuse- per Dr. Manuel d/w'd dr brayan everett, of pt's cardio practice. 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 last echo 10/2017: EF 20s%. - appears euvolemic here - for rising bun/creat rising, held torsemide x 1 day then decrease to torsemide 20 qd - apparently on carvedilol, spironolactone at home. no MAGDA/ARB--prior intolerance/renal function issues with meds not know. will not change present mgmt plan, - follow up with outpatient hot die picker ? prior DVT - on xarelto 15 mg BID, recently changed to daily dosing - dosing suggests for DVT - would contact prescribing doctor for further history, patient not sure why he is taking infected R TMA - s/p debridement - manage per podiatry HTN - stable, cont home meds CKD - creat up slightly--as above DM - manage per primary HLD - cont statin
--- NOTE | 2019-03-11 12:25 | PN ---
Progress Note, Physician History of Present Illness: stable no new issues - Current Medication List Current Medications: Active Medications Acetaminophen (Tylenol -) 500 mg PO Q6H PRN PRN Reason: PAIN SCALE 4-6 Last Admin: 03/11/19 09:41 Dose: 500 mg Allopurinol (Zyloprim -) 100 mg PO DAILY [facility] Last Admin: 03/11/19 09:32 Dose: 100 mg Atorvastatin Calcium (Lipitor -) 40 mg PO [facility] Last Admin: 03/10/19 21:49 Dose: 40 mg Calcitriol (Rocaltrol -) 0.25 mcg PO DAILY [facility] Last Admin: 03/11/19 09:32 Dose: 0.25 mcg Carvedilol (Coreg -) 25 mg PO BID [facility] Last Admin: 03/11/19 09:32 Dose: 25 mg Ferrous Sulfate (Feosol -) 325 mg PO Q2D [facility] Last Admin: 03/11/19 09:34 Dose: 325 mg Glipizide (Glucotrol Xl -) 2.5 mg PO DAILY@0700 [facility] Last Admin: 03/11/19 06:48 Dose: 2.5 mg Insulin Aspart (Novolog Vial Sliding Scale -) 1 vial SQ [facility]; Protocol Last Admin: 03/11/19 11:09 Dose: Not Given Multivitamins/Minerals/Vitamin C (Tab-A-Vit -) 1 tab PO DAILY [facility] Last Admin: 03/11/19 09:34 Dose: 1 tab Pregabalin (Lyrica -) 100 mg PO [facility] Last Admin: 03/10/19 21:49 Dose: 100 mg Rivaroxaban (Xarelto) 20 mg PO DAILY@1800 [facility] Last Admin: 03/10/19 18:15 Dose: 20 mg Spironolactone (Aldactone -) 25 mg PO DAILY [facility] Last Admin: 03/11/19 09:33 Dose: 25 mg Tamsulosin HCl (Flomax -) 0.4 mg PO DAILY@0830 [facility] Last Admin: 03/11/19 09:33 Dose: 0.4 mg Torsemide (Demadex -) 20 mg PO DAILY [facility] - Objective Vital Signs: Vital Signs Temperature 97.5 F L 03/11/19 05:18 Pulse Rate 72 03/11/19 05:18 Respiratory Rate 20 03/11/19 05:18 Blood Pressure 122/67 03/11/19 05:18 O2 Sat by Pulse Oximetry (%) 97 03/10/19 21:00 Constitutional: Yes: No Distress, Calm Cardiovascular: Yes: S1, S2 Respiratory: Yes: Regular, CTA Bilaterally Gastrointestinal: Yes: Normal Bowel Sounds, Soft Musculoskeletal: Yes: WNL Extremities: Yes: Other Wound/Incision: Yes: Dressing Dry and Intact Neurological: Yes: Alert, Oriented Psychiatric: Yes: Alert, Oriented Labs: CBC, BMP 03/10/19 15:00 03/11/19 07:38 INR, PTT INR 1.24 (0.83-1.09) H 03/06/19 07:40 Assessment/Plan Problem List - Problems (1) Cellulitis of right foot Code(s): L03.115 - CELLULITIS OF RIGHT LOWER LIMB (2) Diabetic foot ulcer Code(s): E11.621 - TYPE 2 DIABETES MELLITUS WITH FOOT ULCER; L97.509 - NON- PRESSURE CHRONIC ULCER OTH PRT UNSP FOOT W UNSP SEVERITY Qualifiers: Diabetic foot ulcer location: other (3) Type 2 diabetes mellitus Code(s): E11.9 - TYPE 2 DIABETES MELLITUS WITHOUT COMPLICATIONS Qualifiers: Diabetes mellitus complication detail: with autonomic neuropathy Assessment/Plan Infected RT TMA site DM HTN s/p PPM CKD Gout GERD plan cx results noted abx wound care rest as per the team ceftriaxone 2 gm for 4 more weeks
[2019-03-11 14:08] LABS: HEMATOCRIT 38.8 % (35.4-49); HEMOGLOBIN 12.1 GM/dL (11.7-16.9); MCHC 31.1 g/dl (32.0-35.9); MEAN CELL VOLUME 70.9 fl (80-96); PLATELET COUNT 131 K/MM3 (134-434); RBC 5.47 M/mm3 (4.00-5.60); RDW 18.1 % (11.9-15.9); WHITE BLOOD COUNT 13.8 K/mm3 (4.0-10.0)
[2019-03-11] MEDS ORDERED: DEXTROSE 5%-WATER 100 ML IVPB ONE (17:11)
[2019-03-11] MEDS: CEFTRIAXONE 2 GM in DEXTROSE 5%-WATER 100 ML IVPB SCH (17:26)
[2019-03-11] MEDS: RIVAROXABAN 20 MG TABLET PO SCH (17:26)
--- NOTE | 2019-03-11 20:36 | PN ---
Progress Note (short form) - Note Progress Note: FUV right foot. s/p application Integra 03/06/19 vss, tmax 99.6 +resolved cellulitis, wbc=13.8, +incorporation of graft no evidence of rejection, no drainage noted, no malodor om s/p tma resolved cellulitis Do not remove dressing. Continue bathroom privelages with post op shoe. Advise patient to minimize walking and help graft to incorporate and cover his wound. Has not been compliant with this request. Discussed with ID elevation of wbc. Does not appear to be from foot. ABX as per ID. Wound care aware of need for tma tcc ez cast upon dc. cbc with diff in am. Cannot dc till wbc stabilizes. There is a low chance of graft rejection however if no other source is found for increased wbc will most likely remove graft. Wound culture done at graft site. Area irrigated with betadine and xeroform gauze dressing re- applied.
[2019-03-11] MEDS: PREGABALIN 100 MG CAPSULE PO SCH (21:21)
[2019-03-11] MEDS: ATORVASTATIN CA 40 MG TABLET (FP) PO SCH (21:22)
--- NOTE | 2019-03-11 23:18 | PN ---
Progress Note, Physician History of Present Illness: No new complaints - Current Medication List Current Medications: Active Medications Acetaminophen (Tylenol -) 500 mg PO Q6H PRN PRN Reason: PAIN SCALE 4-6 Last Admin: 03/11/19 09:41 Dose: 500 mg Allopurinol (Zyloprim -) 100 mg PO DAILY [facility] Last Admin: 03/11/19 09:32 Dose: 100 mg Atorvastatin Calcium (Lipitor -) 40 mg PO HS [facility] Last Admin: 03/11/19 21:22 Dose: 40 mg Calcitriol (Rocaltrol -) 0.25 mcg PO DAILY [facility] Last Admin: 03/11/19 09:32 Dose: 0.25 mcg Carvedilol (Coreg -) 25 mg PO BID [facility] Last Admin: 03/11/19 21:22 Dose: 25 mg Ferrous Sulfate (Feosol -) 325 mg PO Q2D [facility] Last Admin: 03/11/19 09:34 Dose: 325 mg Glipizide (Glucotrol Xl -) 2.5 mg PO DAILY@0700 [facility] Last Admin: 03/11/19 06:48 Dose: 2.5 mg Ceftriaxone Sodium 2 gm/ (Dextrose) 100 mls @ 200 mls/hr IVPB DAILY [facility]; Protocol Last Admin: 03/11/19 17:26 Dose: Not Given Insulin Aspart (Novolog Vial Sliding Scale -) 1 vial SQ ACHS [facility]; Protocol Last Admin: 03/11/19 21:27 Dose: Not Given Multivitamins/Minerals/Vitamin C (Tab-A-Vit -) 1 tab PO DAILY [facility] Last Admin: 03/11/19 09:34 Dose: 1 tab Pregabalin (Lyrica -) 100 mg PO HS [facility] Last Admin: 03/11/19 21:21 Dose: 100 mg Rivaroxaban (Xarelto) 20 mg PO DAILY@1800 [facility] Last Admin: 03/11/19 17:26 Dose: Not Given Spironolactone (Aldactone -) 25 mg PO DAILY [facility] Last Admin: 03/11/19 09:33 Dose: 25 mg Tamsulosin HCl (Flomax -) 0.4 mg PO DAILY@0830 [facility] Last Admin: 03/11/19 09:33 Dose: 0.4 mg Torsemide (Demadex -) 20 mg PO DAILY [facility] - Objective Vital Signs: Vital Signs Temperature 99.6 F 03/11/19 20:09 Pulse Rate 103 H 03/11/19 20:09 Respiratory Rate 18 03/11/19 20:09 Blood Pressure 139/81 03/11/19 20:09 O2 Sat by Pulse Oximetry (%) 96 03/11/19 22:00 Neck: Yes: WNL, Supple Cardiovascular: Yes: WNL, Regular Rate and Rhythm Respiratory: Yes: WNL, Regular, CTA Bilaterally Gastrointestinal: Yes: WNL, Normal Bowel Sounds, Soft, Abdomen, Obese Extremities: Yes: Other Labs: CBC, BMP 03/11/19 13:51 03/11/19 07:38 INR, PTT INR 1.24 (0.83-1.09) H 03/06/19 07:40 Problem List - Problems (1) Cellulitis of right foot Assessment/Plan: Diabetic foot ulcer Cont IV zosyn S/P debridement and graft of Rt TMA WBC slightly elevated Cont to monitor Code(s): L03.115 - CELLULITIS OF RIGHT LOWER LIMB (2) HTN (hypertension) Assessment/Plan: BP stable Cont coreg/spironolactone/torsemide Code(s): I10 - ESSENTIAL (PRIMARY) HYPERTENSION (3) CKD (chronic kidney disease) Assessment/Plan: Creatinine has been stable Cont calcitriol Code(s): N18.9 - CHRONIC KIDNEY DISEASE, UNSPECIFIED (4) GERD (gastroesophageal reflux disease) Code(s): K21.9 - GASTRO-ESOPHAGEAL REFLUX DISEASE WITHOUT ESOPHAGITIS (5) Type 2 diabetes mellitus Assessment/Plan: Cont glibizide/sliding scale w/ coverage Will hold glucotrol for am in preparation for surgery Code(s): E11.9 - TYPE 2 DIABETES MELLITUS WITHOUT COMPLICATIONS Qualifiers: Diabetes mellitus complication detail: with autonomic neuropathy (6) BPH (benign prostatic hyperplasia) Code(s): N40.0 - BENIGN PROSTATIC HYPERPLASIA WITHOUT LOWER URINRY TRACT SYMP (7) Gout Code(s): M10.9 - GOUT, UNSPECIFIED (8) HLD (hyperlipidemia) Code(s): E78.5 - HYPERLIPIDEMIA, UNSPECIFIED
[2019-03-12 00:39] LABS: BASO % 0.7 % (0-2.0); EOS % 0.1 % (0-4.5); HEMATOCRIT 38.9 % (35.4-49); HEMOGLOBIN 12.1 GM/dL (11.7-16.9); LYMPH % 14.8 % (8-40); MCH 21.9 pg (25.7-33.7); MCHC 31.2 g/dl (32.0-35.9); MEAN CELL VOLUME 70.4 fl (80-96); MEAN PLT VOLUME 9.2 fl (7.5-11.1); MONO % 14.4 % (3.8-10.2); PLATELET COUNT 119 K/MM3 (134-434); RBC 5.53 M/mm3 (4.00-5.60); RDW 17.3 % (11.9-15.9); WHITE BLOOD COUNT 13.8 K/mm3 (4.0-10.0)
[2019-03-12] MEDS: INSULIN SLIDING SCALE (NOVOLOG) 1 VIAL SQ SCH ×4 (06:32→21:43)
[2019-03-12] MEDS: glipiZIDE-XL 2.5 MG TAB.ER.24 PO SCH (06:32)
[2019-03-12] MEDS ORDERED: INSULIN (NOVOLOG) ASPART 100 UNITS/ML 10ML VIAL ONE (07:01)
[2019-03-12 07:45] LABS: BASO % 0.5 % (0-2.0); EOS % 0.3 % (0-4.5); HEMATOCRIT 39.9 % (35.4-49); HEMOGLOBIN 12.5 GM/dL (11.7-16.9); MCH 22.3 pg (25.7-33.7); MCHC 31.3 g/dl (32.0-35.9); MEAN CELL VOLUME 71.4 fl (80-96); MEAN PLT VOLUME 9.6 fl (7.5-11.1); MONO % 13.1 % (3.8-10.2); NEUT % 70.1 % (42.8-82.8); PLATELET COUNT 132 K/MM3 (134-434); RBC 5.59 M/mm3 (4.00-5.60); RDW 18.3 % (11.9-15.9); WHITE BLOOD COUNT 13.3 K/mm3 (4.0-10.0)
[2019-03-12 07:57] LABS: ALBUMIN 3.5 g/dl (3.4-5.0); BILIRUBIN,TOTAL 1.3 mg/dL (0.2-1); BLOOD UREA NITROGEN 46.3 mg/dL (7-18); CALCIUM 9.4 mg/dL (8.5-10.1); CREATININE 1.8 mg/dL (0.55-1.3); POTASSIUM 4.5 mmol/L (3.5-5.1); TOT PROT 7.5 g/dl (6.4-8.2)
[2019-03-12] MEDS ORDERED: DEXTROSE 5%-WATER 100 ML IVPB ONE (10:14)
[2019-03-12] MEDS: ALLOPURINOL 100 MG TABLET (FP) PO SCH (10:24)
[2019-03-12] MEDS: CARVEDILOL 25 MG TABLET (FP) PO SCH ×2 (10:24→21:43)
[2019-03-12] MEDS: CALCITRIOL 0.25 MCG CAPSULE (FP) PO SCH (10:24)
[2019-03-12] MEDS: TORSEMIDE 20 MG TABLET (FP) PO SCH (10:24)
[2019-03-12] MEDS: SPIRONOLACTONE 25 MG TABLET (FP) PO SCH (10:24)
[2019-03-12] MEDS: MULTIVITAMINS (DAILY MVI) TABLET (FP) PO SCH (10:24)
[2019-03-12] MEDS: TAMSULOSIN HCL 0.4 MG CAP PO SCH (10:24)
[2019-03-12] MEDS: CEFTRIAXONE 2 GM in DEXTROSE 5%-WATER 100 ML IVPB SCH (10:24)
[2019-03-12] MEDS: ACETAMINOPHEN 500 MG TABLET (FP) PO PRN (10:32)
--- NOTE | 2019-03-12 11:53 | PN ---
Progress Note (short form) - Note Progress Note: s: no chest pain, palps dizziness, dyspnea Current Medications Acetaminophen (Tylenol -) 500 mg PO Q6H PRN PRN Reason: PAIN SCALE 4-6 Last Admin: 03/12/19 10:32 Dose: 500 mg Allopurinol (Zyloprim -) 100 mg PO DAILY [facility] Last Admin: 03/12/19 10:24 Dose: 100 mg Atorvastatin Calcium (Lipitor -) 40 mg PO HS [facility] Last Admin: 03/11/19 21:22 Dose: 40 mg Calcitriol (Rocaltrol -) 0.25 mcg PO DAILY [facility] Last Admin: 03/12/19 10:24 Dose: 0.25 mcg Carvedilol (Coreg -) 25 mg PO BID [facility] Last Admin: 03/12/19 10:24 Dose: 25 mg Ferrous Sulfate (Feosol -) 325 mg PO Q2D [facility] Last Admin: 03/11/19 09:34 Dose: 325 mg Glipizide (Glucotrol Xl -) 2.5 mg PO DAILY@0700 [facility] Last Admin: 03/12/19 06:32 Dose: 2.5 mg Ceftriaxone Sodium 2 gm/ (Dextrose) 100 mls @ 200 mls/hr IVPB DAILY [facility]; Protocol Last Admin: 03/12/19 10:24 Dose: 200 mls/hr Insulin Aspart (Novolog Vial Sliding Scale -) 1 vial SQ ACHS [facility]; Protocol Last Admin: 03/12/19 06:32 Dose: Not Given Multivitamins/Minerals/Vitamin C (Tab-A-Vit -) 1 tab PO DAILY [facility] Last Admin: 03/12/19 10:24 Dose: 1 tab Pregabalin (Lyrica -) 100 mg PO HS [facility] Last Admin: 03/11/19 21:21 Dose: 100 mg Rivaroxaban (Xarelto) 20 mg PO DAILY@1800 [facility] Last Admin: 03/11/19 17:26 Dose: Not Given Spironolactone (Aldactone -) 25 mg PO DAILY [facility] Last Admin: 03/12/19 10:24 Dose: 25 mg Tamsulosin HCl (Flomax -) 0.4 mg PO DAILY@0830 [facility] Last Admin: 03/12/19 10:24 Dose: 0.4 mg Torsemide (Demadex -) 20 mg PO DAILY [facility] Last Admin: 09/25/19 10:24 Dose: 20 mg Vital Signs Period Temp Pulse Resp BP Sys/Calzada Pulse Ox Last 24 Hr 99.0 F-99.6 F 77-103 18-20 107-139/57-81 96 Constitutional: Yes: No Distress, Calm, Obese Cardiovascular: Yes: Regular Rate and Rhythm, S2. No: JVD, Gallop, Murmur Respiratory: Yes: Regular, CTA Bilaterally. No: Accessory Muscle Use Extremities: No: Cold Edema: No Neurological: Yes: Alert, Oriented Psychiatric: No: Agitated Assessment/Plan EKG sinus, first deg AV block, RBBB Echo 03/06: severe, global LV hypo, EF 30-35%. nl RV. mild MR/TR. RVSP normal 78 y/o/ m w/ PMHx HTN, NIDDM, GERD, GOUT, ?CHF s/p R foot wound debridement chronic syst CHF, s/p ICD (B Sci) - patient unreliable historian - known systolic CHF - on spironolactone, bb at home - echo here with EF 30-35%, diffuse- per Dr. Manuel d/w'd dr brayan everett, of pt's cardio practice. 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 last echo 10/2017: EF 20s%. - appears euvolemic here - for rising bun/creat rising, held torsemide x 1 day then decrease to torsemide 20 qd - apparently on carvedilol, spironolactone at home. no MAGDA/ARB--prior intolerance/renal function issues with meds not know. 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 prior DVT - on xarelto 15 mg BID, recently changed to daily dosing - dosing suggests for DVT - would contact prescribing doctor for further history, patient not sure why he is taking infected R TMA - s/p debridement - manage per podiatry HTN - stable, cont home meds CKD - creat up slightly--as above DM - manage per primary HLD - cont statin
--- NOTE | 2019-03-12 12:19 | PN ---
Progress Note, Physician History of Present Illness: no new issues wbc marginally down podiatry note noted - Current Medication List Current Medications: Active Medications Acetaminophen (Tylenol -) 500 mg PO Q6H PRN PRN Reason: PAIN SCALE 4-6 Last Admin: 03/12/19 10:32 Dose: 500 mg Allopurinol (Zyloprim -) 100 mg PO DAILY [facility] Last Admin: 03/12/19 10:24 Dose: 100 mg Atorvastatin Calcium (Lipitor -) 40 mg PO HS [facility] Last Admin: 03/11/19 21:22 Dose: 40 mg Calcitriol (Rocaltrol -) 0.25 mcg PO DAILY [facility] Last Admin: 03/12/19 10:24 Dose: 0.25 mcg Carvedilol (Coreg -) 25 mg PO BID [facility] Last Admin: 03/12/19 10:24 Dose: 25 mg Ferrous Sulfate (Feosol -) 325 mg PO Q2D [facility] Last Admin: 03/11/19 09:34 Dose: 325 mg Glipizide (Glucotrol Xl -) 2.5 mg PO DAILY@0700 [facility] Last Admin: 03/12/19 06:32 Dose: 2.5 mg Ceftriaxone Sodium 2 gm/ (Dextrose) 100 mls @ 200 mls/hr IVPB DAILY [facility]; Protocol Last Admin: 03/12/19 10:24 Dose: 200 mls/hr Insulin Aspart (Novolog Vial Sliding Scale -) 1 vial SQ ACHS [facility]; Protocol Last Admin: 03/12/19 06:32 Dose: Not Given Multivitamins/Minerals/Vitamin C (Tab-A-Vit -) 1 tab PO DAILY [facility] Last Admin: 03/12/19 10:24 Dose: 1 tab Pregabalin (Lyrica -) 100 mg PO [facility] Last Admin: 03/11/19 21:21 Dose: 100 mg Rivaroxaban (Xarelto) 20 mg PO DAILY@1800 [facility] Last Admin: 03/11/19 17:26 Dose: Not Given Spironolactone (Aldactone -) 25 mg PO DAILY [facility] Last Admin: 03/12/19 10:24 Dose: 25 mg Tamsulosin HCl (Flomax -) 0.4 mg PO DAILY@0830 [facility] Last Admin: 03/12/19 10:24 Dose: 0.4 mg Torsemide (Demadex -) 20 mg PO DAILY [facility] Last Admin: 03/12/19 10:24 Dose: 20 mg - Objective Vital Signs: Vital Signs Temperature 99.3 F 03/12/19 05:50 Pulse Rate 82 03/12/19 05:50 Respiratory Rate 18 03/12/19 05:50 Blood Pressure 109/65 03/12/19 05:50 O2 Sat by Pulse Oximetry (%) 96 03/11/19 22:00 Constitutional: Yes: No Distress, Calm Cardiovascular: Yes: S1, S2 Respiratory: Yes: Regular, CTA Bilaterally Gastrointestinal: Yes: Normal Bowel Sounds, Soft Musculoskeletal: Yes: Other Extremities: Yes: Other Wound/Incision: Yes: Dressing Dry and Intact Neurological: Yes: Alert, Oriented Psychiatric: Yes: Alert, Oriented Labs: CBC, BMP 03/12/19 06:30 03/12/19 06:25 INR, PTT INR 1.24 (0.83-1.09) H 03/06/19 07:40 Assessment/Plan Problem List - Problems (1) Cellulitis of right foot Code(s): L03.115 - CELLULITIS OF RIGHT LOWER LIMB (2) Diabetic foot ulcer Code(s): E11.621 - TYPE 2 DIABETES MELLITUS WITH FOOT ULCER; L97.509 - NON- PRESSURE CHRONIC ULCER OTH PRT UNSP FOOT W UNSP SEVERITY Qualifiers: Diabetic foot ulcer location: other (3) Type 2 diabetes mellitus Code(s): E11.9 - TYPE 2 DIABETES MELLITUS WITHOUT COMPLICATIONS Qualifiers: Diabetes mellitus complication detail: with autonomic neuropathy Assessment/Plan Infected RT TMA site DM HTN s/p PPM CKD Gout GERD plan cx results noted abx wound care rest as per the team ceftriaxone 2 gm for 4 more weeks
[2019-03-12] MEDS: RIVAROXABAN 20 MG TABLET PO SCH (18:28)
[2019-03-12] MEDS: PREGABALIN 100 MG CAPSULE PO SCH (21:43)
[2019-03-12] MEDS: ATORVASTATIN CA 40 MG TABLET (FP) PO SCH (21:43)
--- NOTE | 2019-03-12 22:07 | PN ---
Progress Note, Physician History of Present Illness: No new complaints - Current Medication List Current Medications: Active Medications Acetaminophen (Tylenol -) 500 mg PO Q6H PRN PRN Reason: PAIN SCALE 4-6 Last Admin: 03/12/19 10:32 Dose: 500 mg Allopurinol (Zyloprim -) 100 mg PO DAILY [facility] Last Admin: 03/12/19 10:24 Dose: 100 mg Atorvastatin Calcium (Lipitor -) 40 mg PO HS [facility] Last Admin: 03/12/19 21:43 Dose: 40 mg Calcitriol (Rocaltrol -) 0.25 mcg PO DAILY [facility] Last Admin: 03/12/19 10:24 Dose: 0.25 mcg Carvedilol (Coreg -) 25 mg PO BID [facility] Last Admin: 03/12/19 21:43 Dose: 25 mg Ferrous Sulfate (Feosol -) 325 mg PO Q2D [facility] Last Admin: 03/11/19 09:34 Dose: 325 mg Glipizide (Glucotrol Xl -) 2.5 mg PO DAILY@0700 [facility] Last Admin: 03/12/19 06:32 Dose: 2.5 mg Ceftriaxone Sodium 2 gm/ (Dextrose) 100 mls @ 200 mls/hr IVPB DAILY [facility]; Protocol Last Admin: 03/12/19 10:24 Dose: 200 mls/hr Insulin Aspart (Novolog Vial Sliding Scale -) 1 vial SQ ACHS [facility]; Protocol Last Admin: 03/12/19 21:43 Dose: Not Given Multivitamins/Minerals/Vitamin C (Tab-A-Vit -) 1 tab PO DAILY [facility] Last Admin: 03/12/19 10:24 Dose: 1 tab Pregabalin (Lyrica -) 100 mg PO [facility] Last Admin: 03/12/19 21:43 Dose: 100 mg Rivaroxaban (Xarelto) 20 mg PO DAILY@1800 [facility] Last Admin: 03/12/19 18:28 Dose: 20 mg Spironolactone (Aldactone -) 25 mg PO DAILY [facility] Last Admin: 03/12/19 10:24 Dose: 25 mg Tamsulosin HCl (Flomax -) 0.4 mg PO DAILY@0830 [facility] Last Admin: 03/12/19 10:24 Dose: 0.4 mg Torsemide (Demadex -) 20 mg PO DAILY [facility] Last Admin: 03/12/19 10:24 Dose: 20 mg - Objective Vital Signs: Vital Signs Temperature 99.2 F 03/12/19 22:01 Pulse Rate 91 H 03/12/19 22:01 Respiratory Rate 20 03/12/19 22:01 Blood Pressure 151/90 03/12/19 22:01 O2 Sat by Pulse Oximetry (%) 96 03/12/19 20:20 Cardiovascular: Yes: WNL, Regular Rate and Rhythm Respiratory: Yes: WNL, Regular, CTA Bilaterally Gastrointestinal: Yes: WNL, Normal Bowel Sounds, Soft, Abdomen, Obese Extremities: Yes: Other (RT foot w/ dressing) Labs: CBC, BMP 03/12/19 06:30 03/12/19 06:25 INR, PTT INR 1.24 (0.83-1.09) H 03/06/19 07:40 Problem List - Problems (1) Cellulitis of right foot Assessment/Plan: Diabetic foot ulcer Cont IV zosyn S/P debridement and graft of Rt TMA WBC slightly elevated Will change to IV ceftriaxone on DC w/ another 4 weeks of IV antibxs ?DC planning once WBC normalizes Code(s): L03.115 - CELLULITIS OF RIGHT LOWER LIMB (2) HTN (hypertension) Assessment/Plan: BP stable Cont coreg/spironolactone/torsemide Code(s): I10 - ESSENTIAL (PRIMARY) HYPERTENSION (3) CKD (chronic kidney disease) Assessment/Plan: Creatinine has been stable Cont calcitriol Code(s): N18.9 - CHRONIC KIDNEY DISEASE, UNSPECIFIED (4) GERD (gastroesophageal reflux disease) Code(s): K21.9 - GASTRO-ESOPHAGEAL REFLUX DISEASE WITHOUT ESOPHAGITIS (5) Type 2 diabetes mellitus Assessment/Plan: Cont glibizide/sliding scale w/ coverage Will hold glucotrol for am in preparation for surgery Code(s): E11.9 - TYPE 2 DIABETES MELLITUS WITHOUT COMPLICATIONS Qualifiers: Diabetes mellitus complication detail: with autonomic neuropathy (6) BPH (benign prostatic hyperplasia) Code(s): N40.0 - BENIGN PROSTATIC HYPERPLASIA WITHOUT LOWER URINRY TRACT SYMP (7) Gout Assessment/Plan: Cont allopurinol Code(s): M10.9 - GOUT, UNSPECIFIED (8) HLD (hyperlipidemia) Assessment/Plan: Cont lipitor Code(s): E78.5 - HYPERLIPIDEMIA, UNSPECIFIED
[2019-03-13] MEDS: INSULIN SLIDING SCALE (NOVOLOG) 1 VIAL SQ SCH ×3 (06:18→22:01)
[2019-03-13] MEDS: glipiZIDE-XL 2.5 MG TAB.ER.24 PO SCH (06:19)
[2019-03-13 07:16] LABS: BASO % 0.6 % (0-2.0); EOS % 0.4 % (0-4.5); HEMATOCRIT 36.9 % (35.4-49); HEMOGLOBIN 11.7 GM/dL (11.7-16.9); LYMPH % 17.3 % (8-40); MCH 22.3 pg (25.7-33.7); MCHC 31.6 g/dl (32.0-35.9); MEAN CELL VOLUME 70.5 fl (80-96); MEAN PLT VOLUME 10.3 fl (7.5-11.1); MONO % 21.6 % (3.8-10.2); NEUT % 60.1 % (42.8-82.8); PLATELET COUNT 126 K/MM3 (134-434); RBC 5.24 M/mm3 (4.00-5.60); RDW 18.3 % (11.9-15.9); WHITE BLOOD COUNT 10.2 K/mm3 (4.0-10.0)
[2019-03-13 07:44] LABS: BILIRUBIN,TOTAL 0.7 mg/dL (0.2-1); BLOOD UREA NITROGEN 50.6 mg/dL (7-18); CALCIUM 8.8 mg/dL (8.5-10.1); CREATININE 1.7 mg/dL (0.55-1.3); POTASSIUM 4.3 mmol/L (3.5-5.1); TOT PROT 6.8 g/dl (6.4-8.2)
[2019-03-13 10:00] LABS: ANISOCYTOSIS 1+; MACROCYTOSIS 0; PLATELET ESTIMATE DECREASED
[2019-03-13] MEDS ORDERED: DEXTROSE 5%-WATER 100 ML IVPB ONE (10:06)
[2019-03-13] MEDS: FERROUS SO4 325 MG TABLET (FP) PO SCH (10:14)
[2019-03-13] MEDS: MULTIVITAMINS (DAILY MVI) TABLET (FP) PO SCH (10:14)
[2019-03-13] MEDS: CARVEDILOL 25 MG TABLET (FP) PO SCH ×2 (10:14→22:01)
[2019-03-13] MEDS: ALLOPURINOL 100 MG TABLET (FP) PO SCH (10:14)
[2019-03-13] MEDS: CEFTRIAXONE 2 GM in DEXTROSE 5%-WATER 100 ML IVPB SCH (10:14)
[2019-03-13] MEDS: CALCITRIOL 0.25 MCG CAPSULE (FP) PO SCH (10:14)
[2019-03-13] MEDS: TAMSULOSIN HCL 0.4 MG CAP PO SCH (10:14)
[2019-03-13] MEDS: SPIRONOLACTONE 25 MG TABLET (FP) PO SCH (10:14)
[2019-03-13] MEDS: TORSEMIDE 20 MG TABLET (FP) PO SCH (10:14)
--- NOTE | 2019-03-13 12:56 | PN ---
Progress Note (short form) - Note Progress Note: s: no cp sob palps dizzy o: Vital Signs Period Temp Pulse Resp BP Sys/Calzada Pulse Ox Last 24 Hr 97.6 F-99.2 F 69-91 20-20 109-151/71-90 96 Constitutional: Yes: No Distress, Calm Eyes: Yes: Conjunctiva Clear Neck: Yes: Supple, Trachea Midline Respiratory: Yes: Regular, CTA Bilaterally Gastrointestinal: Yes: Normal Bowel Sounds, Soft Cardiovascular: Yes: Regular Rate and Rhythm JVD: No Carotid Bruit: No Heart Sounds: Yes: S1, S2 Edema: No Integumentary: No: Jaundice Neurological: Yes: Alert, Oriented Psychiatric: No: Agitated Current Medications Generic Name Dose Route Start Last Admin Trade Name Freq PRN Reason Stop Dose Admin Acetaminophen 500 mg 03/06/19 11:00 03/12/19 10:32 Tylenol - PO 500 mg Q6H PRN Administration PAIN SCALE 4-6 Allopurinol 100 mg 03/06/19 12:00 03/13/19 10:14 Zyloprim - PO 100 mg DAILY [facility] Administration Atorvastatin Calcium 40 mg 03/06/19 22:00 03/12/19 21:43 Lipitor - PO 40 mg HS [facility] Administration Calcitriol 0.25 mcg 03/06/19 12:00 03/13/19 10:14 Rocaltrol - PO 0.25 mcg DAILY [facility] Administration Carvedilol 25 mg 03/06/19 12:00 03/13/19 10:14 Coreg - PO 25 mg BID [facility] Administration Ferrous Sulfate 325 mg 03/07/19 10:00 03/13/19 10:14 Feosol - PO 325 mg Q2D [facility] Administration Glipizide 2.5 mg 03/07/19 07:00 03/13/19 06:19 Glucotrol Xl - PO 2.5 mg DAILY@0700 [facility] Administration Ceftriaxone Sodium 2 gm/ 100 mls @ 200 mls/hr 03/11/19 12:30 03/13/19 10:14 Dextrose IVPB 200 mls/hr DAILY [facility] Administration Protocol Insulin Aspart 1 vial 03/06/19 11:00 03/13/19 06:18 Novolog Vial Sliding Scale - SQ Not Given ACHS [facility] Protocol Multivitamins/Minerals/Vitamin C 1 tab 03/06/19 12:00 03/13/19 10:14 Tab-A-Vit - PO 1 tab DAILY [facility] Administration Pregabalin 100 mg 03/06/19 22:00 03/12/19 21:43 Lyrica - PO 100 mg HS [facility] Administration Rivaroxaban 20 mg 03/07/19 18:00 03/12/19 18:28 Xarelto PO 20 mg DAILY@1800 [facility] Administration Spironolactone 25 mg 03/06/19 12:00 03/13/19 10:14 Aldactone - PO 25 mg DAILY [facility] Administration Tamsulosin HCl 0.4 mg 03/06/19 12:00 03/13/19 10:14 Flomax - PO 0.4 mg DAILY@0830 [facility] Administration Torsemide 20 mg 03/12/19 10:00 03/13/19 10:14 Demadex - PO 20 mg DAILY [facility] Administration CBC, BMP 03/13/19 06:47 03/13/19 06:47 Assessment/Plan EKG sinus, first deg AV block, RBBB 78 y/o/ m w/ PMHx HTN, NIDDM, GERD, GOUT, ?CHF s/p R foot wound debridement chronic syst CHF, s/p ICD (B Sci) - patient unreliable historian - known systolic CHF - on spironolactone, bb at home - echo here with EF 30-35%, diffuse- per Dr. Manuel d/w'd dr brayan everett, of pt's cardio practice. 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 last echo 10/2017: EF 20s%. - appears euvolemic here - for rising bun/creat rising, held torsemide x 1 day then decrease to torsemide 20 qd - apparently on carvedilol, spironolactone at home. no MAGDA/ARB--prior intolerance/renal function issues with meds not know. 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 prior DVT - on xarelto 15 mg BID, recently changed to daily dosing - dosing suggests for DVT - would contact prescribing doctor for further history, patient not sure why he is taking infected R TMA - s/p debridement - manage per podiatry, ID HTN - stable, cont home meds CKD - creat up slightly--as above DM - manage per primary HLD - cont statin
--- NOTE | 2019-03-13 15:35 | PN ---
Progress Note (short form) - Note Progress Note: FUV right foot. s/p application Integra 03/06/19 vss, tmax 98.7 +resolved cellulitis, wbc=10.2, +incorporation of graft no evidence of rejection, no drainage noted, no malodor, tma site no growth 03/11/2019 culture om s/p tma resolved cellulitis Do not remove dressing. Continue bathroom privelages with post op shoe. Advise patient to minimize walking and help graft to incorporate and cover his wound. Has not been compliant with this request. ABX as per ID. Wound care aware of need for tma tcc ez cast upon dc. Cannot dc till wbc stabilizes. wbc has improved. Wound culture done at graft site. xeroform gauze dressing re- applied.
[2019-03-13] MEDS: RIVAROXABAN 20 MG TABLET PO SCH (17:29)
[2019-03-13] MEDS: ACETAMINOPHEN 500 MG TABLET (FP) PO PRN (17:33)
--- NOTE | 2019-03-13 20:13 | PN ---
Progress Note, Physician History of Present Illness: Pt seen and examined. Events noted, labs reviewed. Temps mildly elevated, 99.5F currently but wbc trended down. He has no complaints. Denies chills, sob/cough, cp, abd pain/n/v/d, rash. Tolerating antibiotics. - Current Medication List Current Medications: Active Medications Acetaminophen (Tylenol -) 500 mg PO Q6H PRN PRN Reason: PAIN SCALE 4-6 Last Admin: 03/13/19 17:33 Dose: 500 mg Allopurinol (Zyloprim -) 100 mg PO DAILY [facility] Last Admin: 03/13/19 10:14 Dose: 100 mg Atorvastatin Calcium (Lipitor -) 40 mg PO HS [facility] Last Admin: 03/12/19 21:43 Dose: 40 mg Calcitriol (Rocaltrol -) 0.25 mcg PO DAILY [facility] Last Admin: 03/13/19 10:14 Dose: 0.25 mcg Carvedilol (Coreg -) 25 mg PO BID [facility] Last Admin: 03/13/19 10:14 Dose: 25 mg Ferrous Sulfate (Feosol -) 325 mg PO Q2D [facility] Last Admin: 03/13/19 10:14 Dose: 325 mg Glipizide (Glucotrol Xl -) 2.5 mg PO DAILY@0700 [facility] Last Admin: 03/13/19 06:19 Dose: 2.5 mg Ceftriaxone Sodium 2 gm/ (Dextrose) 100 mls @ 200 mls/hr IVPB DAILY [facility]; Protocol Last Admin: 03/13/19 10:14 Dose: 200 mls/hr Insulin Aspart (Novolog Vial Sliding Scale -) 1 vial SQ ACHS [facility]; Protocol Last Admin: 03/13/19 17:27 Dose: Not Given Multivitamins/Minerals/Vitamin C (Tab-A-Vit -) 1 tab PO DAILY [facility] Last Admin: 03/13/19 10:14 Dose: 1 tab Pregabalin (Lyrica -) 100 mg PO HS [facility] Last Admin: 03/12/19 21:43 Dose: 100 mg Rivaroxaban (Xarelto) 20 mg PO DAILY@1800 [facility] Last Admin: 03/13/19 17:29 Dose: 20 mg Spironolactone (Aldactone -) 25 mg PO DAILY [facility] Last Admin: 03/13/19 10:14 Dose: 25 mg Tamsulosin HCl (Flomax -) 0.4 mg PO DAILY@0830 [facility] Last Admin: 03/13/19 10:14 Dose: 0.4 mg Torsemide (Demadex -) 20 mg PO DAILY [facility] Last Admin: 03/13/19 10:14 Dose: 20 mg - Objective Vital Signs: Vital Signs Temperature 99.5 F 03/13/19 18:00 Pulse Rate 73 03/13/19 18:00 Respiratory Rate 20 03/13/19 18:00 Blood Pressure 122/70 03/13/19 18:00 O2 Sat by Pulse Oximetry (%) 96 03/12/19 20:20 Constitutional: Yes: No Distress, Calm Cardiovascular: Yes: Regular Rate and Rhythm Respiratory: Yes: Regular Gastrointestinal: Yes: Normal Bowel Sounds, Soft, Abdomen, Obese Genitourinary: Yes: WNL Extremities: Yes: Amputation (Rt TMA) Integumentary: Yes: WNL Wound/Incision: Yes: Dressing Dry and Intact Neurological: Yes: Alert, Oriented Labs: CBC, BMP 03/13/19 06:47 03/13/19 06:47 INR, PTT INR 1.24 (0.83-1.09) H 03/06/19 07:40 Microbiology 03/11/19 20:34 Foot - Rt Transmetatarsal Amp. Site Gram Stain - Final 03/11/19 20:34 Foot - Rt Transmetatarsal Amp. Site Wound Culture - Preliminary NO GROWTH OBTAINED AFTER 24 HOURS INCUBATION, REINCUBATED. 02/28/19 12:35 Blood - Peripheral Venous Blood Culture - Final NO GROWTH AFTER 5 DAYS INCUBATION 02/28/19 12:45 Blood - Peripheral Venous Blood Culture - Final NO GROWTH AFTER 5 DAYS INCUBATION 02/28/19 11:57 Foot - Right Sole Gram Stain - Final 02/28/19 11:57 Foot - Right Sole Wound Culture - Final Citrobacter Amalonaticus Staphylococcus Aureus Strep Agalactiae Group B - ....Imaging Chest X-ray: Report Reviewed (no infiltrates) Problem List - Problems (1) Cellulitis of right foot Code(s): L03.115 - CELLULITIS OF RIGHT LOWER LIMB (2) Diabetic foot ulcer Code(s): E11.621 - TYPE 2 DIABETES MELLITUS WITH FOOT ULCER; L97.509 - NON- PRESSURE CHRONIC ULCER OTH PRT UNSP FOOT W UNSP SEVERITY Qualifiers: Diabetic foot ulcer location: other (3) Type 2 diabetes mellitus Code(s): E11.9 - TYPE 2 DIABETES MELLITUS WITHOUT COMPLICATIONS Qualifiers: Diabetes mellitus complication detail: with autonomic neuropathy (4) BPH (benign prostatic hyperplasia) Code(s): N40.0 - BENIGN PROSTATIC HYPERPLASIA WITHOUT LOWER URINRY TRACT SYMP (5) CKD (chronic kidney disease) Code(s): N18.9 - CHRONIC KIDNEY DISEASE, UNSPECIFIED (6) GERD (gastroesophageal reflux disease) Code(s): K21.9 - GASTRO-ESOPHAGEAL REFLUX DISEASE WITHOUT ESOPHAGITIS (7) Gout Code(s): M10.9 - GOUT, UNSPECIFIED (8) HLD (hyperlipidemia) Code(s): E78.5 - HYPERLIPIDEMIA, UNSPECIFIED (9) HTN (hypertension) Code(s): I10 - ESSENTIAL (PRIMARY) HYPERTENSION Assessment/Plan Infected RT TMA site DM HTN s/p PPM CKD Gout GERD -- continue Ceftriaxone x 4 weeks -- temps mildly elevated, wbc trended down, continue monitor closely -- continue wound care Pt currently stable
[2019-03-13] MEDS: ATORVASTATIN CA 40 MG TABLET (FP) PO SCH (22:01)
--- NOTE | 2019-03-13 22:10 | PN ---
Progress Note, Physician History of Present Illness: Low grade temp to 99.5 - Current Medication List Current Medications: Active Medications Acetaminophen (Tylenol -) 500 mg PO Q6H PRN PRN Reason: PAIN SCALE 4-6 Last Admin: 03/13/19 17:33 Dose: 500 mg Allopurinol (Zyloprim -) 100 mg PO DAILY [facility] Last Admin: 03/13/19 10:14 Dose: 100 mg Atorvastatin Calcium (Lipitor -) 40 mg PO HS [facility] Last Admin: 03/13/19 22:01 Dose: 40 mg Calcitriol (Rocaltrol -) 0.25 mcg PO DAILY [facility] Last Admin: 03/13/19 10:14 Dose: 0.25 mcg Carvedilol (Coreg -) 25 mg PO BID [facility] Last Admin: 03/13/19 22:01 Dose: 25 mg Ferrous Sulfate (Feosol -) 325 mg PO Q2D [facility] Last Admin: 03/13/19 10:14 Dose: 325 mg Glipizide (Glucotrol Xl -) 2.5 mg PO DAILY@0700 [facility] Last Admin: 03/13/19 06:19 Dose: 2.5 mg Ceftriaxone Sodium 2 gm/ (Dextrose) 100 mls @ 200 mls/hr IVPB DAILY [facility]; Protocol Last Admin: 03/13/19 10:14 Dose: 200 mls/hr Insulin Aspart (Novolog Vial Sliding Scale -) 1 vial SQ ACHS [facility]; Protocol Last Admin: 03/13/19 22:01 Dose: 2 units Multivitamins/Minerals/Vitamin C (Tab-A-Vit -) 1 tab PO DAILY [facility] Last Admin: 03/13/19 10:14 Dose: 1 tab Rivaroxaban (Xarelto) 20 mg PO DAILY@1800 [facility] Last Admin: 03/13/19 17:29 Dose: 20 mg Spironolactone (Aldactone -) 25 mg PO DAILY [facility] Last Admin: 03/13/19 10:14 Dose: 25 mg Tamsulosin HCl (Flomax -) 0.4 mg PO DAILY@0830 [facility] Last Admin: 03/13/19 10:14 Dose: 0.4 mg Torsemide (Demadex -) 20 mg PO DAILY [facility] Last Admin: 03/13/19 10:14 Dose: 20 mg - Objective Vital Signs: Vital Signs Temperature 99.5 F 03/13/19 18:00 Pulse Rate 71 03/13/19 22:06 Respiratory Rate 20 03/13/19 18:00 Blood Pressure 150/88 03/13/19 22:06 O2 Sat by Pulse Oximetry (%) 96 03/12/19 20:20 Neck: Yes: WNL, Supple Cardiovascular: Yes: WNL, Regular Rate and Rhythm Respiratory: Yes: WNL, Regular, CTA Bilaterally Gastrointestinal: Yes: WNL, Normal Bowel Sounds, Soft Extremities: Yes: Other (RT foot in dressing) Labs: CBC, BMP 03/13/19 06:47 03/13/19 06:47 INR, PTT INR 1.24 (0.83-1.09) H 03/06/19 07:40 Problem List - Problems (1) Cellulitis of right foot Assessment/Plan: Diabetic foot ulcer Cont IV ceftriaxone x 4 weeks S/P debridement and graft of Rt TMA WBC is decreasing Code(s): L03.115 - CELLULITIS OF RIGHT LOWER LIMB (2) HTN (hypertension) Assessment/Plan: BP stable Cont coreg/spironolactone/torsemide Code(s): I10 - ESSENTIAL (PRIMARY) HYPERTENSION (3) CKD (chronic kidney disease) Assessment/Plan: Creatinine has been stable Cont calcitriol Code(s): N18.9 - CHRONIC KIDNEY DISEASE, UNSPECIFIED (4) GERD (gastroesophageal reflux disease) Code(s): K21.9 - GASTRO-ESOPHAGEAL REFLUX DISEASE WITHOUT ESOPHAGITIS (5) Type 2 diabetes mellitus Assessment/Plan: Cont glibizide/sliding scale w/ coverage Will hold glucotrol for am in preparation for surgery Code(s): E11.9 - TYPE 2 DIABETES MELLITUS WITHOUT COMPLICATIONS Qualifiers: Diabetes mellitus complication detail: with autonomic neuropathy (6) BPH (benign prostatic hyperplasia) Code(s): N40.0 - BENIGN PROSTATIC HYPERPLASIA WITHOUT LOWER URINRY TRACT SYMP (7) Gout Assessment/Plan: Cont allopurinol Code(s): M10.9 - GOUT, UNSPECIFIED (8) HLD (hyperlipidemia) Assessment/Plan: Cont lipitor Code(s): E78.5 - HYPERLIPIDEMIA, UNSPECIFIED
[2019-03-14] MEDS: ACETAMINOPHEN 500 MG TABLET (FP) PO PRN (06:28)
[2019-03-14] MEDS: glipiZIDE-XL 2.5 MG TAB.ER.24 PO SCH (06:29)
[2019-03-14] MEDS: INSULIN SLIDING SCALE (NOVOLOG) 1 VIAL SQ SCH ×3 (06:30→17:27)
[2019-03-14 08:27] LABS: BASO % 0.5 % (0-2.0); EOS % 1.5 % (0-4.5); HEMATOCRIT 37.8 % (35.4-49); LYMPH % 21.4 % (8-40); MCH 22.4 pg (25.7-33.7); MCHC 31.8 g/dl (32.0-35.9); MEAN CELL VOLUME 70.3 fl (80-96); MEAN PLT VOLUME 10.8 fl (7.5-11.1); MONO % 23.4 % (3.8-10.2); NEUT % 53.2 % (42.8-82.8); PLATELET COUNT 124 K/MM3 (134-434); RBC 5.37 M/mm3 (4.00-5.60); RDW 17.5 % (11.9-15.9); WHITE BLOOD COUNT 8.5 K/mm3 (4.0-10.0)
[2019-03-14 08:50] LABS: ALBUMIN 2.9 g/dl (3.4-5.0); BILIRUBIN,TOTAL 0.6 mg/dL (0.2-1); BLOOD UREA NITROGEN 60.6 mg/dL (7-18); CALCIUM 8.8 mg/dL (8.5-10.1); CREATININE 1.7 mg/dL (0.55-1.3); POTASSIUM 4.3 mmol/L (3.5-5.1); TOT PROT 6.6 g/dl (6.4-8.2)
[2019-03-14] MEDS ORDERED: DEXTROSE 5%-WATER 100 ML IVPB ONE (09:43)
[2019-03-14] MEDS: TORSEMIDE 20 MG TABLET (FP) PO SCH (09:54)
[2019-03-14] MEDS: TAMSULOSIN HCL 0.4 MG CAP PO SCH (09:54)
[2019-03-14] MEDS: ALLOPURINOL 100 MG TABLET (FP) PO SCH (09:55)
[2019-03-14] MEDS: CARVEDILOL 25 MG TABLET (FP) PO SCH (09:55)
[2019-03-14] MEDS: CALCITRIOL 0.25 MCG CAPSULE (FP) PO SCH (09:55)
[2019-03-14] MEDS: SPIRONOLACTONE 25 MG TABLET (FP) PO SCH (09:55)
[2019-03-14] MEDS: MULTIVITAMINS (DAILY MVI) TABLET (FP) PO SCH (09:55)
[2019-03-14] MEDS: CEFTRIAXONE 2 GM in DEXTROSE 5%-WATER 100 ML IVPB SCH (09:56)
--- NOTE | 2019-03-14 10:19 | PN ---
Progress Note (short form) - Note Progress Note: FUV right foot. s/p application Inte[employer] 03/06/19 vss, tmax 98.2 +resolved cellulitis, wbc=8.5, +incorporation of graft no evidence of rejection , no drainage noted, no malodor, tma site no growth 03/11/2019 culture om s/p tma resolved cellulitis ABX as per ID. Wound care aware of need for tma tcc ez cast upon dc If DC today should come to [facility] on Sunday for application and trial. can be dc from podiatry prospective. wbc has improved. will follow until dc and outpatient after that.
--- NOTE | 2019-03-14 10:53 | PN ---
Progress Note, Physician History of Present Illness: stable no new issues - Current Medication List Current Medications: Active Medications Acetaminophen (Tylenol -) 500 mg PO Q6H PRN PRN Reason: PAIN SCALE 4-6 Last Admin: 03/14/19 06:28 Dose: 500 mg Allopurinol (Zyloprim -) 100 mg PO DAILY [facility] Last Admin: 03/14/19 09:55 Dose: 100 mg Atorvastatin Calcium (Lipitor -) 40 mg PO HS [facility] Last Admin: 03/13/19 22:01 Dose: 40 mg Calcitriol (Rocaltrol -) 0.25 mcg PO DAILY [facility] Last Admin: 03/14/19 09:55 Dose: 0.25 mcg Carvedilol (Coreg -) 25 mg PO BID [facility] Last Admin: 03/14/19 09:55 Dose: 25 mg Ferrous Sulfate (Feosol -) 325 mg PO Q2D [facility] Last Admin: 03/13/19 10:14 Dose: 325 mg Glipizide (Glucotrol Xl -) 2.5 mg PO DAILY@0700 [facility] Last Admin: 03/14/19 06:29 Dose: 2.5 mg Ceftriaxone Sodium 2 gm/ (Dextrose) 100 mls @ 200 mls/hr IVPB DAILY [facility]; Protocol Last Admin: 03/14/19 09:56 Dose: 200 mls/hr Insulin Aspart (Novolog Vial Sliding Scale -) 1 vial SQ ACHS [facility]; Protocol Last Admin: 03/14/19 06:30 Dose: Not Given Multivitamins/Minerals/Vitamin C (Tab-A-Vit -) 1 tab PO DAILY [facility] Last Admin: 03/14/19 09:55 Dose: 1 tab Rivaroxaban (Xarelto) 20 mg PO DAILY@1800 [facility] Last Admin: 03/13/19 17:29 Dose: 20 mg Spironolactone (Aldactone -) 25 mg PO DAILY [facility] Last Admin: 03/14/19 09:55 Dose: 25 mg Tamsulosin HCl (Flomax -) 0.4 mg PO DAILY@0830 [facility] Last Admin: 03/14/19 09:54 Dose: 0.4 mg Torsemide (Demadex -) 20 mg PO DAILY [facility] Last Admin: 03/14/19 09:54 Dose: 20 mg - Objective Vital Signs: Vital Signs Temperature 98.2 F 03/14/19 06:00 Pulse Rate 70 03/14/19 09:50 Respiratory Rate 20 03/14/19 06:00 Blood Pressure 118/66 03/14/19 09:50 O2 Sat by Pulse Oximetry (%) 96 03/13/19 21:00 Constitutional: Yes: No Distress, Calm Respiratory: Yes: Regular, CTA Bilaterally Gastrointestinal: Yes: Normal Bowel Sounds, Soft Musculoskeletal: Yes: WNL Extremities: Yes: Other Neurological: Yes: Alert, Oriented Psychiatric: Yes: Alert, Oriented Labs: CBC, BMP 03/14/19 07:25 03/14/19 07:25 INR, PTT INR 1.24 (0.83-1.09) H 03/06/19 07:40 Assessment/Plan Problem List - Problems (1) Cellulitis of right foot Code(s): L03.115 - CELLULITIS OF RIGHT LOWER LIMB (2) Diabetic foot ulcer Code(s): E11.621 - TYPE 2 DIABETES MELLITUS WITH FOOT ULCER; L97.509 - NON- PRESSURE CHRONIC ULCER OTH PRT UNSP FOOT W UNSP SEVERITY Qualifiers: Diabetic foot ulcer location: other (3) Type 2 diabetes mellitus Code(s): E11.9 - TYPE 2 DIABETES MELLITUS WITHOUT COMPLICATIONS Qualifiers: Diabetes mellitus complication detail: with autonomic neuropathy (4) BPH (benign prostatic hyperplasia) Code(s): N40.0 - BENIGN PROSTATIC HYPERPLASIA WITHOUT LOWER URINRY TRACT SYMP (5) CKD (chronic kidney disease) Code(s): N18.9 - CHRONIC KIDNEY DISEASE, UNSPECIFIED (6) GERD (gastroesophageal reflux disease) Code(s): K21.9 - GASTRO-ESOPHAGEAL REFLUX DISEASE WITHOUT ESOPHAGITIS (7) Gout Code(s): M10.9 - GOUT, UNSPECIFIED (8) HLD (hyperlipidemia) Code(s): E78.5 - HYPERLIPIDEMIA, UNSPECIFIED (9) HTN (hypertension) Code(s): I10 - ESSENTIAL (PRIMARY) HYPERTENSION Assessment/Plan Infected RT TMA site DM HTN s/p PPM CKD Gout GERD plan continue current mgmt complete the abx course wound care rest as per the team
--- NOTE | 2019-03-14 11:26 | PN ---
Progress Note, Physician Chief Complaint: denies CP, SOB - Current Medication List Current Medications: Active Medications Acetaminophen (Tylenol -) 500 mg PO Q6H PRN PRN Reason: PAIN SCALE 4-6 Last Admin: 03/14/19 06:28 Dose: 500 mg Allopurinol (Zyloprim -) 100 mg PO DAILY [facility] Last Admin: 03/14/19 09:55 Dose: 100 mg Atorvastatin Calcium (Lipitor -) 40 mg PO HS [facility] Last Admin: 03/13/19 22:01 Dose: 40 mg Calcitriol (Rocaltrol -) 0.25 mcg PO DAILY [facility] Last Admin: 03/14/19 09:55 Dose: 0.25 mcg Carvedilol (Coreg -) 25 mg PO BID [facility] Last Admin: 03/14/19 09:55 Dose: 25 mg Ferrous Sulfate (Feosol -) 325 mg PO Q2D [facility] Last Admin: 03/13/19 10:14 Dose: 325 mg Glipizide (Glucotrol Xl -) 2.5 mg PO DAILY@0700 [facility] Last Admin: 03/14/19 06:29 Dose: 2.5 mg Ceftriaxone Sodium 2 gm/ (Dextrose) 100 mls @ 200 mls/hr IVPB DAILY [facility]; Protocol Last Admin: 03/14/19 09:56 Dose: 200 mls/hr Insulin Aspart (Novolog Vial Sliding Scale -) 1 vial SQ ACHS [facility]; Protocol Last Admin: 03/14/19 06:30 Dose: Not Given Multivitamins/Minerals/Vitamin C (Tab-A-Vit -) 1 tab PO DAILY [facility] Last Admin: 03/14/19 09:55 Dose: 1 tab Rivaroxaban (Xarelto) 20 mg PO DAILY@1800 [facility] Last Admin: 03/13/19 17:29 Dose: 20 mg Spironolactone (Aldactone -) 25 mg PO DAILY [facility] Last Admin: 03/14/19 09:55 Dose: 25 mg Tamsulosin HCl (Flomax -) 0.4 mg PO DAILY@0830 [facility] Last Admin: 03/14/19 09:54 Dose: 0.4 mg Torsemide (Demadex -) 20 mg PO DAILY [facility] Last Admin: 03/14/19 09:54 Dose: 20 mg - Objective Vital Signs: Vital Signs Temperature 98.2 F 03/14/19 06:00 Pulse Rate 70 03/14/19 09:50 Respiratory Rate 20 03/14/19 06:00 Blood Pressure 118/66 03/14/19 09:50 O2 Sat by Pulse Oximetry (%) 96 03/13/19 21:00 Constitutional: Yes: No Distress, Calm Cardiovascular: Yes: Regular Rate and Rhythm Respiratory: Yes: CTA Bilaterally Gastrointestinal: Yes: Soft Edema: No Peripheral Pulses WNL: Yes Neurological: Yes: Alert, Oriented ...Motor Strength: WNL Labs: CBC, BMP 03/14/19 07:25 03/14/19 07:25 INR, PTT INR 1.24 (0.83-1.09) H 03/06/19 07:40 Assessment/Plan Assessment/Plan EKG sinus, first deg AV block, RBBB 78 y/o/ m w/ PMHx HTN, NIDDM, GERD, GOUT, ?CHF s/p R foot wound debridement chronic syst CHF, s/p ICD (B Sci) - patient unreliable historian - known systolic CHF - on spironolactone, bb at home - echo here with EF 30-35%, diffuse- per Dr. Manuel d/w'd dr brayan everett, of pt's cardio practice. 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 last echo 10/2017: EF 20s%. - Cont current cardiac meds ? 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
[2019-03-14 12:33] LABS: ANISOCYTOSIS 2+; MACROCYTOSIS 0; OVALOCYTE 1+; PLATELET ESTIMATE DECREASED
[2019-03-14 15:45] VITALS: BP 98/58; PULSE 69; TEMP 98
== END 2019-03-14 16:52 | disposition home health service (06) | DRG 464 ==
LOC: JER 10:10 → JERBED 11:37 → J6S 15:37
PROVIDERS: ADMIT Internal Medicine; ATTEND Internal Medicine
PROC: 0JUQ0KZ Supplement of Right Foot Subcutaneous Tissue and Fascia with Nonautologous Tissue Substitute, Open Approach (ICD-10-PCS; 2019-03-06)
PROC: 0JBQ0ZZ Excision of Right Foot Subcutaneous Tissue and Fascia, Open Approach (ICD-10-PCS; principal; 2019-03-06 09:00)
DX: T87.43 Infection of amputation stump, right lower extremity (principal); L03.115 Cellulitis of right lower limb; I13.0 Hypertensive heart and chronic kidney disease with heart failure and stage 1 through stage 4 chronic kidney disease, or unspecified chronic kidney disease; I50.22 Chronic systolic (congestive) heart failure; I42.9 Cardiomyopathy, unspecified; Z68.41 Body mass index [BMI] 40.0-44.9, adult; E11.621 Type 2 diabetes mellitus with foot ulcer; L97.519 Non-pressure chronic ulcer of other part of right foot with unspecified severity; Z95.0 Presence of cardiac pacemaker; K21.9 Gastro-esophageal reflux disease without esophagitis; M10.9 Gout, unspecified; Z89.421 Acquired absence of other right toe(s); Z79.84 Long term (current) use of oral hypoglycemic drugs; E11.22 Type 2 diabetes mellitus with diabetic chronic kidney disease; I12.9 Hypertensive chronic kidney disease with stage 1 through stage 4 chronic kidney disease, or unspecified chronic kidney disease; N18.9 Chronic kidney disease, unspecified; N40.0 Benign prostatic hyperplasia without lower urinary tract symptoms; E78.5 Hyperlipidemia, unspecified; E11.43 Type 2 diabetes mellitus with diabetic autonomic (poly)neuropathy; I44.0 Atrioventricular block, first degree; I45.10 Unspecified right bundle-branch block; E66.9 Obesity, unspecified; Z86.718 Personal history of other venous thrombosis and embolism; Z79.01 Long term (current) use of anticoagulants; B95.61 Methicillin susceptible Staphylococcus aureus infection as the cause of diseases classified elsewhere; B95.1 Streptococcus, group B, as the cause of diseases classified elsewhere; Y83.5 Amputation of limb(s) as the cause of abnormal reaction of the patient, or of later complication, without mention of misadventure at the time of the procedure
CPT/HCPCS: 36415; 36430; 36558; 71045-TC-FY; 71046-TC-FY; 73630-TC-RT-FY; 77001-TC-FY; 78315-TC; 80048; 80053; 82962; 83036; 85025; 85027; 85610; 85651; 86850; 86900; 86901; 87040; 87070; 87077; 87186; 87205; 88304-TC; 93005; 93010; 93306-TC; 94760; 99283-25; A9503; C1751; G0463-25; G0480; P9017

== ENCOUNTER 2019-03-15 10:34 | Day surgery (SDC) | payer OTHER ==
[2019-03-15] MEDS ORDERED: DEXTROSE 5%-WATER 100 ML IVPB ONE (11:19)
[2019-03-15] MEDS ORDERED: CEFTRIAXONE 2 GM in DEXTROSE 5%-WATER 100 ML IVPB ONE (11:30)
[2019-03-15] MEDS ORDERED: CEFTRIAXONE 2 GM in DEXTROSE 5%-WATER - 100 ML IVPB ONE (11:30)
[2019-03-15 13:32] VITALS: BP 137/66; PULSE 69; TEMP 97.7
== END 2019-03-15 14:10 | disposition home or self-care (01) ==
LOC: JINFUSION 10:34 → J7W 10:35 → JINFUSION 14:10
PROVIDERS: ATTEND Internal Medicine Infectious Disease
DX: E11.621 Type 2 diabetes mellitus with foot ulcer (principal); L03.115 Cellulitis of right lower limb; L97.519 Non-pressure chronic ulcer of other part of right foot with unspecified severity; I13.0 Hypertensive heart and chronic kidney disease with heart failure and stage 1 through stage 4 chronic kidney disease, or unspecified chronic kidney disease; Z79.84 Long term (current) use of oral hypoglycemic drugs
CPT/HCPCS: 96365

== ENCOUNTER 2019-03-16 08:28 | Day surgery (SDC) | payer OTHER ==
[2019-03-16] MEDS ORDERED: DEXTROSE 5%-WATER 100 ML IVPB ONE (08:50)
[2019-03-16] MEDS ORDERED: CEFTRIAXONE 2 GM in DEXTROSE 5%-WATER 100 ML IVPB ONE (09:00)
[2019-03-16 10:20] VITALS: TEMP 98.4
[2019-03-16 10:22] VITALS: BP 122/63; PULSE 34
== END 2019-03-16 10:23 | disposition home or self-care (01) ==
LOC: JINFUSION 08:28 → J7W 08:28 → JINFUSION 10:23
PROVIDERS: ATTEND Internal Medicine Infectious Disease
DX: E11.621 Type 2 diabetes mellitus with foot ulcer (principal); L03.115 Cellulitis of right lower limb; L97.519 Non-pressure chronic ulcer of other part of right foot with unspecified severity; I13.0 Hypertensive heart and chronic kidney disease with heart failure and stage 1 through stage 4 chronic kidney disease, or unspecified chronic kidney disease; Z79.84 Long term (current) use of oral hypoglycemic drugs
CPT/HCPCS: 96365

== ENCOUNTER 2019-03-16 10:23 | Emergency (ER) | payer OTHER ==
[2019-03-16 10:30] VITALS: TEMP 97.2; BMI 42.5
--- NOTE | 2019-03-16 11:07 | PDOC ---
History of Present Illness - General Chief Complaint: Irregular Heart Beat Stated Complaint: LOW HEART RATE Time Seen by Provider: 03/16/19 11:07 History Source: Other (healthcare team upstairs) Exam Limitations: Other (pt uncooperative, refuses history and PE. Signing AMA) - History of Present Illness Initial Comments: Pt is a 78 yo M, with PMH of HTN, DM, amputation of R toes and recent osteomyelitis, and CHF, who was sent to the ER from the healthcare team upstairs. Pt was in the hospital for antibiotic infusion for his recent osteomyelitis, when they found new changes to his ECG. Pt refuses to cooperate with examiners and will not provide further history. PCP: DR. Whiteside 03/16/19 13:55 Past History - Past Medical History Allergies/Adverse Reactions: Allergies Allergy/AdvReac Type Severity Reaction Status Date / Time No Known Allergies Allergy Verified 03/16/19 10:30 Home Medications: Ambulatory Orders Allopurinol [Zyloprim -] 1 tab PO DAILY 03/04/18 Aspirin [ASA -] 1 tab PO DAILY 03/04/18 Atorvastatin Ca [Lipitor] 1 tab PO DAILY 03/04/18 Calcitriol [Calcitriol -] 1 tab PO DAILY 03/04/18 Esomeprazole Magnesium 1 cap PO DAILY 03/04/18 Ferrous Sulfate 1 tab PO Q2D 03/04/18 Glipizide Xl [Glucotrol Xl -] 1 tab PO DAILY 03/04/18 Pregabalin [Lyrica] 100 mg PO HS 03/04/18 Spironolactone 1 tab PO DAILY 03/04/18 Tamsulosin HCl 1 cap PO DAILY 03/04/18 Acetaminophen [Tylenol .Extra-Strength -] 500 mg PO Q6H PRN 02/28/19 Allopurinol [Zyloprim -] 100 mg PO DAILY 02/28/19 Aspirin [ASA -] 81 mg PO DAILY 02/28/19 Carvedilol [ Coreg] 25 mg PO BID 02/28/19 Multivitamin [Multiple Vitamins] 1 tab PO DAILY 02/28/19 Torsemide 40 mg PO BID 02/28/19 Carvedilol [Coreg -] 25 mg PO BID #0 tablet 03/14/19 Ceftriaxone [Rocephin -] 2 gm IVPB DAILY vial 03/14/19 Ferrous Sulfate [Feosol] 325 mg PO Q2D ud 03/14/19 Rivaroxaban [Xarelto -] 20 mg PO DAILY@1800 #30 tablet 03/14/19 Torsemide [Demadex -] 20 mg PO DAILY tablet 03/14/19 COPD: No Diabetes: Yes HTN: Yes Hypercholesterolemia: Yes - Surgical History Cardiac Surgery: Yes (pacemaker 05/2012) - Immunization History Immunization Up to Date: No - Psycho Social/Smoking Cessation Hx Smoking History: Never smoked Have you smoked in the past 12 months: No If you are a former smoker, when did you quit?: 40 years ago Hx Alcohol Use: No Drug/Substance Use Hx: No Hx Substance Use Treatment: No Review of Systems - Review of Systems Able to Perform ROS?: No (uncooperative) *Physical Exam - Vital Signs Last Vital Signs Temp Pulse Resp BP Pulse Ox 97.2 F L 64 18 110/72 99 03/16/19 10:28 03/16/19 10:28 03/16/19 10:28 03/16/19 10:28 03/16/19 10:28 - Physical Exam Comments: Pt refused physical exam. 03/16/19 13:57 Medical Decision Making - Medical Decision Making Pt was verbally rude to staff, and would not cooperate with physical exam, history taking, nor lab-work. Pt desired to sign AMA, despite explaining the risks of arrhythmias, ACS, syncope, and electrolyte imbalances. ECG: Sinus rhythm with 1st degree AV block with PVCs in bigeminy pattern; LAD with RBB (HR 69, IL 248, QRS 138, QTc 520). RBBB was on previous ECG, bigeminy is new from past ECG with increased QTc. Note: The patient insists on leaving the emergency dept and is signing out against medical advice. The patient understands the risks and complications that may result from the refusal of medical care and admission which includes and permanent disability. The patient has the mental capacity of understanding the risks of refusing care and is capable of making an informed decision. The patient was instructed to return to the emergency department should he change his mind regarding medical care or should his condition worsen. The patient signed the Against Medical Advice form. 03/16/19 13:57 Discharge - Discharge Information Problems reviewed: Yes Clinical Impression/Diagnosis: Bigeminy Condition: Stable Disposition: AGAINST MEDICAL ADVICE - Admission No - Follow up/Referral Referrals: Driss Whiteside MD [Primary Care Provider] - - Patient Discharge Instructions Patient Printed Discharge Instructions: DI for Arrhythmias Additional Instructions: You were seen in the ER today for a new arrhythmia on your ECG, but you did not wish to stay for blood work or imaging. Please follow-up with your primary care doctor as soon as possible to discuss your visit and make sure your symptoms have improved. Please return to the ER if you have any worsening pain, development of fevers or chills, loss of consciousness, inability to tolerate food or fluids, or any other concerns. - Post Discharge Activity
--- NOTE | 2019-03-16 11:32 | PDOC ---
Attending Attestation - Resident Resident Name: Macarena Nieves - ED Attending Attestation I have performed the following: I have examined & evaluated the patient, The case was reviewed & discussed with the resident, I agree w/resident's findings & plan, Exceptions are as noted - HPI HPI: 03/16/19 11:26 78yo male sent from the infusion center for eval of low hr. Pt was receiving iv rocephin upstairs. Pt sent down for HR of 30s. Pt arrives yelling at staff that he doesn't want to be in the ER. Pt refusing to give a hx. Pt states sometimes my heart rate is high and sometimes its low. - Physicial Exam PE: 03/16/19 11:28 Gen: [id number] pt refusing rest of the physical exam - Medical Decision Making 03/16/19 11:29 a/p: 78yo male sent from the infusion center for eval of low HR -EKG performed shows bigeminy at 69 -wanted to perform physical exam, labs, eval for change in heart rhythm -hx of rbbb -pt refusing labs, refusing physical exam -pt refusing to stay -discussed signing out ama -pt states he wants to leave "disconnect me from all this" and "no needles" -discussed risks of bigeminy and need to check labs, electrolytes, etc -pt states he wants to go home, that he needs to leave and will not let us do anything -discussed signing out AMA - pt states "give me the papers, i am leaving" Note: The patient insists on leaving the emergency dept and is signing out against medical advice. The patient understands the risks and complications that may result from the refusal of medical care and admission which includes and permanent disability. The patient has the mental capacity of understanding the risks of refusing care and is capable of making an informed decision. The patient was instructed to return to the emergency department should he change his mind regarding medical care or should his condition worsen. The patient signed the Against Medical Advice form. Heart Score/ECG Review - ECG Intrepretation Comment:: 03/16/19 11:31 bigeminy at 69, rbbb
[2019-03-16 11:41] VITALS: BP 115/60; PULSE 66
--- NOTE | 2019-03-16 16:44 | EKG ---
Test Reason : Blood Pressure : / mmHG Vent. Rate : 069 BPM Atrial Rate : 069 BPM P-R Int : 248 ms QRS Dur : 138 ms QT Int : 486 ms P-R-T Axes : 009 -53 067 degrees QTc Int : 520 ms SINUS RHYTHM WITH 1ST DEGREE A-V BLOCK WITH FREQUENT PREMATURE VENTRICULAR COMPLEXES IN A PATTERN OF BIGEMINY LEFT AXIS DEVIATION RIGHT BUNDLE BRANCH BLOCK MODERATE VOLTAGE CRITERIA FOR LVH, MAY BE NORMAL VARIANT T WAVE ABNORMALITY, CONSIDER LATERAL ISCHEMIA ABNORMAL ECG WHEN COMPARED WITH ECG OF 28-FEB-2019 11:29, PREMATURE VENTRICULAR COMPLEXES ARE NOW PRESENT Confirmed by KWAME TAVARES MD ([id number]) on 03/16/2019 4:44:31 PM Referred By: Confirmed By:KWAME TAVARES MD
[2019-03-17] MEDS ORDERED: CEFTRIAXONE 2 GM in DEXTROSE 5%-WATER 100 ML IVPB ONE (08:30)
== END 2019-03-16 11:35 | disposition left against medical advice (07) ==
LOC: JER 10:23
DX: I49.8 Other specified cardiac arrhythmias (principal); I11.0 Hypertensive heart disease with heart failure; I50.9 Heart failure, unspecified; E11.9 Type 2 diabetes mellitus without complications; Z79.84 Long term (current) use of oral hypoglycemic drugs; M86.9 Osteomyelitis, unspecified; Z79.01 Long term (current) use of anticoagulants; Z79.82 Long term (current) use of aspirin; Z79.2 Long term (current) use of antibiotics; Z95.0 Presence of cardiac pacemaker; Z89.421 Acquired absence of other right toe(s)
CPT/HCPCS: 93005; 93010; 99282-25

== ENCOUNTER 2019-03-17 12:55 | Day surgery (SDC) | payer OTHER ==
[2019-03-17] MEDS ORDERED: SODIUM CHLORIDE 100 ML IVPB ONE (13:14)
[2019-03-17 13:51] VITALS: PULSE 70; TEMP 98.2
[2019-03-17] MEDS ORDERED: CEFTRIAXONE 2 GM in DEXTROSE 5%-WATER 100 ML IVPB ONE (14:00)
[2019-03-17 16:19] VITALS: BP 121/81
== END 2019-03-17 14:15 | disposition home or self-care (01) ==
LOC: JINFUSION 12:55
PROVIDERS: ATTEND Internal Medicine Infectious Disease
DX: E11.621 Type 2 diabetes mellitus with foot ulcer (principal); L03.115 Cellulitis of right lower limb; L97.519 Non-pressure chronic ulcer of other part of right foot with unspecified severity; I13.0 Hypertensive heart and chronic kidney disease with heart failure and stage 1 through stage 4 chronic kidney disease, or unspecified chronic kidney disease; Z79.84 Long term (current) use of oral hypoglycemic drugs; L97.512 Non-pressure chronic ulcer of other part of right foot with fat layer exposed; Z79.01 Long term (current) use of anticoagulants
CPT/HCPCS: 96365; G0463-25

== ENCOUNTER 2019-03-18 12:25 | Day surgery (SDC) | payer OTHER ==
[~2019-03-18 12:25] MED LIST: CEFTRIAXONE 2 GM in DEXTROSE 5%-WATER 100 ML IVPB ONE
[2019-03-18 13:43] VITALS: PULSE 36; TEMP 97.6
[2019-03-18 14:08] VITALS: BP 129/63
== END 2019-03-18 14:05 | disposition home or self-care (01) ==
LOC: JINFUSION 12:25
PROVIDERS: ATTEND Internal Medicine Infectious Disease
DX: E11.621 Type 2 diabetes mellitus with foot ulcer (principal); L03.115 Cellulitis of right lower limb; L97.519 Non-pressure chronic ulcer of other part of right foot with unspecified severity; I13.0 Hypertensive heart and chronic kidney disease with heart failure and stage 1 through stage 4 chronic kidney disease, or unspecified chronic kidney disease; Z79.84 Long term (current) use of oral hypoglycemic drugs; L97.512 Non-pressure chronic ulcer of other part of right foot with fat layer exposed
CPT/HCPCS: 82962; 96365; G0277

== ENCOUNTER 2019-03-19 12:01 | Day surgery (SDC) | payer OTHER ==
[2019-03-19 12:42] VITALS: TEMP 97.8
[2019-03-19 13:15] VITALS: BP 127/76; PULSE 71
== END 2019-03-19 13:10 | disposition home or self-care (01) ==
LOC: JINFUSION 12:01
PROVIDERS: ATTEND Internal Medicine Infectious Disease
DX: E11.621 Type 2 diabetes mellitus with foot ulcer (principal); L03.115 Cellulitis of right lower limb; L97.519 Non-pressure chronic ulcer of other part of right foot with unspecified severity; I13.0 Hypertensive heart and chronic kidney disease with heart failure and stage 1 through stage 4 chronic kidney disease, or unspecified chronic kidney disease; Z79.84 Long term (current) use of oral hypoglycemic drugs
CPT/HCPCS: 82962; 96365; G0277

== ENCOUNTER 2019-03-20 12:03 | Day surgery (SDC) | payer OTHER ==
[2019-03-20 12:46] VITALS: TEMP 98.5
[2019-03-20 13:16] VITALS: BP 119/75; PULSE 71
== END 2019-03-20 13:13 | disposition home or self-care (01) ==
LOC: JINFUSION 12:03
PROVIDERS: ATTEND Internal Medicine Infectious Disease
DX: E11.621 Type 2 diabetes mellitus with foot ulcer (principal); L03.115 Cellulitis of right lower limb; L97.519 Non-pressure chronic ulcer of other part of right foot with unspecified severity; I13.0 Hypertensive heart and chronic kidney disease with heart failure and stage 1 through stage 4 chronic kidney disease, or unspecified chronic kidney disease; Z79.84 Long term (current) use of oral hypoglycemic drugs
CPT/HCPCS: 96365; A6196; A6209; G0463-25

== ENCOUNTER 2019-03-21 12:43 | Day surgery (SDC) | payer OTHER ==
[2019-03-21] MEDS ORDERED: CEFTRIAXONE 2 GM in DEXTROSE 5%-WATER 100 ML IVPB ONE (13:45)
[2019-03-21 13:47] LABS: BASO % 0.9 % (0-2.0); EOS % 2.5 % (0-4.5); HEMATOCRIT 40.3 % (35.4-49); HEMOGLOBIN 12.9 GM/dL (11.7-16.9); LYMPH % 20.8 % (8-40); MCH 22.6 pg (25.7-33.7); MEAN CELL VOLUME 70.5 fl (80-96); MEAN PLT VOLUME 10.1 fl (7.5-11.1); MONO % 8.2 % (3.8-10.2); NEUT % 67.6 % (42.8-82.8); PLATELET COUNT 208 K/MM3 (134-434); RBC 5.72 M/mm3 (4.00-5.60); RDW 17.6 % (11.9-15.9); WHITE BLOOD COUNT 10.3 K/mm3 (4.0-10.0)
[2019-03-21] MEDS ORDERED: DEXTROSE 5%-WATER 100 ML IVPB ONE (14:03)
[2019-03-21 14:15] LABS: BLOOD UREA NITROGEN 50.8 mg/dL (7-18); CALCIUM 9.2 mg/dL (8.5-10.1); CREATININE 1.6 mg/dL (0.55-1.3); POTASSIUM 4.8 mmol/L (3.5-5.1)
[2019-03-21 14:49] LABS: ERYTHROCYTE SEDIMENTATION RATE 35 mm/hr (0-20)
[2019-03-21 15:09] VITALS: BP 108/55; PULSE 70; TEMP 97.9
== END 2019-03-21 15:09 | disposition home or self-care (01) ==
LOC: JINFUSION 12:43 → J7W 12:44 → JINFUSION 15:09
PROVIDERS: ATTEND Internal Medicine Infectious Disease
DX: E11.621 Type 2 diabetes mellitus with foot ulcer (principal); L03.115 Cellulitis of right lower limb; L97.519 Non-pressure chronic ulcer of other part of right foot with unspecified severity; I13.0 Hypertensive heart and chronic kidney disease with heart failure and stage 1 through stage 4 chronic kidney disease, or unspecified chronic kidney disease; Z79.84 Long term (current) use of oral hypoglycemic drugs
CPT/HCPCS: 36415; 80048; 82962; 85025; 85651; 86140; 96365; G0277

== ENCOUNTER 2019-03-22 09:03 | Day surgery (SDC) | payer OTHER ==
[2019-03-22] MEDS ORDERED: DEXTROSE 5%-WATER 200 ML IVPB ONE (09:28)
[2019-03-22] MEDS ORDERED: CEFTRIAXONE 2 GM in DEXTROSE 5%-WATER 100 ML IVPB ONE (09:30)
[2019-03-22 10:13] VITALS: BP 139/72; PULSE 75; TEMP 97.9
== END 2019-03-22 10:20 | disposition home or self-care (01) ==
LOC: JINFUSION 09:03 → J7W 09:03 → JINFUSION 10:20
PROVIDERS: ATTEND Internal Medicine Infectious Disease
DX: E11.621 Type 2 diabetes mellitus with foot ulcer (principal); L03.115 Cellulitis of right lower limb; L97.519 Non-pressure chronic ulcer of other part of right foot with unspecified severity; I13.0 Hypertensive heart and chronic kidney disease with heart failure and stage 1 through stage 4 chronic kidney disease, or unspecified chronic kidney disease; Z79.84 Long term (current) use of oral hypoglycemic drugs
CPT/HCPCS: 96365

== ENCOUNTER 2019-03-23 08:47 | Day surgery (SDC) | payer OTHER ==
[2019-03-23] MEDS ORDERED: CEFTRIAXONE 2 GM in DEXTROSE 5%-WATER 100 ML IVPB ONE (09:45)
[2019-03-23] MEDS ORDERED: DEXTROSE 5%-WATER 100 ML IVPB ONE (09:46)
[2019-03-23 09:55] VITALS: BP 107/64; PULSE 68; TEMP 98.6
== END 2019-03-23 10:40 | disposition home or self-care (01) ==
LOC: JINFUSION 08:47 → J7W 08:47 → JINFUSION 10:40
PROVIDERS: ATTEND Internal Medicine Infectious Disease
DX: E11.621 Type 2 diabetes mellitus with foot ulcer (principal); L03.115 Cellulitis of right lower limb; L97.519 Non-pressure chronic ulcer of other part of right foot with unspecified severity; I13.0 Hypertensive heart and chronic kidney disease with heart failure and stage 1 through stage 4 chronic kidney disease, or unspecified chronic kidney disease; Z79.84 Long term (current) use of oral hypoglycemic drugs
CPT/HCPCS: 96365

== ENCOUNTER 2019-03-24 08:55 | Day surgery (SDC) | payer OTHER ==
[2019-03-24] MEDS ORDERED: CEFTRIAXONE 2 GM in DEXTROSE 5%-WATER 100 ML IVPB ONE (09:30)
[2019-03-24 11:00] VITALS: BP 112/62; PULSE 65; TEMP 97.9
== END 2019-03-24 10:58 | disposition home or self-care (01) ==
LOC: JINFUSION 08:55
PROVIDERS: ATTEND Internal Medicine Infectious Disease
DX: E11.621 Type 2 diabetes mellitus with foot ulcer (principal); L03.115 Cellulitis of right lower limb; L97.519 Non-pressure chronic ulcer of other part of right foot with unspecified severity; I13.0 Hypertensive heart and chronic kidney disease with heart failure and stage 1 through stage 4 chronic kidney disease, or unspecified chronic kidney disease; Z79.84 Long term (current) use of oral hypoglycemic drugs
CPT/HCPCS: 96365

== ENCOUNTER 2019-03-25 11:45 | Day surgery (SDC) | payer OTHER ==
[2019-03-25] MEDS ORDERED: SODIUM CHLORIDE 100 ML IVPB ONE (11:58)
[2019-03-25 12:55] VITALS: BP 127/63; PULSE 67; TEMP 98.1
== END 2019-03-25 12:55 | disposition home or self-care (01) ==
LOC: JINFUSION 11:45
PROVIDERS: ATTEND Internal Medicine Infectious Disease
DX: E11.621 Type 2 diabetes mellitus with foot ulcer (principal); L03.115 Cellulitis of right lower limb; L97.519 Non-pressure chronic ulcer of other part of right foot with unspecified severity; I13.0 Hypertensive heart and chronic kidney disease with heart failure and stage 1 through stage 4 chronic kidney disease, or unspecified chronic kidney disease; Z79.84 Long term (current) use of oral hypoglycemic drugs
CPT/HCPCS: 96365

== ENCOUNTER 2019-03-26 11:07 | Day surgery (SDC) | payer OTHER ==
[2019-03-26] MEDS ORDERED: SODIUM CHLORIDE 100 ML IVPB ONE (11:26)
[2019-03-26 12:24] VITALS: PULSE 65; TEMP 98.1
[2019-03-26 12:39] VITALS: BP 115/76
== END 2019-03-26 12:46 | disposition home or self-care (01) ==
LOC: JINFUSION 11:07
PROVIDERS: ATTEND Internal Medicine Infectious Disease
DX: E11.621 Type 2 diabetes mellitus with foot ulcer (principal); L03.115 Cellulitis of right lower limb; L97.519 Non-pressure chronic ulcer of other part of right foot with unspecified severity; I13.0 Hypertensive heart and chronic kidney disease with heart failure and stage 1 through stage 4 chronic kidney disease, or unspecified chronic kidney disease; Z79.84 Long term (current) use of oral hypoglycemic drugs
CPT/HCPCS: 96365

== ENCOUNTER 2019-03-27 11:59 | Day surgery (SDC) | payer OTHER ==
[2019-03-27] MEDS ORDERED: SODIUM CHLORIDE 100 ML IVPB ONE (12:10)
[2019-03-27 12:22] VITALS: PULSE 67; TEMP 97.7
[2019-03-27 13:06] VITALS: BP 109/66
== END 2019-03-27 13:04 | disposition home or self-care (01) ==
LOC: JINFUSION 11:59
PROVIDERS: ATTEND Internal Medicine Infectious Disease
DX: E11.621 Type 2 diabetes mellitus with foot ulcer (principal); L03.115 Cellulitis of right lower limb; L97.519 Non-pressure chronic ulcer of other part of right foot with unspecified severity; I13.0 Hypertensive heart and chronic kidney disease with heart failure and stage 1 through stage 4 chronic kidney disease, or unspecified chronic kidney disease; Z79.84 Long term (current) use of oral hypoglycemic drugs; L97.512 Non-pressure chronic ulcer of other part of right foot with fat layer exposed
CPT/HCPCS: 11042; 15275; 71046-TC-FY; 82962; 96365; G0277; Q4196

== ENCOUNTER 2019-03-28 09:33 | Day surgery (SDC) | payer OTHER ==
[2019-03-28 10:15] LABS: HEMATOCRIT 40.7 % (35.4-49); HEMOGLOBIN 12.9 GM/dL (11.7-16.9); MCH 22.5 pg (25.7-33.7); MCHC 31.7 g/dl (32.0-35.9); MEAN CELL VOLUME 70.8 fl (80-96); MEAN PLT VOLUME 9.8 fl (7.5-11.1); PLATELET COUNT 164 K/MM3 (134-434); RBC 5.75 M/mm3 (4.00-5.60); RDW 18.1 % (11.9-15.9); WHITE BLOOD COUNT 8.8 K/mm3 (4.0-10.0)
[2019-03-28 10:39] LABS: BLOOD UREA NITROGEN 37.8 mg/dL (7-18); CALCIUM 9.1 mg/dL (8.5-10.1); CREATININE 1.9 mg/dL (0.55-1.3); POTASSIUM 4.3 mmol/L (3.5-5.1)
[2019-03-28] MEDS ORDERED: SODIUM CHLORIDE 100 ML IVPB ONE (11:31)
[2019-03-28 11:54] VITALS: TEMP 97.9
[2019-03-28 12:06] LABS: ERYTHROCYTE SEDIMENTATION RATE 21 mm/hr (0-20)
[2019-03-28 12:39] VITALS: BP 120/71; PULSE 66
== END 2019-03-28 12:20 | disposition home or self-care (01) ==
LOC: JRADIR 09:33 → JINFUSION 09:33 → JRADIR 12:20
PROVIDERS: ATTEND Internal Medicine Infectious Disease
DX: E11.621 Type 2 diabetes mellitus with foot ulcer (principal); L03.115 Cellulitis of right lower limb; L97.519 Non-pressure chronic ulcer of other part of right foot with unspecified severity; I13.0 Hypertensive heart and chronic kidney disease with heart failure and stage 1 through stage 4 chronic kidney disease, or unspecified chronic kidney disease; Z79.84 Long term (current) use of oral hypoglycemic drugs; L97.512 Non-pressure chronic ulcer of other part of right foot with fat layer exposed
CPT/HCPCS: 36415; 36558; 80048; 82962; 85027; 85651; 86140; 96365; G0277

== ENCOUNTER 2019-03-29 08:23 | Day surgery (SDC) | payer OTHER ==
[2019-03-29] MEDS ORDERED: CEFTRIAXONE 2 GM in DEXTROSE 5%-WATER 100 ML IVPB ONE (09:15)
[2019-03-29] MEDS ORDERED: DEXTROSE 5%-WATER 100 ML IVPB ONE (09:31)
[2019-03-29 09:42] VITALS: TEMP 98.1
[2019-03-29 10:13] VITALS: BP 133/81; PULSE 66
== END 2019-03-29 13:04 | disposition home or self-care (01) ==
LOC: JINFUSION 08:23 → J7W 08:24 → JINFUSION 13:04
PROVIDERS: ATTEND Internal Medicine Infectious Disease
DX: E11.621 Type 2 diabetes mellitus with foot ulcer (principal); L03.115 Cellulitis of right lower limb; L97.519 Non-pressure chronic ulcer of other part of right foot with unspecified severity; I13.0 Hypertensive heart and chronic kidney disease with heart failure and stage 1 through stage 4 chronic kidney disease, or unspecified chronic kidney disease
CPT/HCPCS: 96365

== ENCOUNTER 2019-03-30 08:48 | Day surgery (SDC) | payer OTHER ==
[2019-03-30] MEDS ORDERED: CEFTRIAXONE 2 GM in DEXTROSE 5%-WATER 100 ML IVPB ONE (09:15)
[2019-03-30] MEDS ORDERED: DEXTROSE 5%-WATER 100 ML IVPB ONE (09:21)
[2019-03-30 09:36] VITALS: TEMP 99.2
[2019-03-30 16:35] VITALS: BP 109/67; PULSE 63
== END 2019-03-30 16:36 | disposition home or self-care (01) ==
LOC: JINFUSION 08:48 → J7W 08:48 → JINFUSION 16:36
PROVIDERS: ATTEND Internal Medicine Infectious Disease
DX: E11.621 Type 2 diabetes mellitus with foot ulcer (principal); L03.115 Cellulitis of right lower limb; L97.519 Non-pressure chronic ulcer of other part of right foot with unspecified severity; I13.0 Hypertensive heart and chronic kidney disease with heart failure and stage 1 through stage 4 chronic kidney disease, or unspecified chronic kidney disease; Z79.84 Long term (current) use of oral hypoglycemic drugs
CPT/HCPCS: 96365

== ENCOUNTER → 2019-03-31 | Day surgery (SDC) | payer OTHER ==
[~2019-03-31] MED LIST changes: +CEFTRIAXONE 2 GM in DEXTROSE 5%-WATER - 100 ML IVPB ONE; -CEFTRIAXONE 2 GM in DEXTROSE 5%-WATER 100 ML IVPB ONE
[2019-03-31 15:53] VITALS: BP 122/74; PULSE 69; TEMP 97.9
== END | disposition home or self-care (01) ==
LOC: JINFUSION 11:51
PROVIDERS: ATTEND Internal Medicine Infectious Disease
DX: E11.621 Type 2 diabetes mellitus with foot ulcer (principal); L03.115 Cellulitis of right lower limb; L97.519 Non-pressure chronic ulcer of other part of right foot with unspecified severity; I13.0 Hypertensive heart and chronic kidney disease with heart failure and stage 1 through stage 4 chronic kidney disease, or unspecified chronic kidney disease; Z79.84 Long term (current) use of oral hypoglycemic drugs
CPT/HCPCS: 82962; 96365; G0277

== ENCOUNTER 2019-04-01 11:43 | Day surgery (SDC) | payer OTHER ==
[~2019-04-01 11:43] MED LIST changes: -CEFTRIAXONE 2 GM in DEXTROSE 5%-WATER - 100 ML IVPB ONE; +CEFTRIAXONE 2 GM in SODIUM CHLORIDE 100 ML IVPB ONE; +cefTRIAXone 2 GM/100 ML BAG (PRE-DOCKED) IVPB ONE
[2019-04-01 12:32] VITALS: TEMP 97.6
[2019-04-01 13:03] VITALS: BP 116/74; PULSE 66
== END 2019-04-01 13:02 | disposition home or self-care (01) ==
LOC: JINFUSION 11:43
PROVIDERS: ATTEND Internal Medicine Infectious Disease
DX: E11.621 Type 2 diabetes mellitus with foot ulcer (principal); L03.115 Cellulitis of right lower limb; L97.519 Non-pressure chronic ulcer of other part of right foot with unspecified severity; I13.0 Hypertensive heart and chronic kidney disease with heart failure and stage 1 through stage 4 chronic kidney disease, or unspecified chronic kidney disease; Z79.84 Long term (current) use of oral hypoglycemic drugs
CPT/HCPCS: 82962; 96365; G0277

== ENCOUNTER 2019-04-02 09:37 | Day surgery (SDC) | payer OTHER ==
[~2019-04-02 09:37] MED LIST changes: -cefTRIAXone 2 GM/100 ML BAG (PRE-DOCKED) IVPB ONE
[2019-04-02 11:08] VITALS: TEMP 98.1
[2019-04-02 11:11] VITALS: BP 126/72; PULSE 72
== END 2019-04-02 11:13 | disposition home or self-care (01) ==
LOC: JINFUSION 09:37
PROVIDERS: ATTEND Internal Medicine Infectious Disease
DX: E11.621 Type 2 diabetes mellitus with foot ulcer (principal); L03.115 Cellulitis of right lower limb; L97.519 Non-pressure chronic ulcer of other part of right foot with unspecified severity; I13.0 Hypertensive heart and chronic kidney disease with heart failure and stage 1 through stage 4 chronic kidney disease, or unspecified chronic kidney disease; Z79.84 Long term (current) use of oral hypoglycemic drugs
CPT/HCPCS: 82962; 96365; G0277

== ENCOUNTER 2019-04-03 09:16 | Day surgery (SDC) | payer OTHER ==
[~2019-04-03 09:16] MED LIST changes: +CEFTRIAXONE 2 GM in DEXTROSE 5%-WATER - 100 ML IVPB ONE; -CEFTRIAXONE 2 GM in SODIUM CHLORIDE 100 ML IVPB ONE
[2019-04-03] MEDS ORDERED: SODIUM CHLORIDE 100 ML IVPB ONE (09:38)
[2019-04-03] MEDS ORDERED: CEFTRIAXONE 2 GM in SODIUM CHLORIDE 100 ML IVPB ONE (09:45)
[2019-04-03 12:36] VITALS: TEMP 98
[2019-04-03 13:04] VITALS: BP 130/72; PULSE 72
== END 2019-04-03 13:05 | disposition home or self-care (01) ==
LOC: JINFUSION 09:16
PROVIDERS: ATTEND Internal Medicine Infectious Disease
DX: E11.621 Type 2 diabetes mellitus with foot ulcer (principal); L03.115 Cellulitis of right lower limb; L97.519 Non-pressure chronic ulcer of other part of right foot with unspecified severity; I13.0 Hypertensive heart and chronic kidney disease with heart failure and stage 1 through stage 4 chronic kidney disease, or unspecified chronic kidney disease; Z79.84 Long term (current) use of oral hypoglycemic drugs; L97.512 Non-pressure chronic ulcer of other part of right foot with fat layer exposed
CPT/HCPCS: 11042; 15275; 15276; 82962; 96365; G0277; Q4106

== ENCOUNTER 2019-04-04 10:50 | Day surgery (SDC) | payer OTHER ==
[~2019-04-04 10:50] MED LIST changes: +CEFTRIAXONE 2 GM in SODIUM CHLORIDE 100 ML IVPB ONE
[2019-04-04 11:52] LABS: HEMOGLOBIN 12.4 GM/dL (11.7-16.9); MCH 22.3 pg (25.7-33.7); PLATELET COUNT 132 K/MM3 (134-434); RBC 5.55 M/mm3 (4.00-5.60); RDW 17.6 % (11.9-15.9); WHITE BLOOD COUNT 8.5 K/mm3 (4.0-10.0)
[2019-04-04 11:56] VITALS: BP 127/78; TEMP 98.5
[2019-04-04 12:14] LABS: BLOOD UREA NITROGEN 37.2 mg/dL (7-18); CREATININE 1.7 mg/dL (0.55-1.3)
[2019-04-04 13:46] LABS: ERYTHROCYTE SEDIMENTATION RATE 27 mm/hr (0-20)
[2019-04-04 15:33] VITALS: PULSE 68
== END 2019-04-04 12:55 | disposition home or self-care (01) ==
LOC: JINFUSION 10:50
PROVIDERS: ATTEND Internal Medicine Infectious Disease
DX: E11.621 Type 2 diabetes mellitus with foot ulcer (principal); L03.115 Cellulitis of right lower limb; L97.519 Non-pressure chronic ulcer of other part of right foot with unspecified severity; I13.0 Hypertensive heart and chronic kidney disease with heart failure and stage 1 through stage 4 chronic kidney disease, or unspecified chronic kidney disease; Z79.84 Long term (current) use of oral hypoglycemic drugs; L97.512 Non-pressure chronic ulcer of other part of right foot with fat layer exposed
CPT/HCPCS: 36415; 80048; 82962; 85027; 85651; 86140; 96365; G0277

== ENCOUNTER 2019-04-05 08:27 | Day surgery (SDC) | payer OTHER ==
[2019-04-05] MEDS ORDERED: CEFTRIAXONE 2 GM in DEXTROSE 5%-WATER 100 ML IVPB ONE (08:45)
[2019-04-05] MEDS ORDERED: DEXTROSE 5%-WATER 100 ML IVPB ONE (08:56)
[2019-04-05 13:16] VITALS: BP 103/59; PULSE 66; TEMP 98
== END 2019-04-05 09:40 | disposition home or self-care (01) ==
LOC: JINFUSION 08:27 → J7W 08:27 → JINFUSION 09:40
PROVIDERS: ATTEND Internal Medicine Infectious Disease
DX: E11.621 Type 2 diabetes mellitus with foot ulcer (principal); L03.115 Cellulitis of right lower limb; L97.519 Non-pressure chronic ulcer of other part of right foot with unspecified severity; I13.0 Hypertensive heart and chronic kidney disease with heart failure and stage 1 through stage 4 chronic kidney disease, or unspecified chronic kidney disease; Z79.84 Long term (current) use of oral hypoglycemic drugs
CPT/HCPCS: 96365; 96367

== ENCOUNTER 2019-04-06 09:17 | Day surgery (SDC) | payer OTHER ==
[2019-04-06] MEDS ORDERED: CEFTRIAXONE 2 GM in DEXTROSE 5%-WATER 100 ML IVPB ONE (10:15)
[2019-04-06] MEDS ORDERED: DEXTROSE 5%-WATER 100 ML IVPB ONE (10:19)
[2019-04-06 12:21] VITALS: BP 113/51; PULSE 67
== END 2019-04-06 11:15 | disposition home or self-care (01) ==
LOC: JINFUSION 09:17 → J7W 09:18 → JINFUSION 11:15
PROVIDERS: ATTEND Internal Medicine Infectious Disease
DX: E11.621 Type 2 diabetes mellitus with foot ulcer (principal); L03.115 Cellulitis of right lower limb; L97.519 Non-pressure chronic ulcer of other part of right foot with unspecified severity; I13.0 Hypertensive heart and chronic kidney disease with heart failure and stage 1 through stage 4 chronic kidney disease, or unspecified chronic kidney disease; Z79.84 Long term (current) use of oral hypoglycemic drugs
CPT/HCPCS: 96365

== ENCOUNTER 2019-04-07 11:39 | Day surgery (SDC) | payer OTHER ==
[~2019-04-07 11:39] MED LIST changes: -CEFTRIAXONE 2 GM in DEXTROSE 5%-WATER - 100 ML IVPB ONE
[2019-04-07 12:18] VITALS: TEMP 97.9
[2019-04-07 12:59] VITALS: BP 109/55; PULSE 55
== END 2019-04-07 12:45 | disposition home or self-care (01) ==
LOC: JINFUSION 11:39
PROVIDERS: ATTEND Internal Medicine Infectious Disease
DX: E11.621 Type 2 diabetes mellitus with foot ulcer (principal); L03.115 Cellulitis of right lower limb; L97.519 Non-pressure chronic ulcer of other part of right foot with unspecified severity; I13.0 Hypertensive heart and chronic kidney disease with heart failure and stage 1 through stage 4 chronic kidney disease, or unspecified chronic kidney disease; Z79.4 Long term (current) use of insulin
CPT/HCPCS: 82962; 96365; G0277

== ENCOUNTER 2019-04-08 11:28 | Day surgery (SDC) | payer OTHER ==
[2019-04-08 15:14] VITALS: BP 111/69; PULSE 67; TEMP 97.9
== END 2019-04-08 12:40 | disposition home or self-care (01) ==
LOC: JINFUSION 11:28
PROVIDERS: ATTEND Internal Medicine Infectious Disease
DX: E11.621 Type 2 diabetes mellitus with foot ulcer (principal); L03.115 Cellulitis of right lower limb; L97.519 Non-pressure chronic ulcer of other part of right foot with unspecified severity; I13.0 Hypertensive heart and chronic kidney disease with heart failure and stage 1 through stage 4 chronic kidney disease, or unspecified chronic kidney disease; Z79.4 Long term (current) use of insulin; L97.512 Non-pressure chronic ulcer of other part of right foot with fat layer exposed
CPT/HCPCS: 82962; 96365; G0277

== ENCOUNTER 2019-04-09 11:06 | Day surgery (SDC) | payer OTHER ==
[2019-04-09] MEDS ORDERED: SODIUM CHLORIDE 100 ML IVPB ONE (11:25)
[2019-04-09 11:57] VITALS: TEMP 97.9
[2019-04-09 12:31] VITALS: BP 122/71; PULSE 61
== END 2019-04-09 12:31 | disposition home or self-care (01) ==
LOC: JINFUSION 11:06
PROVIDERS: ATTEND Internal Medicine Infectious Disease
DX: E11.621 Type 2 diabetes mellitus with foot ulcer (principal); L97.519 Non-pressure chronic ulcer of other part of right foot with unspecified severity; L03.115 Cellulitis of right lower limb; I13.0 Hypertensive heart and chronic kidney disease with heart failure and stage 1 through stage 4 chronic kidney disease, or unspecified chronic kidney disease; Z79.4 Long term (current) use of insulin
CPT/HCPCS: 36415; 82962; 86140; 96365; G0277

== ENCOUNTER 2019-04-10 08:44 | Day surgery (SDC) | payer OTHER ==
[2019-04-10] MEDS ORDERED: SODIUM CHLORIDE 100 ML IVPB ONE (08:59)
[2019-04-10] MEDS ORDERED: CEFTRIAXONE 2 GM in SODIUM CHLORIDE 100 ML IVPB ONE (09:00)
[2019-04-10 15:52] VITALS: BP 125/74; PULSE 66; TEMP 97.9
== END 2019-04-10 10:00 | disposition home or self-care (01) ==
LOC: JINFUSION 08:44
PROVIDERS: ATTEND Internal Medicine Infectious Disease
DX: E11.621 Type 2 diabetes mellitus with foot ulcer (principal); L03.115 Cellulitis of right lower limb; L97.519 Non-pressure chronic ulcer of other part of right foot with unspecified severity; I13.0 Hypertensive heart and chronic kidney disease with heart failure and stage 1 through stage 4 chronic kidney disease, or unspecified chronic kidney disease; Z79.4 Long term (current) use of insulin
CPT/HCPCS: 96365

== ENCOUNTER 2019-04-10 13:55 | Inpatient (IN) | payer OTHER ==
--- NOTE | 2019-04-10 14:08 | PDOC ---
Rapid Medical Evaluation Chief Complaint: Wound Time Seen by Provider: 04/10/19 14:05 Medical Evaluation: Allergies Allergy/AdvReac Type Severity Reaction Status Date / Time No Known Allergies Allergy Verified 04/10/19 14:06 04/10/19 14:06 CC: sent from wound clinic for admission for infected diabetic wound PE: deferred Orders: labs, urine, ekg Patient will proceed to ED for further evaluation. Discharge Disposition - Diagnosis Diabetic foot ulcer - Referrals - Patient Instructions - Post Discharge Activity
[2019-04-10 14:32] LABS: BASO % 1.3 % (0-2.0); EOS % 3.1 % (0-4.5); HEMATOCRIT 40.2 % (35.4-49); HEMOGLOBIN 12.6 GM/dL (11.7-16.9); LYMPH % 23.3 % (8-40); MCH 22.3 pg (25.7-33.7); MCHC 31.3 g/dl (32.0-35.9); MEAN CELL VOLUME 71.3 fl (80-96); MEAN PLT VOLUME 9.8 fl (7.5-11.1); MONO % 13.5 % (3.8-10.2); NEUT % 58.8 % (42.8-82.8); PLATELET COUNT 159 K/MM3 (134-434); RBC 5.64 M/mm3 (4.00-5.60); RDW 17.3 % (11.9-15.9); URINE APPEARANCE CLEAR; URINE BILIRUBIN NEGATIVE (NEGATIVE); URINE COLOR YELLOW; URINE GLUCOSE (UA) NEGATIVE (NEGATIVE); URINE KETONE NEGATIVE (NEGATIVE); URINE LEUK ESTERASE NEGATIVE (NEGATIVE); URINE NITRITE NEGATIVE (NEGATIVE); URINE PROTEIN NEGATIVE (NEGATIVE); URINE UROBILINOGEN 0.2 mg/dL (0.2-1.0); WHITE BLOOD COUNT 8.7 K/mm3 (4.0-10.0)
[2019-04-10 15:02] LABS: ALBUMIN 3.6 g/dl (3.4-5.0); BILIRUBIN,TOTAL 0.6 mg/dL (0.2-1); BLOOD UREA NITROGEN 33.7 mg/dL (7-18); CALCIUM 9.3 mg/dL (8.5-10.1); CREATININE 1.6 mg/dL (0.55-1.3); POTASSIUM 4.2 mmol/L (3.5-5.1); TOT PROT 7.3 g/dl (6.4-8.2)
--- NOTE | 2019-04-10 15:44 | PDOC ---
History of Present Illness - General Chief Complaint: Wound Stated Complaint: INFECTED FOOT WOUND Time Seen by Provider: 04/10/19 14:05 - History of Present Illness Initial Comments: 04/10/19 15:46 78 yo M PMH of DM, HFrEF, Hx of DVT, HLD, CKD, HTN, recently admitted for R foot wound ( 02/2019) presented to the ED from wound clinic for a non-healing R foot wound. Pt denies pain to foot, denies fevers, chills, n/v. pt states that he was recently here and recently had PICC placement and has been coming to get treatment for the wound. pt states he had a cast on and it was just removed, thats when they noticed the non-healing wound. Pt sees Dr. Valdivia for the R foot wound. Past History - Past Medical History Allergies/Adverse Reactions: Allergies Allergy/AdvReac Type Severity Reaction Status Date / Time No Known Allergies Allergy Verified 04/10/19 14:06 Home Medications: Ambulatory Orders Atorvastatin Ca [Lipitor] 1 tab PO DAILY 03/04/18 Calcitriol [Calcitriol -] 1 tab PO DAILY 03/04/18 Esomeprazole Magnesium 1 cap PO DAILY 03/04/18 Glipizide Xl [Glucotrol Xl -] 1 tab PO DAILY 03/04/18 Pregabalin [Lyrica] 100 mg PO HS 03/04/18 Spironolactone 1 tab PO DAILY 03/04/18 Tamsulosin HCl 1 cap PO DAILY 03/04/18 Acetaminophen [Tylenol .Extra-Strength -] 500 mg PO Q6H PRN 02/28/19 Allopurinol [Zyloprim -] 100 mg PO DAILY 02/28/19 Aspirin [ASA -] 81 mg PO DAILY 02/28/19 Carvedilol [ Coreg] 25 mg PO BID 02/28/19 Multivitamin [Multiple Vitamins] 1 tab PO DAILY 02/28/19 Ceftriaxone [Rocephin -] 2 gm IVPB DAILY vial 03/14/19 Ferrous Sulfate [Feosol] 325 mg PO Q2D ud 03/14/19 Rivaroxaban [Xarelto -] 15 mg PO BID 03/20/19 Torsemide [Demadex -] 40 mg PO BID 03/20/19 Alprazolam 0.25 mg PO DAILY 03/27/19 COPD: No Diabetes: Yes HTN: Yes Hypercholesterolemia: Yes - Surgical History Cardiac Surgery: Yes (pacemaker 05/2012) - Immunization History Immunization Up to Date: No - Psycho Social/Smoking Cessation Hx Smoking History: Never smoked Have you smoked in the past 12 months: No If you are a former smoker, when did you quit?: 40 years ago Hx Alcohol Use: No Drug/Substance Use Hx: No Hx Substance Use Treatment: No Review of Systems - Review of Systems Able to Perform ROS?: Yes Constitutional: No: Chills, Diaphoresis, Fever Respiratory: No: Shortness of Breath Cardiac (ROS): No: Chest Pain, Palpitations ABD/GI: No: Constipated, Diarrhea, Nausea, Vomiting Musculoskeletal: No: Joint Pain *Physical Exam - Vital Signs Last Vital Signs Temp Pulse Resp BP Pulse Ox 98.1 F 54 L 16 112/66 100 04/10/19 14:07 04/10/19 14:07 04/10/19 14:07 04/10/19 14:07 04/10/19 14:07 - Physical Exam General Appearance: Yes: Obese Respiratory/Chest: positive: Lungs Clear, Normal Breath Sounds. negative: Accessory Muscle Use Cardiovascular: positive: Regular Rhythm, Regular Rate, S1, S2 Gastrointestinal/Abdominal: positive: Normal Bowel Sounds, Distended (mildly distended , non tender ). negative: Tenderness Extremity: positive: Swelling (R dehiscent foot wound. ), Erythema ED Treatment Course - LABORATORY CBC & Chemistry Diagram: 04/10/19 14:21 04/10/19 14:12 - ADDITIONAL ORDERS Additional order review: Laboratory Results 04/10/19 04/10/19 14:21 14:12 Sodium 137 Potassium 4.2 Chloride 103 Carbon Dioxide 27 Anion Gap 8 BUN 33.7 H Creatinine 1.6 H Est GFR (CKD-EPI)AfAm 47.46 Est GFR (CKD-EPI)NonAf 40.95 Random Glucose 123 H Calcium 9.3 Total Bilirubin 0.6 AST 23 ALT 29 Alkaline Phosphatase 130 H Total Protein 7.3 Albumin 3.6 Urine Color Yellow Urine Appearance Clear Urine pH 5.0 Ur Specific [place] 1.010 Urine Protein Negative Urine Glucose (UA) Negative Urine Ketones Negative Urine Blood Negative Urine Nitrite Negative Urine Bilirubin Negative Urine Urobilinogen 0.2 Ur Leukocyte Esterase Negative 04/10/19 14:21 RBC 5.64 H MCV 71.3 L MCHC 31.3 L RDW 17.3 H MPV 9.8 D Neutrophils % 58.8 Lymphocytes % 23.3 Monocytes % 13.5 H Eosinophils % 3.1 Basophils % 1.3 Medical Decision Making - Medical Decision Making 78 yo M presented to ED with nonhealing diabetic R foot wound -pt sent from wound clinic for nonhealing wound. pt to see Dr. Valdivia. wound is open and dehiscent -R foot XR -CBC: no leukocytosis, pt afebrile. awaiting wound culture. blood cultures pending -EKG -PT/INR, PTT -ID recs appreciated, wound refractory to IV abx tx; pt has PICC line -Primary team, Dr. Pimentel, accepted pt for admission - spoke with Dr. Johnson, possible I& D next week. Betadine on lateral wound, santyl on dorsal wounds. 04/10/19 15:53 04/10/19 16:02 04/10/19 16:24 -CMP reviewed, Cr 1.6 (~baseline) pt has CKD. Discharge - Discharge Information Problems reviewed: Yes Clinical Impression/Diagnosis: Diabetic foot ulcer Condition: Stable - Admission Yes - Follow up/Referral - Patient Discharge Instructions - Post Discharge Activity
[2019-04-10 17:18] LABS: INR 1.65 (0.83-1.09); PROTHROMBIN TIME (PATIENT) 19.6 SEC (9.7-13.0)
[2019-04-10 17:21] LABS: ACTIVATED PTT 39.4 SECONDS (25.2-36.5)
[2019-04-10] MEDS ORDERED: PIPERACILLIN/TAZOB 4.5 GM 4.5 GM in DEXTROSE 5%-WATER - 100 ML IVPB ONE (17:51)
[2019-04-10] MEDS ORDERED: VANCOMYCIN 1,000 MG in DEXTROSE 5%-WATER - 250 ML IVPB ONE (17:51)
--- NOTE | 2019-04-10 17:52 | PDOC ---
Attending Attestation - Resident Resident Name: Katelynn Jolly - ED Attending Attestation I have performed the following: I have examined & evaluated the patient, The case was reviewed & discussed with the resident, I agree w/resident's findings & plan, Exceptions are as noted - HPI HPI: 04/10/19 17:54 78yo M hx DM, HF, DVT, HL, CKD, HTN, presents to the ED from Dr. Johnson's clinic for admission. Pt with wound infection that has failed outpt abx through PICC line as well as hyperbarics. Pt denies fevers, chills. Also, denies headache, dizziness, focal weakness/numbness, cp, sob, abd pain, N/V/D, urinary sxs. - Physicial Exam PE: 04/10/19 17:58 agree with resident exam - Medical Decision Making 04/10/19 17:59 78yo M presents to the ED with diabetic foot wound, failing outpt abx and hyperbarics Pt with no systemic signs of infection, unremarkable vitals Case disucssed with Dr. Plaza, andrei Sharma/Na which have been ordeed Pt admitted to Dr. Pimentel for further mgmt Case discussed in detail with admitting physician including history, physical exam and ancillary studies. Admitting physician has assumed care for the patient, will follow all pending diagnostics and will complete the evaluation and treatment. Heart Score/ECG Review #1 04/10/19 18:03 EKG read and interpreted by me: Sinus rhythm, rate 61, LAD, RBBB, TWI in I and avL. No significant change compared to previous EKG.
[2019-04-10] MEDS ORDERED: PIPERACILLIN/TAZOB 4.5 GM 4.5 GM/100 ML BAG IVPB ONE (17:59)
[2019-04-10 20:31] VITALS: BMI 41.7
[2019-04-10] MEDS ORDERED: VANCOMYCIN 1 GRAM (PRE-DOCKED) 1,000 MG/250 ML BAG IVPB ONE (21:45)
--- NOTE | 2019-04-10 22:25 | HP ---
Admitting History and Physical - Admission History of Present Illness: Pt is a 78 y/o male w/ PMH significant for DM, DVT, HLD, CKD, HTN, BPH, and CHF. Pt recently admitted for R foot wound ( 02/2019) and was then wa'ed on IV antibxs. Pt now presented to the ED from wound clinic for a non-healing R foot wound. Pt denies pain to foot, denies fevers, chills, n/v. Pt states he had a cast on and it was just removed, and in the wound care clinic they noticed the non-healing wound and was sent to ER. - Past Medical History Cardiovascular: Yes: CHF, HTN, Hyperlipdemia Renal/: Yes: Renal Failure Heme/Onc: Yes: Other (DVT) Endocrine: Yes: Diabetes Mellitus - Past Surgical History Past Surgical History: Yes: Permanent Pacemaker - Smoking History Smoking history: Former smoker Have you smoked in the past 12 months: No If you are a former smoker, when did you quit?: 60 years ago - Alcohol/Substance Use Hx Alcohol Use: No Home Medications - Allergies Allergies/Adverse Reactions: Allergies Allergy/AdvReac Type Severity Reaction Status Date / Time No Known Allergies Allergy Verified 04/10/19 14:06 - Home Medications Home Medications: Ambulatory Orders Atorvastatin Ca [Lipitor] 1 tab PO DAILY 03/04/18 Calcitriol [Calcitriol -] 1 tab PO DAILY 03/04/18 Esomeprazole Magnesium 1 cap PO DAILY 03/04/18 Glipizide Xl [Glucotrol Xl -] 1 tab PO DAILY 03/04/18 Pregabalin [Lyrica] 100 mg PO HS 03/04/18 Spironolactone 1 tab PO DAILY 03/04/18 Tamsulosin HCl 1 cap PO DAILY 03/04/18 Acetaminophen [Tylenol .Extra-Strength -] 500 mg PO Q6H PRN 02/28/19 Allopurinol [Zyloprim -] 100 mg PO DAILY 02/28/19 Aspirin [ASA -] 81 mg PO DAILY 02/28/19 Carvedilol [ Coreg] 25 mg PO BID 02/28/19 Multivitamin [Multiple Vitamins] 1 tab PO DAILY 02/28/19 Ceftriaxone [Rocephin -] 2 gm IVPB DAILY vial 03/14/19 Ferrous Sulfate [Feosol] 325 mg PO Q2D ud 03/14/19 Rivaroxaban [Xarelto -] 15 mg PO BID 03/20/19 Torsemide [Demadex -] 40 mg PO BID 03/20/19 Alprazolam 0.25 mg PO DAILY 03/27/19 Family Medical History Family History: Unremarkable Review of Systems - Review of Systems Constitutional: reports: No Symptoms Eyes: reports: No Symptoms HENT: reports: No Symptoms Neck: reports: No Symptoms Cardiovascular: reports: No Symptoms Respiratory: reports: No Symptoms Gastrointestinal: reports: No Symptoms Genitourinary: reports: No Symptoms Physical Examination Vital Signs: Vital Signs Temperature 97.4 F L 04/10/19 20:30 Pulse Rate 66 04/10/19 20:30 Respiratory Rate 18 04/10/19 20:30 Blood Pressure 131/76 04/10/19 20:30 O2 Sat by Pulse Oximetry (%) 97 04/10/19 17:30 Constitutional: Yes: Well Nourished Neck: Yes: WNL, Supple Cardiovascular: Yes: WNL, Regular Rate and Rhythm Respiratory: Yes: WNL, Regular, CTA Bilaterally Gastrointestinal: Yes: WNL, Normal Bowel Sounds, Soft Extremities: Yes: Other (Rt foot in dressing) Edema: LLE: Trace Neurological: Yes: WNL, Alert, Oriented ...Motor Strength: WNL Labs: CBC, BMP 04/10/19 14:21 04/10/19 14:12 Problem List - Problems (1) Diabetic foot ulcer Assessment/Plan: Will start IV vanco/zosyn Follow cultures Podiatry/ID consults Code(s): E11.621 - TYPE 2 DIABETES MELLITUS WITH FOOT ULCER; L97.509 - NON- PRESSURE CHRONIC ULCER OTH PRT UNSP FOOT W UNSP SEVERITY (2) Type 2 diabetes mellitus Assessment/Plan: Cont glybizide Cont sliding scale w/ coverage Code(s): E11.9 - TYPE 2 DIABETES MELLITUS WITHOUT COMPLICATIONS Qualifiers: Diabetes mellitus complication detail: with autonomic neuropathy (3) CKD (chronic kidney disease) Code(s): N18.9 - CHRONIC KIDNEY DISEASE, UNSPECIFIED (4) GERD (gastroesophageal reflux disease) Code(s): K21.9 - GASTRO-ESOPHAGEAL REFLUX DISEASE WITHOUT ESOPHAGITIS (5) HLD (hyperlipidemia) Assessment/Plan: Cont lipitor Code(s): E78.5 - HYPERLIPIDEMIA, UNSPECIFIED (6) HTN (hypertension) Assessment/Plan: BP stable Cont antihypertensives Code(s): I10 - ESSENTIAL (PRIMARY) HYPERTENSION (7) BPH (benign prostatic hyperplasia) Assessment/Plan: Cont flomax Code(s): N40.0 - BENIGN PROSTATIC HYPERPLASIA WITHOUT LOWER URINRY TRACT SYMP (8) Peripheral neuropathic pain Assessment/Plan: Cont lyrica Code(s): M79.2 - NEURALGIA AND NEURITIS, UNSPECIFIED
[2019-04-10] MEDS ORDERED: ACETAMINOPHEN 500 MG TABLET (FP) PO ONE (23:28)
[2019-04-11] MEDS ORDERED: CARVEDILOL 25 MG PO SCH (00:45)
[2019-04-11] MEDS: CARVEDILOL 25 MG TABLET (FP) PO SCH ×3 (00:55→21:38)
[2019-04-11] MEDS: RIVAROXABAN 15 MG TABLET PO SCH ×3 (00:55→21:38)
[2019-04-11] MEDS ORDERED: DEXTROSE 5%-WATER - 50 ML IVPB ONE ×3 (01:58→17:17)
[2019-04-11] MEDS ORDERED: PIPERACILLIN/TAZOBACTAM 3.375 GM VIAL IVPB ONE ×3 (01:58→17:17)
[2019-04-11] MEDS ORDERED: PIPERACILLIN/TAZOB 3.375 GM 3.375 GM in DEXTROSE 5%-WATER - 50 ML IVPB SCH (02:00)
[2019-04-11] MEDS: PIPERACILLIN/TAZOB 3.375 GM 3.375 GM in DEXTROSE 5%-WATER - 50 ML IVPB SCH ×3 (02:10→17:47)
[2019-04-11] MEDS: glipiZIDE-XL 2.5 MG TAB.ER.24 PO SCH (06:56)
[2019-04-11] MEDS: TORSEMIDE 20 MG TABLET (FP) PO SCH ×2 (06:57→13:37)
[2019-04-11] MEDS: INSULIN SLIDING SCALE (NOVOLOG) 1 VIAL SQ SCH ×4 (07:01→21:39)
[2019-04-11] MEDS: ACETAMINOPHEN 500 MG TABLET (FP) PO PRN (07:05)
[2019-04-11 07:07] LABS: BASO % 1.1 % (0-2.0); EOS % 2.8 % (0-4.5); HEMATOCRIT 39.2 % (35.4-49); HEMOGLOBIN 12.3 GM/dL (11.7-16.9); LYMPH % 19.4 % (8-40); MCH 22.3 pg (25.7-33.7); MCHC 31.5 g/dl (32.0-35.9); MEAN CELL VOLUME 70.7 fl (80-96); MEAN PLT VOLUME 10.3 fl (7.5-11.1); NEUT % 66.7 % (42.8-82.8); PLATELET COUNT 175 K/MM3 (134-434); RBC 5.54 M/mm3 (4.00-5.60); RDW 16.7 % (11.9-15.9); WHITE BLOOD COUNT 8.8 K/mm3 (4.0-10.0)
[2019-04-11 08:31] LABS: ALBUMIN 2.4 g/dl (3.4-5.0); BILIRUBIN,TOTAL 0.7 mg/dL (0.2-1); BLOOD UREA NITROGEN 15.5 mg/dL (7-18); CALCIUM 8.5 mg/dL (8.5-10.1); CREATININE 1.1 mg/dL (0.55-1.3); POTASSIUM 4.2 mmol/L (3.5-5.1); TOT PROT 6.4 g/dl (6.4-8.2)
[2019-04-11] MEDS: TAMSULOSIN HCL 0.4 MG CAP PO SCH (09:47)
[2019-04-11] MEDS: SPIRONOLACTONE 25 MG TABLET (FP) PO SCH (09:50)
[2019-04-11] MEDS: FERROUS SO4 325 MG TABLET (FP) PO SCH (09:50)
[2019-04-11] MEDS: ATORVASTATIN CA 40 MG TABLET (FP) PO SCH (09:50)
[2019-04-11] MEDS: ALPRAZolam 0.25 MG TABLET PO SCH (09:50)
[2019-04-11] MEDS: ASPIRIN 81 MG CHEWABLE TABLETS PO SCH (09:50)
[2019-04-11] MEDS: MULTIVITAMINS (DAILY MVI) TABLET (FP) PO SCH (09:50)
[2019-04-11] MEDS: ALLOPURINOL 100 MG TABLET (FP) PO SCH (09:50)
[2019-04-11] MEDS: CALCITRIOL 0.25 MCG CAPSULE (FP) PO SCH (09:50)
[2019-04-11] MEDS ORDERED: PNEUMOC 13-VAL CONJ-DIP CRM/PF 0.5 ML DISP.SYRIN IM ONE (10:00)
[2019-04-11] MEDS ORDERED: VANCOMYCIN 1 GRAM (PRE-DOCKED) 1,000 MG/250 ML BAG IVPB SCH (10:00)
[2019-04-11] MEDS ORDERED: VANCOMYCIN 1 GM in D5W (PRE-DOCKED) 1,000 MG/250 ML IVPB SCH (10:00)
[2019-04-11] MEDS ORDERED: PATIENT'S OWN MEDICATION (NON-FORMULARY) (Ceftriaxone 2 GM) IVPB SCH (10:00)
[2019-04-11] MEDS ORDERED: FLU VACCINE QUAD 60 MCG/0.5 ML (MDV 19-20) IM ONE (10:00)
--- NOTE | 2019-04-11 11:42 | CONSULT ---
Consult Consult Specialty:: Podiatry Reason for Consultation:: Cellulitis right foot - History of Present Illness History of Present Illness: s/p TMA by vascular. Recommended BKA. Patient presented to wound care. Was admitted wound cleaned , integra graft applied, given HBO out patient and IVABX. Pt was doing great until this after removal of TCC EZ cast he had opened a new wound lateral right stump. - Past Medical History Cardio/Vascular: Yes: CHF, HTN, Hyperlipdemia Renal/: Yes: Renal Failure Endocrine: Yes: Diabetes Mellitus - Past Surgical History Past Surgical History: Yes: Permanent Pacemaker - Alcohol/Substance Use Hx Alcohol Use: No - Smoking History Smoking history: Former smoker Have you smoked in the past 12 months: No If you are a former smoker, when did you quit?: 60 years ago Home Medications - Allergies Allergies/Adverse Reactions: Allergies Allergy/AdvReac Type Severity Reaction Status Date / Time No Known Allergies Allergy Verified 04/10/19 14:06 - Home Medications Home Medications: Ambulatory Orders Atorvastatin Ca [Lipitor] 1 tab PO DAILY 03/04/18 Calcitriol [Calcitriol -] 1 tab PO DAILY 03/04/18 Esomeprazole Magnesium 1 cap PO DAILY 03/04/18 Glipizide Xl [Glucotrol Xl -] 1 tab PO DAILY 03/04/18 Pregabalin [Lyrica] 100 mg PO HS 03/04/18 Spironolactone 1 tab PO DAILY 03/04/18 Tamsulosin HCl 1 cap PO DAILY 03/04/18 Acetaminophen [Tylenol .Extra-Strength -] 500 mg PO Q6H PRN 02/28/19 Allopurinol [Zyloprim -] 100 mg PO DAILY 02/28/19 Aspirin [ASA -] 81 mg PO DAILY 02/28/19 Carvedilol [ Coreg] 25 mg PO BID 02/28/19 Multivitamin [Multiple Vitamins] 1 tab PO DAILY 02/28/19 Ceftriaxone [Rocephin -] 2 gm IVPB DAILY vial 03/14/19 Ferrous Sulfate [Feosol] 325 mg PO Q2D ud 03/14/19 Rivaroxaban [Xarelto -] 15 mg PO BID 03/20/19 Torsemide [Demadex -] 40 mg PO BID 03/20/19 Alprazolam 0.25 mg PO DAILY 03/27/19 Physical Exam Vital Signs: Vital Signs Temperature 98.1 F 04/11/19 06:00 Pulse Rate 69 04/11/19 06:00 Respiratory Rate 20 04/11/19 09:00 Blood Pressure 107/59 L 04/11/19 06:00 O2 Sat by Pulse Oximetry (%) 98 04/11/19 09:00 Extremities: Yes: Other (+cellulitis, +grade 3 wound right, +drainage, + macerated, +improved distal wound with granulation tisue) Labs: CBC, BMP 04/11/19 06:35 04/11/19 06:35 Imaging - Results X-ray: Report Reviewed, Image Reviewed Assessment/Plan cellulitis new wound right lateral stump granulating distal wound ID consult, vascular consult ordered. Santyl to distal wound. Betadine to lateral wound. Needs a debridement of the 5th met distal portion due to length on lateral aspect causing wound to open most likely due to ambulation excessively. Will follow. Will schedule debridement once ID and vascular have evaluated patient.
--- NOTE | 2019-04-11 12:06 | CON.ID ---
Consult Consult Specialty:: infectious diseases Referred by:: Reason for Consultation:: infected wound - History of Present Illness Chief Complaint: non healing of wound History of Present Illness: Pt is a 78 y/o male w/ PMH significant for DM, DVT, HLD, CKD, HTN, BPH, and CHF. Pt recently admitted for R foot wound ( 02/2019) and was then dc'ed on IV antibxs. Pt now presented to the ED from wound clinic for a non-healing R foot wound. Pt denies pain to foot, denies fevers, chills, n/v. Pt states he had a cast on and it was just removed, and in the wound care clinic they noticed the non-healing wound and was sent to ER. this wound is a new wound and the podiatry is on the case and will plan further plan about surgery currently patient is stable and on abx - History Source History Provided By: Patient, Medical Record Limitations to Obtaining History: Poor Historian - Past Medical History Cardio/Vascular: Yes: CHF, HTN, Hyperlipdemia Renal/: Yes: Renal Failure Endocrine: Yes: Diabetes Mellitus - Past Surgical History Past Surgical History: Yes: Permanent Pacemaker - Alcohol/Substance Use Hx Alcohol Use: No - Smoking History Smoking history: Former smoker Have you smoked in the past 12 months: No If you are a former smoker, when did you quit?: 60 years ago Home Medications - Allergies Allergies/Adverse Reactions: Allergies Allergy/AdvReac Type Severity Reaction Status Date / Time No Known Allergies Allergy Verified 04/10/19 14:06 - Home Medications Home Medications: Ambulatory Orders Atorvastatin Ca [Lipitor] 1 tab PO DAILY 03/04/18 Calcitriol [Calcitriol -] 1 tab PO DAILY 03/04/18 Esomeprazole Magnesium 1 cap PO DAILY 03/04/18 Glipizide Xl [Glucotrol Xl -] 1 tab PO DAILY 03/04/18 Pregabalin [Lyrica] 100 mg PO HS 03/04/18 Spironolactone 1 tab PO DAILY 03/04/18 Tamsulosin HCl 1 cap PO DAILY 03/04/18 Acetaminophen [Tylenol .Extra-Strength -] 500 mg PO Q6H PRN 02/28/19 Allopurinol [Zyloprim -] 100 mg PO DAILY 02/28/19 Aspirin [ASA -] 81 mg PO DAILY 02/28/19 Carvedilol [ Coreg] 25 mg PO BID 02/28/19 Multivitamin [Multiple Vitamins] 1 tab PO DAILY 02/28/19 Ceftriaxone [Rocephin -] 2 gm IVPB DAILY vial 03/14/19 Ferrous Sulfate [Feosol] 325 mg PO Q2D ud 03/14/19 Rivaroxaban [Xarelto -] 15 mg PO BID 03/20/19 Torsemide [Demadex -] 40 mg PO BID 03/20/19 Alprazolam 0.25 mg PO DAILY 03/27/19 Review of Systems - Review of Systems Constitutional: reports: No Symptoms Eyes: reports: No Symptoms HENT: reports: No Symptoms Neck: reports: No Symptoms Cardiovascular: reports: No Symptoms Respiratory: reports: No Symptoms Gastrointestinal: reports: No Symptoms Genitourinary: reports: No Symptoms Musculoskeletal: reports: Other (wound on the lateral part of the leg) Integumentary: reports: Wound Neurological: reports: No Symptoms Endocrine: reports: No Symptoms Hematology/Lymphatic: reports: No Symptoms Psychiatric: reports: No Symptoms Physical Exam Vital Signs: Vital Signs Temperature 98.1 F 04/11/19 06:00 Pulse Rate 69 04/11/19 06:00 Respiratory Rate 20 04/11/19 09:00 Blood Pressure 107/59 L 04/11/19 06:00 O2 Sat by Pulse Oximetry (%) 98 04/11/19 09:00 Constitutional: Yes: Well Nourished, No Distress, Calm, Obese Cardiovascular: Yes: Regular Rate and Rhythm Respiratory: Yes: Regular, CTA Bilaterally Gastrointestinal: Yes: Normal Bowel Sounds, Soft Musculoskeletal: Yes: WNL Extremities: Yes: Other Wound/Incision: Yes: Dressing Dry and Intact, Dressing Removed, Other (wound noted) Neurological: Yes: Alert, Oriented Psychiatric: Yes: Alert, Oriented Labs: CBC, BMP 04/11/19 06:35 04/11/19 06:35 Imaging - Results X-ray: Report Reviewed, Image Reviewed Assessment/Plan this patient with multiple medical problems coming with a new wound awaiting for cx reports rosado tart him on broad spectrum abx close watch wound care podiatry to decide rest as per the team
--- NOTE | 2019-04-11 13:34 | EKG ---
Test Reason : Blood Pressure : / mmHG Vent. Rate : 061 BPM Atrial Rate : 061 BPM P-R Int : 248 ms QRS Dur : 148 ms QT Int : 494 ms P-R-T Axes : 043 -52 073 degrees QTc Int : 497 ms SINUS RHYTHM WITH 1ST DEGREE A-V BLOCK WITH OCCASIONAL PREMATURE VENTRICULAR COMPLEXES LEFT AXIS DEVIATION RIGHT BUNDLE BRANCH BLOCK MODERATE VOLTAGE CRITERIA FOR LVH, MAY BE NORMAL VARIANT ABNORMAL ECG WHEN COMPARED WITH ECG OF 16-MAR-2019 11:05, T WAVE INVERSION LESS EVIDENT IN LATERAL LEADS Confirmed by ALYSSA LARES MD ([id number]) on 04/11/2019 1:33:33 PM Referred By: Confirmed By:ALYSSA LARES MD
[2019-04-11] MEDS: COLLAGENASE CLOSTRIDIUM HIST. 30 GRAMS TUBE TP SCH (14:20)
--- NOTE | 2019-04-11 20:10 | PN ---
Physical Exam: SUBJECTIVE: Patient seen and examined; pain is controlled. Medications reviewed. No new complaints verbalized. He is afebrile and hemodynamically stable with no new complaints. Appreciate excellent care provided by subspecialty services. 10 sys ROS done and negative aside from HPI OBJECTIVE: Vital Signs Period Temp Pulse Resp BP Sys/[place] Pulse Ox Last 24 Hr 97.4 F-98.1 F 63-72 18-20 101-131/59-76 98 GENERAL: The patient is awake, alert, and fully oriented, in no acute distress. HEAD: Normal with no signs of trauma. EYES: PERRL, extraocular movements intact, sclera anicteric, conjunctiva clear. No ptosis. ENT: Ears normal, nares patent, oropharynx clear without exudates, moist mucous membranes. NECK: Trachea midline, full range of motion, supple. LUNGS: Breath sounds equal, clear to auscultation bilaterally, no wheezes, no crackles, no accessory muscle use. HEART: Regular rate and rhythm, S1, S2 without murmur, rub or gallop. ABDOMEN: Soft, nontender, nondistended, normoactive bowel sounds, no guarding, no rebound, no hepatosplenomegaly, no masses. EXTREMITIES: 2+ pulses, warm, well-perfused, no edema. Bandaging is c/d/i NEUROLOGICAL: Cranial nerves II through XII grossly intact. Normal speech, gait not observed. PSYCH: Normal mood, normal affect. SKIN: Warm, dry, normal turgor, no rashes or lesions noted Laboratory Results - last 24 hr 04/11/19 04/11/19 04/11/19 06:35 06:35 06:55 WBC 8.8 RBC 5.54 Hgb 12.3 Hct 39.2 MCV 70.7 L MCH 22.3 L MCHC 31.5 L RDW 16.7 H Plt Count 175 MPV 10.3 Absolute Neuts (auto) 5.8 Neutrophils % 66.7 Lymphocytes % 19.4 Monocytes % 10.0 Eosinophils % 2.8 Basophils % 1.1 Nucleated RBC % 0 Sodium 140 Potassium 4.2 Chloride 102 Carbon Dioxide 30 Anion Gap 8 BUN 15.5 Creatinine 1.1 Est GFR (CKD-EPI)AfAm 74.65 Est GFR (CKD-EPI)NonAf 64.41 POC Glucometer 122 Random Glucose 97 Calcium 8.5 Total Bilirubin 0.7 AST 13 L ALT 31 Alkaline Phosphatase 92 Total Protein 6.4 Albumin 2.4 L 04/11/19 04/11/19 11:12 16:35 WBC RBC Hgb Hct MCV MCH MCHC RDW Plt Count MPV Absolute Neuts (auto) Neutrophils % Lymphocytes % Monocytes % Eosinophils % Basophils % Nucleated RBC % Sodium Potassium Chloride Carbon Dioxide Anion Gap BUN Creatinine Est GFR (CKD-EPI)AfAm Est GFR (CKD-EPI)NonAf POC Glucometer 159 117 Random Glucose Calcium Total Bilirubin AST ALT Alkaline Phosphatase Total Protein Albumin Active Medications Generic Name Dose Route Start Last Admin Trade Name Freq PRN Reason Stop Dose Admin Acetaminophen 500 mg 04/11/19 00:29 04/11/19 07:05 Tylenol - PO 500 mg Q6H PRN Administration PAIN Allopurinol 100 mg 04/11/19 10:00 04/11/19 09:50 Zyloprim - PO 100 mg DAILY CHE Administration Alprazolam 0.25 mg 04/11/19 10:00 04/11/19 09:50 Xanax - PO 0.25 mg DAILY CHE Administration Aspirin 81 mg 04/11/19 10:00 04/11/19 09:50 Asa - PO 81 mg DAILY CHE Administration Atorvastatin Calcium 40 mg 04/11/19 10:00 04/11/19 09:50 Lipitor - PO 40 mg DAILY CHE Administration Calcitriol 0.25 mcg 04/11/19 10:00 04/11/19 09:50 Rocaltrol - PO 0.25 mcg DAILY CHE Administration Carvedilol 25 mg 04/11/19 01:00 04/11/19 09:50 Coreg - PO 25 mg BID CHE Administration Collagenase 1 applic 04/11/19 12:00 04/11/19 14:20 Santyl - TP 1 applic DAILY CHE Administration Protocol Ferrous Sulfate 325 mg 04/11/19 10:00 04/11/19 09:50 Feosol - PO 325 mg Q2D CHE Administration Glipizide 2.5 mg 04/11/19 07:00 04/11/19 06:56 Glucotrol Xl - PO 2.5 mg ACBK CHE Administration Vancomycin HCl 1,500 mg/ 500 mls @ 250 mls/hr 04/12/19 10:00 Dextrose IVPB Q24H CHE Protocol Piperacillin Sod/Tazobactam 50 mls @ 100 mls/hr 04/11/19 18:00 04/11/19 17:47 Sod 3.375 gm/ Dextrose IVPB 100 mls/hr Q8H-IV CHE Administration Protocol Insulin Aspart 1 vial 04/11/19 07:00 04/11/19 16:36 Novolog Vial Sliding Scale - SQ Not Given ACHS CHE Protocol Multivitamins/Minerals/Vitamin C 1 tab 04/11/19 10:00 04/11/19 09:50 Tab-A-Vit - PO 1 tab DAILY CHE Administration Pregabalin 100 mg 04/11/19 22:00 Lyrica - PO HS CHE Rivaroxaban 15 mg 04/11/19 00:45 04/11/19 09:50 Xarelto PO 15 mg BID CHE Administration Spironolactone 25 mg 04/11/19 10:00 04/11/19 09:50 Aldactone - PO 25 mg DAILY CHE Administration Tamsulosin HCl 0.4 mg 04/11/19 08:30 04/11/19 09:47 Flomax - PO 0.4 mg DAILY@0830 CHE Administration Torsemide 40 mg 04/11/19 06:00 04/11/19 13:37 Demadex - PO 40 mg BIDLASIX CHE Administration ASSESSMENT/PLAN: Patient is seen and examined on the floor; pain is controlled and clinically they remain stable. Continue home medications, followup with podiatry, and monitor. Problems include: -DM Foot Wound (FU with podiatry, ID. C/W abx per ID) -Hx DVT on xarelto -Hx CHF -Hx BPH on tams -Hx HTN -Hx DM -Hx HLD -VICTOR M on CKD Continue current care; esr/crp noted. Followup CBC. Monitor volume status and O2 requirements. Discuss with consulting providers regarding DC planning, etc. He has risk factors for worsening infection given his medical comorbidities and may require prolonged abx-deferring to Dr. Plaza. Likely underlying vascular disease. Consutling nephrology for the VICTOR M with likely underlying medical CKD. Microcytosis without anemia noted. Full Code Visit type - Emergency Visit Emergency Visit: Yes ED Registration Date: 04/10/19 Care time: The patient presented to the Emergency Department on the above date and was hospitalized for further evaluation of their emergent condition. - New Patient This patient is new to me today: Yes Date on this admission: 04/11/19 - Critical Care Critical Care patient: No
[2019-04-11] MEDS: PREGABALIN 100 MG CAPSULE PO SCH (21:39)
[2019-04-12] MEDS: PIPERACILLIN/TAZOB 3.375 GM 3.375 GM in DEXTROSE 5%-WATER - 50 ML IVPB SCH ×3 (01:16→17:19)
[2019-04-12] MEDS ORDERED: PT OWN MED DRAWER 7, Y5N ONE ×3 (06:22→18:37)
[2019-04-12] MEDS: TORSEMIDE 20 MG TABLET (FP) PO SCH ×2 (06:23→13:26)
[2019-04-12] MEDS: glipiZIDE-XL 2.5 MG TAB.ER.24 PO SCH (06:23)
[2019-04-12] MEDS: ACETAMINOPHEN 500 MG TABLET (FP) PO PRN ×2 (06:27→21:36)
[2019-04-12] MEDS ORDERED: INSULIN (LEVEMIR) 100 UNITS/ML UNITS SQ ONE (06:32)
[2019-04-12] MEDS ORDERED: INSULIN (NOVOLOG) ASPART 100 UNITS/ML 10ML VIAL ONE (06:32)
[2019-04-12] MEDS: INSULIN SLIDING SCALE (NOVOLOG) 1 VIAL SQ SCH ×5 (07:17→21:41)
[2019-04-12 07:54] LABS: BASO % 0.9 % (0-2.0); EOS % 2.9 % (0-4.5); HEMATOCRIT 40.4 % (35.4-49); HEMOGLOBIN 12.9 GM/dL (11.7-16.9); MCH 22.4 pg (25.7-33.7); MCHC 31.8 g/dl (32.0-35.9); MEAN CELL VOLUME 70.4 fl (80-96); MEAN PLT VOLUME 10.4 fl (7.5-11.1); MONO % 10.7 % (3.8-10.2); NEUT % 65.5 % (42.8-82.8); PLATELET COUNT 183 K/MM3 (134-434); RBC 5.74 M/mm3 (4.00-5.60); RDW 16.7 % (11.9-15.9); WHITE BLOOD COUNT 9.4 K/mm3 (4.0-10.0)
[2019-04-12 08:35] LABS: ALBUMIN 3.6 g/dl (3.4-5.0); BILIRUBIN,TOTAL 0.5 mg/dL (0.2-1); BLOOD UREA NITROGEN 35.3 mg/dL (7-18); CALCIUM 9.4 mg/dL (8.5-10.1); CREATININE 1.7 mg/dL (0.55-1.3); MAGNESIUM 2.2 mg/dL (1.8-2.4); POTASSIUM 4.2 mmol/L (3.5-5.1); TOT PROT 7.4 g/dl (6.4-8.2)
[2019-04-12] MEDS ORDERED: DEXTROSE 5%-WATER - 50 ML IVPB ONE ×2 (08:54→17:12)
[2019-04-12] MEDS ORDERED: PIPERACILLIN/TAZOBACTAM 3.375 GM VIAL IVPB ONE ×2 (08:54→17:12)
[2019-04-12] MEDS: TAMSULOSIN HCL 0.4 MG CAP PO SCH (09:10)
[2019-04-12] MEDS: ATORVASTATIN CA 40 MG TABLET (FP) PO SCH (09:16)
[2019-04-12] MEDS: CALCITRIOL 0.25 MCG CAPSULE (FP) PO SCH (09:16)
[2019-04-12] MEDS: MULTIVITAMINS (DAILY MVI) TABLET (FP) PO SCH (09:16)
[2019-04-12] MEDS: CARVEDILOL 25 MG TABLET (FP) PO SCH ×2 (09:16→21:37)
[2019-04-12] MEDS: ALLOPURINOL 100 MG TABLET (FP) PO SCH (09:16)
[2019-04-12] MEDS: ALPRAZolam 0.25 MG TABLET PO SCH (09:16)
[2019-04-12] MEDS: RIVAROXABAN 15 MG TABLET PO SCH ×2 (09:16→21:35)
[2019-04-12] MEDS: SPIRONOLACTONE 25 MG TABLET (FP) PO SCH (09:16)
[2019-04-12] MEDS: COLLAGENASE CLOSTRIDIUM HIST. 30 GRAMS TUBE TP SCH (09:17)
[2019-04-12] MEDS: ASPIRIN 81 MG CHEWABLE TABLETS PO SCH (09:17)
[2019-04-12] MEDS: VANCOMYCIN HCL 1,500 MG in DEXTROSE 5%-WATER - 500 ML IVPB SCH (10:27)
--- NOTE | 2019-04-12 12:41 | PN ---
Progress Note, Physician History of Present Illness: Events noted. Podiatry evaluation reviewed. Pt is alert, afebrile, without specific complaints. - Current Medication List Current Medications: Active Medications Acetaminophen (Tylenol -) 500 mg PO Q6H PRN PRN Reason: PAIN Last Admin: 04/12/19 06:27 Dose: 500 mg Allopurinol (Zyloprim -) 100 mg PO DAILY [facility] Last Admin: 04/12/19 09:16 Dose: 100 mg Alprazolam (Xanax -) 0.25 mg PO DAILY [facility] Last Admin: 04/12/19 09:16 Dose: 0.25 mg Aspirin (Asa -) 81 mg PO DAILY [facility] Last Admin: 04/12/19 09:17 Dose: 81 mg Atorvastatin Calcium (Lipitor -) 40 mg PO DAILY [facility] Last Admin: 04/12/19 09:16 Dose: 40 mg Calcitriol (Rocaltrol -) 0.25 mcg PO DAILY [facility] Last Admin: 04/12/19 09:16 Dose: 0.25 mcg Carvedilol (Coreg -) 25 mg PO BID [facility] Last Admin: 04/12/19 09:16 Dose: 25 mg Collagenase (Santyl -) 1 applic TP DAILY [facility]; Protocol Last Admin: 04/12/19 09:17 Dose: 1 applic Ferrous Sulfate (Feosol -) 325 mg PO Q2D [facility] Last Admin: 04/11/19 09:50 Dose: 325 mg Glipizide (Glucotrol Xl -) 2.5 mg PO ACBK [facility] Last Admin: 04/12/19 06:23 Dose: 2.5 mg Vancomycin HCl 1,500 mg/ (Dextrose) 500 mls @ 250 mls/hr IVPB Q24H [facility]; Protocol Last Admin: 04/12/19 10:27 Dose: 250 mls/hr Piperacillin Sod/Tazobactam (Sod 3.375 gm/ Dextrose) 50 mls @ 100 mls/hr IVPB Q8H-IV [facility]; Protocol Last Admin: 04/12/19 09:16 Dose: 100 mls/hr Insulin Aspart (Novolog Vial Sliding Scale -) 1 vial SQ ACHS [facility]; Protocol Last Admin: 04/12/19 11:42 Dose: Not Given Multivitamins/Minerals/Vitamin C (Tab-A-Vit -) 1 tab PO DAILY [facility] Last Admin: 04/12/19 09:16 Dose: 1 tab Pregabalin (Lyrica -) 100 mg PO HS [facility] Last Admin: 04/11/19 21:39 Dose: 100 mg Rivaroxaban (Xarelto) 15 mg PO BID [facility] Last Admin: 04/12/19 09:16 Dose: 15 mg Spironolactone (Aldactone -) 25 mg PO DAILY [facility] Last Admin: 04/12/19 09:16 Dose: 25 mg Tamsulosin HCl (Flomax -) 0.4 mg PO DAILY@0830 [facility] Last Admin: 04/12/19 09:10 Dose: 0.4 mg Torsemide (Demadex -) 40 mg PO BIDLASIX [facility] Last Admin: 04/12/19 06:23 Dose: 40 mg - Objective Vital Signs: Vital Signs Temperature 98.3 F 04/12/19 06:54 Pulse Rate 65 04/12/19 06:54 Respiratory Rate 20 04/12/19 09:00 Blood Pressure 137/62 04/12/19 06:54 O2 Sat by Pulse Oximetry (%) 97 04/12/19 09:00 Constitutional: Yes: No Distress Cardiovascular: Yes: Regular Rate and Rhythm Respiratory: Yes: Regular Gastrointestinal: Yes: Normal Bowel Sounds, Soft Genitourinary: Yes: WNL Wound/Incision: Yes: Other (Rt TMA - lateral 5th MT wound with mild drainage) Labs: CBC, BMP 04/12/19 06:40 04/12/19 06:40 INR, PTT INR 1.65 (0.83-1.09) H 04/10/19 15:45 Microbiology 04/10/19 15:50 Blood - Peripheral Venous Blood Culture - Preliminary NO GROWTH OBTAINED AFTER 24 HOURS, INCUBATION TO CONTINUE FOR 4 DAYS. 04/10/19 15:45 Blood - Peripheral Venous Blood Culture - Preliminary NO GROWTH OBTAINED AFTER 24 HOURS, INCUBATION TO CONTINUE FOR 4 DAYS. 04/10/19 14:21 Urine - Urine Clean Catch Urine Culture - Final - ....Imaging X-ray: Report Reviewed Problem List - Problems (1) Diabetic foot ulcer Code(s): E11.621 - TYPE 2 DIABETES MELLITUS WITH FOOT ULCER; L97.509 - NON- PRESSURE CHRONIC ULCER OTH PRT UNSP FOOT W UNSP SEVERITY (2) BPH (benign prostatic hyperplasia) Code(s): N40.0 - BENIGN PROSTATIC HYPERPLASIA WITHOUT LOWER URINRY TRACT SYMP (3) CKD (chronic kidney disease) Code(s): N18.9 - CHRONIC KIDNEY DISEASE, UNSPECIFIED (4) Cellulitis of right foot Code(s): L03.115 - CELLULITIS OF RIGHT LOWER LIMB (5) HLD (hyperlipidemia) Code(s): E78.5 - HYPERLIPIDEMIA, UNSPECIFIED (6) HTN (hypertension) Code(s): I10 - ESSENTIAL (PRIMARY) HYPERTENSION (7) Type 2 diabetes mellitus Code(s): E11.9 - TYPE 2 DIABETES MELLITUS WITHOUT COMPLICATIONS Qualifiers: Diabetes mellitus complication detail: with autonomic neuropathy Assessment/Plan Rt foot wound infection/cellulitis ? OM s/p RT TMA -- continue IV antibiotics, Vancomycin trough prior to 4th dose, monitor renal function -- Podiatry following, for possible debridement -- Vascular evaluation -- continue wound care
--- NOTE | 2019-04-12 17:48 | CONSULT ---
Consult Consult Specialty:: Nephrology Reason for Consultation:: CKD - History of Present Illness Chief Complaint: sent in for wound infection History of Present Illness: Pt is a 78 year old male with pmhx of ckd, dm, dvt, htn, and chf who presents with non healing right foot infection. He was found to have elevated creatinine and I was called to evaluate him. He denies history of CKD. He denies shortness of breath. He denies hematuria or dysuria. He is awake and alert. He denies nsaid use. He was on antibiotics but does not remember which ones. - History Source History Provided By: Patient, Medical Record - Past Medical History Cardio/Vascular: Yes: CHF, HTN, Hyperlipdemia Renal/: Yes: Renal Inusuff Endocrine: Yes: Diabetes Mellitus - Past Surgical History Past Surgical History: Yes: Permanent Pacemaker - Alcohol/Substance Use Hx Alcohol Use: No - Smoking History Smoking history: Former smoker Have you smoked in the past 12 months: No If you are a former smoker, when did you quit?: 60 years ago Home Medications - Allergies Allergies/Adverse Reactions: Allergies Allergy/AdvReac Type Severity Reaction Status Date / Time No Known Allergies Allergy Verified 04/10/19 14:06 - Home Medications Home Medications: Ambulatory Orders Atorvastatin Ca [Lipitor] 1 tab PO DAILY 03/04/18 Calcitriol [Calcitriol -] 1 tab PO DAILY 03/04/18 Esomeprazole Magnesium 1 cap PO DAILY 03/04/18 Glipizide Xl [Glucotrol Xl -] 1 tab PO DAILY 03/04/18 Pregabalin [Lyrica] 100 mg PO HS 03/04/18 Spironolactone 1 tab PO DAILY 03/04/18 Tamsulosin HCl 1 cap PO DAILY 03/04/18 Acetaminophen [Tylenol .Extra-Strength -] 500 mg PO Q6H PRN 02/28/19 Allopurinol [Zyloprim -] 100 mg PO DAILY 02/28/19 Aspirin [ASA -] 81 mg PO DAILY 02/28/19 Carvedilol [ Coreg] 25 mg PO BID 02/28/19 Multivitamin [Multiple Vitamins] 1 tab PO DAILY 02/28/19 Ceftriaxone [Rocephin -] 2 gm IVPB DAILY vial 03/14/19 Ferrous Sulfate [Feosol] 325 mg PO Q2D ud 03/14/19 Rivaroxaban [Xarelto -] 15 mg PO BID 03/20/19 Torsemide [Demadex -] 40 mg PO BID 03/20/19 Alprazolam 0.25 mg PO DAILY 03/27/19 Family Medical History Family History: Denies Review of Systems - Review of Systems Constitutional: reports: No Symptoms Eyes: reports: No Symptoms HENT: reports: No Symptoms Neck: reports: No Symptoms Cardiovascular: reports: No Symptoms Respiratory: reports: No Symptoms Gastrointestinal: reports: No Symptoms Genitourinary: reports: No Symptoms Musculoskeletal: reports: No Symptoms Integumentary: reports: No Symptoms, Other (right goot infection) Endocrine: reports: No Symptoms Psychiatric: reports: No Symptoms Physical Exam Vital Signs: Vital Signs Temperature 97.7 F 04/12/19 17:04 Pulse Rate 70 04/12/19 17:04 Respiratory Rate 20 04/12/19 17:04 Blood Pressure 124/74 04/12/19 17:04 O2 Sat by Pulse Oximetry (%) 97 04/12/19 09:00 Constitutional: Yes: Calm Eyes: Yes: Conjunctiva Clear HENT: Yes: Atraumatic Neck: Yes: Supple Cardiovascular: Yes: S1, S2 Respiratory: Yes: CTA Bilaterally Gastrointestinal: Yes: Soft, Abdomen, Obese Renal/: Yes: WNL Musculoskeletal: Yes: WNL Edema: LLE: 1+, RLE: 1+ Wound/Incision: Yes: Dressing Dry and Intact Neurological: Yes: Oriented Psychiatric: Yes: Oriented Labs: CBC, BMP 04/12/19 06:40 04/12/19 06:40 Laboratory Tests 02/28/19 03/01/19 03/28/19 11:27 06:44 09:57 WBC Hgb Plt Count Creatinine 1.6 H 1.6 H 1.9 H Urine Protein Urine Blood 04/04/19 04/10/19 04/10/19 11:10 14:12 14:21 WBC Hgb Plt Count Creatinine 1.7 H 1.6 H Urine Protein Negative Urine Blood Negative 04/11/19 04/11/19 04/12/19 06:35 06:35 06:40 WBC 9.4 Hgb 12.3 12.9 Plt Count 175 183 Creatinine 1.1 Urine Protein Urine Blood 04/12/19 06:40 WBC Hgb Plt Count Creatinine 1.7 H Urine Protein Urine Blood Imaging - Results X-ray: Report Reviewed Problem List - Problems (1) Diabetic foot ulcer Code(s): E11.621 - TYPE 2 DIABETES MELLITUS WITH FOOT ULCER; L97.509 - NON- PRESSURE CHRONIC ULCER OTH PRT UNSP FOOT W UNSP SEVERITY (2) BPH (benign prostatic hyperplasia) Code(s): N40.0 - BENIGN PROSTATIC HYPERPLASIA WITHOUT LOWER URINRY TRACT SYMP (3) CKD (chronic kidney disease) Code(s): N18.9 - CHRONIC KIDNEY DISEASE, UNSPECIFIED Assessment/Plan Current Medications Generic Name Dose Route Start Last Admin Trade Name Freq PRN Reason Stop Dose Admin Acetaminophen 500 mg 04/11/19 00:29 04/12/19 06:27 Tylenol - PO 500 mg Q6H PRN Administration PAIN Allopurinol 100 mg 04/11/19 10:00 04/12/19 09:16 Zyloprim - PO 100 mg DAILY [facility] Administration Alprazolam 0.25 mg 04/11/19 10:00 04/12/19 09:16 Xanax - PO 0.25 mg DAILY [facility] Administration Aspirin 81 mg 04/11/19 10:00 04/12/19 09:17 Asa - PO 81 mg DAILY [facility] Administration Atorvastatin Calcium 40 mg 04/11/19 10:00 04/12/19 09:16 Lipitor - PO 40 mg DAILY [facility] Administration Calcitriol 0.25 mcg 04/11/19 10:00 04/12/19 09:16 Rocaltrol - PO 0.25 mcg DAILY [facility] Administration Carvedilol 25 mg 04/11/19 01:00 04/12/19 09:16 Coreg - PO 25 mg BID [facility] Administration Collagenase 1 applic 04/11/19 12:00 04/12/19 09:17 Santyl - TP 1 applic DAILY [facility] Administration Protocol Ferrous Sulfate 325 mg 04/11/19 10:00 04/11/19 09:50 Feosol - PO 325 mg Q2D [facility] Administration Glipizide 2.5 mg 04/11/19 07:00 04/12/19 06:23 Glucotrol Xl - PO 2.5 mg ACBK [facility] Administration Vancomycin HCl 1,500 mg/ 500 mls @ 250 mls/hr 04/12/19 10:00 04/12/19 10:27 Dextrose IVPB 250 mls/hr Q24H [facility] Administration Protocol Piperacillin Sod/Tazobactam 50 mls @ 100 mls/hr 04/11/19 18:00 04/12/19 17:19 Sod 3.375 gm/ Dextrose IVPB 100 mls/hr Q8H-IV [facility] Administration Protocol Insulin Aspart 1 vial 04/11/19 07:00 04/12/19 16:14 Novolog Vial Sliding Scale - SQ Not Given ACHS [facility] Protocol Multivitamins/Minerals/Vitamin C 1 tab 04/11/19 10:00 04/12/19 09:16 Tab-A-Vit - PO 1 tab DAILY [facility] Administration Pregabalin 100 mg 04/11/19 22:00 04/11/19 21:39 Lyrica - PO 100 mg HS [facility] Administration Rivaroxaban 15 mg 04/11/19 00:45 04/12/19 09:16 Xarelto PO 15 mg BID [facility] Administration Spironolactone 25 mg 04/11/19 10:00 04/12/19 09:16 Aldactone - PO 25 mg DAILY [facility] Administration Tamsulosin HCl 0.4 mg 04/11/19 08:30 04/12/19 09:10 Flomax - PO 0.4 mg DAILY@0830 [facility] Administration Torsemide 40 mg 04/11/19 06:00 04/12/19 13:26 Demadex - PO 40 mg BIDLASIX [facility] Administration Impression 1. CKD 2. CHF ef 30 to 35 3. non healing wound 4. dvt 5. htn 6. hld 7. DM Plan - ua neg for blood or protein - repeat labs in am - repeat ua - check renal ultrasound - avoid nsaids - may have cardiorenal disease - cont duretics for now
[2019-04-12 21:00] LABS: URINE APPEARANCE CLEAR; URINE BILIRUBIN NEGATIVE (NEGATIVE); URINE COLOR YELLOW; URINE GLUCOSE (UA) NEGATIVE (NEGATIVE); URINE KETONE NEGATIVE (NEGATIVE); URINE LEUK ESTERASE NEGATIVE (NEGATIVE); URINE NITRITE NEGATIVE (NEGATIVE); URINE PROTEIN NEGATIVE (NEGATIVE); URINE UROBILINOGEN 0.2 mg/dL (0.2-1.0)
[2019-04-12] MEDS: PREGABALIN 100 MG CAPSULE PO SCH (21:36)
--- NOTE | 2019-04-12 23:35 | PN ---
Progress Note, Physician - Current Medication List Current Medications: Active Medications Acetaminophen (Tylenol -) 500 mg PO Q6H PRN PRN Reason: PAIN Last Admin: 04/12/19 21:36 Dose: 500 mg Allopurinol (Zyloprim -) 100 mg PO DAILY [facility] Last Admin: 04/12/19 09:16 Dose: 100 mg Alprazolam (Xanax -) 0.25 mg PO DAILY [facility] Last Admin: 04/12/19 09:16 Dose: 0.25 mg Aspirin (Asa -) 81 mg PO DAILY [facility] Last Admin: 04/12/19 09:17 Dose: 81 mg Atorvastatin Calcium (Lipitor -) 40 mg PO DAILY [facility] Last Admin: 04/12/19 09:16 Dose: 40 mg Calcitriol (Rocaltrol -) 0.25 mcg PO DAILY [facility] Last Admin: 04/12/19 09:16 Dose: 0.25 mcg Carvedilol (Coreg -) 25 mg PO BID [facility] Last Admin: 04/12/19 21:37 Dose: 25 mg Collagenase (Santyl -) 1 applic TP DAILY [facility]; Protocol Last Admin: 04/12/19 09:17 Dose: 1 applic Ferrous Sulfate (Feosol -) 325 mg PO Q2D [facility] Last Admin: 04/11/19 09:50 Dose: 325 mg Glipizide (Glucotrol Xl -) 2.5 mg PO ACBK [facility] Last Admin: 04/12/19 06:23 Dose: 2.5 mg Vancomycin HCl 1,500 mg/ (Dextrose) 500 mls @ 250 mls/hr IVPB Q24H [facility]; Protocol Last Admin: 04/12/19 10:27 Dose: 250 mls/hr Piperacillin Sod/Tazobactam (Sod 3.375 gm/ Dextrose) 50 mls @ 100 mls/hr IVPB Q8H-IV [facility]; Protocol Last Admin: 04/12/19 17:19 Dose: 100 mls/hr Insulin Aspart (Novolog Vial Sliding Scale -) 1 vial SQ ACHS [facility]; Protocol Last Admin: 04/12/19 21:41 Dose: Not Given Multivitamins/Minerals/Vitamin C (Tab-A-Vit -) 1 tab PO DAILY [facility] Last Admin: 04/12/19 09:16 Dose: 1 tab Pregabalin (Lyrica -) 100 mg PO HS [facility] Last Admin: 04/12/19 21:36 Dose: 100 mg Rivaroxaban (Xarelto) 15 mg PO BID [facility] Last Admin: 04/12/19 21:35 Dose: 15 mg Spironolactone (Aldactone -) 25 mg PO DAILY [facility] Last Admin: 04/12/19 09:16 Dose: 25 mg Tamsulosin HCl (Flomax -) 0.4 mg PO DAILY@0830 [facility] Last Admin: 04/12/19 09:10 Dose: 0.4 mg Torsemide (Demadex -) 40 mg PO BIDLASIX [facility] Last Admin: 04/12/19 13:26 Dose: 40 mg - Objective Vital Signs: Vital Signs Temperature 97.7 F 04/12/19 17:04 Pulse Rate 70 04/12/19 17:04 Respiratory Rate 20 04/12/19 17:04 Blood Pressure 124/74 04/12/19 17:04 O2 Sat by Pulse Oximetry (%) 97 04/12/19 09:00 Labs: CBC, BMP 04/12/19 06:40 04/12/19 06:40 INR, PTT INR 1.65 (0.83-1.09) H 04/10/19 15:45 Problem List - Problems (1) Diabetic foot ulcer Code(s): E11.621 - TYPE 2 DIABETES MELLITUS WITH FOOT ULCER; L97.509 - NON- PRESSURE CHRONIC ULCER OTH PRT UNSP FOOT W UNSP SEVERITY (2) Type 2 diabetes mellitus Code(s): E11.9 - TYPE 2 DIABETES MELLITUS WITHOUT COMPLICATIONS Qualifiers: Diabetes mellitus complication detail: with autonomic neuropathy (3) CKD (chronic kidney disease) Code(s): N18.9 - CHRONIC KIDNEY DISEASE, UNSPECIFIED (4) GERD (gastroesophageal reflux disease) Code(s): K21.9 - GASTRO-ESOPHAGEAL REFLUX DISEASE WITHOUT ESOPHAGITIS (5) HLD (hyperlipidemia) Code(s): E78.5 - HYPERLIPIDEMIA, UNSPECIFIED (6) HTN (hypertension) Code(s): I10 - ESSENTIAL (PRIMARY) HYPERTENSION (7) BPH (benign prostatic hyperplasia) Code(s): N40.0 - BENIGN PROSTATIC HYPERPLASIA WITHOUT LOWER URINRY TRACT SYMP (8) Peripheral neuropathic pain Code(s): M79.2 - NEURALGIA AND NEURITIS, UNSPECIFIED
[2019-04-13] MEDS: PIPERACILLIN/TAZOB 3.375 GM 3.375 GM in DEXTROSE 5%-WATER - 50 ML IVPB SCH ×2 (02:56→09:42)
[2019-04-13] MEDS: INSULIN SLIDING SCALE (NOVOLOG) 1 VIAL SQ SCH ×4 (06:20→21:20)
[2019-04-13] MEDS ORDERED: PT OWN MED DRAWER 7, Y5N ONE ×2 (06:29→09:10)
[2019-04-13] MEDS: glipiZIDE-XL 2.5 MG TAB.ER.24 PO SCH (06:43)
[2019-04-13] MEDS: TORSEMIDE 20 MG TABLET (FP) PO SCH ×2 (06:43→14:50)
[2019-04-13] MEDS: ACETAMINOPHEN 500 MG TABLET (FP) PO PRN ×2 (06:45→21:21)
[2019-04-13] MEDS ORDERED: INSULIN (NOVOLOG) ASPART 100 UNITS/ML 10ML VIAL ONE ×3 (06:53→20:41)
[2019-04-13 07:34] LABS: ALBUMIN 3.4 g/dl (3.4-5.0); BILIRUBIN,TOTAL 0.4 mg/dL (0.2-1); BLOOD UREA NITROGEN 47.5 mg/dL (7-18); CALCIUM 9.3 mg/dL (8.5-10.1); POTASSIUM 4.2 mmol/L (3.5-5.1); TOT PROT 6.8 g/dl (6.4-8.2)
[2019-04-13] MEDS ORDERED: DEXTROSE 5%-WATER - 50 ML IVPB ONE ×2 (09:10→16:44)
[2019-04-13] MEDS ORDERED: PIPERACILLIN/TAZOBACTAM 3.375 GM VIAL IVPB ONE (09:10)
[2019-04-13] MEDS: VANCOMYCIN HCL 1,500 MG in DEXTROSE 5%-WATER - 500 ML IVPB SCH (09:42)
[2019-04-13] MEDS: ALLOPURINOL 100 MG TABLET (FP) PO SCH (09:43)
[2019-04-13] MEDS: ASPIRIN 81 MG CHEWABLE TABLETS PO SCH (09:43)
[2019-04-13] MEDS: RIVAROXABAN 15 MG TABLET PO SCH ×2 (09:43→21:16)
[2019-04-13] MEDS: TAMSULOSIN HCL 0.4 MG CAP PO SCH (09:43)
[2019-04-13] MEDS: MULTIVITAMINS (DAILY MVI) TABLET (FP) PO SCH (09:43)
[2019-04-13] MEDS: ALPRAZolam 0.25 MG TABLET PO SCH (09:43)
[2019-04-13] MEDS: CALCITRIOL 0.25 MCG CAPSULE (FP) PO SCH (09:43)
[2019-04-13] MEDS: FERROUS SO4 325 MG TABLET (FP) PO SCH (09:43)
[2019-04-13] MEDS: CARVEDILOL 25 MG TABLET (FP) PO SCH ×2 (10:55→21:16)
[2019-04-13] MEDS: ATORVASTATIN CA 40 MG TABLET (FP) PO SCH (10:55)
[2019-04-13] MEDS: SPIRONOLACTONE 25 MG TABLET (FP) PO SCH (10:55)
--- NOTE | 2019-04-13 12:47 | PN ---
Progress Note (short form) - Note Progress Note: FUV right foot. Patient asked me to look at left foot as well states it started bleeding after he came back from a test yesterday. right foot granulating well on both wound areas, +sanguinous drainage on lateral side of foot no purulence, resolved maceration left foot sub digit 5 a laceration of toe that is new with fresh bleeding noted OM right granulating wounds improving cellulitis laceration 5th toe left Betadine to wound left foot. Santyl to right foot wounds. Abx as per ID. MRI to rule out abscess right foot. Will decide on intervention once MRI back. will follow. Continue bathroom privelages with bed rest.
[2019-04-13] MEDS: COLLAGENASE CLOSTRIDIUM HIST. 30 GRAMS TUBE TP SCH (13:15)
--- NOTE | 2019-04-13 14:45 | PN ---
Progress Note, Physician History of Present Illness: Pt is alert, without distress. Remains afebrile. Events noted. Small laceration on left 5th toe with bleeding noted earlier, wound care done. - Current Medication List Current Medications: Active Medications Acetaminophen (Tylenol -) 500 mg PO Q6H PRN PRN Reason: PAIN Last Admin: 04/13/19 06:45 Dose: 500 mg Allopurinol (Zyloprim -) 100 mg PO DAILY [facility] Last Admin: 04/13/19 09:43 Dose: 100 mg Alprazolam (Xanax -) 0.25 mg PO DAILY [facility] Last Admin: 04/13/19 09:43 Dose: 0.25 mg Aspirin (Asa -) 81 mg PO DAILY [facility] Last Admin: 04/13/19 09:43 Dose: 81 mg Atorvastatin Calcium (Lipitor -) 40 mg PO DAILY [facility] Last Admin: 04/13/19 10:55 Dose: 40 mg Calcitriol (Rocaltrol -) 0.25 mcg PO DAILY [facility] Last Admin: 04/13/19 09:43 Dose: 0.25 mcg Carvedilol (Coreg -) 25 mg PO BID [facility] Last Admin: 04/13/19 10:55 Dose: 25 mg Collagenase (Santyl -) 1 applic TP DAILY [facility]; Protocol Last Admin: 04/13/19 13:15 Dose: 1 applic Ferrous Sulfate (Feosol -) 325 mg PO Q2D [facility] Last Admin: 04/13/19 09:43 Dose: 325 mg Glipizide (Glucotrol Xl -) 2.5 mg PO ACBK [facility] Last Admin: 04/13/19 06:43 Dose: 2.5 mg Vancomycin HCl 1,500 mg/ (Dextrose) 500 mls @ 250 mls/hr IVPB Q24H [facility]; Protocol Last Admin: 04/13/19 09:42 Dose: 250 mls/hr Piperacillin Sod/Tazobactam (Sod 3.375 gm/ Dextrose) 50 mls @ 100 mls/hr IVPB Q8H-IV [facility]; Protocol Last Admin: 04/13/19 09:42 Dose: 100 mls/hr Insulin Aspart (Novolog Vial Sliding Scale -) 1 vial SQ ACHS [facility]; Protocol Last Admin: 04/13/19 12:51 Dose: Not Given Multivitamins/Minerals/Vitamin C (Tab-A-Vit -) 1 tab PO DAILY [facility] Last Admin: 04/13/19 09:43 Dose: 1 tab Pregabalin (Lyrica -) 100 mg PO HS [facility] Last Admin: 04/12/19 21:36 Dose: 100 mg Rivaroxaban (Xarelto) 15 mg PO BID [facility] Last Admin: 04/13/19 09:43 Dose: 15 mg Spironolactone (Aldactone -) 25 mg PO DAILY [facility] Last Admin: 04/13/19 10:55 Dose: 25 mg Tamsulosin HCl (Flomax -) 0.4 mg PO DAILY@0830 [facility] Last Admin: 04/13/19 09:43 Dose: 0.4 mg Torsemide (Demadex -) 40 mg PO BIDLASIX [facility] Last Admin: 04/13/19 06:43 Dose: 40 mg - Objective Vital Signs: Vital Signs Temperature 98.2 F 04/13/19 06:00 Pulse Rate 66 04/13/19 06:00 Respiratory Rate 20 04/13/19 09:00 Blood Pressure 119/75 04/13/19 06:00 O2 Sat by Pulse Oximetry (%) 94 L 04/13/19 09:00 Constitutional: Yes: No Distress, Calm Cardiovascular: Yes: Regular Rate and Rhythm Respiratory: Yes: Regular Gastrointestinal: Yes: Normal Bowel Sounds, Soft Genitourinary: Yes: WNL Extremities: Yes: Amputation (Rt TMA) Wound/Incision: Yes: Other (b/l foot dressings) Neurological: Yes: Alert, Oriented Labs: CBC, BMP 04/12/19 06:40 04/13/19 05:50 INR, PTT INR 1.65 (0.83-1.09) H 04/10/19 15:45 Microbiology 04/10/19 15:50 Blood - Peripheral Venous Blood Culture - Preliminary NO GROWTH OBTAINED AFTER 48 HOURS, INCUBATION TO CONTINUE FOR 3 DAYS. 04/10/19 15:45 Blood - Peripheral Venous Blood Culture - Preliminary NO GROWTH OBTAINED AFTER 48 HOURS, INCUBATION TO CONTINUE FOR 3 DAYS. 04/10/19 14:21 Urine - Urine Clean Catch Urine Culture - Final - ....Imaging X-ray: Report Reviewed Problem List - Problems (1) Diabetic foot ulcer Code(s): E11.621 - TYPE 2 DIABETES MELLITUS WITH FOOT ULCER; L97.509 - NON- PRESSURE CHRONIC ULCER OTH PRT UNSP FOOT W UNSP SEVERITY (2) BPH (benign prostatic hyperplasia) Code(s): N40.0 - BENIGN PROSTATIC HYPERPLASIA WITHOUT LOWER URINRY TRACT SYMP (3) CKD (chronic kidney disease) Code(s): N18.9 - CHRONIC KIDNEY DISEASE, UNSPECIFIED (4) Cellulitis of right foot Code(s): L03.115 - CELLULITIS OF RIGHT LOWER LIMB (5) HLD (hyperlipidemia) Code(s): E78.5 - HYPERLIPIDEMIA, UNSPECIFIED (6) HTN (hypertension) Code(s): I10 - ESSENTIAL (PRIMARY) HYPERTENSION (7) Type 2 diabetes mellitus Code(s): E11.9 - TYPE 2 DIABETES MELLITUS WITHOUT COMPLICATIONS Qualifiers: Diabetes mellitus complication detail: with autonomic neuropathy Assessment/Plan Rt foot wound infection/cellulitis ? OM s/p RT TMA Lt 5th toe laceration VICTOR M on ?CKD -- continue Zosyn -- creatinine increasing, will hold Vancomycin -- repeat BMP in a.m. and check Vancomycin random level -- MRI of RT foot if renal function improves -- Podiatry following, for possible debridement -- Vascular evaluation -- continue wound care
[2019-04-13] MEDS ORDERED: PIPERACILLIN/TAZOBACTAM 2.25 GM VIAL IVPB ONE (16:44)
[2019-04-13] MEDS: PIPERACILLIN/TAZOB 2.25 GM 2.25 GM in DEXTROSE 5%-WATER - 50 ML IVPB SCH (17:33)
--- NOTE | 2019-04-13 18:11 | PN ---
Progress Note, Physician History of Present Illness: Pt seen and examined at bedside. He refused his abx. He denies dysuria or hematuria. - Current Medication List Current Medications: Active Medications Acetaminophen (Tylenol -) 500 mg PO Q6H PRN PRN Reason: PAIN Last Admin: 04/13/19 06:45 Dose: 500 mg Allopurinol (Zyloprim -) 100 mg PO DAILY [facility] Last Admin: 04/13/19 09:43 Dose: 100 mg Alprazolam (Xanax -) 0.25 mg PO DAILY [facility] Last Admin: 04/13/19 09:43 Dose: 0.25 mg Aspirin (Asa -) 81 mg PO DAILY [facility] Last Admin: 04/13/19 09:43 Dose: 81 mg Atorvastatin Calcium (Lipitor -) 40 mg PO DAILY [facility] Last Admin: 04/13/19 10:55 Dose: 40 mg Calcitriol (Rocaltrol -) 0.25 mcg PO DAILY [facility] Last Admin: 04/13/19 09:43 Dose: 0.25 mcg Carvedilol (Coreg -) 25 mg PO BID [facility] Last Admin: 04/13/19 10:55 Dose: 25 mg Collagenase (Santyl -) 1 applic TP DAILY [facility]; Protocol Last Admin: 04/13/19 13:15 Dose: 1 applic Ferrous Sulfate (Feosol -) 325 mg PO Q2D [facility] Last Admin: 04/13/19 09:43 Dose: 325 mg Glipizide (Glucotrol Xl -) 2.5 mg PO ACBK [facility] Last Admin: 04/13/19 06:43 Dose: 2.5 mg Piperacillin Sod/Tazobactam (Sod 2.25 gm/ Dextrose) 50 mls @ 100 mls/hr IVPB Q8H-IV [facility]; Protocol Last Admin: 04/13/19 17:33 Dose: 100 mls/hr Insulin Aspart (Novolog Vial Sliding Scale -) 1 vial SQ ACHS [facility]; Protocol Last Admin: 04/13/19 17:13 Dose: Not Given Multivitamins/Minerals/Vitamin C (Tab-A-Vit -) 1 tab PO DAILY [facility] Last Admin: 04/13/19 09:43 Dose: 1 tab Pregabalin (Lyrica -) 100 mg PO HS [facility] Last Admin: 04/12/19 21:36 Dose: 100 mg Rivaroxaban (Xarelto) 15 mg PO BID [facility] Last Admin: 04/13/19 09:43 Dose: 15 mg Spironolactone (Aldactone -) 25 mg PO DAILY [facility] Last Admin: 04/13/19 10:55 Dose: 25 mg Tamsulosin HCl (Flomax -) 0.4 mg PO DAILY@0830 [facility] Last Admin: 04/13/19 09:43 Dose: 0.4 mg Torsemide (Demadex -) 40 mg PO BIDLASIX [facility] Last Admin: 04/13/19 14:50 Dose: 40 mg - Objective Vital Signs: Vital Signs Temperature 98.1 F 04/13/19 17:02 Pulse Rate 61 04/13/19 17:02 Respiratory Rate 20 04/13/19 17:02 Blood Pressure 119/75 04/13/19 17:02 O2 Sat by Pulse Oximetry (%) 94 L 04/13/19 09:00 Constitutional: Yes: Calm Eyes: Yes: Conjunctiva Clear HENT: Yes: Atraumatic Neck: Yes: Supple Cardiovascular: Yes: S1, S2 Respiratory: Yes: CTA Bilaterally Gastrointestinal: Yes: Normal Bowel Sounds, Soft, Abdomen, Obese Genitourinary: Yes: WNL Musculoskeletal: Yes: WNL Edema: Yes Edema: LLE: 1+, RLE: 1+ Wound/Incision: Yes: Dressing Dry and Intact Neurological: Yes: Oriented Labs: CBC, BMP 04/12/19 06:40 04/13/19 05:50 INR, PTT INR 1.65 (0.83-1.09) H 04/10/19 15:45 Problem List - Problems (1) Diabetic foot ulcer Code(s): E11.621 - TYPE 2 DIABETES MELLITUS WITH FOOT ULCER; L97.509 - NON- PRESSURE CHRONIC ULCER OTH PRT UNSP FOOT W UNSP SEVERITY (2) BPH (benign prostatic hyperplasia) Code(s): N40.0 - BENIGN PROSTATIC HYPERPLASIA WITHOUT LOWER URINRY TRACT SYMP (3) CKD (chronic kidney disease) Code(s): N18.9 - CHRONIC KIDNEY DISEASE, UNSPECIFIED Assessment/Plan Current Medications Generic Name Dose Route Start Last Admin Trade Name Freq PRN Reason Stop Dose Admin Acetaminophen 500 mg 04/11/19 00:29 04/13/19 06:45 Tylenol - PO 500 mg Q6H PRN Administration PAIN Allopurinol 100 mg 04/11/19 10:00 04/13/19 09:43 Zyloprim - PO 100 mg DAILY [facility] Administration Alprazolam 0.25 mg 04/11/19 10:00 04/13/19 09:43 Xanax - PO 0.25 mg DAILY [facility] Administration Aspirin 81 mg 04/11/19 10:00 04/13/19 09:43 Asa - PO 81 mg DAILY [facility] Administration Atorvastatin Calcium 40 mg 04/11/19 10:00 04/13/19 10:55 Lipitor - PO 40 mg DAILY [facility] Administration Calcitriol 0.25 mcg 04/11/19 10:00 04/13/19 09:43 Rocaltrol - PO 0.25 mcg DAILY [facility] Administration Carvedilol 25 mg 04/11/19 01:00 04/13/19 10:55 Coreg - PO 25 mg BID [facility] Administration Collagenase 1 applic 04/11/19 12:00 04/13/19 13:15 Santyl - TP 1 applic DAILY [facility] Administration Protocol Ferrous Sulfate 325 mg 04/11/19 10:00 04/13/19 09:43 Feosol - PO 325 mg Q2D [facility] Administration Glipizide 2.5 mg 04/11/19 07:00 04/13/19 06:43 Glucotrol Xl - PO 2.5 mg ACBK [facility] Administration Piperacillin Sod/Tazobactam 50 mls @ 100 mls/hr 04/13/19 18:00 04/13/19 17:33 Sod 2.25 gm/ Dextrose IVPB 100 mls/hr Q8H-IV [facility] Administration Protocol Insulin Aspart 1 vial 04/11/19 07:00 04/13/19 17:13 Novolog Vial Sliding Scale - SQ Not Given ACHS [facility] Protocol Multivitamins/Minerals/Vitamin C 1 tab 04/11/19 10:00 04/13/19 09:43 Tab-A-Vit - PO 1 tab DAILY [facility] Administration Pregabalin 100 mg 04/11/19 22:00 04/12/19 21:36 Lyrica - PO 100 mg HS [facility] Administration Rivaroxaban 15 mg 04/11/19 00:45 04/13/19 09:43 Xarelto PO 15 mg BID [facility] Administration Spironolactone 25 mg 04/11/19 10:00 04/13/19 10:55 Aldactone - PO 25 mg DAILY [facility] Administration Tamsulosin HCl 0.4 mg 04/11/19 08:30 04/13/19 09:43 Flomax - PO 0.4 mg DAILY@0830 [facility] Administration Torsemide 40 mg 04/11/19 06:00 04/13/19 14:50 Demadex - PO 40 mg BIDLASIX [facility] Administration Impression 1. CKD 2. CHF ef 30 to 35 3. non healing wound 4. dvt 5. htn 6. hld 7. DM Plan - renal function worsening - change torsemide to daily - repeat labs in am - ua neg for blood or protein - avoid nsaids - renal ultrasound reviewed
[2019-04-13] MEDS: PREGABALIN 100 MG CAPSULE PO SCH (21:16)
--- NOTE | 2019-04-13 23:23 | PN ---
Progress Note, Physician - Current Medication List Current Medications: Active Medications Acetaminophen (Tylenol -) 500 mg PO Q6H PRN PRN Reason: PAIN Last Admin: 04/13/19 21:21 Dose: 500 mg Allopurinol (Zyloprim -) 100 mg PO DAILY [facility] Last Admin: 04/13/19 09:43 Dose: 100 mg Alprazolam (Xanax -) 0.25 mg PO DAILY [facility] Last Admin: 04/13/19 09:43 Dose: 0.25 mg Aspirin (Asa -) 81 mg PO DAILY [facility] Last Admin: 04/13/19 09:43 Dose: 81 mg Atorvastatin Calcium (Lipitor -) 40 mg PO DAILY [facility] Last Admin: 04/13/19 10:55 Dose: 40 mg Calcitriol (Rocaltrol -) 0.25 mcg PO DAILY [facility] Last Admin: 04/13/19 09:43 Dose: 0.25 mcg Carvedilol (Coreg -) 25 mg PO BID [facility] Last Admin: 04/13/19 21:16 Dose: 25 mg Collagenase (Santyl -) 1 applic TP DAILY [facility]; Protocol Last Admin: 04/13/19 13:15 Dose: 1 applic Ferrous Sulfate (Feosol -) 325 mg PO Q2D [facility] Last Admin: 04/13/19 09:43 Dose: 325 mg Glipizide (Glucotrol Xl -) 2.5 mg PO ACBK [facility] Last Admin: 04/13/19 06:43 Dose: 2.5 mg Piperacillin Sod/Tazobactam (Sod 2.25 gm/ Dextrose) 50 mls @ 100 mls/hr IVPB Q8H-IV [facility]; Protocol Last Admin: 04/13/19 17:33 Dose: 100 mls/hr Insulin Aspart (Novolog Vial Sliding Scale -) 1 vial SQ ACHS [facility]; Protocol Last Admin: 04/13/19 21:20 Dose: Not Given Multivitamins/Minerals/Vitamin C (Tab-A-Vit -) 1 tab PO DAILY [facility] Last Admin: 04/13/19 09:43 Dose: 1 tab Pregabalin (Lyrica -) 100 mg PO HS [facility] Last Admin: 04/13/19 21:16 Dose: 100 mg Rivaroxaban (Xarelto) 15 mg PO BID [facility] Last Admin: 04/13/19 21:16 Dose: 15 mg Spironolactone (Aldactone -) 25 mg PO DAILY [facility] Last Admin: 04/13/19 10:55 Dose: 25 mg Tamsulosin HCl (Flomax -) 0.4 mg PO DAILY@0830 [facility] Last Admin: 04/13/19 09:43 Dose: 0.4 mg Torsemide (Demadex -) 40 mg PO DAILY [facility] - Objective Vital Signs: Vital Signs Temperature 98.1 F 04/13/19 17:02 Pulse Rate 61 04/13/19 17:02 Respiratory Rate 20 04/13/19 17:02 Blood Pressure 119/75 04/13/19 17:02 O2 Sat by Pulse Oximetry (%) 94 L 04/13/19 09:00 Labs: CBC, BMP 04/12/19 06:40 04/13/19 05:50 INR, PTT INR 1.65 (0.83-1.09) H 04/10/19 15:45 Problem List - Problems (1) Diabetic foot ulcer Code(s): E11.621 - TYPE 2 DIABETES MELLITUS WITH FOOT ULCER; L97.509 - NON- PRESSURE CHRONIC ULCER OTH PRT UNSP FOOT W UNSP SEVERITY (2) Type 2 diabetes mellitus Code(s): E11.9 - TYPE 2 DIABETES MELLITUS WITHOUT COMPLICATIONS Qualifiers: Diabetes mellitus complication detail: with autonomic neuropathy (3) CKD (chronic kidney disease) Code(s): N18.9 - CHRONIC KIDNEY DISEASE, UNSPECIFIED (4) GERD (gastroesophageal reflux disease) Code(s): K21.9 - GASTRO-ESOPHAGEAL REFLUX DISEASE WITHOUT ESOPHAGITIS (5) HLD (hyperlipidemia) Code(s): E78.5 - HYPERLIPIDEMIA, UNSPECIFIED (6) HTN (hypertension) Code(s): I10 - ESSENTIAL (PRIMARY) HYPERTENSION (7) BPH (benign prostatic hyperplasia) Code(s): N40.0 - BENIGN PROSTATIC HYPERPLASIA WITHOUT LOWER URINRY TRACT SYMP (8) Peripheral neuropathic pain Code(s): M79.2 - NEURALGIA AND NEURITIS, UNSPECIFIED
[2019-04-14] MEDS: PIPERACILLIN/TAZOB 2.25 GM 2.25 GM in DEXTROSE 5%-WATER - 50 ML IVPB SCH ×3 (02:29→17:43)
[2019-04-14] MEDS ORDERED: PT OWN MED DRAWER 7, Y5N ONE ×2 (02:57→09:25)
[2019-04-14] MEDS ORDERED: DEXTROSE 5%-WATER - 50 ML IVPB ONE ×3 (02:57→17:33)
[2019-04-14] MEDS ORDERED: PIPERACILLIN/TAZOBACTAM 2.25 GM VIAL IVPB ONE ×3 (02:57→17:33)
[2019-04-14] MEDS: ACETAMINOPHEN 500 MG TABLET (FP) PO PRN ×2 (06:21→21:30)
[2019-04-14] MEDS: glipiZIDE-XL 2.5 MG TAB.ER.24 PO SCH (06:22)
[2019-04-14] MEDS: INSULIN SLIDING SCALE (NOVOLOG) 1 VIAL SQ SCH ×4 (07:07→21:26)
[2019-04-14 07:20] LABS: ALBUMIN 3.4 g/dl (3.4-5.0); BILIRUBIN,TOTAL 0.6 mg/dL (0.2-1); BLOOD UREA NITROGEN 50.8 mg/dL (7-18); CALCIUM 8.7 mg/dL (8.5-10.1); CREATININE 2.1 mg/dL (0.55-1.3); TOT PROT 6.8 g/dl (6.4-8.2)
[2019-04-14] MEDS: TAMSULOSIN HCL 0.4 MG CAP PO SCH (09:38)
[2019-04-14] MEDS: MULTIVITAMINS (DAILY MVI) TABLET (FP) PO SCH (09:45)
[2019-04-14] MEDS: ASPIRIN 81 MG CHEWABLE TABLETS PO SCH (09:45)
[2019-04-14] MEDS: CARVEDILOL 25 MG TABLET (FP) PO SCH ×2 (09:45→21:25)
[2019-04-14] MEDS: RIVAROXABAN 15 MG TABLET PO SCH ×2 (09:45→21:25)
[2019-04-14] MEDS: CALCITRIOL 0.25 MCG CAPSULE (FP) PO SCH (09:45)
[2019-04-14] MEDS: ALLOPURINOL 100 MG TABLET (FP) PO SCH (09:45)
[2019-04-14] MEDS: ALPRAZolam 0.25 MG TABLET PO SCH (09:45)
[2019-04-14] MEDS: TORSEMIDE 20 MG TABLET (FP) PO SCH (09:46)
[2019-04-14] MEDS: COLLAGENASE CLOSTRIDIUM HIST. 30 GRAMS TUBE TP SCH (09:47)
[2019-04-14] MEDS: SPIRONOLACTONE 25 MG TABLET (FP) PO SCH (09:51)
--- NOTE | 2019-04-14 10:00 | CONSULT ---
- Consultation REQUESTING PROVIDER: VASCULAR SURGERY CONSULT REQUEST: We have been asked to surgically evaluate this patient for b/l foot wound PCP:Maribel Pimentel HISTORY OF PRESENT ILLNESS: 78yo M s/p Rt TMA by Dr. Johnson several months ago was consulted to the vascular team for evaluation. Pt found to have open wound along incision line which is being treated by Dr. Johnson. Pt also found to have laceration on Lt 5th toe. Pt denies history of vascular disease or surgery. Pt denies smoking. PMHx: DM, DVT, HLD, CKD, HTN, BPH, and CHF Home Medications Medication Instructions Recorded Atorvastatin Ca [Lipitor] 1 tab PO DAILY 03/04/18 Calcitriol [Calcitriol -] 1 tab PO DAILY 03/04/18 Esomeprazole Magnesium 1 cap PO DAILY 03/04/18 Glipizide Xl [Glucotrol Xl -] 1 tab PO DAILY 03/04/18 Pregabalin [Lyrica] 100 mg PO HS 03/04/18 Spironolactone 1 tab PO DAILY 03/04/18 Tamsulosin HCl 1 cap PO DAILY 03/04/18 Acetaminophen [Tylenol 500 mg PO Q6H PRN 02/28/19 .Extra-Strength -] Allopurinol [Zyloprim -] 100 mg PO DAILY 02/28/19 Aspirin [ASA -] 81 mg PO DAILY 02/28/19 Carvedilol [ Coreg] 25 mg PO BID 02/28/19 Multivitamin [Multiple Vitamins] 1 tab PO DAILY 02/28/19 Ceftriaxone [Rocephin -] 2 gm IVPB DAILY vial 03/14/19 Ferrous Sulfate [Feosol] 325 mg PO Q2D ud 03/14/19 Rivaroxaban [Xarelto -] 15 mg PO BID 03/20/19 Torsemide [Demadex -] 40 mg PO BID 03/20/19 Alprazolam 0.25 mg PO DAILY 03/27/19 Allergies Allergy/AdvReac Type Severity Reaction Status Date / Time No Known Allergies Allergy Verified 04/10/19 14:06 REVIEW OF SYSTEMS: CONSTITUTIONAL: Absent: fever, chills, diaphoresis, generalized weakness, malaise, loss of appetite, weight change CARDIOVASCULAR: Absent: chest pain, syncope, palpitations, irregular heart rate, lightheadedness RESPIRATORY: Absent: cough, shortness of breath, dyspnea with exertion, wheezing, stridor, hemoptysis SKIN: Absent: rash, itching, pallor PSYCHIATRIC: Absent: anxiety, depression, suicidal or homicidal ideation, hallucinations. PHYSICAL EXAM: GENERAL: Awake, alert, and fully oriented, in no acute distress. HEAD: Normal with no signs of trauma. EYES: PERRL, sclera anicteric, conjunctiva clear. NECK: Normal ROM, supple without lymphadenopathy, JVD, or masses. LUNGS: Clear to auscultation bilat anteriorly. No wheezes, and no crackles. No accessory muscle use. HEART: Regular rate and rhythm. No murmurs MUSCULOSKELETAL: Normal ROM at all joints. No bony deformities or tenderness. No CVA tenderness. LOWER EXTREMITIES: RLE s/p TMA with healing wound over incision site some fibrinous tissue 4cm x 2cm 1+ pulses, warm, +2 edema. LLE shows 1 cm laceration plantar aspect of 5th toe, no erythema or active bleeding. +2 pulses, +1 edema. NEUROLOGICAL: Normal speech, gait not observed. PSYCH: Cooperative. Good eye contact. Appropriate mood and affect. SKIN: Warm, dry, normal turgor, no rashes or lesions noted. Vital Signs Temperature 98.2 F 04/14/19 06:34 Pulse Rate 63 04/14/19 06:34 Respiratory Rate 20 04/14/19 06:34 Blood Pressure 110/67 04/14/19 06:34 O2 Sat by Pulse Oximetry (%) 94 L 04/13/19 21:00 Lab Results WBC 9.4 K/mm3 (4.0-10.0) 04/12/19 06:40 RBC 5.74 M/mm3 (4.00-5.60) H 04/12/19 06:40 Hgb 12.9 GM/dL (11.7-16.9) 04/12/19 06:40 Hct 40.4 % (35.4-49) 04/12/19 06:40 MCV 70.4 fl (80-96) L 04/12/19 06:40 MCHC 31.8 g/dl (32.0-35.9) L 04/12/19 06:40 RDW 16.7 % (11.9-15.9) H 04/12/19 06:40 Plt Count 183 K/MM3 (134-434) 04/12/19 06:40 Sodium 136 mmol/L (136-145) 04/14/19 06:03 Potassium 4.0 mmol/L (3.5-5.1) 04/14/19 06:03 Chloride 99 mmol/L (98-107) 04/14/19 06:03 Carbon Dioxide 26 mmol/L (21-32) 04/14/19 06:03 Anion Gap 11 MMOL/L (8-16) 04/14/19 06:03 BUN 50.8 mg/dL (7-18) H 04/14/19 06:03 Creatinine 2.1 mg/dL (0.55-1.3) H 04/14/19 06:03 Random Glucose 99 mg/dL (74-106) 04/14/19 06:03 Calcium 8.7 mg/dL (8.5-10.1) 04/14/19 06:03 INR 1.65 (0.83-1.09) H 04/10/19 15:45 Problem List - Problems (1) Diabetic foot ulcer Assessment/Plan: Plan -no sign of vascular disease or need for acute intervention at this time. -continue wound care per Podiatry Case discussed with Dr. Nolen who agrees with plan Code(s): E11.621 - TYPE 2 DIABETES MELLITUS WITH FOOT ULCER; L97.509 - NON- PRESSURE CHRONIC ULCER OTH PRT UNSP FOOT W UNSP SEVERITY
[2019-04-14] MEDS: ATORVASTATIN CA 40 MG TABLET (FP) PO SCH ×2 (10:36→21:26)
--- NOTE | 2019-04-14 11:43 | PN ---
Progress Note, Physician History of Present Illness: patient stable no new issues - Current Medication List Current Medications: Active Medications Acetaminophen (Tylenol -) 500 mg PO Q6H PRN PRN Reason: PAIN Last Admin: 04/14/19 06:21 Dose: 500 mg Allopurinol (Zyloprim -) 100 mg PO DAILY [facility] Last Admin: 04/14/19 09:45 Dose: 100 mg Alprazolam (Xanax -) 0.25 mg PO DAILY [facility] Last Admin: 04/14/19 09:45 Dose: 0.25 mg Aspirin (Asa -) 81 mg PO DAILY [facility] Last Admin: 04/14/19 09:45 Dose: 81 mg Atorvastatin Calcium (Lipitor -) 40 mg PO HS [facility] Calcitriol (Rocaltrol -) 0.25 mcg PO DAILY [facility] Last Admin: 04/14/19 09:45 Dose: 0.25 mcg Carvedilol (Coreg -) 25 mg PO BID [facility] Last Admin: 04/14/19 09:45 Dose: 25 mg Collagenase (Santyl -) 1 applic TP DAILY [facility]; Protocol Last Admin: 04/14/19 09:47 Dose: 1 applic Ferrous Sulfate (Feosol -) 325 mg PO Q2D [facility] Last Admin: 04/13/19 09:43 Dose: 325 mg Glipizide (Glucotrol Xl -) 2.5 mg PO ACBK [facility] Last Admin: 04/14/19 06:22 Dose: 2.5 mg Piperacillin Sod/Tazobactam (Sod 2.25 gm/ Dextrose) 50 mls @ 100 mls/hr IVPB Q8H-IV [facility]; Protocol Last Admin: 04/14/19 09:38 Dose: 100 mls/hr Insulin Aspart (Novolog Vial Sliding Scale -) 1 vial SQ ACHS [facility]; Protocol Last Admin: 04/14/19 11:02 Dose: Not Given Multivitamins/Minerals/Vitamin C (Tab-A-Vit -) 1 tab PO DAILY [facility] Last Admin: 04/14/19 09:45 Dose: 1 tab Pregabalin (Lyrica -) 100 mg PO HS [facility] Last Admin: 04/13/19 21:16 Dose: 100 mg Rivaroxaban (Xarelto) 15 mg PO BID [facility] Last Admin: 04/14/19 09:45 Dose: 15 mg Spironolactone (Aldactone -) 25 mg PO DAILY [facility] Last Admin: 04/14/19 09:51 Dose: 25 mg Tamsulosin HCl (Flomax -) 0.4 mg PO DAILY@0830 [facility] Last Admin: 04/14/19 09:38 Dose: 0.4 mg Torsemide (Demadex -) 40 mg PO DAILY [facility] Last Admin: 04/14/19 09:46 Dose: 40 mg - Objective Vital Signs: Vital Signs Temperature 97.7 F 04/14/19 10:00 Pulse Rate 66 04/14/19 10:00 Respiratory Rate 20 04/14/19 10:00 Blood Pressure 122/67 04/14/19 10:00 O2 Sat by Pulse Oximetry (%) 94 L 04/13/19 21:00 Constitutional: Yes: No Distress, Calm Cardiovascular: Yes: S1, S2 Respiratory: Yes: Regular, CTA Bilaterally Gastrointestinal: Yes: Normal Bowel Sounds, Soft Musculoskeletal: Yes: WNL Extremities: Yes: Other Wound/Incision: Yes: Dressing Dry and Intact Neurological: Yes: Alert, Oriented Labs: CBC, BMP 04/12/19 06:40 04/14/19 06:03 INR, PTT INR 1.65 (0.83-1.09) H 04/10/19 15:45 Assessment/Plan Problem List - Problems (1) Diabetic foot ulcer Code(s): E11.621 - TYPE 2 DIABETES MELLITUS WITH FOOT ULCER; L97.509 - NON- PRESSURE CHRONIC ULCER OTH PRT UNSP FOOT W UNSP SEVERITY (2) BPH (benign prostatic hyperplasia) Code(s): N40.0 - BENIGN PROSTATIC HYPERPLASIA WITHOUT LOWER URINRY TRACT SYMP (3) CKD (chronic kidney disease) Code(s): N18.9 - CHRONIC KIDNEY DISEASE, UNSPECIFIED (4) Cellulitis of right foot Code(s): L03.115 - CELLULITIS OF RIGHT LOWER LIMB (5) HLD (hyperlipidemia) Code(s): E78.5 - HYPERLIPIDEMIA, UNSPECIFIED (6) HTN (hypertension) Code(s): I10 - ESSENTIAL (PRIMARY) HYPERTENSION (7) Type 2 diabetes mellitus Code(s): E11.9 - TYPE 2 DIABETES MELLITUS WITHOUT COMPLICATIONS Qualifiers: Diabetes mellitus complication detail: with autonomic neuropathy Assessment/Plan Rt foot wound infection/cellulitis ? OM s/p RT TMA Lt 5th toe laceration VICTOR M on ?CKD continue abx wound care await for podiatry rest as per the team
--- NOTE | 2019-04-14 16:21 | PN ---
Progress Note, Physician History of Present Illness: Pt seen and examined at bedside. He is awake and alert. He denies shortness of breath. - Current Medication List Current Medications: Active Medications Acetaminophen (Tylenol -) 500 mg PO Q6H PRN PRN Reason: PAIN Last Admin: 04/14/19 06:21 Dose: 500 mg Allopurinol (Zyloprim -) 100 mg PO DAILY [facility] Last Admin: 04/14/19 09:45 Dose: 100 mg Alprazolam (Xanax -) 0.25 mg PO DAILY [facility] Last Admin: 04/14/19 09:45 Dose: 0.25 mg Aspirin (Asa -) 81 mg PO DAILY [facility] Last Admin: 04/14/19 09:45 Dose: 81 mg Atorvastatin Calcium (Lipitor -) 40 mg PO HS [facility] Calcitriol (Rocaltrol -) 0.25 mcg PO DAILY [facility] Last Admin: 04/14/19 09:45 Dose: 0.25 mcg Carvedilol (Coreg -) 25 mg PO BID [facility] Last Admin: 04/14/19 09:45 Dose: 25 mg Collagenase (Santyl -) 1 applic TP DAILY [facility]; Protocol Last Admin: 04/14/19 09:47 Dose: 1 applic Ferrous Sulfate (Feosol -) 325 mg PO Q2D [facility] Last Admin: 04/13/19 09:43 Dose: 325 mg Glipizide (Glucotrol Xl -) 2.5 mg PO ACBK [facility] Last Admin: 04/14/19 06:22 Dose: 2.5 mg Piperacillin Sod/Tazobactam (Sod 2.25 gm/ Dextrose) 50 mls @ 100 mls/hr IVPB Q8H-IV [facility]; Protocol Last Admin: 04/14/19 09:38 Dose: 100 mls/hr Insulin Aspart (Novolog Vial Sliding Scale -) 1 vial SQ ACHS [facility]; Protocol Last Admin: 04/14/19 11:02 Dose: Not Given Multivitamins/Minerals/Vitamin C (Tab-A-Vit -) 1 tab PO DAILY [facility] Last Admin: 04/14/19 09:45 Dose: 1 tab Pregabalin (Lyrica -) 100 mg PO HS [facility] Last Admin: 04/13/19 21:16 Dose: 100 mg Rivaroxaban (Xarelto) 15 mg PO BID [facility] Last Admin: 04/14/19 09:45 Dose: 15 mg Spironolactone (Aldactone -) 25 mg PO DAILY [facility] Last Admin: 04/14/19 09:51 Dose: 25 mg Tamsulosin HCl (Flomax -) 0.4 mg PO DAILY@0830 [facility] Last Admin: 04/14/19 09:38 Dose: 0.4 mg Torsemide (Demadex -) 40 mg PO DAILY [facility] Last Admin: 04/14/19 09:46 Dose: 40 mg - Objective Vital Signs: Vital Signs Temperature 98.0 F 04/14/19 14:00 Pulse Rate 67 04/14/19 14:00 Respiratory Rate 20 04/14/19 14:00 Blood Pressure 106/72 04/14/19 14:00 O2 Sat by Pulse Oximetry (%) 98 04/14/19 09:00 Constitutional: Yes: Calm Eyes: Yes: Conjunctiva Clear HENT: Yes: Atraumatic Neck: Yes: Supple Cardiovascular: Yes: S1, S2 Respiratory: Yes: CTA Bilaterally Gastrointestinal: Yes: Soft, Abdomen, Obese Genitourinary: Yes: WNL Edema: Yes Edema: LLE: 1+, RLE: 1+ Wound/Incision: Yes: Dressing Dry and Intact Neurological: Yes: Oriented Psychiatric: Yes: Oriented Labs: CBC, BMP 04/12/19 06:40 04/14/19 06:03 INR, PTT INR 1.65 (0.83-1.09) H 04/10/19 15:45 Problem List - Problems (1) Diabetic foot ulcer Code(s): E11.621 - TYPE 2 DIABETES MELLITUS WITH FOOT ULCER; L97.509 - NON- PRESSURE CHRONIC ULCER OTH PRT UNSP FOOT W UNSP SEVERITY (2) BPH (benign prostatic hyperplasia) Code(s): N40.0 - BENIGN PROSTATIC HYPERPLASIA WITHOUT LOWER URINRY TRACT SYMP (3) CKD (chronic kidney disease) Code(s): N18.9 - CHRONIC KIDNEY DISEASE, UNSPECIFIED Assessment/Plan Current Medications Generic Name Dose Route Start Last Admin Trade Name Freq PRN Reason Stop Dose Admin Acetaminophen 500 mg 04/11/19 00:29 04/14/19 06:21 Tylenol - PO 500 mg Q6H PRN Administration PAIN Allopurinol 100 mg 04/11/19 10:00 04/14/19 09:45 Zyloprim - PO 100 mg DAILY [facility] Administration Alprazolam 0.25 mg 10/25/19 10:00 04/14/19 09:45 Xanax - PO 0.25 mg DAILY [facility] Administration Aspirin 81 mg 04/11/19 10:00 04/14/19 09:45 Asa - PO 81 mg DAILY [facility] Administration Atorvastatin Calcium 40 mg 04/14/19 22:00 Lipitor - PO HS [facility] Calcitriol 0.25 mcg 04/11/19 10:00 04/14/19 09:45 Rocaltrol - PO 0.25 mcg DAILY [facility] Administration Carvedilol 25 mg 04/11/19 01:00 04/14/19 09:45 Coreg - PO 25 mg BID [facility] Administration Collagenase 1 applic 04/11/19 12:00 04/14/19 09:47 Santyl - TP 1 applic DAILY [facility] Administration Protocol Ferrous Sulfate 325 mg 04/11/19 10:00 04/13/19 09:43 Feosol - PO 325 mg Q2D CHE Administration Glipizide 2.5 mg 04/11/19 07:00 04/14/19 06:22 Glucotrol Xl - PO 2.5 mg ACBK CHE Administration Piperacillin Sod/Tazobactam 50 mls @ 100 mls/hr 04/13/19 18:00 04/14/19 09:38 Sod 2.25 gm/ Dextrose IVPB 100 mls/hr Q8H-IV CHE Administration Protocol Insulin Aspart 1 vial 04/11/19 07:00 04/14/19 11:02 Novolog Vial Sliding Scale - SQ Not Given ACHS [facility] Protocol Multivitamins/Minerals/Vitamin C 1 tab 04/11/19 10:00 04/14/19 09:45 Tab-A-Vit - PO 1 tab DAILY CHE Administration Pregabalin 100 mg 04/11/19 22:00 04/13/19 21:16 Lyrica - PO 100 mg HS CHE Administration Rivaroxaban 15 mg 04/11/19 00:45 04/14/19 09:45 Xarelto PO 15 mg BID CHE Administration Spironolactone 25 mg 04/11/19 10:00 04/14/19 09:51 Aldactone - PO 25 mg DAILY CHE Administration Tamsulosin HCl 0.4 mg 04/11/19 08:30 04/14/19 09:38 Flomax - PO 0.4 mg DAILY@0830 CHE Administration Torsemide 40 mg 04/14/19 10:00 04/14/19 09:46 Demadex - PO 40 mg DAILY CHE Administration Impression 1. CKD 2. CHF ef 30 to 35 3. non healing wound 4. dvt 5. htn 6. hld 7. DM Plan - cont to monitor renal function - monitor potassium on torsemide and aldactone - torsemide dose decreased today - ua neg for blood or protein - avoid nsaids - wound care
--- NOTE | 2019-04-14 18:43 | PN ---
Progress Note (short form) - Note Progress Note: FUV right foot and left foot. right foot granulating well on both wound areas, -drainage on lateral side of foot resolved maceration, +erythema left foot sub digit 5 granulating laceration site OM right granulating wounds improving cellulitis laceration 5th toe left granulating Betadine to wound left foot. Splinted into proper position to heal. DO NOT REMOVE LEFT FOOT DRESSING. Santyl to right foot wounds. Abx as per ID. MRI to rule out abscess right foot. If MRI negative for abscess will follow in [facility] and continue HBO and IVABX at home. will follow. Continue bathroom privelages with bed rest.
[2019-04-14] MEDS: PREGABALIN 100 MG CAPSULE PO SCH (21:25)
--- NOTE | 2019-04-14 21:55 | PN ---
Progress Note, Physician History of Present Illness: No new complaints - Current Medication List Current Medications: Active Medications Acetaminophen (Tylenol -) 500 mg PO Q6H PRN PRN Reason: PAIN Last Admin: 04/14/19 21:30 Dose: 500 mg Allopurinol (Zyloprim -) 100 mg PO DAILY [facility] Last Admin: 04/14/19 09:45 Dose: 100 mg Alprazolam (Xanax -) 0.25 mg PO DAILY [facility] Last Admin: 04/14/19 09:45 Dose: 0.25 mg Aspirin (Asa -) 81 mg PO DAILY [facility] Last Admin: 04/14/19 09:45 Dose: 81 mg Atorvastatin Calcium (Lipitor -) 40 mg PO HS [facility] Last Admin: 04/14/19 21:26 Dose: 40 mg Calcitriol (Rocaltrol -) 0.25 mcg PO DAILY [facility] Last Admin: 04/14/19 09:45 Dose: 0.25 mcg Carvedilol (Coreg -) 25 mg PO BID [facility] Last Admin: 04/14/19 21:25 Dose: 25 mg Collagenase (Santyl -) 1 applic TP DAILY [facility]; Protocol Last Admin: 04/14/19 09:47 Dose: 1 applic Ferrous Sulfate (Feosol -) 325 mg PO Q2D [facility] Last Admin: 04/13/19 09:43 Dose: 325 mg Glipizide (Glucotrol Xl -) 2.5 mg PO ACBK [facility] Last Admin: 04/14/19 06:22 Dose: 2.5 mg Piperacillin Sod/Tazobactam (Sod 2.25 gm/ Dextrose) 50 mls @ 100 mls/hr IVPB Q8H-IV [facility]; Protocol Last Admin: 04/14/19 17:43 Dose: 100 mls/hr Insulin Aspart (Novolog Vial Sliding Scale -) 1 vial SQ ACHS [facility]; Protocol Last Admin: 04/14/19 21:26 Dose: Not Given Multivitamins/Minerals/Vitamin C (Tab-A-Vit -) 1 tab PO DAILY [facility] Last Admin: 04/14/19 09:45 Dose: 1 tab Pregabalin (Lyrica -) 100 mg PO HS [facility] Last Admin: 04/14/19 21:25 Dose: 100 mg Rivaroxaban (Xarelto) 15 mg PO BID [facility] Last Admin: 04/14/19 21:25 Dose: 15 mg Spironolactone (Aldactone -) 25 mg PO DAILY [facility] Last Admin: 04/14/19 09:51 Dose: 25 mg Tamsulosin HCl (Flomax -) 0.4 mg PO DAILY@0830 [facility] Last Admin: 04/14/19 09:38 Dose: 0.4 mg Torsemide (Demadex -) 40 mg PO DAILY [facility] Last Admin: 04/14/19 09:46 Dose: 40 mg - Objective Vital Signs: Vital Signs Temperature 97.5 F L 04/14/19 19:38 Pulse Rate 66 04/14/19 19:38 Respiratory Rate 20 04/14/19 19:38 Blood Pressure 124/76 04/14/19 19:38 O2 Sat by Pulse Oximetry (%) 98 04/14/19 20:15 Constitutional: Yes: Obese Neck: Yes: WNL, Supple Cardiovascular: Yes: WNL, Regular Rate and Rhythm Respiratory: Yes: WNL, Regular, CTA Bilaterally Gastrointestinal: Yes: WNL, Normal Bowel Sounds, Soft, Abdomen, Obese Extremities: Yes: Other ((+) b/l feet in dressing) Labs: CBC, BMP 04/12/19 06:40 04/14/19 06:03 INR, PTT INR 1.65 (0.83-1.09) H 04/10/19 15:45 Problem List - Problems (1) Diabetic foot ulcer Assessment/Plan: Cont IV vanco/zosyn Follow cultures MRI Rt foot Cont wound care Code(s): E11.621 - TYPE 2 DIABETES MELLITUS WITH FOOT ULCER; L97.509 - NON- PRESSURE CHRONIC ULCER OTH PRT UNSP FOOT W UNSP SEVERITY (2) Type 2 diabetes mellitus Assessment/Plan: Cont glybizide Cont sliding scale w/ coverage Code(s): E11.9 - TYPE 2 DIABETES MELLITUS WITHOUT COMPLICATIONS Qualifiers: Diabetes mellitus complication detail: with autonomic neuropathy (3) CKD (chronic kidney disease) Code(s): N18.9 - CHRONIC KIDNEY DISEASE, UNSPECIFIED (4) GERD (gastroesophageal reflux disease) Code(s): K21.9 - GASTRO-ESOPHAGEAL REFLUX DISEASE WITHOUT ESOPHAGITIS (5) HLD (hyperlipidemia) Assessment/Plan: Cont lipitor Code(s): E78.5 - HYPERLIPIDEMIA, UNSPECIFIED (6) HTN (hypertension) Assessment/Plan: BP stable Cont antihypertensives Code(s): I10 - ESSENTIAL (PRIMARY) HYPERTENSION (7) BPH (benign prostatic hyperplasia) Assessment/Plan: Cont flomax Code(s): N40.0 - BENIGN PROSTATIC HYPERPLASIA WITHOUT LOWER URINRY TRACT SYMP (8) Peripheral neuropathic pain Assessment/Plan: Cont lyrica Code(s): M79.2 - NEURALGIA AND NEURITIS, UNSPECIFIED
[2019-04-15] MEDS ORDERED: DEXTROSE 5%-WATER - 50 ML IVPB ONE ×3 (00:29→17:04)
[2019-04-15] MEDS ORDERED: PIPERACILLIN/TAZOBACTAM 2.25 GM VIAL IVPB ONE ×3 (00:29→17:04)
[2019-04-15] MEDS: PIPERACILLIN/TAZOB 2.25 GM 2.25 GM in DEXTROSE 5%-WATER - 50 ML IVPB SCH ×3 (01:35→17:11)
[2019-04-15] MEDS ORDERED: PT OWN MED DRAWER 7, Y5N ONE (05:54)
[2019-04-15] MEDS: INSULIN SLIDING SCALE (NOVOLOG) 1 VIAL SQ SCH ×4 (06:14→22:11)
[2019-04-15] MEDS: glipiZIDE-XL 2.5 MG TAB.ER.24 PO SCH (06:21)
[2019-04-15] MEDS: ACETAMINOPHEN 500 MG TABLET (FP) PO PRN ×3 (06:22→22:08)
[2019-04-15 08:39] LABS: BLOOD UREA NITROGEN 59.9 mg/dL (7-18); CALCIUM 9.3 mg/dL (8.5-10.1); CREATININE 1.9 mg/dL (0.55-1.3); POTASSIUM 4.2 mmol/L (3.5-5.1)
[2019-04-15] MEDS: TAMSULOSIN HCL 0.4 MG CAP PO SCH (09:47)
[2019-04-15] MEDS: ALLOPURINOL 100 MG TABLET (FP) PO SCH (09:47)
[2019-04-15] MEDS: FERROUS SO4 325 MG TABLET (FP) PO SCH (09:48)
[2019-04-15] MEDS: TORSEMIDE 20 MG TABLET (FP) PO SCH (09:48)
[2019-04-15] MEDS: SPIRONOLACTONE 25 MG TABLET (FP) PO SCH (09:48)
[2019-04-15] MEDS: ALPRAZolam 0.25 MG TABLET PO SCH (09:48)
[2019-04-15] MEDS: ASPIRIN 81 MG CHEWABLE TABLETS PO SCH (09:48)
[2019-04-15] MEDS: CARVEDILOL 25 MG TABLET (FP) PO SCH ×2 (09:49→22:14)
[2019-04-15] MEDS: CALCITRIOL 0.25 MCG CAPSULE (FP) PO SCH (09:49)
[2019-04-15] MEDS: MULTIVITAMINS (DAILY MVI) TABLET (FP) PO SCH (09:49)
[2019-04-15] MEDS: RIVAROXABAN 15 MG TABLET PO SCH ×2 (09:49→22:09)
--- NOTE | 2019-04-15 11:35 | PN ---
Progress Note, Physician History of Present Illness: patient stable no new issues - Current Medication List Current Medications: Active Medications Acetaminophen (Tylenol -) 500 mg PO Q6H PRN PRN Reason: PAIN Last Admin: 04/15/19 06:22 Dose: 500 mg Allopurinol (Zyloprim -) 100 mg PO DAILY [facility] Last Admin: 04/15/19 09:47 Dose: 100 mg Alprazolam (Xanax -) 0.25 mg PO DAILY [facility] Last Admin: 04/15/19 09:48 Dose: 0.25 mg Aspirin (Asa -) 81 mg PO DAILY [facility] Last Admin: 04/15/19 09:48 Dose: 81 mg Atorvastatin Calcium (Lipitor -) 40 mg PO HS [facility] Last Admin: 04/14/19 21:26 Dose: 40 mg Calcitriol (Rocaltrol -) 0.25 mcg PO DAILY [facility] Last Admin: 04/15/19 09:49 Dose: 0.25 mcg Carvedilol (Coreg -) 25 mg PO BID [facility] Last Admin: 04/15/19 09:49 Dose: 25 mg Collagenase (Santyl -) 1 applic TP DAILY [facility]; Protocol Last Admin: 04/14/19 09:47 Dose: 1 applic Ferrous Sulfate (Feosol -) 325 mg PO Q2D [facility] Last Admin: 04/15/19 09:48 Dose: 325 mg Glipizide (Glucotrol Xl -) 2.5 mg PO ACBK [facility] Last Admin: 04/15/19 06:21 Dose: 2.5 mg Piperacillin Sod/Tazobactam (Sod 2.25 gm/ Dextrose) 50 mls @ 100 mls/hr IVPB Q8H-IV [facility]; Protocol Last Admin: 04/15/19 09:50 Dose: 100 mls/hr Insulin Aspart (Novolog Vial Sliding Scale -) 1 vial SQ ACHS [facility]; Protocol Last Admin: 04/15/19 06:14 Dose: Not Given Multivitamins/Minerals/Vitamin C (Tab-A-Vit -) 1 tab PO DAILY [facility] Last Admin: 04/15/19 09:49 Dose: 1 tab Pregabalin (Lyrica -) 100 mg PO HS [facility] Last Admin: 04/14/19 21:25 Dose: 100 mg Rivaroxaban (Xarelto) 15 mg PO BID [facility] Last Admin: 04/15/19 09:49 Dose: 15 mg Spironolactone (Aldactone -) 25 mg PO DAILY [facility] Last Admin: 04/15/19 09:48 Dose: 25 mg Tamsulosin HCl (Flomax -) 0.4 mg PO DAILY@0830 [facility] Last Admin: 04/15/19 09:47 Dose: 0.4 mg Torsemide (Demadex -) 40 mg PO DAILY [facility] Last Admin: 04/15/19 09:48 Dose: 40 mg - Objective Vital Signs: Vital Signs Temperature 97.8 F 04/15/19 09:43 Pulse Rate 67 04/15/19 09:43 Respiratory Rate 18 04/15/19 09:43 Blood Pressure 130/97 04/15/19 09:43 O2 Sat by Pulse Oximetry (%) 98 04/14/19 20:15 Constitutional: Yes: No Distress, Calm Cardiovascular: Yes: S1, S2 Respiratory: Yes: Regular, CTA Bilaterally Gastrointestinal: Yes: Normal Bowel Sounds, Soft Musculoskeletal: Yes: WNL Extremities: Yes: Other Wound/Incision: Yes: Dressing Dry and Intact, Other Neurological: Yes: Alert, Oriented Psychiatric: Yes: Alert, Oriented Labs: CBC, BMP 04/12/19 06:40 04/15/19 07:10 INR, PTT INR 1.65 (0.83-1.09) H 04/10/19 15:45 Assessment/Plan Problem List - Problems (1) Diabetic foot ulcer Code(s): E11.621 - TYPE 2 DIABETES MELLITUS WITH FOOT ULCER; L97.509 - NON- PRESSURE CHRONIC ULCER OTH PRT UNSP FOOT W UNSP SEVERITY (2) BPH (benign prostatic hyperplasia) Code(s): N40.0 - BENIGN PROSTATIC HYPERPLASIA WITHOUT LOWER URINRY TRACT SYMP (3) CKD (chronic kidney disease) Code(s): N18.9 - CHRONIC KIDNEY DISEASE, UNSPECIFIED (4) Cellulitis of right foot Code(s): L03.115 - CELLULITIS OF RIGHT LOWER LIMB (5) HLD (hyperlipidemia) Code(s): E78.5 - HYPERLIPIDEMIA, UNSPECIFIED (6) HTN (hypertension) Code(s): I10 - ESSENTIAL (PRIMARY) HYPERTENSION (7) Type 2 diabetes mellitus Code(s): E11.9 - TYPE 2 DIABETES MELLITUS WITHOUT COMPLICATIONS Qualifiers: Diabetes mellitus complication detail: with autonomic neuropathy Assessment/Plan Rt foot wound infection/cellulitis ? OM s/p RT TMA Lt 5th toe laceration VICTOR M on ?CKD continue abx wound care await for podiatry rest as per the team
[2019-04-15] MEDS: COLLAGENASE CLOSTRIDIUM HIST. 30 GRAMS TUBE TP SCH (14:36)
--- NOTE | 2019-04-15 16:48 | PN ---
Progress Note, Physician History of Present Illness: Pt seen and examined at bedside. He is awake and alert. He denies shortness of breath. - Current Medication List Current Medications: Active Medications Acetaminophen (Tylenol -) 500 mg PO Q6H PRN PRN Reason: PAIN Last Admin: 04/15/19 14:35 Dose: 500 mg Allopurinol (Zyloprim -) 100 mg PO DAILY [facility] Last Admin: 04/15/19 09:47 Dose: 100 mg Alprazolam (Xanax -) 0.25 mg PO DAILY [facility] Last Admin: 04/15/19 09:48 Dose: 0.25 mg Aspirin (Asa -) 81 mg PO DAILY [facility] Last Admin: 04/15/19 09:48 Dose: 81 mg Atorvastatin Calcium (Lipitor -) 40 mg PO HS [facility] Last Admin: 04/14/19 21:26 Dose: 40 mg Calcitriol (Rocaltrol -) 0.25 mcg PO DAILY [facility] Last Admin: 04/15/19 09:49 Dose: 0.25 mcg Carvedilol (Coreg -) 25 mg PO BID [facility] Last Admin: 04/15/19 09:49 Dose: 25 mg Collagenase (Santyl -) 1 applic TP DAILY [facility]; Protocol Last Admin: 04/15/19 14:36 Dose: 1 applic Ferrous Sulfate (Feosol -) 325 mg PO Q2D [facility] Last Admin: 04/15/19 09:48 Dose: 325 mg Glipizide (Glucotrol Xl -) 2.5 mg PO ACBK [facility] Last Admin: 04/15/19 06:21 Dose: 2.5 mg Piperacillin Sod/Tazobactam (Sod 2.25 gm/ Dextrose) 50 mls @ 100 mls/hr IVPB Q8H-IV [facility]; Protocol Last Admin: 04/15/19 09:50 Dose: 100 mls/hr Insulin Aspart (Novolog Vial Sliding Scale -) 1 vial SQ ACHS [facility]; Protocol Last Admin: 04/15/19 12:41 Dose: Not Given Multivitamins/Minerals/Vitamin C (Tab-A-Vit -) 1 tab PO DAILY [facility] Last Admin: 04/15/19 09:49 Dose: 1 tab Pregabalin (Lyrica -) 100 mg PO HS [facility] Last Admin: 04/14/19 21:25 Dose: 100 mg Rivaroxaban (Xarelto) 15 mg PO BID [facility] Last Admin: 04/15/19 09:49 Dose: 15 mg Spironolactone (Aldactone -) 25 mg PO DAILY [facility] Last Admin: 04/15/19 09:48 Dose: 25 mg Tamsulosin HCl (Flomax -) 0.4 mg PO DAILY@0830 [facility] Last Admin: 04/15/19 09:47 Dose: 0.4 mg Torsemide (Demadex -) 40 mg PO DAILY [facility] Last Admin: 04/15/19 09:48 Dose: 40 mg - Objective Vital Signs: Vital Signs Temperature 98.6 F 04/15/19 14:00 Pulse Rate 74 04/15/19 14:00 Respiratory Rate 18 04/15/19 14:00 Blood Pressure 116/74 04/15/19 14:00 O2 Sat by Pulse Oximetry (%) 98 04/14/19 20:15 Constitutional: Yes: Calm Eyes: Yes: Conjunctiva Clear HENT: Yes: Atraumatic Neck: Yes: Supple Cardiovascular: Yes: S1, S2 Respiratory: Yes: CTA Bilaterally Gastrointestinal: Yes: Soft, Abdomen, Obese Genitourinary: Yes: WNL Edema: Yes Edema: RLE: Trace Wound/Incision: Yes: Dressing Dry and Intact Neurological: Yes: Oriented Psychiatric: Yes: Oriented Labs: CBC, BMP 04/12/19 06:40 04/15/19 07:10 INR, PTT INR 1.65 (0.83-1.09) H 04/10/19 15:45 Problem List - Problems (1) Diabetic foot ulcer Code(s): E11.621 - TYPE 2 DIABETES MELLITUS WITH FOOT ULCER; L97.509 - NON- PRESSURE CHRONIC ULCER OTH PRT UNSP FOOT W UNSP SEVERITY (2) BPH (benign prostatic hyperplasia) Code(s): N40.0 - BENIGN PROSTATIC HYPERPLASIA WITHOUT LOWER URINRY TRACT SYMP (3) CKD (chronic kidney disease) Code(s): N18.9 - CHRONIC KIDNEY DISEASE, UNSPECIFIED Assessment/Plan Current Medications Generic Name Dose Route Start Last Admin Trade Name Freq PRN Reason Stop Dose Admin Acetaminophen 500 mg 04/11/19 00:29 04/15/19 14:35 Tylenol - PO 500 mg Q6H PRN Administration PAIN Allopurinol 100 mg 04/11/19 10:00 04/15/19 09:47 Zyloprim - PO 100 mg DAILY [facility] Administration Alprazolam 0.25 mg 04/11/19 10:00 04/15/19 09:48 Xanax - PO 0.25 mg DAILY [facility] Administration Aspirin 81 mg 04/11/19 10:00 04/15/19 09:48 Asa - PO 81 mg DAILY [facility] Administration Atorvastatin Calcium 40 mg 04/14/19 22:00 04/14/19 21:26 Lipitor - PO 40 mg HS [facility] Administration Calcitriol 0.25 mcg 04/11/19 10:00 04/15/19 09:49 Rocaltrol - PO 0.25 mcg DAILY [facility] Administration Carvedilol 25 mg 04/11/19 01:00 04/15/19 09:49 Coreg - PO 25 mg BID [facility] Administration Collagenase 1 applic 04/11/19 12:00 04/15/19 14:36 Santyl - TP 1 applic DAILY [facility] Administration Protocol Ferrous Sulfate 325 mg 04/11/19 10:00 04/15/19 09:48 Feosol - PO 325 mg Q2D [facility] Administration Glipizide 2.5 mg 04/11/19 07:00 04/15/19 06:21 Glucotrol Xl - PO 2.5 mg ACBK [facility] Administration Piperacillin Sod/Tazobactam 50 mls @ 100 mls/hr 04/13/19 18:00 04/15/19 09:50 Sod 2.25 gm/ Dextrose IVPB 100 mls/hr Q8H-IV [facility] Administration Protocol Insulin Aspart 1 vial 04/11/19 07:00 04/15/19 12:41 Novolog Vial Sliding Scale - SQ Not Given ACHS [facility] Protocol Multivitamins/Minerals/Vitamin C 1 tab 04/11/19 10:00 04/15/19 09:49 Tab-A-Vit - PO 1 tab DAILY [facility] Administration Pregabalin 100 mg 04/11/19 22:00 04/14/19 21:25 Lyrica - PO 100 mg HS [facility] Administration Rivaroxaban 15 mg 04/11/19 00:45 04/15/19 09:49 Xarelto PO 15 mg BID [facility] Administration Spironolactone 25 mg 04/11/19 10:00 04/15/19 09:48 Aldactone - PO 25 mg DAILY [facility] Administration Tamsulosin HCl 0.4 mg 04/11/19 08:30 04/15/19 09:47 Flomax - PO 0.4 mg DAILY@0830 [facility] Administration Torsemide 40 mg 04/14/19 10:00 04/15/19 09:48 Demadex - PO 40 mg DAILY [facility] Administration Impression 1. CKD 2. CHF ef 30 to 35 3. non healing wound 4. dvt 5. htn 6. hld 7. DM Plan - cont torsemide at daily dosing - renal function improving - potassium stable - ua neg for blood or protein - avoid nsaids - wound care - will need outpt renal follow up
[2019-04-15] MEDS: PREGABALIN 100 MG CAPSULE PO SCH (22:08)
[2019-04-15] MEDS: ATORVASTATIN CA 40 MG TABLET (FP) PO SCH (22:09)
--- NOTE | 2019-04-15 23:49 | PN ---
Progress Note, Physician - Current Medication List Current Medications: Active Medications Acetaminophen (Tylenol -) 500 mg PO Q6H PRN PRN Reason: PAIN Last Admin: 04/15/19 22:08 Dose: 500 mg Allopurinol (Zyloprim -) 100 mg PO DAILY [facility] Last Admin: 04/15/19 09:47 Dose: 100 mg Alprazolam (Xanax -) 0.25 mg PO DAILY [facility] Last Admin: 04/15/19 09:48 Dose: 0.25 mg Aspirin (Asa -) 81 mg PO DAILY [facility] Last Admin: 04/15/19 09:48 Dose: 81 mg Atorvastatin Calcium (Lipitor -) 40 mg PO HS [facility] Last Admin: 04/15/19 22:09 Dose: 40 mg Calcitriol (Rocaltrol -) 0.25 mcg PO DAILY [facility] Last Admin: 04/15/19 09:49 Dose: 0.25 mcg Carvedilol (Coreg -) 25 mg PO BID [facility] Last Admin: 04/15/19 22:14 Dose: 25 mg Collagenase (Santyl -) 1 applic TP DAILY [facility]; Protocol Last Admin: 04/15/19 14:36 Dose: 1 applic Ferrous Sulfate (Feosol -) 325 mg PO Q2D [facility] Last Admin: 04/15/19 09:48 Dose: 325 mg Glipizide (Glucotrol Xl -) 2.5 mg PO ACBK [facility] Last Admin: 04/15/19 06:21 Dose: 2.5 mg Piperacillin Sod/Tazobactam (Sod 2.25 gm/ Dextrose) 50 mls @ 100 mls/hr IVPB Q8H-IV [facility]; Protocol Last Admin: 04/15/19 17:11 Dose: 100 mls/hr Insulin Aspart (Novolog Vial Sliding Scale -) 1 vial SQ ACHS [facility]; Protocol Last Admin: 04/15/19 22:11 Dose: Not Given Multivitamins/Minerals/Vitamin C (Tab-A-Vit -) 1 tab PO DAILY [facility] Last Admin: 04/15/19 09:49 Dose: 1 tab Pregabalin (Lyrica -) 100 mg PO HS [facility] Last Admin: 04/15/19 22:08 Dose: 100 mg Rivaroxaban (Xarelto) 15 mg PO BID [facility] Last Admin: 04/15/19 22:09 Dose: 15 mg Spironolactone (Aldactone -) 25 mg PO DAILY [facility] Last Admin: 04/15/19 09:48 Dose: 25 mg Tamsulosin HCl (Flomax -) 0.4 mg PO DAILY@0830 [facility] Last Admin: 04/15/19 09:47 Dose: 0.4 mg Torsemide (Demadex -) 40 mg PO DAILY [facility] Last Admin: 04/15/19 09:48 Dose: 40 mg - Objective Vital Signs: Vital Signs Temperature 99.2 F 04/15/19 19:22 Pulse Rate 83 04/15/19 22:08 Respiratory Rate 14 04/15/19 19:22 Blood Pressure 119/74 04/15/19 22:08 O2 Sat by Pulse Oximetry (%) 98 04/15/19 20:11 Labs: CBC, BMP 04/12/19 06:40 04/15/19 07:10 INR, PTT INR 1.65 (0.83-1.09) H 04/10/19 15:45 Problem List - Problems (1) Diabetic foot ulcer Code(s): E11.621 - TYPE 2 DIABETES MELLITUS WITH FOOT ULCER; L97.509 - NON- PRESSURE CHRONIC ULCER OTH PRT UNSP FOOT W UNSP SEVERITY (2) Type 2 diabetes mellitus Code(s): E11.9 - TYPE 2 DIABETES MELLITUS WITHOUT COMPLICATIONS Qualifiers: Diabetes mellitus complication detail: with autonomic neuropathy (3) CKD (chronic kidney disease) Code(s): N18.9 - CHRONIC KIDNEY DISEASE, UNSPECIFIED (4) GERD (gastroesophageal reflux disease) Code(s): K21.9 - GASTRO-ESOPHAGEAL REFLUX DISEASE WITHOUT ESOPHAGITIS (5) HLD (hyperlipidemia) Code(s): E78.5 - HYPERLIPIDEMIA, UNSPECIFIED (6) HTN (hypertension) Code(s): I10 - ESSENTIAL (PRIMARY) HYPERTENSION (7) BPH (benign prostatic hyperplasia) Code(s): N40.0 - BENIGN PROSTATIC HYPERPLASIA WITHOUT LOWER URINRY TRACT SYMP (8) Peripheral neuropathic pain Code(s): M79.2 - NEURALGIA AND NEURITIS, UNSPECIFIED
[2019-04-16] MEDS ORDERED: PIPERACILLIN/TAZOBACTAM 2.25 GM VIAL IVPB ONE ×3 (01:05→18:21)
[2019-04-16] MEDS ORDERED: DEXTROSE 5%-WATER - 50 ML IVPB ONE ×3 (01:05→18:21)
[2019-04-16] MEDS: PIPERACILLIN/TAZOB 2.25 GM 2.25 GM in DEXTROSE 5%-WATER - 50 ML IVPB SCH ×3 (01:17→19:12)
[2019-04-16] MEDS: glipiZIDE-XL 2.5 MG TAB.ER.24 PO SCH (06:20)
[2019-04-16] MEDS: INSULIN SLIDING SCALE (NOVOLOG) 1 VIAL SQ SCH ×4 (06:20→21:59)
[2019-04-16] MEDS: ACETAMINOPHEN 500 MG TABLET (FP) PO PRN ×3 (06:20→22:08)
[2019-04-16] MEDS ORDERED: INSULIN (NOVOLOG) ASPART 100 UNITS/ML 10ML VIAL ONE ×2 (06:26→12:19)
[2019-04-16] MEDS: ASPIRIN 81 MG CHEWABLE TABLETS PO SCH (11:20)
[2019-04-16] MEDS: CARVEDILOL 25 MG TABLET (FP) PO SCH ×2 (11:20→22:09)
[2019-04-16] MEDS: TORSEMIDE 20 MG TABLET (FP) PO SCH (11:20)
[2019-04-16] MEDS: ALPRAZolam 0.25 MG TABLET PO SCH (11:21)
[2019-04-16] MEDS: PANTOPRAZOLE 40 MG TABLET (FP) PO SCH (11:21)
[2019-04-16] MEDS: MULTIVITAMINS (DAILY MVI) TABLET (FP) PO SCH (11:21)
[2019-04-16] MEDS: CALCITRIOL 0.25 MCG CAPSULE (FP) PO SCH (11:21)
--- NOTE | 2019-04-16 11:21 | PN ---
Progress Note, Physician History of Present Illness: stable no new issues - Current Medication List Current Medications: Active Medications Acetaminophen (Tylenol -) 500 mg PO Q6H PRN PRN Reason: PAIN Last Admin: 04/16/19 06:20 Dose: 500 mg Allopurinol (Zyloprim -) 100 mg PO DAILY [facility] Last Admin: 04/15/19 09:47 Dose: 100 mg Alprazolam (Xanax -) 0.25 mg PO DAILY [facility] Last Admin: 04/15/19 09:48 Dose: 0.25 mg Aspirin (Asa -) 81 mg PO DAILY [facility] Atorvastatin Calcium (Lipitor -) 40 mg PO HS [facility] Last Admin: 04/15/19 22:09 Dose: 40 mg Calcitriol (Rocaltrol -) 0.25 mcg PO DAILY [facility] Last Admin: 04/15/19 09:49 Dose: 0.25 mcg Carvedilol (Coreg -) 25 mg PO BID [facility] Last Admin: 04/15/19 22:14 Dose: 25 mg Collagenase (Santyl -) 1 applic TP DAILY [facility]; Protocol Last Admin: 04/15/19 14:36 Dose: 1 applic Ferrous Sulfate (Feosol -) 325 mg PO Q2D [facility] Last Admin: 04/15/19 09:48 Dose: 325 mg Glipizide (Glucotrol Xl -) 2.5 mg PO ACBK [facility] Last Admin: 04/16/19 06:20 Dose: 2.5 mg Piperacillin Sod/Tazobactam (Sod 2.25 gm/ Dextrose) 50 mls @ 100 mls/hr IVPB Q8H-IV [facility]; Protocol Last Admin: 04/16/19 01:17 Dose: 100 mls/hr Insulin Aspart (Novolog Vial Sliding Scale -) 1 vial SQ ACHS [facility]; Protocol Last Admin: 04/16/19 06:20 Dose: Not Given Multivitamins/Minerals/Vitamin C (Tab-A-Vit -) 1 tab PO DAILY [facility] Last Admin: 04/15/19 09:49 Dose: 1 tab Pantoprazole Sodium (Protonix -) 40 mg PO DAILY [facility] Pregabalin (Lyrica -) 100 mg PO HS [facility] Last Admin: 04/15/19 22:08 Dose: 100 mg Rivaroxaban (Xarelto) 15 mg PO DAILY@1800 [facility] Spironolactone (Aldactone -) 25 mg PO DAILY [facility] Last Admin: 04/15/19 09:48 Dose: 25 mg Tamsulosin HCl (Flomax -) 0.4 mg PO DAILY@0830 [facility] Last Admin: 04/15/19 09:47 Dose: 0.4 mg Torsemide (Demadex -) 40 mg PO DAILY [facility] Last Admin: 04/15/19 09:48 Dose: 40 mg - Objective Vital Signs: Vital Signs Temperature 98.8 F 04/16/19 09:17 Pulse Rate 71 04/16/19 09:17 Respiratory Rate 18 04/16/19 09:17 Blood Pressure 109/73 04/16/19 09:17 O2 Sat by Pulse Oximetry (%) 98 04/15/19 20:11 Constitutional: Yes: No Distress, Calm Cardiovascular: Yes: S1, S2 Respiratory: Yes: Regular, CTA Bilaterally Gastrointestinal: Yes: Normal Bowel Sounds, Soft Musculoskeletal: Yes: WNL Extremities: Yes: Other Wound/Incision: Yes: Dressing Dry and Intact Neurological: Yes: Alert, Oriented Psychiatric: Yes: Alert, Oriented Labs: CBC, BMP 04/12/19 06:40 04/15/19 07:10 INR, PTT INR 1.65 (0.83-1.09) H 04/10/19 15:45 Assessment/Plan Problem List - Problems (1) Diabetic foot ulcer Code(s): E11.621 - TYPE 2 DIABETES MELLITUS WITH FOOT ULCER; L97.509 - NON- PRESSURE CHRONIC ULCER OTH PRT UNSP FOOT W UNSP SEVERITY (2) BPH (benign prostatic hyperplasia) Code(s): N40.0 - BENIGN PROSTATIC HYPERPLASIA WITHOUT LOWER URINRY TRACT SYMP (3) CKD (chronic kidney disease) Code(s): N18.9 - CHRONIC KIDNEY DISEASE, UNSPECIFIED (4) Cellulitis of right foot Code(s): L03.115 - CELLULITIS OF RIGHT LOWER LIMB (5) HLD (hyperlipidemia) Code(s): E78.5 - HYPERLIPIDEMIA, UNSPECIFIED (6) HTN (hypertension) Code(s): I10 - ESSENTIAL (PRIMARY) HYPERTENSION (7) Type 2 diabetes mellitus Code(s): E11.9 - TYPE 2 DIABETES MELLITUS WITHOUT COMPLICATIONS Qualifiers: Diabetes mellitus complication detail: with autonomic neuropathy Assessment/Plan Rt foot wound infection/cellulitis ? OM s/p RT TMA Lt 5th toe laceration VICTOR M on ?CKD continue abx await for podiatry rest as per the team wound care
[2019-04-16] MEDS: ALLOPURINOL 100 MG TABLET (FP) PO SCH (11:22)
[2019-04-16] MEDS: SPIRONOLACTONE 25 MG TABLET (FP) PO SCH (11:22)
[2019-04-16] MEDS: COLLAGENASE CLOSTRIDIUM HIST. 30 GRAMS TUBE TP SCH (11:33)
[2019-04-16] MEDS: TAMSULOSIN HCL 0.4 MG CAP PO SCH (11:35)
--- NOTE | 2019-04-16 12:26 | PN ---
Progress Note (short form) - Note Progress Note: FUV right foot and left foot. right foot granulating well on both wound areas, -drainage on lateral side of foot resolved maceration, +erythema, -ultrasound for abscess left foot sub digit 5 granulating laceration site OM right granulating wounds improving cellulitis laceration 5th toe left granulating DO NOT REMOVE LEFT FOOT DRESSING. Santyl to right foot wounds. Abx as per ID. No abscess will follow in [facility] and continue HBO and IVABX at home. will follow. Continue bathroom privelages with bed rest. May go home from Podiatry standpoint.
--- NOTE | 2019-04-16 13:34 | PN ---
Progress Note, Physician History of Present Illness: Pt seen and examined at bedside. He is awake and alert. He denies shortness of breath or lower ext edema. - Current Medication List Current Medications: Active Medications Acetaminophen (Tylenol -) 500 mg PO Q6H PRN PRN Reason: PAIN Last Admin: 04/16/19 12:20 Dose: 500 mg Allopurinol (Zyloprim -) 100 mg PO DAILY [facility] Last Admin: 04/16/19 11:22 Dose: 100 mg Alprazolam (Xanax -) 0.25 mg PO DAILY [facility] Last Admin: 04/16/19 11:21 Dose: 0.25 mg Aspirin (Asa -) 81 mg PO DAILY [facility] Last Admin: 04/16/19 11:20 Dose: 81 mg Atorvastatin Calcium (Lipitor -) 40 mg PO HS [facility] Last Admin: 04/15/19 22:09 Dose: 40 mg Calcitriol (Rocaltrol -) 0.25 mcg PO DAILY [facility] Last Admin: 04/16/19 11:21 Dose: 0.25 mcg Carvedilol (Coreg -) 25 mg PO BID [facility] Last Admin: 04/16/19 11:20 Dose: 25 mg Collagenase (Santyl -) 1 applic TP DAILY [facility]; Protocol Last Admin: 04/16/19 11:33 Dose: 1 applic Ferrous Sulfate (Feosol -) 325 mg PO Q2D [facility] Last Admin: 04/15/19 09:48 Dose: 325 mg Glipizide (Glucotrol Xl -) 2.5 mg PO ACBK [facility] Last Admin: 04/16/19 06:20 Dose: 2.5 mg Piperacillin Sod/Tazobactam (Sod 2.25 gm/ Dextrose) 50 mls @ 100 mls/hr IVPB Q8H-IV [facility]; Protocol Last Admin: 04/16/19 11:24 Dose: 100 mls/hr Insulin Aspart (Novolog Vial Sliding Scale -) 1 vial SQ ACHS [facility]; Protocol Last Admin: 04/16/19 12:45 Dose: Not Given Multivitamins/Minerals/Vitamin C (Tab-A-Vit -) 1 tab PO DAILY [facility] Last Admin: 04/16/19 11:21 Dose: 1 tab Pantoprazole Sodium (Protonix -) 40 mg PO DAILY [facility] Last Admin: 04/16/19 11:21 Dose: 40 mg Pregabalin (Lyrica -) 100 mg PO HS [facility] Last Admin: 04/15/19 22:08 Dose: 100 mg Rivaroxaban (Xarelto) 15 mg PO DAILY@1800 [facility] Spironolactone (Aldactone -) 25 mg PO DAILY [facility] Last Admin: 04/16/19 11:22 Dose: 25 mg Tamsulosin HCl (Flomax -) 0.4 mg PO DAILY@0830 [facility] Last Admin: 04/16/19 11:35 Dose: 0.4 mg Torsemide (Demadex -) 40 mg PO DAILY [facility] Last Admin: 04/16/19 11:20 Dose: 40 mg - Objective Vital Signs: Vital Signs Temperature 98.8 F 04/16/19 09:17 Pulse Rate 71 04/16/19 09:17 Respiratory Rate 18 04/16/19 09:17 Blood Pressure 109/73 04/16/19 09:17 O2 Sat by Pulse Oximetry (%) 98 04/15/19 20:11 Constitutional: Yes: Calm Eyes: Yes: Conjunctiva Clear HENT: Yes: Atraumatic Neck: Yes: Supple Cardiovascular: Yes: S1, S2 Respiratory: Yes: CTA Bilaterally Gastrointestinal: Yes: Soft, Abdomen, Obese Genitourinary: Yes: WNL Musculoskeletal: Yes: WNL Edema: No Wound/Incision: Yes: Dressing Dry and Intact Neurological: Yes: Oriented Labs: CBC, BMP 04/12/19 06:40 04/15/19 07:10 INR, PTT INR 1.65 (0.83-1.09) H 04/10/19 15:45 Problem List - Problems (1) Diabetic foot ulcer Code(s): E11.621 - TYPE 2 DIABETES MELLITUS WITH FOOT ULCER; L97.509 - NON- PRESSURE CHRONIC ULCER OTH PRT UNSP FOOT W UNSP SEVERITY (2) BPH (benign prostatic hyperplasia) Code(s): N40.0 - BENIGN PROSTATIC HYPERPLASIA WITHOUT LOWER URINRY TRACT SYMP (3) CKD (chronic kidney disease) Code(s): N18.9 - CHRONIC KIDNEY DISEASE, UNSPECIFIED Assessment/Plan Current Medications Generic Name Dose Route Start Last Admin Trade Name Freq PRN Reason Stop Dose Admin Acetaminophen 500 mg 04/11/19 00:29 04/16/19 12:20 Tylenol - PO 500 mg Q6H PRN Administration PAIN Allopurinol 100 mg 04/11/19 10:00 04/16/19 11:22 Zyloprim - PO 100 mg DAILY [facility] Administration Alprazolam 0.25 mg 04/11/19 10:00 04/16/19 11:21 Xanax - PO 0.25 mg DAILY [facility] Administration Aspirin 81 mg 04/16/19 10:00 04/16/19 11:20 Asa - PO 81 mg DAILY [facility] Administration Atorvastatin Calcium 40 mg 04/14/19 22:00 04/15/19 22:09 Lipitor - PO 40 mg HS [facility] Administration Calcitriol 0.25 mcg 04/11/19 10:00 04/16/19 11:21 Rocaltrol - PO 0.25 mcg DAILY [facility] Administration Carvedilol 25 mg 04/11/19 01:00 04/16/19 11:20 Coreg - PO 25 mg BID [facility] Administration Collagenase 1 applic 04/11/19 12:00 04/16/19 11:33 Santyl - TP 1 applic DAILY [facility] Administration Protocol Ferrous Sulfate 325 mg 04/11/19 10:00 04/15/19 09:48 Feosol - PO 325 mg Q2D [facility] Administration Glipizide 2.5 mg 04/11/19 07:00 04/16/19 06:20 Glucotrol Xl - PO 2.5 mg ACBK [facility] Administration Piperacillin Sod/Tazobactam 50 mls @ 100 mls/hr 04/13/19 18:00 04/16/19 11:24 Sod 2.25 gm/ Dextrose IVPB 100 mls/hr Q8H-IV [facility] Administration Protocol Insulin Aspart 1 vial 04/11/19 07:00 04/16/19 12:45 Novolog Vial Sliding Scale - SQ Not Given ACHS [facility] Protocol Multivitamins/Minerals/Vitamin C 1 tab 04/11/19 10:00 04/16/19 11:21 Tab-A-Vit - PO 1 tab DAILY [facility] Administration Pantoprazole Sodium 40 mg 04/16/19 10:00 04/16/19 11:21 Protonix - PO 40 mg DAILY [facility] Administration Pregabalin 100 mg 04/11/19 22:00 04/15/19 22:08 Lyrica - PO 100 mg HS [facility] Administration Rivaroxaban 15 mg 04/16/19 18:00 Xarelto PO DAILY@1800 [facility] Spironolactone 25 mg 04/11/19 10:00 04/16/19 11:22 Aldactone - PO 25 mg DAILY [facility] Administration Tamsulosin HCl 0.4 mg 04/11/19 08:30 04/16/19 11:35 Flomax - PO 0.4 mg DAILY@0830 [facility] Administration Torsemide 40 mg 04/14/19 10:00 04/16/19 11:20 Demadex - PO 40 mg DAILY [facility] Administration Impression 1. CKD 2. CHF ef 30 to 35 3. non healing wound 4. dvt 5. htn 6. hld 7. DM Plan - check bmp in am - volume status stable - ua neg for blood or protein - avoid nsaids - wound care - will need outpt renal follow up - cont daily torsemide
[2019-04-16] MEDS: RIVAROXABAN 15 MG TABLET PO SCH (19:12)
--- NOTE | 2019-04-16 21:19 | PN ---
Progress Note, Physician - Current Medication List Current Medications: Active Medications Acetaminophen (Tylenol -) 500 mg PO Q6H PRN PRN Reason: PAIN Last Admin: 04/16/19 12:20 Dose: 500 mg Allopurinol (Zyloprim -) 100 mg PO DAILY [facility] Last Admin: 04/16/19 11:22 Dose: 100 mg Alprazolam (Xanax -) 0.25 mg PO DAILY [facility] Last Admin: 04/16/19 11:21 Dose: 0.25 mg Aspirin (Asa -) 81 mg PO DAILY [facility] Last Admin: 04/16/19 11:20 Dose: 81 mg Atorvastatin Calcium (Lipitor -) 40 mg PO HS [facility] Last Admin: 04/15/19 22:09 Dose: 40 mg Calcitriol (Rocaltrol -) 0.25 mcg PO DAILY [facility] Last Admin: 04/16/19 11:21 Dose: 0.25 mcg Carvedilol (Coreg -) 25 mg PO BID [facility] Last Admin: 04/16/19 11:20 Dose: 25 mg Collagenase (Santyl -) 1 applic TP DAILY [facility]; Protocol Last Admin: 04/16/19 11:33 Dose: 1 applic Ferrous Sulfate (Feosol -) 325 mg PO Q2D [facility] Last Admin: 04/15/19 09:48 Dose: 325 mg Glipizide (Glucotrol Xl -) 2.5 mg PO ACBK [facility] Last Admin: 04/16/19 06:20 Dose: 2.5 mg Piperacillin Sod/Tazobactam (Sod 2.25 gm/ Dextrose) 50 mls @ 100 mls/hr IVPB Q8H-IV [facility]; Protocol Last Admin: 04/16/19 19:12 Dose: 100 mls/hr Insulin Aspart (Novolog Vial Sliding Scale -) 1 vial SQ ACHS [facility]; Protocol Last Admin: 04/16/19 17:08 Dose: Not Given Multivitamins/Minerals/Vitamin C (Tab-A-Vit -) 1 tab PO DAILY [facility] Last Admin: 04/16/19 11:21 Dose: 1 tab Pantoprazole Sodium (Protonix -) 40 mg PO DAILY [facility] Last Admin: 04/16/19 11:21 Dose: 40 mg Pregabalin (Lyrica -) 100 mg PO HS [facility] Last Admin: 04/15/19 22:08 Dose: 100 mg Rivaroxaban (Xarelto) 15 mg PO DAILY@1800 [facility] Last Admin: 04/16/19 19:12 Dose: 15 mg Spironolactone (Aldactone -) 25 mg PO DAILY [facility] Last Admin: 04/16/19 11:22 Dose: 25 mg Tamsulosin HCl (Flomax -) 0.4 mg PO DAILY@0830 [facility] Last Admin: 04/16/19 11:35 Dose: 0.4 mg Torsemide (Demadex -) 40 mg PO DAILY [facility] Last Admin: 04/16/19 11:20 Dose: 40 mg - Objective Vital Signs: Vital Signs Temperature 98.6 F 04/16/19 18:30 Pulse Rate 69 04/16/19 18:30 Respiratory Rate 18 04/16/19 18:30 Blood Pressure 117/62 04/16/19 18:30 O2 Sat by Pulse Oximetry (%) 98 04/16/19 09:00 Labs: CBC, BMP 04/12/19 06:40 04/15/19 07:10 INR, PTT INR 1.65 (0.83-1.09) H 04/10/19 15:45 Problem List - Problems (1) Diabetic foot ulcer Code(s): E11.621 - TYPE 2 DIABETES MELLITUS WITH FOOT ULCER; L97.509 - NON- PRESSURE CHRONIC ULCER OTH PRT UNSP FOOT W UNSP SEVERITY (2) Type 2 diabetes mellitus Code(s): E11.9 - TYPE 2 DIABETES MELLITUS WITHOUT COMPLICATIONS Qualifiers: Diabetes mellitus complication detail: with autonomic neuropathy (3) CKD (chronic kidney disease) Code(s): N18.9 - CHRONIC KIDNEY DISEASE, UNSPECIFIED (4) GERD (gastroesophageal reflux disease) Code(s): K21.9 - GASTRO-ESOPHAGEAL REFLUX DISEASE WITHOUT ESOPHAGITIS (5) HLD (hyperlipidemia) Code(s): E78.5 - HYPERLIPIDEMIA, UNSPECIFIED (6) HTN (hypertension) Code(s): I10 - ESSENTIAL (PRIMARY) HYPERTENSION (7) BPH (benign prostatic hyperplasia) Code(s): N40.0 - BENIGN PROSTATIC HYPERPLASIA WITHOUT LOWER URINRY TRACT SYMP (8) Peripheral neuropathic pain Code(s): M79.2 - NEURALGIA AND NEURITIS, UNSPECIFIED
[2019-04-16] MEDS: ATORVASTATIN CA 40 MG TABLET (FP) PO SCH (22:09)
[2019-04-16] MEDS: PREGABALIN 100 MG CAPSULE PO SCH (22:09)
[2019-04-17] MEDS ORDERED: PIPERACILLIN/TAZOBACTAM 2.25 GM VIAL IVPB ONE ×3 (01:36→17:15)
[2019-04-17] MEDS ORDERED: DEXTROSE 5%-WATER - 50 ML IVPB ONE ×3 (01:37→17:15)
[2019-04-17] MEDS: PIPERACILLIN/TAZOB 2.25 GM 2.25 GM in DEXTROSE 5%-WATER - 50 ML IVPB SCH ×3 (02:18→17:35)
[2019-04-17] MEDS ORDERED: PT OWN MED DRAWER 7, Y5N ONE ×2 (05:45→09:30)
[2019-04-17] MEDS: glipiZIDE-XL 2.5 MG TAB.ER.24 PO SCH (06:47)
[2019-04-17] MEDS: INSULIN SLIDING SCALE (NOVOLOG) 1 VIAL SQ SCH ×4 (06:47→21:01)
[2019-04-17] MEDS: ACETAMINOPHEN 500 MG TABLET (FP) PO PRN ×2 (06:48→17:44)
--- NOTE | 2019-04-17 09:49 | PN ---
Progress Note, Physician History of Present Illness: patient stable no new issues - Current Medication List Current Medications: Active Medications Acetaminophen (Tylenol -) 500 mg PO Q6H PRN PRN Reason: PAIN Last Admin: 04/17/19 06:48 Dose: 500 mg Allopurinol (Zyloprim -) 100 mg PO DAILY [facility] Last Admin: 04/16/19 11:22 Dose: 100 mg Alprazolam (Xanax -) 0.25 mg PO DAILY [facility] Last Admin: 04/16/19 11:21 Dose: 0.25 mg Aspirin (Asa -) 81 mg PO DAILY [facility] Last Admin: 04/16/19 11:20 Dose: 81 mg Atorvastatin Calcium (Lipitor -) 40 mg PO HS [facility] Last Admin: 04/16/19 22:09 Dose: 40 mg Calcitriol (Rocaltrol -) 0.25 mcg PO DAILY [facility] Last Admin: 04/16/19 11:21 Dose: 0.25 mcg Carvedilol (Coreg -) 25 mg PO BID [facility] Last Admin: 04/16/19 22:09 Dose: 25 mg Collagenase (Santyl -) 1 applic TP DAILY [facility]; Protocol Last Admin: 04/16/19 11:33 Dose: 1 applic Ferrous Sulfate (Feosol -) 325 mg PO Q2D [facility] Last Admin: 04/15/19 09:48 Dose: 325 mg Glipizide (Glucotrol Xl -) 2.5 mg PO ACBK [facility] Last Admin: 04/17/19 06:47 Dose: 2.5 mg Piperacillin Sod/Tazobactam (Sod 2.25 gm/ Dextrose) 50 mls @ 100 mls/hr IVPB Q8H-IV [facility]; Protocol Last Admin: 04/17/19 02:18 Dose: 100 mls/hr Insulin Aspart (Novolog Vial Sliding Scale -) 1 vial SQ ACHS [facility]; Protocol Last Admin: 04/17/19 06:47 Dose: Not Given Multivitamins/Minerals/Vitamin C (Tab-A-Vit -) 1 tab PO DAILY [facility] Last Admin: 04/16/19 11:21 Dose: 1 tab Pantoprazole Sodium (Protonix -) 40 mg PO DAILY [facility] Last Admin: 04/16/19 11:21 Dose: 40 mg Pregabalin (Lyrica -) 100 mg PO HS [facility] Last Admin: 04/16/19 22:09 Dose: 100 mg Rivaroxaban (Xarelto) 15 mg PO DAILY@1800 [facility] Last Admin: 04/16/19 19:12 Dose: 15 mg Spironolactone (Aldactone -) 25 mg PO DAILY [facility] Last Admin: 04/16/19 11:22 Dose: 25 mg Tamsulosin HCl (Flomax -) 0.4 mg PO DAILY@0830 [facility] Last Admin: 04/16/19 11:35 Dose: 0.4 mg Torsemide (Demadex -) 40 mg PO DAILY [facility] Last Admin: 04/16/19 11:20 Dose: 40 mg - Objective Vital Signs: Vital Signs Temperature 97.7 F 04/17/19 06:49 Pulse Rate 62 04/17/19 06:49 Respiratory Rate 20 04/17/19 06:49 Blood Pressure 122/65 04/17/19 06:49 O2 Sat by Pulse Oximetry (%) 98 04/16/19 09:00 Constitutional: Yes: No Distress, Calm Cardiovascular: Yes: S1, S2 Respiratory: Yes: Regular, CTA Bilaterally Gastrointestinal: Yes: Normal Bowel Sounds, Soft Musculoskeletal: Yes: Other Extremities: Yes: Other Neurological: Yes: Alert, Oriented Psychiatric: Yes: Alert, Oriented Labs: CBC, BMP 04/12/19 06:40 INR, PTT INR 1.65 (0.83-1.09) H 04/10/19 15:45 Assessment/Plan Problem List - Problems (1) Diabetic foot ulcer Code(s): E11.621 - TYPE 2 DIABETES MELLITUS WITH FOOT ULCER; L97.509 - NON- PRESSURE CHRONIC ULCER OTH PRT UNSP FOOT W UNSP SEVERITY (2) BPH (benign prostatic hyperplasia) Code(s): N40.0 - BENIGN PROSTATIC HYPERPLASIA WITHOUT LOWER URINRY TRACT SYMP (3) CKD (chronic kidney disease) Code(s): N18.9 - CHRONIC KIDNEY DISEASE, UNSPECIFIED (4) Cellulitis of right foot Code(s): L03.115 - CELLULITIS OF RIGHT LOWER LIMB (5) HLD (hyperlipidemia) Code(s): E78.5 - HYPERLIPIDEMIA, UNSPECIFIED (6) HTN (hypertension) Code(s): I10 - ESSENTIAL (PRIMARY) HYPERTENSION (7) Type 2 diabetes mellitus Code(s): E11.9 - TYPE 2 DIABETES MELLITUS WITHOUT COMPLICATIONS Qualifiers: Diabetes mellitus complication detail: with autonomic neuropathy Assessment/Plan Rt foot wound infection/cellulitis ? OM s/p RT TMA Lt 5th toe laceration VICTOR M on ?CKD continue abx wound care await for podiatry rest as per the team
[2019-04-17 10:22] LABS: BLOOD UREA NITROGEN 47.3 mg/dL (7-18); CREATININE 1.7 mg/dL (0.55-1.3); POTASSIUM 4.5 mmol/L (3.5-5.1)
[2019-04-17] MEDS: ASPIRIN 81 MG CHEWABLE TABLETS PO SCH (10:49)
[2019-04-17] MEDS: MULTIVITAMINS (DAILY MVI) TABLET (FP) PO SCH (10:50)
[2019-04-17] MEDS: ALLOPURINOL 100 MG TABLET (FP) PO SCH (10:50)
[2019-04-17] MEDS: TAMSULOSIN HCL 0.4 MG CAP PO SCH (10:50)
[2019-04-17] MEDS: CARVEDILOL 25 MG TABLET (FP) PO SCH ×2 (10:50→21:00)
[2019-04-17] MEDS: ALPRAZolam 0.25 MG TABLET PO SCH (10:50)
[2019-04-17] MEDS: TORSEMIDE 20 MG TABLET (FP) PO SCH (10:50)
[2019-04-17] MEDS: SPIRONOLACTONE 25 MG TABLET (FP) PO SCH (10:51)
[2019-04-17] MEDS: CALCITRIOL 0.25 MCG CAPSULE (FP) PO SCH (10:51)
[2019-04-17] MEDS: PANTOPRAZOLE 40 MG TABLET (FP) PO SCH (10:51)
[2019-04-17] MEDS: FERROUS SO4 325 MG TABLET (FP) PO SCH (10:51)
--- NOTE | 2019-04-17 13:54 | PN ---
Progress Note, Physician History of Present Illness: Pt seen and examined at bedside. He is awake and alert. - Current Medication List Current Medications: Active Medications Acetaminophen (Tylenol -) 500 mg PO Q6H PRN PRN Reason: PAIN Last Admin: 04/17/19 06:48 Dose: 500 mg Allopurinol (Zyloprim -) 100 mg PO DAILY [facility] Last Admin: 04/17/19 10:50 Dose: 100 mg Alprazolam (Xanax -) 0.25 mg PO DAILY [facility] Last Admin: 04/17/19 10:50 Dose: 0.25 mg Aspirin (Asa -) 81 mg PO DAILY [facility] Last Admin: 04/17/19 10:49 Dose: 81 mg Atorvastatin Calcium (Lipitor -) 40 mg PO HS [facility] Last Admin: 04/16/19 22:09 Dose: 40 mg Calcitriol (Rocaltrol -) 0.25 mcg PO DAILY [facility] Last Admin: 04/17/19 10:51 Dose: 0.25 mcg Carvedilol (Coreg -) 25 mg PO BID [facility] Last Admin: 04/17/19 10:50 Dose: 25 mg Collagenase (Santyl -) 1 applic TP DAILY [facility]; Protocol Last Admin: 04/16/19 11:33 Dose: 1 applic Ferrous Sulfate (Feosol -) 325 mg PO Q2D [facility] Last Admin: 04/17/19 10:51 Dose: 325 mg Glipizide (Glucotrol Xl -) 2.5 mg PO ACBK [facility] Last Admin: 04/17/19 06:47 Dose: 2.5 mg Piperacillin Sod/Tazobactam (Sod 2.25 gm/ Dextrose) 50 mls @ 100 mls/hr IVPB Q8H-IV [facility]; Protocol Last Admin: 04/17/19 10:52 Dose: 100 mls/hr Insulin Aspart (Novolog Vial Sliding Scale -) 1 vial SQ ACHS [facility]; Protocol Last Admin: 04/17/19 12:23 Dose: Not Given Multivitamins/Minerals/Vitamin C (Tab-A-Vit -) 1 tab PO DAILY [facility] Last Admin: 04/17/19 10:50 Dose: 1 tab Pantoprazole Sodium (Protonix -) 40 mg PO DAILY [facility] Last Admin: 04/17/19 10:51 Dose: 40 mg Pregabalin (Lyrica -) 100 mg PO HS [facility] Last Admin: 04/16/19 22:09 Dose: 100 mg Rivaroxaban (Xarelto) 15 mg PO DAILY@1800 [facility] Last Admin: 04/16/19 19:12 Dose: 15 mg Spironolactone (Aldactone -) 25 mg PO DAILY [facility] Last Admin: 04/17/19 10:51 Dose: 25 mg Tamsulosin HCl (Flomax -) 0.4 mg PO DAILY@0830 [facility] Last Admin: 04/17/19 10:50 Dose: 0.4 mg Torsemide (Demadex -) 40 mg PO DAILY [facility] Last Admin: 04/17/19 10:50 Dose: 40 mg - Objective Vital Signs: Vital Signs Temperature 98 F 04/17/19 11:00 Pulse Rate 67 04/17/19 11:00 Respiratory Rate 18 04/17/19 11:00 Blood Pressure 129/79 04/17/19 11:00 O2 Sat by Pulse Oximetry (%) 98 04/17/19 09:00 Constitutional: Yes: Calm Eyes: Yes: Conjunctiva Clear HENT: Yes: Atraumatic Cardiovascular: Yes: S1, S2 Respiratory: Yes: CTA Bilaterally Gastrointestinal: Yes: Soft Genitourinary: Yes: WNL Musculoskeletal: Yes: WNL Edema: No Wound/Incision: Yes: Dressing Dry and Intact Neurological: Yes: Oriented Psychiatric: Yes: Oriented Labs: CBC, BMP 04/12/19 06:40 04/17/19 07:40 INR, PTT INR 1.65 (0.83-1.09) H 04/10/19 15:45 Problem List - Problems (1) Diabetic foot ulcer Code(s): E11.621 - TYPE 2 DIABETES MELLITUS WITH FOOT ULCER; L97.509 - NON- PRESSURE CHRONIC ULCER OTH PRT UNSP FOOT W UNSP SEVERITY (2) BPH (benign prostatic hyperplasia) Code(s): N40.0 - BENIGN PROSTATIC HYPERPLASIA WITHOUT LOWER URINRY TRACT SYMP (3) CKD (chronic kidney disease) Code(s): N18.9 - CHRONIC KIDNEY DISEASE, UNSPECIFIED Assessment/Plan Current Medications Generic Name Dose Route Start Last Admin Trade Name Freq PRN Reason Stop Dose Admin Acetaminophen 500 mg 04/11/19 00:29 04/17/19 06:48 Tylenol - PO 500 mg Q6H PRN Administration PAIN Allopurinol 100 mg 04/11/19 10:00 04/17/19 10:50 Zyloprim - PO 100 mg DAILY [facility] Administration Alprazolam 0.25 mg 04/11/19 10:00 04/17/19 10:50 Xanax - PO 0.25 mg DAILY [facility] Administration Aspirin 81 mg 04/16/19 10:00 04/17/19 10:49 Asa - PO 81 mg DAILY [facility] Administration Atorvastatin Calcium 40 mg 04/14/19 22:00 04/16/19 22:09 Lipitor - PO 40 mg HS [facility] Administration Calcitriol 0.25 mcg 04/11/19 10:00 04/17/19 10:51 Rocaltrol - PO 0.25 mcg DAILY [facility] Administration Carvedilol 25 mg 04/11/19 01:00 04/17/19 10:50 Coreg - PO 25 mg BID [facility] Administration Collagenase 1 applic 04/11/19 12:00 04/16/19 11:33 Santyl - TP 1 applic DAILY [facility] Administration Protocol Ferrous Sulfate 325 mg 04/11/19 10:00 04/17/19 10:51 Feosol - PO 325 mg Q2D [facility] Administration Glipizide 2.5 mg 04/11/19 07:00 04/17/19 06:47 Glucotrol Xl - PO 2.5 mg ACBK [facility] Administration Piperacillin Sod/Tazobactam 50 mls @ 100 mls/hr 04/13/19 18:00 04/17/19 10:52 Sod 2.25 gm/ Dextrose IVPB 100 mls/hr Q8H-IV [facility] Administration Protocol Insulin Aspart 1 vial 04/11/19 07:00 04/17/19 12:23 Novolog Vial Sliding Scale - SQ Not Given ACHS [facility] Protocol Multivitamins/Minerals/Vitamin C 1 tab 04/11/19 10:00 04/17/19 10:50 Tab-A-Vit - PO 1 tab DAILY [facility] Administration Pantoprazole Sodium 40 mg 04/16/19 10:00 04/17/19 10:51 Protonix - PO 40 mg DAILY [facility] Administration Pregabalin 100 mg 04/11/19 22:00 04/16/19 22:09 Lyrica - PO 100 mg HS [facility] Administration Rivaroxaban 15 mg 04/16/19 18:00 04/16/19 19:12 Xarelto PO 15 mg DAILY@1800 [facility] Administration Spironolactone 25 mg 04/11/19 10:00 04/17/19 10:51 Aldactone - PO 25 mg DAILY [facility] Administration Tamsulosin HCl 0.4 mg 04/11/19 08:30 04/17/19 10:50 Flomax - PO 0.4 mg DAILY@0830 [facility] Administration Torsemide 40 mg 04/14/19 10:00 04/17/19 10:50 Demadex - PO 40 mg DAILY [facility] Administration Impression 1. CKD 2. CHF ef 30 to 35 3. non healing wound 4. dvt 5. htn 6. hld 7. DM Plan - renal function is improving - volume status stable - ua neg for blood or protein - avoid nsaids - wound care - will need outpt renal follow up
[2019-04-17] MEDS: COLLAGENASE CLOSTRIDIUM HIST. 30 GRAMS TUBE TP SCH (14:41)
[2019-04-17] MEDS: RIVAROXABAN 15 MG TABLET PO SCH (17:38)
[2019-04-17] MEDS: ATORVASTATIN CA 40 MG TABLET (FP) PO SCH (21:00)
[2019-04-17] MEDS: PREGABALIN 100 MG CAPSULE PO SCH (21:00)
--- NOTE | 2019-04-17 21:29 | PN ---
Progress Note (short form) - Note Progress Note: FUV right foot and left foot. Pt seen at 430pm today. right foot granulating well on both wound areas, -drainage on lateral side of foot resolved maceration, +erythema, -ultrasound for abscess left foot sub digit 5 granulating laceration site OM right granulating wounds improving cellulitis laceration 5th toe left granulating Dressing hange done b/l. DO NOT REMOVE LEFT FOOT DRESSING. Santyl to right foot wounds. Abx as per ID. Will follow in [facility] and continue HBO and IVABX at home. will follow. Continue bathroom privelages with bed rest. May go home from Podiatry standpoint.
--- NOTE | 2019-04-17 22:39 | PN ---
Progress Note, Physician - Current Medication List Current Medications: Active Medications Acetaminophen (Tylenol -) 500 mg PO Q6H PRN PRN Reason: PAIN Last Admin: 04/17/19 17:44 Dose: 500 mg Allopurinol (Zyloprim -) 100 mg PO DAILY [facility] Last Admin: 04/17/19 10:50 Dose: 100 mg Alprazolam (Xanax -) 0.25 mg PO DAILY [facility] Last Admin: 04/17/19 10:50 Dose: 0.25 mg Aspirin (Asa -) 81 mg PO DAILY [facility] Last Admin: 04/17/19 10:49 Dose: 81 mg Atorvastatin Calcium (Lipitor -) 40 mg PO HS [facility] Last Admin: 04/17/19 21:00 Dose: 40 mg Calcitriol (Rocaltrol -) 0.25 mcg PO DAILY [facility] Last Admin: 04/17/19 10:51 Dose: 0.25 mcg Carvedilol (Coreg -) 25 mg PO BID [facility] Last Admin: 04/17/19 21:00 Dose: 25 mg Collagenase (Santyl -) 1 applic TP DAILY [facility]; Protocol Last Admin: 04/17/19 14:41 Dose: 1 applic Ferrous Sulfate (Feosol -) 325 mg PO Q2D [facility] Last Admin: 04/17/19 10:51 Dose: 325 mg Glipizide (Glucotrol Xl -) 2.5 mg PO ACBK [facility] Last Admin: 04/17/19 06:47 Dose: 2.5 mg Piperacillin Sod/Tazobactam (Sod 2.25 gm/ Dextrose) 50 mls @ 100 mls/hr IVPB Q8H-IV [facility]; Protocol Last Admin: 04/17/19 17:35 Dose: 100 mls/hr Insulin Aspart (Novolog Vial Sliding Scale -) 1 vial SQ ACHS [facility]; Protocol Last Admin: 04/17/19 21:01 Dose: Not Given Multivitamins/Minerals/Vitamin C (Tab-A-Vit -) 1 tab PO DAILY [facility] Last Admin: 04/17/19 10:50 Dose: 1 tab Pantoprazole Sodium (Protonix -) 40 mg PO DAILY [facility] Last Admin: 04/17/19 10:51 Dose: 40 mg Pregabalin (Lyrica -) 100 mg PO HS [facility] Last Admin: 04/17/19 21:00 Dose: 100 mg Rivaroxaban (Xarelto) 15 mg PO DAILY@1800 [facility] Last Admin: 04/17/19 17:38 Dose: 15 mg Spironolactone (Aldactone -) 25 mg PO DAILY [facility] Last Admin: 04/17/19 10:51 Dose: 25 mg Tamsulosin HCl (Flomax -) 0.4 mg PO DAILY@0830 [facility] Last Admin: 04/17/19 10:50 Dose: 0.4 mg Torsemide (Demadex -) 40 mg PO DAILY [facility] Last Admin: 04/17/19 10:50 Dose: 40 mg - Objective Vital Signs: Vital Signs Temperature 98.7 F 04/17/19 20:00 Pulse Rate 71 04/17/19 20:00 Respiratory Rate 20 04/17/19 20:00 Blood Pressure 122/78 04/17/19 20:00 O2 Sat by Pulse Oximetry (%) 98 04/17/19 09:00 Labs: CBC, BMP 04/12/19 06:40 04/17/19 07:40 INR, PTT INR 1.65 (0.83-1.09) H 04/10/19 15:45 Problem List - Problems (1) Diabetic foot ulcer Code(s): E11.621 - TYPE 2 DIABETES MELLITUS WITH FOOT ULCER; L97.509 - NON- PRESSURE CHRONIC ULCER OTH PRT UNSP FOOT W UNSP SEVERITY (2) Type 2 diabetes mellitus Code(s): E11.9 - TYPE 2 DIABETES MELLITUS WITHOUT COMPLICATIONS Qualifiers: Diabetes mellitus complication detail: with autonomic neuropathy (3) CKD (chronic kidney disease) Code(s): N18.9 - CHRONIC KIDNEY DISEASE, UNSPECIFIED (4) GERD (gastroesophageal reflux disease) Code(s): K21.9 - GASTRO-ESOPHAGEAL REFLUX DISEASE WITHOUT ESOPHAGITIS (5) HLD (hyperlipidemia) Code(s): E78.5 - HYPERLIPIDEMIA, UNSPECIFIED (6) HTN (hypertension) Code(s): I10 - ESSENTIAL (PRIMARY) HYPERTENSION (7) BPH (benign prostatic hyperplasia) Code(s): N40.0 - BENIGN PROSTATIC HYPERPLASIA WITHOUT LOWER URINRY TRACT SYMP (8) Peripheral neuropathic pain Code(s): M79.2 - NEURALGIA AND NEURITIS, UNSPECIFIED
[2019-04-18] MEDS ORDERED: PIPERACILLIN/TAZOBACTAM 2.25 GM VIAL IVPB ONE ×3 (01:45→17:21)
[2019-04-18] MEDS ORDERED: DEXTROSE 5%-WATER - 50 ML IVPB ONE ×3 (01:46→17:22)
[2019-04-18] MEDS: PIPERACILLIN/TAZOB 2.25 GM 2.25 GM in DEXTROSE 5%-WATER - 50 ML IVPB SCH ×3 (02:02→17:32)
[2019-04-18] MEDS: ACETAMINOPHEN 500 MG TABLET (FP) PO PRN ×2 (02:03→14:44)
[2019-04-18] MEDS ORDERED: PT OWN MED DRAWER 7, Y5N ONE ×2 (05:10→10:09)
[2019-04-18] MEDS ORDERED: INSULIN (NOVOLOG) ASPART 100 UNITS/ML 10ML VIAL ONE (05:11)
[2019-04-18] MEDS: INSULIN SLIDING SCALE (NOVOLOG) 1 VIAL SQ SCH ×4 (06:50→21:12)
[2019-04-18] MEDS: glipiZIDE-XL 2.5 MG TAB.ER.24 PO SCH (06:50)
--- NOTE | 2019-04-18 10:18 | PN ---
Progress Note, Physician History of Present Illness: doing well some bleeding from the wound - Current Medication List Current Medications: Active Medications Acetaminophen (Tylenol -) 500 mg PO Q6H PRN PRN Reason: PAIN Last Admin: 04/18/19 02:03 Dose: 500 mg Allopurinol (Zyloprim -) 100 mg PO DAILY [facility] Last Admin: 04/17/19 10:50 Dose: 100 mg Aspirin (Asa -) 81 mg PO DAILY [facility] Last Admin: 04/17/19 10:49 Dose: 81 mg Atorvastatin Calcium (Lipitor -) 40 mg PO HS [facility] Last Admin: 04/17/19 21:00 Dose: 40 mg Calcitriol (Rocaltrol -) 0.25 mcg PO DAILY [facility] Last Admin: 04/17/19 10:51 Dose: 0.25 mcg Carvedilol (Coreg -) 25 mg PO BID [facility] Last Admin: 04/17/19 21:00 Dose: 25 mg Collagenase (Santyl -) 1 applic TP DAILY [facility]; Protocol Last Admin: 04/17/19 14:41 Dose: 1 applic Ferrous Sulfate (Feosol -) 325 mg PO Q2D [facility] Last Admin: 04/17/19 10:51 Dose: 325 mg Glipizide (Glucotrol Xl -) 2.5 mg PO ACBK [facility] Last Admin: 04/18/19 06:50 Dose: 2.5 mg Piperacillin Sod/Tazobactam (Sod 2.25 gm/ Dextrose) 50 mls @ 100 mls/hr IVPB Q8H-IV [facility]; Protocol Last Admin: 04/18/19 02:02 Dose: 100 mls/hr Insulin Aspart (Novolog Vial Sliding Scale -) 1 vial SQ ACHS [facility]; Protocol Last Admin: 04/18/19 06:50 Dose: Not Given Multivitamins/Minerals/Vitamin C (Tab-A-Vit -) 1 tab PO DAILY [facility] Last Admin: 04/17/19 10:50 Dose: 1 tab Pantoprazole Sodium (Protonix -) 40 mg PO DAILY [facility] Last Admin: 04/17/19 10:51 Dose: 40 mg Pregabalin (Lyrica -) 100 mg PO HS [facility] Last Admin: 04/17/19 21:00 Dose: 100 mg Rivaroxaban (Xarelto) 15 mg PO DAILY@1800 [facility] Last Admin: 04/17/19 17:38 Dose: 15 mg Spironolactone (Aldactone -) 25 mg PO DAILY [facility] Last Admin: 04/17/19 10:51 Dose: 25 mg Tamsulosin HCl (Flomax -) 0.4 mg PO DAILY@0830 [facility] Last Admin: 04/17/19 10:50 Dose: 0.4 mg Torsemide (Demadex -) 40 mg PO DAILY [facility] Last Admin: 04/17/19 10:50 Dose: 40 mg - Objective Vital Signs: Vital Signs Temperature 97.6 F 04/18/19 05:23 Pulse Rate 63 04/18/19 05:23 Respiratory Rate 20 04/18/19 05:23 Blood Pressure 132/67 04/18/19 05:23 O2 Sat by Pulse Oximetry (%) 98 04/17/19 09:00 Constitutional: Yes: No Distress, Calm Cardiovascular: Yes: S1, S2 Respiratory: Yes: Regular, CTA Bilaterally Gastrointestinal: Yes: Normal Bowel Sounds, Soft Musculoskeletal: Yes: Other Extremities: Yes: Other Wound/Incision: Yes: Dressing Removed, Bleeding Neurological: Yes: Alert, Oriented Psychiatric: Yes: Alert, Oriented Labs: CBC, BMP 04/12/19 06:40 04/17/19 07:40 INR, PTT INR 1.65 (0.83-1.09) H 04/10/19 15:45 Assessment/Plan Problem List - Problems (1) Diabetic foot ulcer Code(s): E11.621 - TYPE 2 DIABETES MELLITUS WITH FOOT ULCER; L97.509 - NON- PRESSURE CHRONIC ULCER OTH PRT UNSP FOOT W UNSP SEVERITY (2) BPH (benign prostatic hyperplasia) Code(s): N40.0 - BENIGN PROSTATIC HYPERPLASIA WITHOUT LOWER URINRY TRACT SYMP (3) CKD (chronic kidney disease) Code(s): N18.9 - CHRONIC KIDNEY DISEASE, UNSPECIFIED (4) Cellulitis of right foot Code(s): L03.115 - CELLULITIS OF RIGHT LOWER LIMB (5) HLD (hyperlipidemia) Code(s): E78.5 - HYPERLIPIDEMIA, UNSPECIFIED (6) HTN (hypertension) Code(s): I10 - ESSENTIAL (PRIMARY) HYPERTENSION (7) Type 2 diabetes mellitus Code(s): E11.9 - TYPE 2 DIABETES MELLITUS WITHOUT COMPLICATIONS Qualifiers: Diabetes mellitus complication detail: with autonomic neuropathy Assessment/Plan Rt foot wound infection/cellulitis ? OM s/p RT TMA Lt 5th toe laceration VICTOR M on ?CKD continue abx wound care will need to treat for one week
[2019-04-18] MEDS: CARVEDILOL 25 MG TABLET (FP) PO SCH ×2 (10:23→21:12)
[2019-04-18] MEDS: TAMSULOSIN HCL 0.4 MG CAP PO SCH (10:23)
[2019-04-18] MEDS: MULTIVITAMINS (DAILY MVI) TABLET (FP) PO SCH (10:23)
[2019-04-18] MEDS: PANTOPRAZOLE 40 MG TABLET (FP) PO SCH (10:24)
[2019-04-18] MEDS: CALCITRIOL 0.25 MCG CAPSULE (FP) PO SCH (10:24)
[2019-04-18] MEDS: COLLAGENASE CLOSTRIDIUM HIST. 30 GRAMS TUBE TP SCH (10:24)
[2019-04-18] MEDS: ASPIRIN 81 MG CHEWABLE TABLETS PO SCH (10:24)
[2019-04-18] MEDS: SPIRONOLACTONE 25 MG TABLET (FP) PO SCH (10:24)
[2019-04-18] MEDS: TORSEMIDE 20 MG TABLET (FP) PO SCH (10:24)
[2019-04-18] MEDS: ALLOPURINOL 100 MG TABLET (FP) PO SCH (10:24)
--- NOTE | 2019-04-18 14:14 | PN ---
Progress Note (short form) - Note Progress Note: RENAL Pt is awake and alert denies specific complaints Last Vital Signs Temp Pulse Resp BP Pulse Ox 97.6 F 63 20 132/67 98 04/18/19 05:23 04/18/19 05:23 04/18/19 05:23 04/18/19 05:23 04/17/19 09:00 lungs clear cvs s1s2 rr abd soft, obese ext +edema in right lower ext neuro a+ox3 CBC, BMP 04/12/19 06:40 04/17/19 07:40 Current Medications Generic Name Dose Route Start Last Admin Trade Name Freq PRN Reason Stop Dose Admin Acetaminophen 500 mg 04/11/19 00:29 04/18/19 02:03 Tylenol - PO 500 mg Q6H PRN Administration PAIN Allopurinol 100 mg 04/11/19 10:00 04/18/19 10:24 Zyloprim - PO 100 mg DAILY [facility] Administration Aspirin 81 mg 04/16/19 10:00 04/18/19 10:24 Asa - PO 81 mg DAILY [facility] Administration Atorvastatin Calcium 40 mg 04/14/19 22:00 04/17/19 21:00 Lipitor - PO 40 mg HS [facility] Administration Calcitriol 0.25 mcg 04/11/19 10:00 04/18/19 10:24 Rocaltrol - PO 0.25 mcg DAILY [facility] Administration Carvedilol 25 mg 04/11/19 01:00 04/18/19 10:23 Coreg - PO 25 mg BID [facility] Administration Collagenase 1 applic 04/11/19 12:00 04/18/19 10:24 Santyl - TP 1 applic DAILY [facility] Administration Protocol Ferrous Sulfate 325 mg 04/11/19 10:00 04/17/19 10:51 Feosol - PO 325 mg Q2D [facility] Administration Glipizide 2.5 mg 04/11/19 07:00 04/18/19 06:50 Glucotrol Xl - PO 2.5 mg ACBK [facility] Administration Piperacillin Sod/Tazobactam 50 mls @ 100 mls/hr 04/13/19 18:00 04/18/19 10:23 Sod 2.25 gm/ Dextrose IVPB 100 mls/hr Q8H-IV [facility] Administration Protocol Insulin Aspart 1 vial 04/11/19 07:00 04/18/19 11:13 Novolog Vial Sliding Scale - SQ Not Given ACHS [facility] Protocol Multivitamins/Minerals/Vitamin C 1 tab 04/11/19 10:00 04/18/19 10:23 Tab-A-Vit - PO 1 tab DAILY [facility] Administration Pantoprazole Sodium 40 mg 04/16/19 10:00 04/18/19 10:24 Protonix - PO 40 mg DAILY [facility] Administration Pregabalin 100 mg 04/11/19 22:00 04/17/19 21:00 Lyrica - PO 100 mg HS [facility] Administration Rivaroxaban 15 mg 04/16/19 18:00 04/17/19 17:38 Xarelto PO 15 mg DAILY@1800 [facility] Administration Spironolactone 25 mg 04/11/19 10:00 04/18/19 10:24 Aldactone - PO 25 mg DAILY [facility] Administration Tamsulosin HCl 0.4 mg 04/11/19 08:30 04/18/19 10:23 Flomax - PO 0.4 mg DAILY@0830 [facility] Administration Torsemide 40 mg 04/14/19 10:00 04/18/19 10:24 Demadex - PO 40 mg DAILY [facility] Administration Impression 1. CKD non proteinuric 2. CHF ef 30 to 35 3. non healing wound 4. dvt 5. htn 6. hld 7. DM Plan -no changes -continue current meds- keep on diuretics [facility]
[2019-04-18] MEDS: RIVAROXABAN 15 MG TABLET PO SCH (17:32)
[2019-04-18] MEDS: ATORVASTATIN CA 40 MG TABLET (FP) PO SCH (21:12)
--- NOTE | 2019-04-18 21:39 | PN ---
Progress Note, Physician - Current Medication List Current Medications: Active Medications Acetaminophen (Tylenol -) 500 mg PO Q6H PRN PRN Reason: PAIN Last Admin: 04/18/19 14:44 Dose: 500 mg Allopurinol (Zyloprim -) 100 mg PO DAILY [facility] Last Admin: 04/18/19 10:24 Dose: 100 mg Aspirin (Asa -) 81 mg PO DAILY [facility] Last Admin: 04/18/19 10:24 Dose: 81 mg Atorvastatin Calcium (Lipitor -) 40 mg PO HS [facility] Last Admin: 04/18/19 21:12 Dose: 40 mg Calcitriol (Rocaltrol -) 0.25 mcg PO DAILY [facility] Last Admin: 04/18/19 10:24 Dose: 0.25 mcg Carvedilol (Coreg -) 25 mg PO BID [facility] Last Admin: 04/18/19 21:12 Dose: 25 mg Collagenase (Santyl -) 1 applic TP DAILY [facility]; Protocol Last Admin: 04/18/19 10:24 Dose: 1 applic Ferrous Sulfate (Feosol -) 325 mg PO Q2D [facility] Last Admin: 04/17/19 10:51 Dose: 325 mg Glipizide (Glucotrol Xl -) 2.5 mg PO ACBK [facility] Last Admin: 04/18/19 06:50 Dose: 2.5 mg Piperacillin Sod/Tazobactam (Sod 2.25 gm/ Dextrose) 50 mls @ 100 mls/hr IVPB Q8H-IV [facility]; Protocol Last Admin: 04/18/19 17:32 Dose: 100 mls/hr Insulin Aspart (Novolog Vial Sliding Scale -) 1 vial SQ ACHS [facility]; Protocol Last Admin: 04/18/19 21:12 Dose: 2 units Multivitamins/Minerals/Vitamin C (Tab-A-Vit -) 1 tab PO DAILY [facility] Last Admin: 04/18/19 10:23 Dose: 1 tab Pantoprazole Sodium (Protonix -) 40 mg PO DAILY [facility] Last Admin: 04/18/19 10:24 Dose: 40 mg Pregabalin (Lyrica -) 100 mg PO HS [facility] Last Admin: 04/17/19 21:00 Dose: 100 mg Rivaroxaban (Xarelto) 15 mg PO DAILY@1800 [facility] Last Admin: 04/18/19 17:32 Dose: 15 mg Spironolactone (Aldactone -) 25 mg PO DAILY [facility] Last Admin: 04/18/19 10:24 Dose: 25 mg Tamsulosin HCl (Flomax -) 0.4 mg PO DAILY@0830 [facility] Last Admin: 04/18/19 10:23 Dose: 0.4 mg Torsemide (Demadex -) 40 mg PO DAILY [facility] Last Admin: 04/18/19 10:24 Dose: 40 mg - Objective Vital Signs: Vital Signs Temperature 97.6 F 04/18/19 15:00 Pulse Rate 67 04/18/19 15:00 Respiratory Rate 18 04/18/19 15:00 Blood Pressure 129/87 04/18/19 15:00 O2 Sat by Pulse Oximetry (%) 97 04/18/19 09:00 Labs: CBC, BMP 04/12/19 06:40 04/17/19 07:40 INR, PTT INR 1.65 (0.83-1.09) H 04/10/19 15:45 Problem List - Problems (1) Diabetic foot ulcer Code(s): E11.621 - TYPE 2 DIABETES MELLITUS WITH FOOT ULCER; L97.509 - NON- PRESSURE CHRONIC ULCER OTH PRT UNSP FOOT W UNSP SEVERITY (2) Type 2 diabetes mellitus Code(s): E11.9 - TYPE 2 DIABETES MELLITUS WITHOUT COMPLICATIONS Qualifiers: Diabetes mellitus complication detail: with autonomic neuropathy (3) CKD (chronic kidney disease) Code(s): N18.9 - CHRONIC KIDNEY DISEASE, UNSPECIFIED (4) GERD (gastroesophageal reflux disease) Code(s): K21.9 - GASTRO-ESOPHAGEAL REFLUX DISEASE WITHOUT ESOPHAGITIS (5) HLD (hyperlipidemia) Code(s): E78.5 - HYPERLIPIDEMIA, UNSPECIFIED (6) HTN (hypertension) Code(s): I10 - ESSENTIAL (PRIMARY) HYPERTENSION (7) BPH (benign prostatic hyperplasia) Code(s): N40.0 - BENIGN PROSTATIC HYPERPLASIA WITHOUT LOWER URINRY TRACT SYMP (8) Peripheral neuropathic pain Code(s): M79.2 - NEURALGIA AND NEURITIS, UNSPECIFIED
[2019-04-19] MEDS ORDERED: PIPERACILLIN/TAZOBACTAM 2.25 GM VIAL IVPB ONE ×3 (01:24→17:06)
[2019-04-19] MEDS ORDERED: DEXTROSE 5%-WATER - 50 ML IVPB ONE ×3 (01:24→17:07)
[2019-04-19] MEDS: ACETAMINOPHEN 500 MG TABLET (FP) PO PRN ×2 (02:26→21:59)
[2019-04-19] MEDS: PIPERACILLIN/TAZOB 2.25 GM 2.25 GM in DEXTROSE 5%-WATER - 50 ML IVPB SCH ×3 (02:26→17:17)
[2019-04-19] MEDS ORDERED: PT OWN MED DRAWER 7, Y5N ONE (05:44)
[2019-04-19] MEDS: INSULIN SLIDING SCALE (NOVOLOG) 1 VIAL SQ SCH ×4 (06:09→22:18)
[2019-04-19] MEDS: glipiZIDE-XL 2.5 MG TAB.ER.24 PO SCH (06:09)
--- NOTE | 2019-04-19 09:01 | PN ---
Progress Note (short form) - Note Progress Note: RENAL Pt is awake and alert denies specific complaints sitting up Last Vital Signs Temp Pulse Resp BP Pulse Ox 97.3 F L 62 20 136/75 97 04/19/19 06:26 04/19/19 06:26 04/19/19 06:26 04/19/19 06:26 04/18/19 09:00 lungs clear cvs s1s2 rr abd soft, obese ext +edema in right lower ext neuro a+ox3 CBC, BMP 04/12/19 06:40 04/17/19 07:40 Current Medications Generic Name Dose Route Start Last Admin Trade Name Freq PRN Reason Stop Dose Admin Acetaminophen 500 mg 04/11/19 00:29 04/19/19 02:26 Tylenol - PO 500 mg Q6H PRN Administration PAIN Allopurinol 100 mg 04/11/19 10:00 04/18/19 10:24 Zyloprim - PO 100 mg DAILY [facility] Administration Aspirin 81 mg 04/16/19 10:00 04/18/19 10:24 Asa - PO 81 mg DAILY [facility] Administration Atorvastatin Calcium 40 mg 04/14/19 22:00 04/18/19 21:12 Lipitor - PO 40 mg HS [facility] Administration Calcitriol 0.25 mcg 04/11/19 10:00 04/18/19 10:24 Rocaltrol - PO 0.25 mcg DAILY [facility] Administration Carvedilol 25 mg 04/11/19 01:00 04/18/19 21:12 Coreg - PO 25 mg BID [facility] Administration Collagenase 1 applic 04/11/19 12:00 04/18/19 10:24 Santyl - TP 1 applic DAILY [facility] Administration Protocol Ferrous Sulfate 325 mg 04/11/19 10:00 04/17/19 10:51 Feosol - PO 325 mg Q2D [facility] Administration Glipizide 2.5 mg 04/11/19 07:00 04/19/19 06:09 Glucotrol Xl - PO 2.5 mg ACBK [facility] Administration Piperacillin Sod/Tazobactam 50 mls @ 100 mls/hr 04/13/19 18:00 04/19/19 02:26 Sod 2.25 gm/ Dextrose IVPB 100 mls/hr Q8H-IV [facility] Administration Protocol Insulin Aspart 1 vial 04/11/19 07:00 04/19/19 06:09 Novolog Vial Sliding Scale - SQ Not Given ACHS [facility] Protocol Multivitamins/Minerals/Vitamin C 1 tab 04/11/19 10:00 04/18/19 10:23 Tab-A-Vit - PO 1 tab DAILY [facility] Administration Pantoprazole Sodium 40 mg 04/16/19 10:00 04/18/19 10:24 Protonix - PO 40 mg DAILY [facility] Administration Rivaroxaban 15 mg 04/16/19 18:00 04/18/19 17:32 Xarelto PO 15 mg DAILY@1800 [facility] Administration Spironolactone 25 mg 04/11/19 10:00 04/18/19 10:24 Aldactone - PO 25 mg DAILY [facility] Administration Tamsulosin HCl 0.4 mg 04/11/19 08:30 04/18/19 10:23 Flomax - PO 0.4 mg DAILY@0830 [facility] Administration Torsemide 40 mg 04/14/19 10:00 04/18/19 10:24 Demadex - PO 40 mg DAILY [facility] Administration Impression 1. CKD non proteinuric 2. CHF ef 30 to 35 3. non healing wound 4. dvt 5. htn 6. hld 7. DM Plan -no changes -continue current meds- keep on diuretics -repeat bmp [facility]
[2019-04-19] MEDS: TAMSULOSIN HCL 0.4 MG CAP PO SCH (09:37)
[2019-04-19] MEDS: MULTIVITAMINS (DAILY MVI) TABLET (FP) PO SCH (09:37)
[2019-04-19] MEDS: ASPIRIN 81 MG CHEWABLE TABLETS PO SCH (09:37)
[2019-04-19] MEDS: CALCITRIOL 0.25 MCG CAPSULE (FP) PO SCH (09:38)
[2019-04-19] MEDS: TORSEMIDE 20 MG TABLET (FP) PO SCH (09:38)
[2019-04-19] MEDS: CARVEDILOL 25 MG TABLET (FP) PO SCH ×2 (09:38→21:59)
[2019-04-19] MEDS: FERROUS SO4 325 MG TABLET (FP) PO SCH (09:38)
[2019-04-19] MEDS: PANTOPRAZOLE 40 MG TABLET (FP) PO SCH (09:38)
[2019-04-19] MEDS: ALLOPURINOL 100 MG TABLET (FP) PO SCH (09:38)
[2019-04-19] MEDS: SPIRONOLACTONE 25 MG TABLET (FP) PO SCH (09:39)
[2019-04-19] MEDS: COLLAGENASE CLOSTRIDIUM HIST. 30 GRAMS TUBE TP SCH (09:40)
[2019-04-19 11:07] LABS: BLOOD UREA NITROGEN 48.6 mg/dL (7-18); CALCIUM 9.2 mg/dL (8.5-10.1); CREATININE 1.7 mg/dL (0.55-1.3); POTASSIUM 4.4 mmol/L (3.5-5.1)
--- NOTE | 2019-04-19 11:51 | PN ---
Progress Note, Physician History of Present Illness: stable no new issues - Current Medication List Current Medications: Active Medications Acetaminophen (Tylenol -) 500 mg PO Q6H PRN PRN Reason: PAIN Last Admin: 04/19/19 02:26 Dose: 500 mg Allopurinol (Zyloprim -) 100 mg PO DAILY [facility] Last Admin: 04/19/19 09:38 Dose: 100 mg Aspirin (Asa -) 81 mg PO DAILY [facility] Last Admin: 04/19/19 09:37 Dose: 81 mg Atorvastatin Calcium (Lipitor -) 40 mg PO HS [facility] Last Admin: 04/18/19 21:12 Dose: 40 mg Calcitriol (Rocaltrol -) 0.25 mcg PO DAILY [facility] Last Admin: 04/19/19 09:38 Dose: 0.25 mcg Carvedilol (Coreg -) 25 mg PO BID [facility] Last Admin: 04/19/19 09:38 Dose: 25 mg Collagenase (Santyl -) 1 applic TP DAILY [facility]; Protocol Last Admin: 04/19/19 09:40 Dose: 1 applic Ferrous Sulfate (Feosol -) 325 mg PO Q2D [facility] Last Admin: 04/19/19 09:38 Dose: 325 mg Glipizide (Glucotrol Xl -) 2.5 mg PO ACBK [facility] Last Admin: 04/19/19 06:09 Dose: 2.5 mg Piperacillin Sod/Tazobactam (Sod 2.25 gm/ Dextrose) 50 mls @ 100 mls/hr IVPB Q8H-IV [facility]; Protocol Last Admin: 04/19/19 09:39 Dose: 100 mls/hr Insulin Aspart (Novolog Vial Sliding Scale -) 1 vial SQ ACHS [facility]; Protocol Last Admin: 04/19/19 06:09 Dose: Not Given Multivitamins/Minerals/Vitamin C (Tab-A-Vit -) 1 tab PO DAILY [facility] Last Admin: 04/19/19 09:37 Dose: 1 tab Pantoprazole Sodium (Protonix -) 40 mg PO DAILY [facility] Last Admin: 04/19/19 09:38 Dose: 40 mg Rivaroxaban (Xarelto) 15 mg PO DAILY@1800 [facility] Last Admin: 04/18/19 17:32 Dose: 15 mg Spironolactone (Aldactone -) 25 mg PO DAILY [facility] Last Admin: 04/19/19 09:39 Dose: 25 mg Tamsulosin HCl (Flomax -) 0.4 mg PO DAILY@0830 [facility] Last Admin: 04/19/19 09:37 Dose: 0.4 mg Torsemide (Demadex -) 40 mg PO DAILY [facility] Last Admin: 04/19/19 09:38 Dose: 40 mg - Objective Vital Signs: Vital Signs Temperature 97.6 F 04/19/19 09:00 Pulse Rate 69 04/19/19 09:00 Respiratory Rate 20 04/19/19 09:00 Blood Pressure 156/90 04/19/19 09:00 O2 Sat by Pulse Oximetry (%) 97 04/19/19 09:00 Constitutional: Yes: No Distress, Calm Cardiovascular: Yes: S1, S2 Respiratory: Yes: Regular, CTA Bilaterally Gastrointestinal: Yes: Normal Bowel Sounds, Soft Musculoskeletal: Yes: WNL Extremities: Yes: Other Wound/Incision: Yes: Dressing Dry and Intact Neurological: Yes: Alert, Oriented Psychiatric: Yes: Alert, Oriented Labs: CBC, BMP 04/12/19 06:40 04/19/19 09:55 INR, PTT INR 1.65 (0.83-1.09) H 04/10/19 15:45 Assessment/Plan Problem List - Problems (1) Diabetic foot ulcer Code(s): E11.621 - TYPE 2 DIABETES MELLITUS WITH FOOT ULCER; L97.509 - NON- PRESSURE CHRONIC ULCER OTH PRT UNSP FOOT W UNSP SEVERITY (2) BPH (benign prostatic hyperplasia) Code(s): N40.0 - BENIGN PROSTATIC HYPERPLASIA WITHOUT LOWER URINRY TRACT SYMP (3) CKD (chronic kidney disease) Code(s): N18.9 - CHRONIC KIDNEY DISEASE, UNSPECIFIED (4) Cellulitis of right foot Code(s): L03.115 - CELLULITIS OF RIGHT LOWER LIMB (5) HLD (hyperlipidemia) Code(s): E78.5 - HYPERLIPIDEMIA, UNSPECIFIED (6) HTN (hypertension) Code(s): I10 - ESSENTIAL (PRIMARY) HYPERTENSION (7) Type 2 diabetes mellitus Code(s): E11.9 - TYPE 2 DIABETES MELLITUS WITHOUT COMPLICATIONS Qualifiers: Diabetes mellitus complication detail: with autonomic neuropathy Assessment/Plan Rt foot wound infection/cellulitis ? OM s/p RT TMA Lt 5th toe laceration VICTOR M on ?CKD continue abx wound care will need to treat for one week
[2019-04-19] MEDS: RIVAROXABAN 15 MG TABLET PO SCH (17:17)
--- NOTE | 2019-04-19 21:38 | PN ---
Progress Note, Physician - Current Medication List Current Medications: Active Medications Acetaminophen (Tylenol -) 500 mg PO Q6H PRN PRN Reason: PAIN Last Admin: 04/19/19 02:26 Dose: 500 mg Allopurinol (Zyloprim -) 100 mg PO DAILY [facility] Last Admin: 04/19/19 09:38 Dose: 100 mg Aspirin (Asa -) 81 mg PO DAILY [facility] Last Admin: 04/19/19 09:37 Dose: 81 mg Atorvastatin Calcium (Lipitor -) 40 mg PO HS [facility] Last Admin: 04/18/19 21:12 Dose: 40 mg Calcitriol (Rocaltrol -) 0.25 mcg PO DAILY [facility] Last Admin: 04/19/19 09:38 Dose: 0.25 mcg Carvedilol (Coreg -) 25 mg PO BID [facility] Last Admin: 04/19/19 09:38 Dose: 25 mg Collagenase (Santyl -) 1 applic TP DAILY [facility]; Protocol Last Admin: 04/19/19 09:40 Dose: 1 applic Ferrous Sulfate (Feosol -) 325 mg PO Q2D [facility] Last Admin: 04/19/19 09:38 Dose: 325 mg Glipizide (Glucotrol Xl -) 2.5 mg PO ACBK [facility] Last Admin: 04/19/19 06:09 Dose: 2.5 mg Piperacillin Sod/Tazobactam (Sod 2.25 gm/ Dextrose) 50 mls @ 100 mls/hr IVPB Q8H-IV [facility]; Protocol Last Admin: 04/19/19 17:17 Dose: 100 mls/hr Insulin Aspart (Novolog Vial Sliding Scale -) 1 vial SQ ACHS [facility]; Protocol Last Admin: 04/19/19 17:45 Dose: Not Given Multivitamins/Minerals/Vitamin C (Tab-A-Vit -) 1 tab PO DAILY [facility] Last Admin: 04/19/19 09:37 Dose: 1 tab Pantoprazole Sodium (Protonix -) 40 mg PO DAILY [facility] Last Admin: 04/19/19 09:38 Dose: 40 mg Rivaroxaban (Xarelto) 15 mg PO DAILY@1800 [facility] Last Admin: 04/19/19 17:17 Dose: 15 mg Spironolactone (Aldactone -) 25 mg PO DAILY [facility] Last Admin: 04/19/19 09:39 Dose: 25 mg Tamsulosin HCl (Flomax -) 0.4 mg PO DAILY@0830 [facility] Last Admin: 04/19/19 09:37 Dose: 0.4 mg Torsemide (Demadex -) 40 mg PO DAILY [facility] Last Admin: 04/19/19 09:38 Dose: 40 mg - Objective Vital Signs: Vital Signs Temperature 97.5 F L 04/19/19 17:13 Pulse Rate 66 04/19/19 17:13 Respiratory Rate 20 04/19/19 17:13 Blood Pressure 143/73 04/19/19 17:13 O2 Sat by Pulse Oximetry (%) 97 04/19/19 09:00 Labs: CBC, BMP 04/12/19 06:40 04/19/19 09:55 INR, PTT INR 1.65 (0.83-1.09) H 04/10/19 15:45 Problem List - Problems (1) Diabetic foot ulcer Code(s): E11.621 - TYPE 2 DIABETES MELLITUS WITH FOOT ULCER; L97.509 - NON- PRESSURE CHRONIC ULCER OTH PRT UNSP FOOT W UNSP SEVERITY (2) Type 2 diabetes mellitus Code(s): E11.9 - TYPE 2 DIABETES MELLITUS WITHOUT COMPLICATIONS Qualifiers: Diabetes mellitus complication detail: with autonomic neuropathy (3) CKD (chronic kidney disease) Code(s): N18.9 - CHRONIC KIDNEY DISEASE, UNSPECIFIED (4) GERD (gastroesophageal reflux disease) Code(s): K21.9 - GASTRO-ESOPHAGEAL REFLUX DISEASE WITHOUT ESOPHAGITIS (5) HLD (hyperlipidemia) Code(s): E78.5 - HYPERLIPIDEMIA, UNSPECIFIED (6) HTN (hypertension) Code(s): I10 - ESSENTIAL (PRIMARY) HYPERTENSION (7) BPH (benign prostatic hyperplasia) Code(s): N40.0 - BENIGN PROSTATIC HYPERPLASIA WITHOUT LOWER URINRY TRACT SYMP (8) Peripheral neuropathic pain Code(s): M79.2 - NEURALGIA AND NEURITIS, UNSPECIFIED
[2019-04-19] MEDS: ATORVASTATIN CA 40 MG TABLET (FP) PO SCH (21:59)
[2019-04-20] MEDS: PIPERACILLIN/TAZOB 2.25 GM 2.25 GM in DEXTROSE 5%-WATER - 50 ML IVPB SCH ×3 (01:00→17:34)
[2019-04-20] MEDS ORDERED: PIPERACILLIN/TAZOBACTAM 2.25 GM VIAL IVPB ONE ×4 (01:56→17:26)
[2019-04-20] MEDS ORDERED: DEXTROSE 5%-WATER - 50 ML IVPB ONE ×4 (01:56→17:26)
[2019-04-20] MEDS ORDERED: PT OWN MED DRAWER 7, Y5N ONE (05:34)
[2019-04-20] MEDS: ACETAMINOPHEN 500 MG TABLET (FP) PO PRN ×3 (06:20→21:14)
[2019-04-20] MEDS: glipiZIDE-XL 2.5 MG TAB.ER.24 PO SCH (06:20)
[2019-04-20] MEDS: INSULIN SLIDING SCALE (NOVOLOG) 1 VIAL SQ SCH ×4 (06:27→21:18)
[2019-04-20] MEDS: CALCITRIOL 0.25 MCG CAPSULE (FP) PO SCH (10:06)
[2019-04-20] MEDS: MULTIVITAMINS (DAILY MVI) TABLET (FP) PO SCH (10:06)
[2019-04-20] MEDS: ALLOPURINOL 100 MG TABLET (FP) PO SCH (10:06)
[2019-04-20] MEDS: TORSEMIDE 20 MG TABLET (FP) PO SCH (10:07)
[2019-04-20] MEDS: ASPIRIN 81 MG CHEWABLE TABLETS PO SCH (10:07)
[2019-04-20] MEDS: TAMSULOSIN HCL 0.4 MG CAP PO SCH (10:07)
[2019-04-20] MEDS: PANTOPRAZOLE 40 MG TABLET (FP) PO SCH (10:07)
[2019-04-20] MEDS: CARVEDILOL 25 MG TABLET (FP) PO SCH ×2 (10:08→21:14)
[2019-04-20] MEDS: SPIRONOLACTONE 25 MG TABLET (FP) PO SCH (10:10)
[2019-04-20] MEDS: COLLAGENASE CLOSTRIDIUM HIST. 30 GRAMS TUBE TP SCH (10:16)
--- NOTE | 2019-04-20 10:29 | PN ---
Progress Note, Physician History of Present Illness: stable no new issues - Current Medication List Current Medications: Active Medications Acetaminophen (Tylenol -) 500 mg PO Q6H PRN PRN Reason: PAIN Last Admin: 04/20/19 06:20 Dose: 500 mg Allopurinol (Zyloprim -) 100 mg PO DAILY [facility] Last Admin: 04/20/19 10:06 Dose: 100 mg Aspirin (Asa -) 81 mg PO DAILY [facility] Last Admin: 04/20/19 10:07 Dose: 81 mg Atorvastatin Calcium (Lipitor -) 40 mg PO HS [facility] Last Admin: 04/19/19 21:59 Dose: 40 mg Calcitriol (Rocaltrol -) 0.25 mcg PO DAILY [facility] Last Admin: 04/20/19 10:06 Dose: 0.25 mcg Carvedilol (Coreg -) 25 mg PO BID [facility] Last Admin: 04/20/19 10:08 Dose: 25 mg Collagenase (Santyl -) 1 applic TP DAILY [facility]; Protocol Last Admin: 04/20/19 10:16 Dose: 1 applic Ferrous Sulfate (Feosol -) 325 mg PO Q2D [facility] Last Admin: 04/19/19 09:38 Dose: 325 mg Glipizide (Glucotrol Xl -) 2.5 mg PO ACBK [facility] Last Admin: 04/20/19 06:20 Dose: 2.5 mg Piperacillin Sod/Tazobactam (Sod 2.25 gm/ Dextrose) 50 mls @ 100 mls/hr IVPB Q8H-IV [facility]; Protocol Last Admin: 04/20/19 10:07 Dose: 100 mls/hr Insulin Aspart (Novolog Vial Sliding Scale -) 1 vial SQ ACHS [facility]; Protocol Last Admin: 04/20/19 06:27 Dose: Not Given Multivitamins/Minerals/Vitamin C (Tab-A-Vit -) 1 tab PO DAILY [facility] Last Admin: 04/20/19 10:06 Dose: 1 tab Pantoprazole Sodium (Protonix -) 40 mg PO DAILY [facility] Last Admin: 04/20/19 10:07 Dose: 40 mg Rivaroxaban (Xarelto) 15 mg PO DAILY@1800 [facility] Last Admin: 04/19/19 17:17 Dose: 15 mg Spironolactone (Aldactone -) 25 mg PO DAILY [facility] Last Admin: 04/20/19 10:10 Dose: 25 mg Tamsulosin HCl (Flomax -) 0.4 mg PO DAILY@0830 [facility] Last Admin: 04/20/19 10:07 Dose: 0.4 mg Torsemide (Demadex -) 40 mg PO DAILY [facility] Last Admin: 04/20/19 10:07 Dose: 40 mg - Objective Vital Signs: Vital Signs Temperature 97.5 F L 04/20/19 06:32 Pulse Rate 60 04/20/19 06:32 Respiratory Rate 20 04/20/19 06:32 Blood Pressure 120/66 04/20/19 06:32 O2 Sat by Pulse Oximetry (%) 98 04/19/19 21:00 Constitutional: Yes: No Distress, Calm Respiratory: Yes: Regular, CTA Bilaterally Gastrointestinal: Yes: Normal Bowel Sounds, Soft Musculoskeletal: Yes: WNL Extremities: Yes: Other Wound/Incision: Yes: Dressing Dry and Intact Neurological: Yes: Alert, Oriented Psychiatric: Yes: Alert, Oriented Labs: CBC, BMP 04/12/19 06:40 04/19/19 09:55 INR, PTT INR 1.65 (0.83-1.09) H 04/10/19 15:45 Assessment/Plan Problem List - Problems (1) Diabetic foot ulcer Code(s): E11.621 - TYPE 2 DIABETES MELLITUS WITH FOOT ULCER; L97.509 - NON- PRESSURE CHRONIC ULCER OTH PRT UNSP FOOT W UNSP SEVERITY (2) BPH (benign prostatic hyperplasia) Code(s): N40.0 - BENIGN PROSTATIC HYPERPLASIA WITHOUT LOWER URINRY TRACT SYMP (3) CKD (chronic kidney disease) Code(s): N18.9 - CHRONIC KIDNEY DISEASE, UNSPECIFIED (4) Cellulitis of right foot Code(s): L03.115 - CELLULITIS OF RIGHT LOWER LIMB (5) HLD (hyperlipidemia) Code(s): E78.5 - HYPERLIPIDEMIA, UNSPECIFIED (6) HTN (hypertension) Code(s): I10 - ESSENTIAL (PRIMARY) HYPERTENSION (7) Type 2 diabetes mellitus Code(s): E11.9 - TYPE 2 DIABETES MELLITUS WITHOUT COMPLICATIONS Qualifiers: Diabetes mellitus complication detail: with autonomic neuropathy Assessment/Plan Rt foot wound infection/cellulitis ? OM s/p RT TMA Lt 5th toe laceration VICTOR M on ?CKD continue abx await for podiatry rest as per the team wound care
[2019-04-20] MEDS: RIVAROXABAN 15 MG TABLET PO SCH (17:34)
[2019-04-20] MEDS: ATORVASTATIN CA 40 MG TABLET (FP) PO SCH (21:14)
--- NOTE | 2019-04-20 22:31 | PN ---
Progress Note, Physician - Current Medication List Current Medications: Active Medications Acetaminophen (Tylenol -) 500 mg PO Q6H PRN PRN Reason: PAIN Last Admin: 04/20/19 21:14 Dose: 500 mg Allopurinol (Zyloprim -) 100 mg PO DAILY [facility] Last Admin: 04/20/19 10:06 Dose: 100 mg Aspirin (Asa -) 81 mg PO DAILY [facility] Last Admin: 04/20/19 10:07 Dose: 81 mg Atorvastatin Calcium (Lipitor -) 40 mg PO HS [facility] Last Admin: 04/20/19 21:14 Dose: 40 mg Calcitriol (Rocaltrol -) 0.25 mcg PO DAILY [facility] Last Admin: 04/20/19 10:06 Dose: 0.25 mcg Carvedilol (Coreg -) 25 mg PO BID [facility] Last Admin: 04/20/19 21:14 Dose: 25 mg Collagenase (Santyl -) 1 applic TP DAILY [facility]; Protocol Last Admin: 04/20/19 10:16 Dose: 1 applic Ferrous Sulfate (Feosol -) 325 mg PO Q2D [facility] Last Admin: 04/19/19 09:38 Dose: 325 mg Glipizide (Glucotrol Xl -) 2.5 mg PO ACBK [facility] Last Admin: 04/20/19 06:20 Dose: 2.5 mg Piperacillin Sod/Tazobactam (Sod 2.25 gm/ Dextrose) 50 mls @ 100 mls/hr IVPB Q8H-IV [facility]; Protocol Last Admin: 04/20/19 17:34 Dose: 100 mls/hr Insulin Aspart (Novolog Vial Sliding Scale -) 1 vial SQ ACHS [facility]; Protocol Last Admin: 04/20/19 21:18 Dose: Not Given Multivitamins/Minerals/Vitamin C (Tab-A-Vit -) 1 tab PO DAILY [facility] Last Admin: 04/20/19 10:06 Dose: 1 tab Pantoprazole Sodium (Protonix -) 40 mg PO DAILY [facility] Last Admin: 04/20/19 10:07 Dose: 40 mg Rivaroxaban (Xarelto) 15 mg PO DAILY@1800 [facility] Last Admin: 04/20/19 17:34 Dose: 15 mg Spironolactone (Aldactone -) 25 mg PO DAILY [facility] Last Admin: 04/20/19 10:10 Dose: 25 mg Tamsulosin HCl (Flomax -) 0.4 mg PO DAILY@0830 [facility] Last Admin: 04/20/19 10:07 Dose: 0.4 mg Torsemide (Demadex -) 40 mg PO DAILY [facility] Last Admin: 04/20/19 10:07 Dose: 40 mg - Objective Vital Signs: Vital Signs Temperature 98.1 F 04/20/19 17:09 Pulse Rate 60 04/20/19 17:09 Respiratory Rate 20 04/20/19 17:09 Blood Pressure 124/85 04/20/19 17:09 O2 Sat by Pulse Oximetry (%) 98 04/20/19 09:00 Labs: CBC, BMP 04/12/19 06:40 04/19/19 09:55 INR, PTT INR 1.65 (0.83-1.09) H 04/10/19 15:45 Problem List - Problems (1) Diabetic foot ulcer Code(s): E11.621 - TYPE 2 DIABETES MELLITUS WITH FOOT ULCER; L97.509 - NON- PRESSURE CHRONIC ULCER OTH PRT UNSP FOOT W UNSP SEVERITY (2) Type 2 diabetes mellitus Code(s): E11.9 - TYPE 2 DIABETES MELLITUS WITHOUT COMPLICATIONS Qualifiers: Diabetes mellitus complication detail: with autonomic neuropathy (3) CKD (chronic kidney disease) Code(s): N18.9 - CHRONIC KIDNEY DISEASE, UNSPECIFIED (4) GERD (gastroesophageal reflux disease) Code(s): K21.9 - GASTRO-ESOPHAGEAL REFLUX DISEASE WITHOUT ESOPHAGITIS (5) HLD (hyperlipidemia) Code(s): E78.5 - HYPERLIPIDEMIA, UNSPECIFIED (6) HTN (hypertension) Code(s): I10 - ESSENTIAL (PRIMARY) HYPERTENSION (7) BPH (benign prostatic hyperplasia) Code(s): N40.0 - BENIGN PROSTATIC HYPERPLASIA WITHOUT LOWER URINRY TRACT SYMP (8) Peripheral neuropathic pain Code(s): M79.2 - NEURALGIA AND NEURITIS, UNSPECIFIED
[2019-04-21] MEDS ORDERED: DEXTROSE 5%-WATER - 50 ML IVPB ONE ×3 (00:58→17:11)
[2019-04-21] MEDS ORDERED: PIPERACILLIN/TAZOBACTAM 2.25 GM VIAL IVPB ONE ×3 (00:58→17:11)
[2019-04-21] MEDS: PIPERACILLIN/TAZOB 2.25 GM 2.25 GM in DEXTROSE 5%-WATER - 50 ML IVPB SCH ×3 (01:15→17:13)
[2019-04-21] MEDS: ACETAMINOPHEN 500 MG TABLET (FP) PO PRN ×3 (06:49→20:59)
[2019-04-21] MEDS: glipiZIDE-XL 2.5 MG TAB.ER.24 PO SCH (06:49)
[2019-04-21] MEDS: INSULIN SLIDING SCALE (NOVOLOG) 1 VIAL SQ SCH ×4 (07:56→21:01)
[2019-04-21] MEDS: TAMSULOSIN HCL 0.4 MG CAP PO SCH (08:31)
[2019-04-21] MEDS: TORSEMIDE 20 MG TABLET (FP) PO SCH (09:32)
[2019-04-21] MEDS: MULTIVITAMINS (DAILY MVI) TABLET (FP) PO SCH (09:32)
[2019-04-21] MEDS: COLLAGENASE CLOSTRIDIUM HIST. 30 GRAMS TUBE TP SCH (09:33)
[2019-04-21] MEDS: ALLOPURINOL 100 MG TABLET (FP) PO SCH (09:33)
[2019-04-21] MEDS: CARVEDILOL 25 MG TABLET (FP) PO SCH ×2 (09:33→21:00)
[2019-04-21] MEDS: SPIRONOLACTONE 25 MG TABLET (FP) PO SCH (09:33)
[2019-04-21] MEDS: CALCITRIOL 0.25 MCG CAPSULE (FP) PO SCH (09:33)
[2019-04-21] MEDS: FERROUS SO4 325 MG TABLET (FP) PO SCH (09:33)
[2019-04-21] MEDS: PANTOPRAZOLE 40 MG TABLET (FP) PO SCH (09:33)
[2019-04-21] MEDS: ASPIRIN 81 MG CHEWABLE TABLETS PO SCH (09:33)
--- NOTE | 2019-04-21 10:36 | PN ---
Progress Note, Physician History of Present Illness: stable no new issues - Current Medication List Current Medications: Active Medications Acetaminophen (Tylenol -) 500 mg PO Q6H PRN PRN Reason: PAIN Last Admin: 04/21/19 06:49 Dose: 500 mg Allopurinol (Zyloprim -) 100 mg PO DAILY [facility] Last Admin: 04/21/19 09:33 Dose: 100 mg Aspirin (Asa -) 81 mg PO DAILY [facility] Last Admin: 04/21/19 09:33 Dose: 81 mg Atorvastatin Calcium (Lipitor -) 40 mg PO HS [facility] Last Admin: 04/20/19 21:14 Dose: 40 mg Calcitriol (Rocaltrol -) 0.25 mcg PO DAILY [facility] Last Admin: 04/21/19 09:33 Dose: 0.25 mcg Carvedilol (Coreg -) 25 mg PO BID [facility] Last Admin: 04/21/19 09:33 Dose: 25 mg Collagenase (Santyl -) 1 applic TP DAILY [facility]; Protocol Last Admin: 04/21/19 09:33 Dose: 1 applic Ferrous Sulfate (Feosol -) 325 mg PO Q2D [facility] Last Admin: 04/21/19 09:33 Dose: 325 mg Glipizide (Glucotrol Xl -) 2.5 mg PO ACBK [facility] Last Admin: 04/21/19 06:49 Dose: 2.5 mg Piperacillin Sod/Tazobactam (Sod 2.25 gm/ Dextrose) 50 mls @ 100 mls/hr IVPB Q8H-IV [facility]; Protocol Last Admin: 04/21/19 09:32 Dose: 100 mls/hr Insulin Aspart (Novolog Vial Sliding Scale -) 1 vial SQ ACHS [facility]; Protocol Last Admin: 04/21/19 07:56 Dose: Not Given Multivitamins/Minerals/Vitamin C (Tab-A-Vit -) 1 tab PO DAILY [facility] Last Admin: 04/21/19 09:32 Dose: 1 tab Pantoprazole Sodium (Protonix -) 40 mg PO DAILY [facility] Last Admin: 04/21/19 09:33 Dose: 40 mg Rivaroxaban (Xarelto) 15 mg PO DAILY@1800 [facility] Last Admin: 04/20/19 17:34 Dose: 15 mg Spironolactone (Aldactone -) 25 mg PO DAILY [facility] Last Admin: 04/21/19 09:33 Dose: 25 mg Tamsulosin HCl (Flomax -) 0.4 mg PO DAILY@0830 [facility] Last Admin: 04/21/19 08:31 Dose: 0.4 mg Torsemide (Demadex -) 40 mg PO DAILY [facility] Last Admin: 04/21/19 09:32 Dose: 40 mg - Objective Vital Signs: Vital Signs Temperature 97.5 F L 04/21/19 07:04 Pulse Rate 61 04/21/19 07:04 Respiratory Rate 20 04/21/19 07:04 Blood Pressure 124/72 04/21/19 07:04 O2 Sat by Pulse Oximetry (%) 95 04/20/19 21:00 Constitutional: Yes: No Distress, Calm Cardiovascular: Yes: S1, S2 Gastrointestinal: Yes: Normal Bowel Sounds, Soft Musculoskeletal: Yes: WNL Extremities: Yes: Other Wound/Incision: Yes: Dressing Dry and Intact Psychiatric: Yes: Alert, Oriented Labs: CBC, BMP 04/12/19 06:40 04/19/19 09:55 INR, PTT INR 1.65 (0.83-1.09) H 04/10/19 15:45 Assessment/Plan Problem List - Problems (1) Diabetic foot ulcer Code(s): E11.621 - TYPE 2 DIABETES MELLITUS WITH FOOT ULCER; L97.509 - NON- PRESSURE CHRONIC ULCER OTH PRT UNSP FOOT W UNSP SEVERITY (2) BPH (benign prostatic hyperplasia) Code(s): N40.0 - BENIGN PROSTATIC HYPERPLASIA WITHOUT LOWER URINRY TRACT SYMP (3) CKD (chronic kidney disease) Code(s): N18.9 - CHRONIC KIDNEY DISEASE, UNSPECIFIED (4) Cellulitis of right foot Code(s): L03.115 - CELLULITIS OF RIGHT LOWER LIMB (5) HLD (hyperlipidemia) Code(s): E78.5 - HYPERLIPIDEMIA, UNSPECIFIED (6) HTN (hypertension) Code(s): I10 - ESSENTIAL (PRIMARY) HYPERTENSION (7) Type 2 diabetes mellitus Code(s): E11.9 - TYPE 2 DIABETES MELLITUS WITHOUT COMPLICATIONS Qualifiers: Diabetes mellitus complication detail: with autonomic neuropathy Assessment/Plan Rt foot wound infection/cellulitis ? OM s/p RT TMA Lt 5th toe laceration VICTOR M on ?CKD continue abx will deescalate in couple of days
[2019-04-21] MEDS ORDERED: INSULIN (NOVOLOG) ASPART 100 UNITS/ML 10ML VIAL ONE (11:43)
--- NOTE | 2019-04-21 15:15 | PN ---
Progress Note, Physician History of Present Illness: Pt seen and examined at bedside. He is awake and alert. He denies shortness of breath. He denies lower ext edema. - Current Medication List Current Medications: Active Medications Acetaminophen (Tylenol -) 500 mg PO Q6H PRN PRN Reason: PAIN Last Admin: 04/21/19 13:54 Dose: 500 mg Allopurinol (Zyloprim -) 100 mg PO DAILY [facility] Last Admin: 04/21/19 09:33 Dose: 100 mg Aspirin (Asa -) 81 mg PO DAILY [facility] Last Admin: 04/21/19 09:33 Dose: 81 mg Atorvastatin Calcium (Lipitor -) 40 mg PO HS [facility] Last Admin: 04/20/19 21:14 Dose: 40 mg Calcitriol (Rocaltrol -) 0.25 mcg PO DAILY [facility] Last Admin: 04/21/19 09:33 Dose: 0.25 mcg Carvedilol (Coreg -) 25 mg PO BID [facility] Last Admin: 04/21/19 09:33 Dose: 25 mg Collagenase (Santyl -) 1 applic TP DAILY [facility]; Protocol Last Admin: 04/21/19 09:33 Dose: 1 applic Ferrous Sulfate (Feosol -) 325 mg PO Q2D [facility] Last Admin: 04/21/19 09:33 Dose: 325 mg Glipizide (Glucotrol Xl -) 2.5 mg PO ACBK [facility] Last Admin: 04/21/19 06:49 Dose: 2.5 mg Piperacillin Sod/Tazobactam (Sod 2.25 gm/ Dextrose) 50 mls @ 100 mls/hr IVPB Q8H-IV [facility]; Protocol Last Admin: 04/21/19 09:32 Dose: 100 mls/hr Insulin Aspart (Novolog Vial Sliding Scale -) 1 vial SQ ACHS [facility]; Protocol Last Admin: 04/21/19 11:49 Dose: Not Given Multivitamins/Minerals/Vitamin C (Tab-A-Vit -) 1 tab PO DAILY [facility] Last Admin: 04/21/19 09:32 Dose: 1 tab Pantoprazole Sodium (Protonix -) 40 mg PO DAILY [facility] Last Admin: 04/21/19 09:33 Dose: 40 mg Rivaroxaban (Xarelto) 15 mg PO DAILY@1800 [facility] Last Admin: 04/20/19 17:34 Dose: 15 mg Spironolactone (Aldactone -) 25 mg PO DAILY [facility] Last Admin: 04/21/19 09:33 Dose: 25 mg Tamsulosin HCl (Flomax -) 0.4 mg PO DAILY@0830 [facility] Last Admin: 04/21/19 08:31 Dose: 0.4 mg Torsemide (Demadex -) 40 mg PO DAILY [facility] Last Admin: 04/21/19 09:32 Dose: 40 mg - Objective Vital Signs: Vital Signs Temperature 97.5 F L 04/21/19 07:04 Pulse Rate 61 04/21/19 07:04 Respiratory Rate 20 04/21/19 07:04 Blood Pressure 124/72 04/21/19 07:04 O2 Sat by Pulse Oximetry (%) 95 04/20/19 21:00 Constitutional: Yes: Calm Eyes: Yes: Conjunctiva Clear HENT: Yes: Atraumatic Neck: Yes: Supple Cardiovascular: Yes: S1, S2 Respiratory: Yes: CTA Bilaterally Gastrointestinal: Yes: Normal Bowel Sounds, Soft, Abdomen, Obese Genitourinary: Yes: WNL Musculoskeletal: Yes: WNL Edema: No Wound/Incision: Yes: Dressing Dry and Intact Neurological: Yes: Oriented Psychiatric: Yes: Oriented Labs: CBC, BMP 04/12/19 06:40 04/19/19 09:55 INR, PTT INR 1.65 (0.83-1.09) H 04/10/19 15:45 Problem List - Problems (1) Diabetic foot ulcer Code(s): E11.621 - TYPE 2 DIABETES MELLITUS WITH FOOT ULCER; L97.509 - NON- PRESSURE CHRONIC ULCER OTH PRT UNSP FOOT W UNSP SEVERITY (2) BPH (benign prostatic hyperplasia) Code(s): N40.0 - BENIGN PROSTATIC HYPERPLASIA WITHOUT LOWER URINRY TRACT SYMP (3) CKD (chronic kidney disease) Code(s): N18.9 - CHRONIC KIDNEY DISEASE, UNSPECIFIED Assessment/Plan Current Medications Generic Name Dose Route Start Last Admin Trade Name Freq PRN Reason Stop Dose Admin Acetaminophen 500 mg 04/11/19 00:29 04/21/19 13:54 Tylenol - PO 500 mg Q6H PRN Administration PAIN Allopurinol 100 mg 04/11/19 10:00 04/21/19 09:33 Zyloprim - PO 100 mg DAILY [facility] Administration Aspirin 81 mg 04/16/19 10:00 04/21/19 09:33 Asa - PO 81 mg DAILY [facility] Administration Atorvastatin Calcium 40 mg 04/14/19 22:00 04/20/19 21:14 Lipitor - PO 40 mg HS [facility] Administration Calcitriol 0.25 mcg 04/11/19 10:00 04/21/19 09:33 Rocaltrol - PO 0.25 mcg DAILY [facility] Administration Carvedilol 25 mg 04/11/19 01:00 04/21/19 09:33 Coreg - PO 25 mg BID [facility] Administration Collagenase 1 applic 04/11/19 12:00 04/21/19 09:33 Santyl - TP 1 applic DAILY [facility] Administration Protocol Ferrous Sulfate 325 mg 04/11/19 10:00 04/21/19 09:33 Feosol - PO 325 mg Q2D [facility] Administration Glipizide 2.5 mg 04/11/19 07:00 04/21/19 06:49 Glucotrol Xl - PO 2.5 mg ACBK [facility] Administration Piperacillin Sod/Tazobactam 50 mls @ 100 mls/hr 04/13/19 18:00 04/21/19 09:32 Sod 2.25 gm/ Dextrose IVPB 100 mls/hr Q8H-IV [facility] Administration Protocol Insulin Aspart 1 vial 04/11/19 07:00 04/21/19 11:49 Novolog Vial Sliding Scale - SQ Not Given ACHS [facility] Protocol Multivitamins/Minerals/Vitamin C 1 tab 04/11/19 10:00 04/21/19 09:32 Tab-A-Vit - PO 1 tab DAILY [facility] Administration Pantoprazole Sodium 40 mg 04/16/19 10:00 04/21/19 09:33 Protonix - PO 40 mg DAILY [facility] Administration Rivaroxaban 15 mg 04/16/19 18:00 04/20/19 17:34 Xarelto PO 15 mg DAILY@1800 [facility] Administration Spironolactone 25 mg 04/11/19 10:00 04/21/19 09:33 Aldactone - PO 25 mg DAILY [facility] Administration Tamsulosin HCl 0.4 mg 04/11/19 08:30 04/21/19 08:31 Flomax - PO 0.4 mg DAILY@0830 [facility] Administration Torsemide 40 mg 04/14/19 10:00 04/21/19 09:32 Demadex - PO 40 mg DAILY [facility] Administration Impression 1. CKD 2. CHF ef 30 to 35 3. non healing wound 4. dvt 5. htn 6. hld 7. DM Plan - check bmp - volume status is stable - cont wound care - avoid nsaids - will need outpt renal follow up
--- NOTE | 2019-04-21 16:40 | PN ---
Progress Note (short form) - Note Progress Note: FUV right foot and left foot. Pt in house to get his antibiotics TID. right foot granulating well on both wound areas, -drainage on lateral side of foot resolved maceration, +improved erythema, left foot sub digit 5 granulating laceration site OM right granulating wounds improving cellulitis laceration 5th toe left granulating Dressing hange done b/l. DO NOT REMOVE LEFT FOOT DRESSING. Santyl to right foot wounds. Abx as per ID. Will follow in [facility] and continue HBO and IVABX at home. Continue bathroom privelages with bed rest. Discussed with ID.
[2019-04-21] MEDS: RIVAROXABAN 15 MG TABLET PO SCH (17:13)
[2019-04-21] MEDS: ATORVASTATIN CA 40 MG TABLET (FP) PO SCH (21:00)
--- NOTE | 2019-04-21 21:31 | PN ---
Progress Note, Physician History of Present Illness: No new complaints - Current Medication List Current Medications: Active Medications Acetaminophen (Tylenol -) 500 mg PO Q6H PRN PRN Reason: PAIN Last Admin: 04/21/19 20:59 Dose: 500 mg Allopurinol (Zyloprim -) 100 mg PO DAILY [facility] Last Admin: 04/21/19 09:33 Dose: 100 mg Aspirin (Asa -) 81 mg PO DAILY [facility] Last Admin: 04/21/19 09:33 Dose: 81 mg Atorvastatin Calcium (Lipitor -) 40 mg PO HS [facility] Last Admin: 04/21/19 21:00 Dose: 40 mg Calcitriol (Rocaltrol -) 0.25 mcg PO DAILY [facility] Last Admin: 04/21/19 09:33 Dose: 0.25 mcg Carvedilol (Coreg -) 25 mg PO BID [facility] Last Admin: 04/21/19 21:00 Dose: 25 mg Collagenase (Santyl -) 1 applic TP DAILY [facility]; Protocol Last Admin: 04/21/19 09:33 Dose: 1 applic Ferrous Sulfate (Feosol -) 325 mg PO Q2D [facility] Last Admin: 04/21/19 09:33 Dose: 325 mg Glipizide (Glucotrol Xl -) 2.5 mg PO ACBK [facility] Last Admin: 04/21/19 06:49 Dose: 2.5 mg Piperacillin Sod/Tazobactam (Sod 2.25 gm/ Dextrose) 50 mls @ 100 mls/hr IVPB Q8H-IV [facility]; Protocol Last Admin: 04/21/19 17:13 Dose: 100 mls/hr Insulin Aspart (Novolog Vial Sliding Scale -) 1 vial SQ ACHS [facility]; Protocol Last Admin: 04/21/19 21:01 Dose: Not Given Multivitamins/Minerals/Vitamin C (Tab-A-Vit -) 1 tab PO DAILY [facility] Last Admin: 04/21/19 09:32 Dose: 1 tab Pantoprazole Sodium (Protonix -) 40 mg PO DAILY [facility] Last Admin: 04/21/19 09:33 Dose: 40 mg Rivaroxaban (Xarelto) 15 mg PO DAILY@1800 [facility] Last Admin: 04/21/19 17:13 Dose: 15 mg Spironolactone (Aldactone -) 25 mg PO DAILY [facility] Last Admin: 04/21/19 09:33 Dose: 25 mg Tamsulosin HCl (Flomax -) 0.4 mg PO DAILY@0830 [facility] Last Admin: 04/21/19 08:31 Dose: 0.4 mg Torsemide (Demadex -) 40 mg PO DAILY [facility] Last Admin: 04/21/19 09:32 Dose: 40 mg - Objective Vital Signs: Vital Signs Temperature 98.4 F 04/21/19 16:59 Pulse Rate 71 04/21/19 15:25 Respiratory Rate 20 04/21/19 16:59 Blood Pressure 117/81 04/21/19 16:59 O2 Sat by Pulse Oximetry (%) 95 04/20/19 21:00 Neck: Yes: WNL, Supple Cardiovascular: Yes: WNL, Regular Rate and Rhythm Respiratory: Yes: WNL, Regular, CTA Bilaterally Gastrointestinal: Yes: WNL, Normal Bowel Sounds, Soft Extremities: Yes: Other (B/L feet w/ dressing) Labs: CBC, BMP 04/12/19 06:40 04/19/19 09:55 INR, PTT INR 1.65 (0.83-1.09) H 04/10/19 15:45 Problem List - Problems (1) Diabetic foot ulcer Assessment/Plan: Cont IV zosyn BC remain negative Podiatry note reviewed ont wound care Code(s): E11.621 - TYPE 2 DIABETES MELLITUS WITH FOOT ULCER; L97.509 - NON- PRESSURE CHRONIC ULCER OTH PRT UNSP FOOT W UNSP SEVERITY (2) Type 2 diabetes mellitus Assessment/Plan: Cont glybizide Cont sliding scale w/ coverage Code(s): E11.9 - TYPE 2 DIABETES MELLITUS WITHOUT COMPLICATIONS Qualifiers: Diabetes mellitus complication detail: with autonomic neuropathy (3) CKD (chronic kidney disease) Code(s): N18.9 - CHRONIC KIDNEY DISEASE, UNSPECIFIED (4) GERD (gastroesophageal reflux disease) Code(s): K21.9 - GASTRO-ESOPHAGEAL REFLUX DISEASE WITHOUT ESOPHAGITIS (5) HLD (hyperlipidemia) Assessment/Plan: Cont lipitor Code(s): E78.5 - HYPERLIPIDEMIA, UNSPECIFIED (6) HTN (hypertension) Assessment/Plan: BP stable Cont antihypertensives Code(s): I10 - ESSENTIAL (PRIMARY) HYPERTENSION (7) BPH (benign prostatic hyperplasia) Assessment/Plan: Cont flomax Code(s): N40.0 - BENIGN PROSTATIC HYPERPLASIA WITHOUT LOWER URINRY TRACT SYMP (8) Peripheral neuropathic pain Assessment/Plan: Cont lyrica Code(s): M79.2 - NEURALGIA AND NEURITIS, UNSPECIFIED
[2019-04-22] MEDS ORDERED: PIPERACILLIN/TAZOBACTAM 2.25 GM VIAL IVPB ONE ×3 (01:51→17:41)
[2019-04-22] MEDS ORDERED: DEXTROSE 5%-WATER - 50 ML IVPB ONE ×3 (01:51→17:41)
[2019-04-22] MEDS: PIPERACILLIN/TAZOB 2.25 GM 2.25 GM in DEXTROSE 5%-WATER - 50 ML IVPB SCH ×3 (01:55→17:50)
[2019-04-22] MEDS: ACETAMINOPHEN 500 MG TABLET (FP) PO PRN ×3 (02:55→21:31)
[2019-04-22] MEDS ORDERED: PT OWN MED DRAWER 7, Y5N ONE (06:26)
[2019-04-22] MEDS: glipiZIDE-XL 2.5 MG TAB.ER.24 PO SCH (06:34)
[2019-04-22] MEDS: INSULIN SLIDING SCALE (NOVOLOG) 1 VIAL SQ SCH ×4 (06:39→21:32)
[2019-04-22 08:34] LABS: ALBUMIN 3.5 g/dl (3.4-5.0); BILIRUBIN,TOTAL 0.9 mg/dL (0.2-1); BLOOD UREA NITROGEN 51.9 mg/dL (7-18); CALCIUM 9.2 mg/dL (8.5-10.1); CREATININE 1.8 mg/dL (0.55-1.3); POTASSIUM 4.2 mmol/L (3.5-5.1); TOT PROT 6.8 g/dl (6.4-8.2)
[2019-04-22] MEDS: ALLOPURINOL 100 MG TABLET (FP) PO SCH (09:22)
[2019-04-22] MEDS: TAMSULOSIN HCL 0.4 MG CAP PO SCH (09:22)
[2019-04-22] MEDS: ASPIRIN 81 MG CHEWABLE TABLETS PO SCH (09:22)
[2019-04-22] MEDS: PANTOPRAZOLE 40 MG TABLET (FP) PO SCH (09:22)
[2019-04-22] MEDS: CALCITRIOL 0.25 MCG CAPSULE (FP) PO SCH (09:22)
[2019-04-22] MEDS: TORSEMIDE 20 MG TABLET (FP) PO SCH (09:22)
[2019-04-22] MEDS: SPIRONOLACTONE 25 MG TABLET (FP) PO SCH (09:23)
[2019-04-22] MEDS: CARVEDILOL 25 MG TABLET (FP) PO SCH ×2 (09:23→21:30)
[2019-04-22] MEDS: COLLAGENASE CLOSTRIDIUM HIST. 30 GRAMS TUBE TP SCH (09:23)
[2019-04-22] MEDS: MULTIVITAMINS (DAILY MVI) TABLET (FP) PO SCH (09:23)
--- NOTE | 2019-04-22 11:33 | PN ---
Progress Note, Physician History of Present Illness: stable no new issues - Current Medication List Current Medications: Active Medications Acetaminophen (Tylenol -) 500 mg PO Q6H PRN PRN Reason: PAIN Last Admin: 04/22/19 09:23 Dose: 500 mg Allopurinol (Zyloprim -) 100 mg PO DAILY [facility] Last Admin: 04/22/19 09:22 Dose: 100 mg Aspirin (Asa -) 81 mg PO DAILY [facility] Last Admin: 04/22/19 09:22 Dose: 81 mg Atorvastatin Calcium (Lipitor -) 40 mg PO HS [facility] Last Admin: 04/21/19 21:00 Dose: 40 mg Calcitriol (Rocaltrol -) 0.25 mcg PO DAILY [facility] Last Admin: 04/22/19 09:22 Dose: 0.25 mcg Carvedilol (Coreg -) 25 mg PO BID [facility] Last Admin: 04/22/19 09:23 Dose: 25 mg Collagenase (Santyl -) 1 applic TP DAILY [facility]; Protocol Last Admin: 04/22/19 09:23 Dose: 1 applic Ferrous Sulfate (Feosol -) 325 mg PO Q2D [facility] Last Admin: 04/21/19 09:33 Dose: 325 mg Glipizide (Glucotrol Xl -) 2.5 mg PO ACBK [facility] Last Admin: 04/22/19 06:34 Dose: 2.5 mg Piperacillin Sod/Tazobactam (Sod 2.25 gm/ Dextrose) 50 mls @ 100 mls/hr IVPB Q8H-IV [facility]; Protocol Last Admin: 04/22/19 09:22 Dose: 100 mls/hr Insulin Aspart (Novolog Vial Sliding Scale -) 1 vial SQ ACHS [facility]; Protocol Last Admin: 04/22/19 06:39 Dose: Not Given Multivitamins/Minerals/Vitamin C (Tab-A-Vit -) 1 tab PO DAILY [facility] Last Admin: 04/22/19 09:23 Dose: 1 tab Pantoprazole Sodium (Protonix -) 40 mg PO DAILY [facility] Last Admin: 04/22/19 09:22 Dose: 40 mg Rivaroxaban (Xarelto) 15 mg PO DAILY@1800 [facility] Last Admin: 04/21/19 17:13 Dose: 15 mg Spironolactone (Aldactone -) 25 mg PO DAILY [facility] Last Admin: 04/22/19 09:23 Dose: 25 mg Tamsulosin HCl (Flomax -) 0.4 mg PO DAILY@0830 [facility] Last Admin: 04/22/19 09:22 Dose: 0.4 mg Torsemide (Demadex -) 40 mg PO DAILY [facility] Last Admin: 04/22/19 09:22 Dose: 40 mg - Objective Vital Signs: Vital Signs Temperature 98.6 F 04/22/19 09:09 Pulse Rate 70 04/22/19 09:09 Respiratory Rate 18 04/22/19 09:09 Blood Pressure 128/70 04/22/19 09:09 O2 Sat by Pulse Oximetry (%) 98 04/21/19 21:00 Constitutional: Yes: No Distress, Calm Cardiovascular: Yes: S1, S2 Respiratory: Yes: Regular, CTA Bilaterally Gastrointestinal: Yes: Normal Bowel Sounds, Soft Musculoskeletal: Yes: WNL Extremities: Yes: WNL Wound/Incision: Yes: Dressing Dry and Intact Neurological: Yes: Alert, Oriented Psychiatric: Yes: Alert, Oriented Labs: CBC, BMP 04/12/19 06:40 04/22/19 07:10 INR, PTT INR 1.65 (0.83-1.09) H 04/10/19 15:45 Assessment/Plan Problem List - Problems (1) Diabetic foot ulcer Code(s): E11.621 - TYPE 2 DIABETES MELLITUS WITH FOOT ULCER; L97.509 - NON- PRESSURE CHRONIC ULCER OTH PRT UNSP FOOT W UNSP SEVERITY (2) BPH (benign prostatic hyperplasia) Code(s): N40.0 - BENIGN PROSTATIC HYPERPLASIA WITHOUT LOWER URINRY TRACT SYMP (3) CKD (chronic kidney disease) Code(s): N18.9 - CHRONIC KIDNEY DISEASE, UNSPECIFIED (4) Cellulitis of right foot Code(s): L03.115 - CELLULITIS OF RIGHT LOWER LIMB (5) HLD (hyperlipidemia) Code(s): E78.5 - HYPERLIPIDEMIA, UNSPECIFIED (6) HTN (hypertension) Code(s): I10 - ESSENTIAL (PRIMARY) HYPERTENSION (7) Type 2 diabetes mellitus Code(s): E11.9 - TYPE 2 DIABETES MELLITUS WITHOUT COMPLICATIONS Qualifiers: Diabetes mellitus complication detail: with autonomic neuropathy Assessment/Plan Rt foot wound infection/cellulitis ? OM s/p RT TMA Lt 5th toe laceration VICTOR M on ?CKD continue abx will deescalate in couple of days
[2019-04-22] MEDS ORDERED: INSULIN (NOVOLOG) ASPART 100 UNITS/ML 10ML VIAL ONE ×2 (11:49→17:42)
--- NOTE | 2019-04-22 17:21 | PN ---
Progress Note, Physician History of Present Illness: Pt seen and examined at bedside. He is awake and alert. He denies shortness of breath. - Current Medication List Current Medications: Active Medications Acetaminophen (Tylenol -) 500 mg PO Q6H PRN PRN Reason: PAIN Last Admin: 04/22/19 09:23 Dose: 500 mg Allopurinol (Zyloprim -) 100 mg PO DAILY [facility] Last Admin: 04/22/19 09:22 Dose: 100 mg Aspirin (Asa -) 81 mg PO DAILY [facility] Last Admin: 04/22/19 09:22 Dose: 81 mg Atorvastatin Calcium (Lipitor -) 40 mg PO HS [facility] Last Admin: 04/21/19 21:00 Dose: 40 mg Calcitriol (Rocaltrol -) 0.25 mcg PO DAILY [facility] Last Admin: 04/22/19 09:22 Dose: 0.25 mcg Carvedilol (Coreg -) 25 mg PO BID [facility] Last Admin: 04/22/19 09:23 Dose: 25 mg Collagenase (Santyl -) 1 applic TP DAILY [facility]; Protocol Last Admin: 04/22/19 09:23 Dose: 1 applic Ferrous Sulfate (Feosol -) 325 mg PO Q2D [facility] Last Admin: 04/21/19 09:33 Dose: 325 mg Glipizide (Glucotrol Xl -) 2.5 mg PO ACBK [facility] Last Admin: 04/22/19 06:34 Dose: 2.5 mg Piperacillin Sod/Tazobactam (Sod 2.25 gm/ Dextrose) 50 mls @ 100 mls/hr IVPB Q8H-IV [facility]; Protocol Last Admin: 04/22/19 09:22 Dose: 100 mls/hr Insulin Aspart (Novolog Vial Sliding Scale -) 1 vial SQ ACHS [facility]; Protocol Last Admin: 04/22/19 11:52 Dose: Not Given Multivitamins/Minerals/Vitamin C (Tab-A-Vit -) 1 tab PO DAILY [facility] Last Admin: 04/22/19 09:23 Dose: 1 tab Pantoprazole Sodium (Protonix -) 40 mg PO DAILY [facility] Last Admin: 04/22/19 09:22 Dose: 40 mg Rivaroxaban (Xarelto) 15 mg PO DAILY@1800 [facility] Last Admin: 04/21/19 17:13 Dose: 15 mg Spironolactone (Aldactone -) 25 mg PO DAILY [facility] Last Admin: 11/05/19 09:23 Dose: 25 mg Tamsulosin HCl (Flomax -) 0.4 mg PO DAILY@0830 [facility] Last Admin: 04/22/19 09:22 Dose: 0.4 mg Torsemide (Demadex -) 40 mg PO DAILY [facility] Last Admin: 04/22/19 09:22 Dose: 40 mg - Objective Vital Signs: Vital Signs Temperature 98.1 F 04/22/19 15:00 Pulse Rate 68 04/22/19 15:00 Respiratory Rate 18 04/22/19 15:00 Blood Pressure 123/73 04/22/19 15:00 O2 Sat by Pulse Oximetry (%) 98 04/21/19 21:00 Constitutional: Yes: Calm Eyes: Yes: Conjunctiva Clear HENT: Yes: Atraumatic Neck: Yes: Supple Cardiovascular: Yes: S1, S2 Respiratory: Yes: CTA Bilaterally Gastrointestinal: Yes: Soft Genitourinary: Yes: WNL Musculoskeletal: Yes: WNL Edema: No Neurological: Yes: Oriented Psychiatric: Yes: Oriented Labs: CBC, BMP 04/12/19 06:40 04/22/19 07:10 INR, PTT INR 1.65 (0.83-1.09) H 04/10/19 15:45 Problem List - Problems (1) Diabetic foot ulcer Code(s): E11.621 - TYPE 2 DIABETES MELLITUS WITH FOOT ULCER; L97.509 - NON- PRESSURE CHRONIC ULCER OTH PRT UNSP FOOT W UNSP SEVERITY (2) BPH (benign prostatic hyperplasia) Code(s): N40.0 - BENIGN PROSTATIC HYPERPLASIA WITHOUT LOWER URINRY TRACT SYMP (3) CKD (chronic kidney disease) Code(s): N18.9 - CHRONIC KIDNEY DISEASE, UNSPECIFIED Assessment/Plan Current Medications Generic Name Dose Route Start Last Admin Trade Name Freq PRN Reason Stop Dose Admin Acetaminophen 500 mg 04/11/19 00:29 04/22/19 09:23 Tylenol - PO 500 mg Q6H PRN Administration PAIN Allopurinol 100 mg 04/11/19 10:00 04/22/19 09:22 Zyloprim - PO 100 mg DAILY [facility] Administration Aspirin 81 mg 04/16/19 10:00 04/22/19 09:22 Asa - PO 81 mg DAILY [facility] Administration Atorvastatin Calcium 40 mg 04/14/19 22:00 04/21/19 21:00 Lipitor - PO 40 mg HS [facility] Administration Calcitriol 0.25 mcg 04/11/19 10:00 04/22/19 09:22 Rocaltrol - PO 0.25 mcg DAILY [facility] Administration Carvedilol 25 mg 04/11/19 01:00 04/22/19 09:23 Coreg - PO 25 mg BID [facility] Administration Collagenase 1 applic 04/11/19 12:00 04/22/19 09:23 Santyl - TP 1 applic DAILY [facility] Administration Protocol Ferrous Sulfate 325 mg 04/11/19 10:00 04/21/19 09:33 Feosol - PO 325 mg Q2D [facility] Administration Glipizide 2.5 mg 04/11/19 07:00 04/22/19 06:34 Glucotrol Xl - PO 2.5 mg ACBK [facility] Administration Piperacillin Sod/Tazobactam 50 mls @ 100 mls/hr 04/13/19 18:00 04/22/19 09:22 Sod 2.25 gm/ Dextrose IVPB 100 mls/hr Q8H-IV [facility] Administration Protocol Insulin Aspart 1 vial 04/11/19 07:00 04/22/19 11:52 Novolog Vial Sliding Scale - SQ Not Given ACHS [facility] Protocol Multivitamins/Minerals/Vitamin C 1 tab 04/11/19 10:00 04/22/19 09:23 Tab-A-Vit - PO 1 tab DAILY [facility] Administration Pantoprazole Sodium 40 mg 04/16/19 10:00 04/22/19 09:22 Protonix - PO 40 mg DAILY [facility] Administration Rivaroxaban 15 mg 04/16/19 18:00 04/21/19 17:13 Xarelto PO 15 mg DAILY@1800 [facility] Administration Spironolactone 25 mg 04/11/19 10:00 04/22/19 09:23 Aldactone - PO 25 mg DAILY [facility] Administration Tamsulosin HCl 0.4 mg 04/11/19 08:30 04/22/19 09:22 Flomax - PO 0.4 mg DAILY@0830 [facility] Administration Torsemide 40 mg 04/14/19 10:00 04/22/19 09:22 Demadex - PO 40 mg DAILY [facility] Administration Impression 1. CKD 2. CHF ef 30 to 35 3. non healing wound 4. dvt 5. htn 6. hld 7. DM Plan - cont diuretics - monitor renal function - volume status stable - discussed diet with pt - cont wound care - avoid nsaids - will need outpt renal follow up
[2019-04-22] MEDS: RIVAROXABAN 15 MG TABLET PO SCH (17:50)
[2019-04-22] MEDS: ATORVASTATIN CA 40 MG TABLET (FP) PO SCH (21:32)
--- NOTE | 2019-04-22 22:14 | PN ---
Progress Note, Physician History of Present Illness: No new complaints - Current Medication List Current Medications: Active Medications Acetaminophen (Tylenol -) 500 mg PO Q6H PRN PRN Reason: PAIN Last Admin: 04/22/19 21:31 Dose: 500 mg Allopurinol (Zyloprim -) 100 mg PO DAILY [facility] Last Admin: 04/22/19 09:22 Dose: 100 mg Aspirin (Asa -) 81 mg PO DAILY [facility] Last Admin: 04/22/19 09:22 Dose: 81 mg Atorvastatin Calcium (Lipitor -) 40 mg PO HS [facility] Last Admin: 04/22/19 21:32 Dose: 40 mg Calcitriol (Rocaltrol -) 0.25 mcg PO DAILY [facility] Last Admin: 04/22/19 09:22 Dose: 0.25 mcg Carvedilol (Coreg -) 25 mg PO BID [facility] Last Admin: 04/22/19 21:30 Dose: 25 mg Collagenase (Santyl -) 1 applic TP DAILY [facility]; Protocol Last Admin: 04/22/19 09:23 Dose: 1 applic Ferrous Sulfate (Feosol -) 325 mg PO Q2D [facility] Last Admin: 04/21/19 09:33 Dose: 325 mg Glipizide (Glucotrol Xl -) 2.5 mg PO ACBK [facility] Last Admin: 04/22/19 06:34 Dose: 2.5 mg Piperacillin Sod/Tazobactam (Sod 2.25 gm/ Dextrose) 50 mls @ 100 mls/hr IVPB Q8H-IV [facility]; Protocol Last Admin: 04/22/19 17:50 Dose: 100 mls/hr Insulin Aspart (Novolog Vial Sliding Scale -) 1 vial SQ ACHS [facility]; Protocol Last Admin: 04/22/19 21:32 Dose: Not Given Multivitamins/Minerals/Vitamin C (Tab-A-Vit -) 1 tab PO DAILY [facility] Last Admin: 04/22/19 09:23 Dose: 1 tab Pantoprazole Sodium (Protonix -) 40 mg PO DAILY [facility] Last Admin: 04/22/19 09:22 Dose: 40 mg Rivaroxaban (Xarelto) 15 mg PO DAILY@1800 [facility] Last Admin: 04/22/19 17:50 Dose: 15 mg Spironolactone (Aldactone -) 25 mg PO DAILY [facility] Last Admin: 04/22/19 09:23 Dose: 25 mg Tamsulosin HCl (Flomax -) 0.4 mg PO DAILY@0830 [facility] Last Admin: 04/22/19 09:22 Dose: 0.4 mg Torsemide (Demadex -) 40 mg PO DAILY [facility] Last Admin: 04/22/19 09:22 Dose: 40 mg - Objective Vital Signs: Vital Signs Temperature 97.9 F 04/22/19 20:41 Pulse Rate 68 04/22/19 20:41 Respiratory Rate 18 04/22/19 20:41 Blood Pressure 127/73 04/22/19 21:30 O2 Sat by Pulse Oximetry (%) 98 04/21/19 21:00 Neck: Yes: WNL, Supple Cardiovascular: Yes: WNL, Regular Rate and Rhythm Respiratory: Yes: WNL, Regular, CTA Bilaterally Gastrointestinal: Yes: WNL, Normal Bowel Sounds, Soft Labs: CBC, BMP 04/12/19 06:40 04/22/19 07:10 INR, PTT INR 1.65 (0.83-1.09) H 04/10/19 15:45 Problem List - Problems (1) Diabetic foot ulcer Assessment/Plan: Cont IV zosyn BC remain negative Podiatry note reviewed ont wound care Code(s): E11.621 - TYPE 2 DIABETES MELLITUS WITH FOOT ULCER; L97.509 - NON- PRESSURE CHRONIC ULCER OTH PRT UNSP FOOT W UNSP SEVERITY (2) Type 2 diabetes mellitus Assessment/Plan: Cont glybizide Cont sliding scale w/ coverage Code(s): E11.9 - TYPE 2 DIABETES MELLITUS WITHOUT COMPLICATIONS Qualifiers: Diabetes mellitus complication detail: with autonomic neuropathy (3) CKD (chronic kidney disease) Code(s): N18.9 - CHRONIC KIDNEY DISEASE, UNSPECIFIED (4) GERD (gastroesophageal reflux disease) Code(s): K21.9 - GASTRO-ESOPHAGEAL REFLUX DISEASE WITHOUT ESOPHAGITIS (5) HLD (hyperlipidemia) Assessment/Plan: Cont lipitor Code(s): E78.5 - HYPERLIPIDEMIA, UNSPECIFIED (6) HTN (hypertension) Assessment/Plan: BP stable Cont antihypertensives Code(s): I10 - ESSENTIAL (PRIMARY) HYPERTENSION (7) BPH (benign prostatic hyperplasia) Assessment/Plan: Cont flomax Code(s): N40.0 - BENIGN PROSTATIC HYPERPLASIA WITHOUT LOWER URINRY TRACT SYMP (8) Peripheral neuropathic pain Assessment/Plan: Cont lyrica Code(s): M79.2 - NEURALGIA AND NEURITIS, UNSPECIFIED
[2019-04-23] MEDS ORDERED: PIPERACILLIN/TAZOBACTAM 2.25 GM VIAL IVPB ONE ×3 (00:49→18:26)
[2019-04-23] MEDS ORDERED: DEXTROSE 5%-WATER - 50 ML IVPB ONE ×3 (00:50→18:26)
[2019-04-23] MEDS: PIPERACILLIN/TAZOB 2.25 GM 2.25 GM in DEXTROSE 5%-WATER - 50 ML IVPB SCH ×3 (01:03→19:37)
[2019-04-23] MEDS: glipiZIDE-XL 2.5 MG TAB.ER.24 PO SCH (06:00)
[2019-04-23] MEDS: INSULIN SLIDING SCALE (NOVOLOG) 1 VIAL SQ SCH ×5 (06:00→22:02)
[2019-04-23] MEDS: ASPIRIN 81 MG CHEWABLE TABLETS PO SCH (09:39)
[2019-04-23] MEDS: CARVEDILOL 25 MG TABLET (FP) PO SCH ×2 (09:39→21:58)
[2019-04-23] MEDS: TORSEMIDE 20 MG TABLET (FP) PO SCH (09:39)
[2019-04-23] MEDS: MULTIVITAMINS (DAILY MVI) TABLET (FP) PO SCH (09:39)
[2019-04-23] MEDS: PANTOPRAZOLE 40 MG TABLET (FP) PO SCH (09:39)
[2019-04-23] MEDS: ALLOPURINOL 100 MG TABLET (FP) PO SCH (09:40)
[2019-04-23] MEDS: CALCITRIOL 0.25 MCG CAPSULE (FP) PO SCH (09:40)
[2019-04-23] MEDS: SPIRONOLACTONE 25 MG TABLET (FP) PO SCH (09:40)
[2019-04-23] MEDS: TAMSULOSIN HCL 0.4 MG CAP PO SCH (09:40)
[2019-04-23] MEDS: FERROUS SO4 325 MG TABLET (FP) PO SCH (09:41)
[2019-04-23] MEDS: ACETAMINOPHEN 500 MG TABLET (FP) PO PRN ×2 (09:45→21:58)
--- NOTE | 2019-04-23 09:48 | PN ---
Progress Note, Physician History of Present Illness: stable no new issues - Current Medication List Current Medications: Active Medications Acetaminophen (Tylenol -) 500 mg PO Q6H PRN PRN Reason: PAIN Last Admin: 04/23/19 09:45 Dose: 500 mg Allopurinol (Zyloprim -) 100 mg PO DAILY [facility] Last Admin: 04/23/19 09:40 Dose: 100 mg Aspirin (Asa -) 81 mg PO DAILY [facility] Last Admin: 04/23/19 09:39 Dose: 81 mg Atorvastatin Calcium (Lipitor -) 40 mg PO HS [facility] Last Admin: 04/22/19 21:32 Dose: 40 mg Calcitriol (Rocaltrol -) 0.25 mcg PO DAILY [facility] Last Admin: 04/23/19 09:40 Dose: 0.25 mcg Carvedilol (Coreg -) 25 mg PO BID [facility] Last Admin: 04/23/19 09:39 Dose: 25 mg Collagenase (Santyl -) 1 applic TP DAILY [facility]; Protocol Last Admin: 04/22/19 09:23 Dose: 1 applic Ferrous Sulfate (Feosol -) 325 mg PO Q2D [facility] Last Admin: 04/23/19 09:41 Dose: 325 mg Glipizide (Glucotrol Xl -) 2.5 mg PO ACBK [facility] Last Admin: 04/23/19 06:00 Dose: 2.5 mg Piperacillin Sod/Tazobactam (Sod 2.25 gm/ Dextrose) 50 mls @ 100 mls/hr IVPB Q8H-IV [facility]; Protocol Last Admin: 04/23/19 09:40 Dose: 100 mls/hr Insulin Aspart (Novolog Vial Sliding Scale -) 1 vial SQ ACHS [facility]; Protocol Last Admin: 04/23/19 06:00 Dose: Not Given Multivitamins/Minerals/Vitamin C (Tab-A-Vit -) 1 tab PO DAILY [facility] Last Admin: 04/23/19 09:39 Dose: 1 tab Pantoprazole Sodium (Protonix -) 40 mg PO DAILY [facility] Last Admin: 04/23/19 09:39 Dose: 40 mg Rivaroxaban (Xarelto) 15 mg PO DAILY@1800 [facility] Last Admin: 04/22/19 17:50 Dose: 15 mg Spironolactone (Aldactone -) 25 mg PO DAILY [facility] Last Admin: 04/23/19 09:40 Dose: 25 mg Tamsulosin HCl (Flomax -) 0.4 mg PO DAILY@0830 [facility] Last Admin: 04/23/19 09:40 Dose: 0.4 mg Torsemide (Demadex -) 40 mg PO DAILY [facility] Last Admin: 04/23/19 09:39 Dose: 40 mg - Objective Vital Signs: Vital Signs Temperature 97.8 F 04/23/19 09:36 Pulse Rate 72 04/23/19 09:36 Respiratory Rate 20 04/23/19 09:36 Blood Pressure 124/78 04/23/19 09:36 O2 Sat by Pulse Oximetry (%) 98 04/21/19 21:00 Constitutional: Yes: No Distress, Calm Cardiovascular: Yes: S1, S2 Respiratory: Yes: Regular, CTA Bilaterally Gastrointestinal: Yes: Normal Bowel Sounds, Soft Musculoskeletal: Yes: WNL Extremities: Yes: Other Wound/Incision: Yes: Dressing Dry and Intact Neurological: Yes: Alert, Oriented Psychiatric: Yes: Alert, Oriented Labs: CBC, BMP 04/12/19 06:40 04/22/19 07:10 INR, PTT INR 1.65 (0.83-1.09) H 04/10/19 15:45 Assessment/Plan Problem List - Problems (1) Diabetic foot ulcer Code(s): E11.621 - TYPE 2 DIABETES MELLITUS WITH FOOT ULCER; L97.509 - NON- PRESSURE CHRONIC ULCER OTH PRT UNSP FOOT W UNSP SEVERITY (2) BPH (benign prostatic hyperplasia) Code(s): N40.0 - BENIGN PROSTATIC HYPERPLASIA WITHOUT LOWER URINRY TRACT SYMP (3) CKD (chronic kidney disease) Code(s): N18.9 - CHRONIC KIDNEY DISEASE, UNSPECIFIED (4) Cellulitis of right foot Code(s): L03.115 - CELLULITIS OF RIGHT LOWER LIMB (5) HLD (hyperlipidemia) Code(s): E78.5 - HYPERLIPIDEMIA, UNSPECIFIED (6) HTN (hypertension) Code(s): I10 - ESSENTIAL (PRIMARY) HYPERTENSION (7) Type 2 diabetes mellitus Code(s): E11.9 - TYPE 2 DIABETES MELLITUS WITHOUT COMPLICATIONS Qualifiers: Diabetes mellitus complication detail: with autonomic neuropathy Assessment/Plan Rt foot wound infection/cellulitis ? OM s/p RT TMA Lt 5th toe laceration VICTOR M on ?CKD continue abx will switch to oral after tomorrows dose
--- NOTE | 2019-04-23 11:25 | PN ---
Progress Note (short form) - Note Progress Note: FUV right foot and left foot. Pt in house to get his antibiotics TID. right foot granulating well on both wound areas, -drainage on lateral side of foot resolved maceration, +improved erythema, left foot sub digit 5 granulating laceration site OM right granulating wounds improving cellulitis laceration 5th toe left granulating Dressing hange done b/l. DO NOT REMOVE LEFT FOOT DRESSING. Santyl to right foot wounds. Abx as per ID. If DC tomorrow should present to wound care for follow up.
--- NOTE | 2019-04-23 12:47 | PN ---
Progress Note, Physician History of Present Illness: Pt seen and examined at bedside. He is awake and alert. He denies shortness of breath. - Current Medication List Current Medications: Active Medications Acetaminophen (Tylenol -) 500 mg PO Q6H PRN PRN Reason: PAIN Last Admin: 04/23/19 09:45 Dose: 500 mg Allopurinol (Zyloprim -) 100 mg PO DAILY [facility] Last Admin: 04/23/19 09:40 Dose: 100 mg Aspirin (Asa -) 81 mg PO DAILY [facility] Last Admin: 04/23/19 09:39 Dose: 81 mg Atorvastatin Calcium (Lipitor -) 40 mg PO HS [facility] Last Admin: 04/22/19 21:32 Dose: 40 mg Calcitriol (Rocaltrol -) 0.25 mcg PO DAILY [facility] Last Admin: 04/23/19 09:40 Dose: 0.25 mcg Carvedilol (Coreg -) 25 mg PO BID [facility] Last Admin: 04/23/19 09:39 Dose: 25 mg Collagenase (Santyl -) 1 applic TP DAILY [facility]; Protocol Last Admin: 04/22/19 09:23 Dose: 1 applic Ferrous Sulfate (Feosol -) 325 mg PO Q2D [facility] Last Admin: 04/23/19 09:41 Dose: 325 mg Glipizide (Glucotrol Xl -) 2.5 mg PO ACBK [facility] Last Admin: 04/23/19 06:00 Dose: 2.5 mg Piperacillin Sod/Tazobactam (Sod 2.25 gm/ Dextrose) 50 mls @ 100 mls/hr IVPB Q8H-IV [facility]; Protocol Last Admin: 04/23/19 09:40 Dose: 100 mls/hr Insulin Aspart (Novolog Vial Sliding Scale -) 1 vial SQ ACHS [facility]; Protocol Last Admin: 04/23/19 06:00 Dose: Not Given Multivitamins/Minerals/Vitamin C (Tab-A-Vit -) 1 tab PO DAILY [facility] Last Admin: 04/23/19 09:39 Dose: 1 tab Pantoprazole Sodium (Protonix -) 40 mg PO DAILY [facility] Last Admin: 04/23/19 09:39 Dose: 40 mg Rivaroxaban (Xarelto) 15 mg PO DAILY@1800 [facility] Last Admin: 04/22/19 17:50 Dose: 15 mg Spironolactone (Aldactone -) 25 mg PO DAILY [facility] Last Admin: 04/23/19 09:40 Dose: 25 mg Tamsulosin HCl (Flomax -) 0.4 mg PO DAILY@0830 [facility] Last Admin: 04/23/19 09:40 Dose: 0.4 mg Torsemide (Demadex -) 40 mg PO DAILY [facility] Last Admin: 04/23/19 09:39 Dose: 40 mg - Objective Vital Signs: Vital Signs Temperature 97.8 F 04/23/19 09:36 Pulse Rate 72 04/23/19 09:36 Respiratory Rate 20 04/23/19 09:36 Blood Pressure 124/78 04/23/19 09:36 O2 Sat by Pulse Oximetry (%) 98 04/21/19 21:00 Constitutional: Yes: Calm Eyes: Yes: Conjunctiva Clear HENT: Yes: Atraumatic Cardiovascular: Yes: S1, S2 Respiratory: Yes: CTA Bilaterally Gastrointestinal: Yes: Normal Bowel Sounds, Soft Genitourinary: Yes: WNL Musculoskeletal: Yes: WNL Extremities: Yes: WNL Edema: No Wound/Incision: Yes: Dressing Dry and Intact Neurological: Yes: Oriented Psychiatric: Yes: Oriented Labs: CBC, BMP 04/12/19 06:40 04/22/19 07:10 INR, PTT INR 1.65 (0.83-1.09) H 04/10/19 15:45 Problem List - Problems (1) Diabetic foot ulcer Code(s): E11.621 - TYPE 2 DIABETES MELLITUS WITH FOOT ULCER; L97.509 - NON- PRESSURE CHRONIC ULCER OTH PRT UNSP FOOT W UNSP SEVERITY (2) BPH (benign prostatic hyperplasia) Code(s): N40.0 - BENIGN PROSTATIC HYPERPLASIA WITHOUT LOWER URINRY TRACT SYMP (3) CKD (chronic kidney disease) Code(s): N18.9 - CHRONIC KIDNEY DISEASE, UNSPECIFIED Assessment/Plan Current Medications Generic Name Dose Route Start Last Admin Trade Name Freq PRN Reason Stop Dose Admin Acetaminophen 500 mg 04/11/19 00:29 04/23/19 09:45 Tylenol - PO 500 mg Q6H PRN Administration PAIN Allopurinol 100 mg 04/11/19 10:00 04/23/19 09:40 Zyloprim - PO 100 mg DAILY [facility] Administration Aspirin 81 mg 04/16/19 10:00 04/23/19 09:39 Asa - PO 81 mg DAILY [facility] Administration Atorvastatin Calcium 40 mg 04/14/19 22:00 04/22/19 21:32 Lipitor - PO 40 mg HS [facility] Administration Calcitriol 0.25 mcg 04/11/19 10:00 04/23/19 09:40 Rocaltrol - PO 0.25 mcg DAILY [facility] Administration Carvedilol 25 mg 04/11/19 01:00 04/23/19 09:39 Coreg - PO 25 mg BID [facility] Administration Collagenase 1 applic 04/11/19 12:00 04/22/19 09:23 Santyl - TP 1 applic DAILY [facility] Administration Protocol Ferrous Sulfate 325 mg 04/11/19 10:00 04/23/19 09:41 Feosol - PO 325 mg Q2D [facility] Administration Glipizide 2.5 mg 04/11/19 07:00 04/23/19 06:00 Glucotrol Xl - PO 2.5 mg ACBK [facility] Administration Piperacillin Sod/Tazobactam 50 mls @ 100 mls/hr 04/13/19 18:00 04/23/19 09:40 Sod 2.25 gm/ Dextrose IVPB 100 mls/hr Q8H-IV [facility] Administration Protocol Insulin Aspart 1 vial 04/11/19 07:00 04/23/19 06:00 Novolog Vial Sliding Scale - SQ Not Given ACHS [facility] Protocol Multivitamins/Minerals/Vitamin C 1 tab 04/11/19 10:00 04/23/19 09:39 Tab-A-Vit - PO 1 tab DAILY [facility] Administration Pantoprazole Sodium 40 mg 04/16/19 10:00 04/23/19 09:39 Protonix - PO 40 mg DAILY [facility] Administration Rivaroxaban 15 mg 04/16/19 18:00 04/22/19 17:50 Xarelto PO 15 mg DAILY@1800 [facility] Administration Spironolactone 25 mg 04/11/19 10:00 04/23/19 09:40 Aldactone - PO 25 mg DAILY [facility] Administration Tamsulosin HCl 0.4 mg 04/11/19 08:30 04/23/19 09:40 Flomax - PO 0.4 mg DAILY@0830 [facility] Administration Torsemide 40 mg 04/14/19 10:00 04/23/19 09:39 Demadex - PO 40 mg DAILY [facility] Administration Laboratory Tests 04/10/19 04/12/19 14:21 20:10 Urine Protein Negative Negative Urine Blood Negative Negative Impression 1. CKD 2. CHF ef 30 to 35 3. non healing wound 4. dvt 5. htn 6. hld 7. DM Plan - likely ckd in part from heart failure - avoid nsaids - avoid nephrotoxins - ua neg for blod or protein - cont diuretics - cont wound care
[2019-04-23] MEDS: COLLAGENASE CLOSTRIDIUM HIST. 30 GRAMS TUBE TP SCH (14:49)
[2019-04-23] MEDS: RIVAROXABAN 15 MG TABLET PO SCH (18:12)
[2019-04-23] MEDS: ATORVASTATIN CA 40 MG TABLET (FP) PO SCH (21:58)
--- NOTE | 2019-04-23 22:30 | PN ---
Progress Note, Physician - Current Medication List Current Medications: Active Medications Acetaminophen (Tylenol -) 500 mg PO Q6H PRN PRN Reason: PAIN Last Admin: 04/23/19 21:58 Dose: 500 mg Allopurinol (Zyloprim -) 100 mg PO DAILY [facility] Last Admin: 04/23/19 09:40 Dose: 100 mg Aspirin (Asa -) 81 mg PO DAILY [facility] Last Admin: 04/23/19 09:39 Dose: 81 mg Atorvastatin Calcium (Lipitor -) 40 mg PO HS [facility] Last Admin: 04/23/19 21:58 Dose: 40 mg Calcitriol (Rocaltrol -) 0.25 mcg PO DAILY [facility] Last Admin: 04/23/19 09:40 Dose: 0.25 mcg Carvedilol (Coreg -) 25 mg PO BID [facility] Last Admin: 04/23/19 21:58 Dose: 25 mg Collagenase (Santyl -) 1 applic TP DAILY [facility]; Protocol Last Admin: 04/23/19 14:49 Dose: 1 applic Ferrous Sulfate (Feosol -) 325 mg PO Q2D [facility] Last Admin: 04/23/19 09:41 Dose: 325 mg Glipizide (Glucotrol Xl -) 2.5 mg PO ACBK [facility] Last Admin: 04/23/19 06:00 Dose: 2.5 mg Piperacillin Sod/Tazobactam (Sod 2.25 gm/ Dextrose) 50 mls @ 100 mls/hr IVPB Q8H-IV [facility]; Protocol Last Admin: 04/23/19 19:37 Dose: 100 mls/hr Insulin Aspart (Novolog Vial Sliding Scale -) 1 vial SQ ACHS [facility]; Protocol Last Admin: 04/23/19 22:02 Dose: Not Given Multivitamins/Minerals/Vitamin C (Tab-A-Vit -) 1 tab PO DAILY [facility] Last Admin: 04/23/19 09:39 Dose: 1 tab Pantoprazole Sodium (Protonix -) 40 mg PO DAILY [facility] Last Admin: 04/23/19 09:39 Dose: 40 mg Rivaroxaban (Xarelto) 15 mg PO DAILY@1800 [facility] Last Admin: 04/23/19 18:12 Dose: 15 mg Spironolactone (Aldactone -) 25 mg PO DAILY [facility] Last Admin: 04/23/19 09:40 Dose: 25 mg Tamsulosin HCl (Flomax -) 0.4 mg PO DAILY@0830 [facility] Last Admin: 04/23/19 09:40 Dose: 0.4 mg Torsemide (Demadex -) 40 mg PO DAILY [facility] Last Admin: 04/23/19 09:39 Dose: 40 mg - Objective Vital Signs: Vital Signs Temperature 98.1 F 04/23/19 19:00 Pulse Rate 65 04/23/19 19:00 Respiratory Rate 18 04/23/19 19:00 Blood Pressure 118/78 04/23/19 19:00 O2 Sat by Pulse Oximetry (%) 98 04/23/19 09:00 Labs: CBC, BMP 04/12/19 06:40 04/22/19 07:10 INR, PTT INR 1.65 (0.83-1.09) H 04/10/19 15:45 Problem List - Problems (1) Diabetic foot ulcer Code(s): E11.621 - TYPE 2 DIABETES MELLITUS WITH FOOT ULCER; L97.509 - NON- PRESSURE CHRONIC ULCER OTH PRT UNSP FOOT W UNSP SEVERITY (2) Type 2 diabetes mellitus Code(s): E11.9 - TYPE 2 DIABETES MELLITUS WITHOUT COMPLICATIONS Qualifiers: Diabetes mellitus complication detail: with autonomic neuropathy (3) CKD (chronic kidney disease) Code(s): N18.9 - CHRONIC KIDNEY DISEASE, UNSPECIFIED (4) GERD (gastroesophageal reflux disease) Code(s): K21.9 - GASTRO-ESOPHAGEAL REFLUX DISEASE WITHOUT ESOPHAGITIS (5) HLD (hyperlipidemia) Code(s): E78.5 - HYPERLIPIDEMIA, UNSPECIFIED (6) HTN (hypertension) Code(s): I10 - ESSENTIAL (PRIMARY) HYPERTENSION (7) BPH (benign prostatic hyperplasia) Code(s): N40.0 - BENIGN PROSTATIC HYPERPLASIA WITHOUT LOWER URINRY TRACT SYMP (8) Peripheral neuropathic pain Code(s): M79.2 - NEURALGIA AND NEURITIS, UNSPECIFIED
[2019-04-24] MEDS ORDERED: PIPERACILLIN/TAZOBACTAM 2.25 GM VIAL IVPB ONE ×2 (01:13→10:03)
[2019-04-24] MEDS ORDERED: DEXTROSE 5%-WATER - 50 ML IVPB ONE ×2 (01:13→10:03)
[2019-04-24] MEDS: PIPERACILLIN/TAZOB 2.25 GM 2.25 GM in DEXTROSE 5%-WATER - 50 ML IVPB SCH ×2 (01:23→10:08)
[2019-04-24] MEDS ORDERED: PT OWN MED DRAWER 7, Y5N ONE ×2 (06:20→10:03)
[2019-04-24] MEDS: glipiZIDE-XL 2.5 MG TAB.ER.24 PO SCH (06:29)
[2019-04-24] MEDS: INSULIN SLIDING SCALE (NOVOLOG) 1 VIAL SQ SCH ×2 (06:30→11:16)
[2019-04-24] MEDS ORDERED: INSULIN (NOVOLOG) ASPART 100 UNITS/ML 10ML VIAL ONE (07:13)
[2019-04-24] MEDS: TAMSULOSIN HCL 0.4 MG CAP PO SCH (10:06)
[2019-04-24] MEDS: ASPIRIN 81 MG CHEWABLE TABLETS PO SCH (10:06)
[2019-04-24] MEDS: CARVEDILOL 25 MG TABLET (FP) PO SCH (10:06)
[2019-04-24] MEDS: SPIRONOLACTONE 25 MG TABLET (FP) PO SCH (10:06)
[2019-04-24] MEDS: TORSEMIDE 20 MG TABLET (FP) PO SCH (10:07)
[2019-04-24] MEDS: PANTOPRAZOLE 40 MG TABLET (FP) PO SCH (10:07)
[2019-04-24] MEDS: CALCITRIOL 0.25 MCG CAPSULE (FP) PO SCH (10:07)
[2019-04-24] MEDS: MULTIVITAMINS (DAILY MVI) TABLET (FP) PO SCH (10:07)
[2019-04-24] MEDS: ALLOPURINOL 100 MG TABLET (FP) PO SCH (10:08)
[2019-04-24] MEDS: ACETAMINOPHEN 500 MG TABLET (FP) PO PRN (10:16)
--- NOTE | 2019-04-24 11:42 | PN ---
Progress Note, Physician History of Present Illness: stable no new issues - Current Medication List Current Medications: Active Medications Acetaminophen (Tylenol -) 500 mg PO Q6H PRN PRN Reason: PAIN Last Admin: 04/24/19 10:16 Dose: 500 mg Allopurinol (Zyloprim -) 100 mg PO DAILY [facility] Last Admin: 04/24/19 10:08 Dose: 100 mg Aspirin (Asa -) 81 mg PO DAILY [facility] Last Admin: 04/24/19 10:06 Dose: 81 mg Atorvastatin Calcium (Lipitor -) 40 mg PO HS [facility] Last Admin: 04/23/19 21:58 Dose: 40 mg Calcitriol (Rocaltrol -) 0.25 mcg PO DAILY [facility] Last Admin: 04/24/19 10:07 Dose: 0.25 mcg Carvedilol (Coreg -) 25 mg PO BID [facility] Last Admin: 04/24/19 10:06 Dose: 25 mg Collagenase (Santyl -) 1 applic TP DAILY [facility]; Protocol Last Admin: 04/23/19 14:49 Dose: 1 applic Ferrous Sulfate (Feosol -) 325 mg PO Q2D [facility] Last Admin: 04/23/19 09:41 Dose: 325 mg Glipizide (Glucotrol Xl -) 2.5 mg PO ACBK [facility] Last Admin: 04/24/19 06:29 Dose: 2.5 mg Piperacillin Sod/Tazobactam (Sod 2.25 gm/ Dextrose) 50 mls @ 100 mls/hr IVPB Q8H-IV [facility]; Protocol Last Admin: 04/24/19 10:08 Dose: 100 mls/hr Insulin Aspart (Novolog Vial Sliding Scale -) 1 vial SQ ACHS [facility]; Protocol Last Admin: 04/24/19 11:16 Dose: Not Given Multivitamins/Minerals/Vitamin C (Tab-A-Vit -) 1 tab PO DAILY [facility] Last Admin: 04/24/19 10:07 Dose: 1 tab Pantoprazole Sodium (Protonix -) 40 mg PO DAILY [facility] Last Admin: 04/24/19 10:07 Dose: 40 mg Rivaroxaban (Xarelto) 15 mg PO DAILY@1800 [facility] Last Admin: 04/23/19 18:12 Dose: 15 mg Spironolactone (Aldactone -) 25 mg PO DAILY [facility] Last Admin: 04/24/19 10:06 Dose: 25 mg Tamsulosin HCl (Flomax -) 0.4 mg PO DAILY@0830 [facility] Last Admin: 04/24/19 10:06 Dose: 0.4 mg Torsemide (Demadex -) 40 mg PO DAILY [facility] Last Admin: 04/24/19 10:07 Dose: 40 mg - Objective Vital Signs: Vital Signs Temperature 97.3 F L 04/24/19 08:05 Pulse Rate 65 04/24/19 08:05 Respiratory Rate 18 04/24/19 08:05 Blood Pressure 139/85 04/24/19 08:05 O2 Sat by Pulse Oximetry (%) 97 04/23/19 21:00 Constitutional: Yes: No Distress, Calm Cardiovascular: Yes: S1, S2 Respiratory: Yes: Regular, CTA Bilaterally Gastrointestinal: Yes: Normal Bowel Sounds, Soft Musculoskeletal: Yes: WNL Extremities: Yes: Other Wound/Incision: Yes: Dressing Dry and Intact Neurological: Yes: Alert, Oriented Labs: CBC, BMP 04/12/19 06:40 04/22/19 07:10 INR, PTT INR 1.65 (0.83-1.09) H 04/10/19 15:45 Assessment/Plan Problem List - Problems (1) Diabetic foot ulcer Code(s): E11.621 - TYPE 2 DIABETES MELLITUS WITH FOOT ULCER; L97.509 - NON- PRESSURE CHRONIC ULCER OTH PRT UNSP FOOT W UNSP SEVERITY (2) BPH (benign prostatic hyperplasia) Code(s): N40.0 - BENIGN PROSTATIC HYPERPLASIA WITHOUT LOWER URINRY TRACT SYMP (3) CKD (chronic kidney disease) Code(s): N18.9 - CHRONIC KIDNEY DISEASE, UNSPECIFIED (4) Cellulitis of right foot Code(s): L03.115 - CELLULITIS OF RIGHT LOWER LIMB (5) HLD (hyperlipidemia) Code(s): E78.5 - HYPERLIPIDEMIA, UNSPECIFIED (6) HTN (hypertension) Code(s): I10 - ESSENTIAL (PRIMARY) HYPERTENSION (7) Type 2 diabetes mellitus Code(s): E11.9 - TYPE 2 DIABETES MELLITUS WITHOUT COMPLICATIONS Qualifiers: Diabetes mellitus complication detail: with autonomic neuropathy Assessment/Plan Rt foot wound infection/cellulitis ? OM s/p RT TMA Lt 5th toe laceration VICTOR M on ?CKD continue abx can switch to oral augmentin 500 mg po bid levaquin 500 mg daily i would give both abx for at [facility] 3 weeks more also follow the labs and creatinine
[2019-04-24 15:29] VITALS: BP 135/83; PULSE 67; TEMP 97.4
--- NOTE | 2019-04-24 15:41 | PN ---
Progress Note, Physician History of Present Illness: Pt seen and examined at bedside. He is awake and agitated. He is asking to go home. - Current Medication List Current Medications: Active Medications Acetaminophen (Tylenol -) 500 mg PO Q6H PRN PRN Reason: PAIN Last Admin: 04/24/19 10:16 Dose: 500 mg Allopurinol (Zyloprim -) 100 mg PO DAILY [facility] Last Admin: 04/24/19 10:08 Dose: 100 mg Aspirin (Asa -) 81 mg PO DAILY [facility] Last Admin: 04/24/19 10:06 Dose: 81 mg Atorvastatin Calcium (Lipitor -) 40 mg PO HS [facility] Last Admin: 04/23/19 21:58 Dose: 40 mg Calcitriol (Rocaltrol -) 0.25 mcg PO DAILY [facility] Last Admin: 04/24/19 10:07 Dose: 0.25 mcg Carvedilol (Coreg -) 25 mg PO BID [facility] Last Admin: 04/24/19 10:06 Dose: 25 mg Collagenase (Santyl -) 1 applic TP DAILY [facility]; Protocol Last Admin: 04/23/19 14:49 Dose: 1 applic Ferrous Sulfate (Feosol -) 325 mg PO Q2D [facility] Last Admin: 04/23/19 09:41 Dose: 325 mg Glipizide (Glucotrol Xl -) 2.5 mg PO ACBK [facility] Last Admin: 04/24/19 06:29 Dose: 2.5 mg Piperacillin Sod/Tazobactam (Sod 2.25 gm/ Dextrose) 50 mls @ 100 mls/hr IVPB Q8H-IV [facility]; Protocol Last Admin: 04/24/19 10:08 Dose: 100 mls/hr Insulin Aspart (Novolog Vial Sliding Scale -) 1 vial SQ ACHS [facility]; Protocol Last Admin: 04/24/19 11:16 Dose: Not Given Multivitamins/Minerals/Vitamin C (Tab-A-Vit -) 1 tab PO DAILY [facility] Last Admin: 04/24/19 10:07 Dose: 1 tab Pantoprazole Sodium (Protonix -) 40 mg PO DAILY [facility] Last Admin: 04/24/19 10:07 Dose: 40 mg Rivaroxaban (Xarelto) 15 mg PO DAILY@1800 [facility] Last Admin: 04/23/19 18:12 Dose: 15 mg Spironolactone (Aldactone -) 25 mg PO DAILY [facility] Last Admin: 04/24/19 10:06 Dose: 25 mg Tamsulosin HCl (Flomax -) 0.4 mg PO DAILY@0830 [facility] Last Admin: 04/24/19 10:06 Dose: 0.4 mg Torsemide (Demadex -) 40 mg PO DAILY [facility] Last Admin: 04/24/19 10:07 Dose: 40 mg - Objective Vital Signs: Vital Signs Temperature 97.4 F L 04/24/19 14:00 Pulse Rate 67 04/24/19 14:00 Respiratory Rate 20 04/24/19 14:00 Blood Pressure 135/83 04/24/19 14:00 O2 Sat by Pulse Oximetry (%) 97 04/23/19 21:00 Constitutional: Yes: Anxious Eyes: Yes: Conjunctiva Clear Cardiovascular: Yes: S1, S2 Respiratory: Yes: CTA Bilaterally Gastrointestinal: Yes: Soft, Abdomen, Obese Genitourinary: Yes: WNL Musculoskeletal: Yes: WNL Edema: No Wound/Incision: Yes: Dressing Dry and Intact Neurological: Yes: Oriented Psychiatric: Yes: Agitated Labs: CBC, BMP 04/12/19 06:40 04/22/19 07:10 INR, PTT INR 1.65 (0.83-1.09) H 04/10/19 15:45 Problem List - Problems (1) Diabetic foot ulcer Code(s): E11.621 - TYPE 2 DIABETES MELLITUS WITH FOOT ULCER; L97.509 - NON- PRESSURE CHRONIC ULCER OTH PRT UNSP FOOT W UNSP SEVERITY (2) BPH (benign prostatic hyperplasia) Code(s): N40.0 - BENIGN PROSTATIC HYPERPLASIA WITHOUT LOWER URINRY TRACT SYMP (3) CKD (chronic kidney disease) Code(s): N18.9 - CHRONIC KIDNEY DISEASE, UNSPECIFIED Assessment/Plan Current Medications Generic Name Dose Route Start Last Admin Trade Name Freq PRN Reason Stop Dose Admin Acetaminophen 500 mg 04/11/19 00:29 04/24/19 10:16 Tylenol - PO 500 mg Q6H PRN Administration PAIN Allopurinol 100 mg 04/11/19 10:00 04/24/19 10:08 Zyloprim - PO 100 mg DAILY [facility] Administration Aspirin 81 mg 04/16/19 10:00 04/24/19 10:06 Asa - PO 81 mg DAILY [facility] Administration Atorvastatin Calcium 40 mg 04/14/19 22:00 04/23/19 21:58 Lipitor - PO 40 mg HS [facility] Administration Calcitriol 0.25 mcg 04/11/19 10:00 04/24/19 10:07 Rocaltrol - PO 0.25 mcg DAILY [facility] Administration Carvedilol 25 mg 04/11/19 01:00 04/24/19 10:06 Coreg - PO 25 mg BID [facility] Administration Collagenase 1 applic 04/11/19 12:00 04/23/19 14:49 Santyl - TP 1 applic DAILY [facility] Administration Protocol Ferrous Sulfate 325 mg 04/11/19 10:00 04/23/19 09:41 Feosol - PO 325 mg Q2D [facility] Administration Glipizide 2.5 mg 04/11/19 07:00 04/24/19 06:29 Glucotrol Xl - PO 2.5 mg ACBK [facility] Administration Piperacillin Sod/Tazobactam 50 mls @ 100 mls/hr 04/13/19 18:00 04/24/19 10:08 Sod 2.25 gm/ Dextrose IVPB 100 mls/hr Q8H-IV [facility] Administration Protocol Insulin Aspart 1 vial 04/11/19 07:00 04/24/19 11:16 Novolog Vial Sliding Scale - SQ Not Given ACHS [facility] Protocol Multivitamins/Minerals/Vitamin C 1 tab 04/11/19 10:00 04/24/19 10:07 Tab-A-Vit - PO 1 tab DAILY [facility] Administration Pantoprazole Sodium 40 mg 04/16/19 10:00 04/24/19 10:07 Protonix - PO 40 mg DAILY [facility] Administration Rivaroxaban 15 mg 04/16/19 18:00 04/23/19 18:12 Xarelto PO 15 mg DAILY@1800 [facility] Administration Spironolactone 25 mg 04/11/19 10:00 04/24/19 10:06 Aldactone - PO 25 mg DAILY [facility] Administration Tamsulosin HCl 0.4 mg 04/11/19 08:30 04/24/19 10:06 Flomax - PO 0.4 mg DAILY@0830 [facility] Administration Torsemide 40 mg 04/14/19 10:00 04/24/19 10:07 Demadex - PO 40 mg DAILY [facility] Administration Impression 1. CKD 2. CHF ef 30 to 35 3. non healing wound 4. dvt 5. htn 6. hld 7. DM Plan - check bmp - cont diuretics - abx per primary team - outpt follow up - cont wound care
--- NOTE | 2019-04-24 16:08 | PN ---
Progress Note (short form) - Note Progress Note: FUV right foot and left foot. Pt in house to get his antibiotics TID. right foot granulating well on both wound areas, -drainage on lateral side of foot resolved maceration, +improved erythema, left foot sub digit 5 granulating laceration site OM right granulating wounds improving cellulitis laceration 5th toe left granulating Dressing change done b/l. Follow up in [facility] upon dc.
== END 2019-04-24 16:55 | disposition home or self-care (01) | DRG 638 ==
LOC: JER 13:55 → JERBED 15:44 → J8W 18:18
PROVIDERS: ADMIT Internal Medicine; ATTEND Internal Medicine
DX: E11.69 Type 2 diabetes mellitus with other specified complication (principal); I13.0 Hypertensive heart and chronic kidney disease with heart failure and stage 1 through stage 4 chronic kidney disease, or unspecified chronic kidney disease; L03.115 Cellulitis of right lower limb; I50.22 Chronic systolic (congestive) heart failure; Z68.41 Body mass index [BMI] 40.0-44.9, adult; E11.621 Type 2 diabetes mellitus with foot ulcer; L97.509 Non-pressure chronic ulcer of other part of unspecified foot with unspecified severity; N18.9 Chronic kidney disease, unspecified; E78.5 Hyperlipidemia, unspecified; N40.0 Benign prostatic hyperplasia without lower urinary tract symptoms; S91.312A Laceration without foreign body, left foot, initial encounter; N17.9 Acute kidney failure, unspecified; E66.9 Obesity, unspecified; K21.9 Gastro-esophageal reflux disease without esophagitis; M79.2 Neuralgia and neuritis, unspecified; T14.90XA Injury, unspecified, initial encounter; X58.XXXA Exposure to other specified factors, initial encounter; Y93.9 Activity, unspecified; Y92.89 Other specified places as the place of occurrence of the external cause
CPT/HCPCS: 36415; 73630-TC-RT-FY; 76775-TC; 76882-TC-RT-FY; 80048; 80053; 81003; 82436; 82565; 82962; 83735; 84133; 84300; 84540; 85025; 85610; 85651; 85730; 86140; 87040; 87070; 87077; 87086; 87186; 87205; 90670; 93005; 93010; 96365; 99283-25; G0008; G0009; G0277; G0480; Q2036

== ENCOUNTER → 2019-04-30 | Day surgery (SDC) | payer OTHER | END | disposition home or self-care (01) | LOC: JRADIR 10:10 → JASU-SURG 10:10 → EDSTATUS 11:00 | PROVIDERS: ATTEND Internal Medicine | PROC: 05PYX3Z Removal of Infusion Device from Upper Vein, External Approach (ICD-10-PCS; principal; 2019-04-30) | DX: Z45.2 Encounter for adjustment and management of vascular access device (principal) | CPT/HCPCS: 36589 ==